=== PATIENT | male | born 1955 | race Caucasian/White ===

== ENCOUNTER 2016-11-08 10:44 | Day surgery (SDC) | payer OTHER ==
[2016-11-05 13:01] VITALS: BMI 40.8
[~2016-11-08 10:44] MED LIST: ALBUTEROL NEB (CONC) 2.5 MG/0.5 ML INHALATION ONE; LACTATED RINGERS 1,000 ML IV ONE; LACTATED RINGERS 1,000 ML IV SCH; LIDOCAINE 1% 20 ML VIAL (10MG/ML) FOR IV START INTRADERMA PRN; LIDOCAINE 2% (PF) 20 MG/ML 10ML INHALATION ONE
[2016-11-08] MEDS ORDERED: IV FLUID CONTINUATION 1,000 ML IV ONE (11:50)
[2016-11-08 11:52] VITALS: TEMP 98.6
[2016-11-08] MEDS ORDERED: KETAMINE 10 MG/ML 20 ML VIAL ONE (12:06)
[2016-11-08] MEDS ORDERED: PROPOFOL 10 MG/ML 20 ML VIAL IV ONE (12:06)
[2016-11-08] MEDS ORDERED: LIDOCAINE 1% INJ 10MG/ML (20 ML MDV) ONE (12:06)
[2016-11-08] MEDS ORDERED: LIDOCAINE 2% INJ 20 MG/ML INTRATRACH ONE (12:11)
[2016-11-08] MEDS ORDERED: LACTATED RINGERS 1,000 ML IV ONE (12:22)
--- NOTE | 2016-11-08 12:23 | P.PCN ---
Date of Procedure: 11/08/16 Preoperative Diagnosis: Recurrent COPD exacerbation, indeterminate mass abutting the right mainstem bronchus posteriorly measuring 2.5 cm in size suspicious for a bronchogenic cyst Postoperative Diagnosis: 1 tracheobronchomalacia 2 mass effect with some mild extrinsic compression of the proximal right upper lobe bronchus, posterior wall. The 3 segments of the right upper lobe are quite patent despite this anatomic compression. Procedure(s) Performed: Bronchoscopy with airway inspection and a bronchioloalveolar lavage Anesthesia: MAC Surgeon: Uma Ramsey [employer] Cafeter[employer] Manager #1: Maria Isabel Leach Estimated Blood Loss (ml): 0 Pathology: other Condition: stable Disposition: same day Indications for Procedure: Recurrent COPD exacerbation, abnormal CAT scan of the chest revealing a intermediate mass abutting the right mainstem bronchus posteriorly measuring 2.5 cm in size. Operative Findings: This procedure was done in the bronchoscopy suite. A timeout was obtained and a consent was signed. The patient was premedicated with a combination of Versed , ketamine, Diprivan and anesthetic agents was being given by anesthesia the bedside. After achieving adequate sedation, a flexible bronchoscope was inserted through the right nostril was advanced upper airway. Examination of posterior oropharynx larynx epiglottis and vocal cords was done. There was significant amount of adipose tissue circumferentially around the larynx and is significant anatomic crowding. Epiglottis was identified and was in the midline and following that I was able to visualize the 12th. Records which were symmetrical in the midline with full mobility and function. A total of 2 MO's of 1% lidocaine was applied to the vocal cords and following that the bronchoscope was advanced into the upper trachea. Examination of the tracheal bronchial tree was done. There was moderate degree of tracheal bronchomalacia throughout the patient's airways with some lucidity respiratory secretions scattered throughout the patient's trachea and bilateral mainstem bronchi and various segments of the lower lobe. Therapeutic suctioning was done and the airway inspection was completed. The visualized airways included the trachea, bilateral mainstem bronchi, right upper lobe bronchus, right middle lobe bronchus, right lower lobe bronchus, left upper lobe bronchus, left lower lobe bronchus lungs various segments and subsegments. At the level of the right upper lobe bronchus, there was some mild degree of anatomic compression which was an extensive compression affecting the posterior wall of the right upper lobe bronchus causing some narrowing of the posterior segment of the right upper lobe. Nevertheless, the orifice was open and a airway was patent. I was able to visualize the 3 segments of the right upper lobe without any major difficulties. The surface of the extrinsic compressed site was clean and there was no endobronchial irregularities or lesions identified. The rest of the airways were essentially within normal limits other than some moderate degree of tracheal bronchomalacia. The bronchoscope was then moved to the right middle lobe and the bronchioloalveolar lavage was done. A total of 100 mL of fluid was infused and 25 mL of bloody respiratory secretions was aspirated without any major difficulties. Bronchus cut was removed and the patient was transferred recovery in stable condition. Impression: likely a bronchogenic cysts causing some mild anatomic extrinsic compression of the posterior wall of the right upper lobe bronchus. There is no airway collapse or compromise at this point. Follow-up CAT scan will be needed in 4 months time in regards to this lesion.
[2016-11-08 13:51] VITALS: BP 160/86; PULSE 81; RESP 16
== END 2016-11-08 14:11 | disposition home or self-care (01) ==
LOC: ORWHC2ENDO 10:44
PROVIDERS: ATTEND Internal Medicine Critical Care Medicine
DX: R91.8 Other nonspecific abnormal finding of lung field (principal); J98.09 Other diseases of bronchus, not elsewhere classified; J44.9 Chronic obstructive pulmonary disease, unspecified; J39.8 Other specified diseases of upper respiratory tract; E66.9 Obesity, unspecified; Z68.41 Body mass index [BMI] 40.0-44.9, adult; I10 Essential (primary) hypertension; Z79.899 Other long term (current) drug therapy; Z79.51 Long term (current) use of inhaled steroids
CPT/HCPCS: 94640; 88108; 88305; 87070; 87205; 31624; J2001 ×3; J2704

== ENCOUNTER → 2018-01-06 | Outpatient (CLI) | payer MEDICAID ==
[2018-01-06 10:28] LABS: HCT 45.1 % (39.0-53.0); HGB 14.7 gm/dL (13.0-17.5); MCHC 32.6 g/dL (31.0-37.0); Mean Platelet Volume 6.6; Platelet Count 310 k/uL (150-450); RDW 13.5 % (11.5-15.5); WBC 8.5 k/uL (3.8-10.6)
[2018-01-06 10:29] LABS: INR 1.2 (<1.2); Prothrombin Time 11.1 sec (9.0-12.0)
[2018-01-06 10:46] LABS: Anion Gap 9 mmol/L; Blood Urea Nitrogen 19 mg/dL (9-20); Calcium 9.5 mg/dL (8.4-10.2); Carbon Dioxide 31 mmol/L (22-30); Chloride 99 mmol/L (98-107); Glucose 100 mg/dL (74-99); Magnesium 2.1 mg/dL (1.6-2.3); Potassium 4.9 mmol/L (3.5-5.1); Sodium 139 mmol/L (137-145)
== END | disposition home or self-care (01) ==
LOC: LABWHC1 09:36
PROVIDERS: ATTEND Internal Medicine Interventional Cardiology
DX: I25.118 Atherosclerotic heart disease of native coronary artery with other forms of angina pectoris (principal)
CPT/HCPCS: 36415; 80048; 83735; 85027; 85610

== ENCOUNTER → 2018-01-08 | Outpatient (CLI) | payer MEDICAID ==
[2018-01-08 10:19] LABS: ALT 36 U/L (21-72); AST 24 U/L (17-59); Cholesterol 163 mg/dL (<200); HDL Cholesterol 58 mg/dL (40-60); LDL Cholesterol,Calculated 81 mg/dL (0-99); Triglycerides 122 mg/dL (<150)
== END | disposition home or self-care (01) ==
LOC: LABWHC1 09:19
PROVIDERS: ATTEND Internal Medicine Interventional Cardiology
DX: E78.2 Mixed hyperlipidemia (principal)
CPT/HCPCS: 36415; 80061; 84450; 84460

== ENCOUNTER → 2018-05-30 | Outpatient (CLI) | payer MEDICAID ==
[2018-05-30 09:18] LABS: ALT 41 U/L (21-72); AST 23 U/L (17-59); Alkaline Phosphatase 73 U/L (38-126); Anion Gap 8 mmol/L; Blood Urea Nitrogen 16 mg/dL (9-20); Calcium 9.1 mg/dL (8.4-10.2); Carbon Dioxide 32 mmol/L (22-30); Chloride 104 mmol/L (98-107); Cholesterol 148 mg/dL (<200); Glucose 99 mg/dL (74-99); HDL Cholesterol 48 mg/dL (40-60); LDL Cholesterol,Calculated 81 mg/dL (0-99); Potassium 5.5 mmol/L (3.5-5.1); Sodium 144 mmol/L (137-145); Total Bilirubin 0.5 mg/dL (0.2-1.3); Total Protein 6.9 g/dL (6.3-8.2); Triglycerides 96 mg/dL (<150)
== END | disposition home or self-care (01) ==
LOC: LABWHC1 08:34
PROVIDERS: ATTEND Internal Medicine Interventional Cardiology
DX: E78.2 Mixed hyperlipidemia (principal)
CPT/HCPCS: 36415; 80053; 80061

== ENCOUNTER → 2018-09-29 | Outpatient (CLI) | payer MEDICARE ==
[2018-09-29 17:35] LABS: Albumin 4.7 g/dL (3.80-4.90); Albumin/Globulin Ratio 2.35 (1.20-2.10); Anion Gap 10.9 mmol/L (4.00-12.00); Calcium 9.3 mg/dL (8.7-10.3); Carbon Dioxide 30.1 mmol/L (21.6-31.8); LDL Cholesterol,Calculated 110.8 mg/dL (0.0-131.0); Potassium 5.2 mmol/L (3.5-5.5); Total Bilirubin 0.4 mg/dL (0.3-1.2); Total Protein 6.7 g/dL (6.2-8.2); VLDL Calculation 24.2 mg/dL (5.00-40.00)
== END ==
LOC: LABWHC1 09:16
PROVIDERS: ATTEND Internal Medicine Interventional Cardiology
DX: E78.2 Mixed hyperlipidemia (principal)
CPT/HCPCS: 36415; 80053; 80061

== ENCOUNTER → 2018-11-04 | Outpatient (CLI) | payer MEDICARE ==
[2018-11-04 17:24] LABS: Albumin 4.2 g/dL (3.80-4.90); Albumin/Globulin Ratio 2.1 (1.60-3.17); Anion Gap 7.9 mmol/L (4.00-12.00); Calcium 9.2 mg/dL (8.7-10.3); Carbon Dioxide 30.1 mmol/L (21.6-31.8); LDL Cholesterol,Calculated 80.2 mg/dL (0.0-131.0); Potassium 4.8 mmol/L (3.5-5.5); Total Bilirubin 0.4 mg/dL (0.2-1.2); Total Protein 6.2 g/dL (6.2-8.2); VLDL Calculation 30.8 mg/dL (5.00-40.00)
== END | disposition home or self-care (01) ==
LOC: LABWHC1 08:05
PROVIDERS: ATTEND Internal Medicine Interventional Cardiology
DX: E78.2 Mixed hyperlipidemia (principal)
CPT/HCPCS: 36415; 80053; 80061

== ENCOUNTER → 2018-11-19 | Outpatient (CLI) | payer MEDICARE ==
[2018-11-19 08:37] LABS: HCT 42.8 % (39.0-53.0); HGB 14.2 gm/dL (13.0-17.5); MCH 33.2 pg (25.0-35.0); MCHC 33.3 g/dL (31.0-37.0); MCV 99.9 fL (80.0-100.0); Mean Platelet Volume 6.5; Platelet Count 311 k/uL (150-450); RBC 4.29 m/uL (4.30-5.90); RDW 13.2 % (11.5-15.5); WBC 6.9 k/uL (3.8-10.6)
== END ==
LOC: LABWHC1 08:10
PROVIDERS: ATTEND Internal Medicine Interventional Cardiology
DX: Z01.812 Encounter for preprocedural laboratory examination (principal); I10 Essential (primary) hypertension; I25.5 Ischemic cardiomyopathy
CPT/HCPCS: 36415; 85027

== ENCOUNTER 2018-11-26 08:56 | Day surgery (SDC) | payer MEDICARE ==
[~2018-11-26 08:56] MED LIST changes: -ALBUTEROL NEB (CONC) 2.5 MG/0.5 ML INHALATION ONE; +ALPRAZolam 0.25 MG TAB PO PRN; +ALPRAZolam 0.5 MG TAB PO PRN; +ASPIRIN 325 MG TAB PO STA; +ATORVASTATIN 80 MG TAB PO STA; -LACTATED RINGERS 1,000 ML IV ONE; -LACTATED RINGERS 1,000 ML IV SCH; -LIDOCAINE 1% 20 ML VIAL (10MG/ML) FOR IV START INTRADERMA PRN; -LIDOCAINE 2% (PF) 20 MG/ML 10ML INHALATION ONE; +NITROGLYCERIN SL TABS 0.4 MG TAB SUBLINGUAL PRN; +SODIUM CHLORIDE 0.9% 1,000 ML in EMPTY BAG 1 BAG IV ONE
[2018-11-26] MEDS ORDERED: ASPIRIN 81 MG ONE (09:44)
[2018-11-26] MEDS ORDERED: VERAPAMIL 2.5 MG/ML 2 ML AMP ONE (10:45)
[2018-11-26] MEDS ORDERED: HEPARIN SODIUM 1,000 UN/ML (10ML VL) ONE (10:46)
[2018-11-26] MEDS ORDERED: LIDOCAINE 1% INJ 10MG/ML (20 ML MDV) ONE (10:46)
[2018-11-26] MEDS ORDERED: fentaNYL (PF) 50 MCG/ML 2 ML AMP ONE (10:46)
[2018-11-26] MEDS ORDERED: fentaNYL (PF) 50 MCG/ML 2 ML AMP IV ONE (10:50)
[2018-11-26] MEDS ORDERED: LIDOCAINE 1% INJ 10MG/ML (20 ML MDV) SQ ONE (10:53)
[2018-11-26] MEDS ORDERED: VERAPAMIL SYRINGE (5 MG/10 ML) INTRAARTER ONE (10:56)
[2018-11-26] MEDS ORDERED: BIVALIRUDIN BOLUS 250 MG/50 ML IV ONE (11:08)
[2018-11-26] MEDS ORDERED: BIVALIRUDIN 250 MG in SODIUM CHLORIDE 0.9% 50 ML IV ONE (11:12)
[2018-11-26] MEDS ORDERED: IOPAMIDOL-370 125ML BTL INJ ONE (11:27)
[2018-11-26] MEDS ORDERED: IOPAMIDOL-370 100ML BTL INJ ONE (11:32)
[2018-11-26] MEDS ORDERED: MAG HYDROX/AL HYDROX/SIMETH 30 ML CUP PO PRN (11:51)
[2018-11-26] MEDS ORDERED: ATROPINE SULFATE 0.1 MG/ML 10ML SYRINGE IV PRN (11:51)
[2018-11-26] MEDS ORDERED: ZOLPIDEM 5 MG TAB PO PRN (11:51)
[2018-11-26] MEDS ORDERED: NITROGLYCERIN SL TABS 0.4 MG TAB SUBLINGUAL PRN (11:51)
[2018-11-26] MEDS ORDERED: RX INFO: IV CONTRAST WAS GIVEN 1 EACH MISC MISCELLANE PRN (11:51)
[2018-11-26] MEDS ORDERED: IPRATROPIUM-ALBUTEROL 3 ML NEB INHALATION PRN (11:53)
[2018-11-26] MEDS ORDERED: ALBUTEROL INHALER 60 PUFF/8 GM INHALER INHALATION PRN (11:53)
[2018-11-26] MEDS ORDERED: SODIUM CHLORIDE 0.9% 1,000 ML IV SCH (12:00)
--- NOTE | 2018-11-26 12:02 | CC ---
CARDIAC CATHETERIZATION REPORT Mr. Moreira is a 63-year-old male with a known history of coronary artery disease, status post stenting of the LAD and left circumflex done in September and January of 2018 at [facility], who recently has been complaining of dyspnea and had an abnormal myocardial perfusion imaging with evidence of cardiomyopathy with worsening left ventricular systolic function as well as evidence of inducible ischemia as well as a defect involving the inferoapical lateral wall. In view of that, recommendation made regarding cardiac catheterization. The procedures, risks and complication were discussed with the patient who is in full understanding and agreement. PROCEDURE: Patient was brought to the dentures lab technician in a fasting semi-sedated state after receiving fentanyl and Benadryl. He was draped and prepped in conventional fashion using Xylocaine anesthesia, a 6-Macedonian sheath was introduced in the right radial artery. Selective right and left coronary angiography were performed using 5-Macedonian 3.5 bend right and left Estefania catheter and multiple views of the coronary artery including hemiaxial views were obtained. Following that, angioplasty and stenting was performed following that, a 5-Macedonian tight pigtail catheter was introduced into the left ventricle and a 30 degree ADAMS view of the left ventricle was obtained. Following that, catheter and sheath were removed. Hemostasis was obtained with deployment of a TR band. There was no immediate complication. Patient is returned to his room in stable condition. FINDINGS: LEFT MAIN: This is a large-sized vessel bifurcating into left circumflex, left anterior descending artery. The left main coronary artery has no evidence of high- grade stenosis. LEFT ANTERIOR DESCENDING ARTERY: This is a large-sized vessel, reaching toward the apex with a wraparound apex segment. There is a long stented segment in the proximal mid LAD that is patent. There is mild intimal restenoses of 10% to 20% without any evidence of high-grade stenosis. LEFT CIRCUMFLEX: This is a large nondominant vessel, giving rise to a large obtuse marginal branch. The obtuse marginal branch is stented and prior to the stent there is about a 70% plaque. The rest of the vessel has no high-grade stenosis. RIGHT CORONARY ARTERY: This is a dominant vessel, large in caliber, bifurcating distally into PDA and posterolateral segment and branches. The right coronary artery in the mid segment has mild disease of 30%. The rest of the vessel has no high-grade stenosis. LEFT VENTRICULOGRAM: Left ventriculogram was performed in 30 degree ADAMS view and revealed global hypokinesis, more noted in the inferior wall. The ejection fraction was estimated at 35%-40%. There was arrhythmia induced mitral regurgitation. HEMODYNAMICS: There was no gradient across the aortic valve. The left ventricular end-diastolic pressure was 20 to 24 mmHg. CONCLUSION: 1. Significant stenosis involving the proximal left circumflex, proximal to the stented segment. 2. Mild disease in the LAD and moderate disease in the right coronary artery. 3. Moderate to severely impaired left ventricular systolic function. RECOMMENDATION: In view of finding anatomy, I recommend proceeding with angioplasty and stenting of the left circumflex. The procedures, risks and complication were discussed with the patient who is in full understanding and agreement. MMODL / IJN: [id number] /
--- NOTE | 2018-11-26 12:08 | PTCA ---
PERCUTANEOUSTRANS CORORONARY ANGIOGRAPHY Mr. Moreira is a 63-year-old male with known history of coronary artery disease who had a progressive dyspnea and abnormal myocardial perfusion imaging, underwent cardiac catheterization, was found critical stenosis involving the left circumflex proximal to the prior stented segment. In view of that, recommendation was made regarding angioplasty and stenting. The procedures, risks, and complication were discussed with the patient who is in full understanding and agreement. PROCEDURE: A 6-Lao FL 3.5 guiding catheter was introduced into the system and was unable to cannulate the left main in a good positioning. At that point, the catheter was removed and a 6-Lao EBU 3.75 guiding catheter introduced into the system. After cannulating the left main, a 0.014 balanced medium weight J-wire was advanced across the lesion, positioned distal obtuse marginal branch. Following that, a 3.0 x 12 mm Xience Nicky stent was deployed, post-dilated at 16 atmospheres. Following that, the balloon was removed and a 3.5 x 12 mm NC Trek balloon was advanced and one inflation at 12 atmospheres was done. After the last inflation, after appropriate wait, the balloon and the guidewire wire withdrawn back in the guiding catheter. Images were obtained and repeated. Those images reveal stable successful stenting. At that point, the guiding catheter, the balloon and the guidewire were removed and a left ventriculogram was performed. Following that, the catheter and sheath were removed. Hemostasis was obtained with deployment of a TR band. There was no immediate complication. Patient returned to his room in stable condition. Of note, patient had no significant chest pain or EKG changes with the inflation. He received Angiomax per protocol as well as continued on Brilinta. RESULTS: Successful stenting of the proximal left circumflex with reduction of stenosis from 70% to 0%. RECOMMENDATION: Patient will be continued on aspirin, Brilinta, beta nnamdi, KRISTOPHER inhibitor and statin. The importance of dual antiplatelet treatment were discussed with the patient and his family who are in full understanding and agreement. Duration of the procedure is 47 minutes. MMODL / IJN: [id number] /
--- NOTE | 2018-11-26 12:14 | LTR ---
Date of Service: 11/26/2018 RE: Naveen Moreira Dear Dr. Ramsey; I had the pleasure to perform cardiac catheterization including angioplasty and stenting on Mr. Moreira at [facility] on November 26, 2018 and a full copy of the procedure note will be forwarded to you. In brief, he underwent successful stenting of his proximal left circumflex, proximal to the prior stented segment. I am hopeful that this procedure will stabilize his status and I will keep you updated on his progress and thank you again for allowing me to participate in this patient's care. Please feel free to call for any questions. Sincerely yours, MD ABHILASH PruittL / PIAN: [id number] /
[2018-11-26] MEDS ORDERED: ACETAMINOPHEN TAB 325 MG TAB PO PRN (16:24)
[2018-11-26] MEDS: METOPROLOL TARTRATE 25 MG TAB PO SCH (20:01)
[2018-11-26] MEDS: TICAGRELOR 90 MG TAB PO SCH (20:01)
[2018-11-26] MEDS: SYMBICORT 160-4.5 MCG INHALER INHALATION SCH (20:25)
[2018-11-27 06:42] LABS: Anion Gap 4 mmol/L; Blood Urea Nitrogen 14 mg/dL (9-20); Carbon Dioxide 29 mmol/L (22-30); Chloride 106 mmol/L (98-107); Glucose 95 mg/dL (74-99); Potassium 4.4 mmol/L (3.5-5.1); Sodium 139 mmol/L (137-145)
[2018-11-27] MEDS: SYMBICORT 160-4.5 MCG INHALER INHALATION SCH (07:25)
[2018-11-27] MEDS ORDERED: IPRATROPIUM 0.5 MG/2.5 ML NEBU INHALATION SCH (08:00)
[2018-11-27 08:52] VITALS: BP 124/66; PULSE 86; RESP 16; TEMP 97.7
[2018-11-27] MEDS: TICAGRELOR 90 MG TAB PO SCH (08:56)
[2018-11-27] MEDS: METOPROLOL TARTRATE 25 MG TAB PO SCH (08:56)
[2018-11-27] MEDS ORDERED: ASPIRIN 81 MG PO SCH (09:00)
[2018-11-27] MEDS ORDERED: ATORVASTATIN 80 MG TAB PO SCH (09:00)
[2018-11-27] MEDS ORDERED: ASCORBIC ACID 500 MG TAB PO SCH (09:00)
[2018-11-27] MEDS ORDERED: LISINOPRIL 2.5 MG TAB PO SCH (09:00)
[2018-11-27] MEDS ORDERED: CYANOCOBALAMIN 500 MCG TAB PO SCH (09:00)
--- NOTE | 2018-11-27 11:14 | PN ---
PROGRESS NOTE Mr. Moreira is a 63-year-old male with known history of severe obstructive lung disease, severe cardiomyopathy, history of coronary artery disease, who presented with an abnormal myocardial perfusion imaging, was found to have a significant stenosis in the left circumflex prior to the stented segment. He underwent stenting yesterday. He is feeling better today. His breathing is better he is ambulating without difficulty. Denying any chest pain. Denies any dizziness, palpitation. Denies any nausea. He continues to be on aspirin once a day, Lipitor 80 mg daily, lisinopril 2.5 mg daily, metoprolol tartrate 25 mg twice a day, and Brilinta 90 mg twice a day. PHYSICAL EXAMINATION: Blood pressure 124/60 with a heart rate in the 90s. LUNGS: Clear with scattered wheezes. HEART: Regular rate and rhythm, S1, S2. No S3 with systolic murmur, no diastolic murmur. ABDOMEN: Soft, obese, nontender. EXTREMITIES: No edema, right radial pulse intact. EKG revealed no acute changes. LAB DATA: Revealed BUN and creatinine 14 and 0.86, potassium 4.4. IMPRESSION: 1. Status post stenting of the left circumflex, stable. 2. Hypertension. 3. Hyperlipidemia. 4. Chronic obstructive lung disease. 5. Cardiomyopathy. RECOMMENDATION: From the cardiac standpoint, he should be able to be discharged home today and followed as an outpatient. Depending on his progress, further recommendation will be made. MMODL / IJN: [id number] /
[2018-11-27 11:25] VITALS: BMI 42.3
== END 2018-11-27 11:15 | disposition home or self-care (01) ==
LOC: CATHCVL 08:56 → 3SCARD 14:59 → CATHCVL 11-27 11:15
PROVIDERS: ATTEND Internal Medicine Interventional Cardiology
DX: I25.10 Atherosclerotic heart disease of native coronary artery without angina pectoris (principal); I25.5 Ischemic cardiomyopathy; I10 Essential (primary) hypertension; E78.2 Mixed hyperlipidemia; R94.39 Abnormal result of other cardiovascular function study; J44.9 Chronic obstructive pulmonary disease, unspecified; I25.2 Old myocardial infarction; Z79.02 Long term (current) use of antithrombotics/antiplatelets; Z79.82 Long term (current) use of aspirin; Z79.899 Other long term (current) drug therapy; Z87.891 Personal history of nicotine dependence; Z82.49 Family history of ischemic heart disease and other diseases of the circulatory system; Z95.5 Presence of coronary angioplasty implant and graft; Z79.51 Long term (current) use of inhaled steroids
CPT/HCPCS: 94640 ×3; 93458; 85347; 80048; C9600; C1769 ×2; C1887 ×2; C1894; C1725; C1874; J2001; J3010; J0583; Q9967 ×2

== ENCOUNTER → 2019-02-11 | Outpatient (CLI) | payer MEDICARE ==
[2019-02-11 16:39] LABS: Albumin 4.5 g/dL (3.80-4.90); Albumin/Globulin Ratio 2.14 (1.60-3.17); Anion Gap 8.7 mmol/L (4.00-12.00); Carbon Dioxide 28.3 mmol/L (21.6-31.8); Globulin 2.1 g/dL (1.6-3.3); LDL Cholesterol,Calculated 82.4 mg/dL (0.0-131.0); Potassium 4.6 mmol/L (3.5-5.5); Total Bilirubin 0.5 mg/dL (0.2-1.2); Total Protein 6.6 g/dL (6.2-8.2); VLDL Calculation 20.6 mg/dL (5.00-40.00)
== END | disposition home or self-care (01) ==
LOC: LABWHC1 08:07
PROVIDERS: ATTEND Internal Medicine Interventional Cardiology
DX: I25.5 Ischemic cardiomyopathy (principal); E78.2 Mixed hyperlipidemia
CPT/HCPCS: 36415; 80053; 80061

== ENCOUNTER 2019-03-01 20:18 | Inpatient (IN) | payer MEDICARE ==
--- NOTE | 2019-03-01 20:32 | ED ---
General Adult HPI - General Chief complaint: Chest Pain Stated complaint: Chest pain Time Seen by Provider: 03/01/19 20:31 Source: patient Mode of arrival: wheelchair - History of Present Illness Initial comments: Dictation was produced using [employer] dictation software. please excuse any grammatical, word or spelling errors. Chief Complaint: 63-year-old male with COPD and hypertension presents with worsening shortness of breath and chest pain. History of Present Illness: Patient is a 63-year-old male with past medical history of COPD hypertension and coronary artery disease. He presents today with 1 day of worsening shortness of breath. Patient has history of COPD however he feels like shortness of breath is worse. She does have some mild sharp chest pain to his left anterior chest that is worse with coughing. Patient denies any fever, chills or night sweats. Did report a small URI versus sinus drainage over the last 2-3 days. Denies any overt sick contacts. Patient's concerned today because he feels that he might have worsening coronary artery disease The ROS documented in this emergency department record has been reviewed and confirmed by me. Those systems with pertinent positive or negative responses have been documented in the HPI. All other systems are other negative and/or noncontributory. PHYSICAL EXAM: General Impression: Alert and oriented x3, not in acute distress HEENT: Normocephalic atraumatic, extra-ocular movements intact, pupils equal and reactive to light bilaterally, mucous membranes moist. Cardiovascular: Heart regular rate and rhythm, S1&S2 audible, no murmurs, rubs or gallops Chest: Diffuse wheezing Abdomen: Bowel sounds present, abdomen soft, non-tender, non-distended, no organ omegaly Musculoskeletal: Pulses present and equal in all extremities, no peripheral edema Motor: no focal deficits noted Neurological: CN II-XII grossly intact, no focal motor or sensory deficits noted Skin: Intact with no visualized rashes Psych: Normal affect and mood ED course:63-year-old male clinical presentation consistent with atypical chest pain. his Shortness of breath however is a little bit more worrisome given that he feels short of breath however has history of COPD. Vital signs upon arrival are within acceptable limits. States his COPD feels at baseline but showing signs of respiratory distress. Given patient's extensive history of coronary artery disease or shortness of breath can be seen as an ACS equivalent symptoms. EKG interpretation: Ventricular rate 100, sinus rhythm,. 140, care is 86, QTC 451. No NJ prolongation, no QTC prolongation, no ST or T-wave changes noted. Overall, this EKG is unremarkable - Related Data Home Medications Medication Instructions Recorded Confirmed Budesonide-Formot 160-4.5 Mcg 2 puff INHALATION RT-BID 11/05/16 03/01/19 [Symbicort 160-4.5 Mcg Inhaler] Tiotropium [place] [Spiriva] 1 cap INHALATION RT-DAILY 11/05/16 03/01/19 Albuterol Sulfate [Proair Hfa] 2 puff INHALATION RT-QID PRN 11/20/18 03/01/19 Aspirin [Adult Low Dose Aspirin EC] 81 mg PO DAILY 11/20/18 03/01/19 Atorvastatin [Lipitor] 80 mg PO DAILY 11/20/18 03/01/19 Furosemide [Lasix] 20 mg PO DAILY PRN 11/20/18 03/01/19 Ipratropium-Albuterol Nebulize 3 ml INHALATION RT-QID PRN 11/20/18 03/01/19 [Duoneb 0.5 mg-3 mg/3 ml Soln] Lisinopril [Zestril] 2.5 mg PO DAILY 11/20/18 03/01/19 Metoprolol Tartrate [Lopressor] 25 mg PO BID 11/20/18 03/01/19 Potassium Chloride 10 meq PO DAILY PRN 11/20/18 03/01/19 Ticagrelor [Brilinta] 90 mg PO BID 11/20/18 03/01/19 Allergies Allergy/AdvReac Type Severity Reaction Status Date / Time No Known Allergies Allergy Verified 03/01/19 21:14 Review of Systems ROS Statement: Those systems with pertinent positive or pertinent negative responses have been documented in the HPI. ROS Other: All systems not noted in ROS Statement are negative. Past Medical History Past Medical History: COPD, Hypertension Additional Past Medical History / Comment(s): states had CT possible bronchial c yst History of Any Multi-Drug Resistant Organisms: None Reported Past Surgical History: No Surgical Hx Reported Past Anesthesia/Blood Transfusion Reactions: No Reported Reaction Additional Past Anesthesia/Blood Transfusion Reaction / Comment(s): states has not had anesthesia Past Psychological History: No Psychological Hx Reported Past Alcohol Use History: None Reported - Past Family History Brother(s) Family Medical History: CVA/TIA Father Family Medical History: Diabetes Mellitus, Myocardial Infarction (ID) Mother Family Medical History: No Reported History Course Vital Signs 03/01/19 03/01/19 03/01/19 20:21 20:58 21:09 Temperature 98.5 F Pulse Rate 82 97 98 Respiratory 20 Rate Blood Pressure 131/74 O2 Sat by Pulse 95 Oximetry Medical Decision Making - Lab Data Result diagrams: 03/01/19 20:35 03/01/19 20:35 Lab Results 03/01/19 03/01/19 03/01/19 Range/Units 20:35 20:35 20:35 WBC 9.2 (3.8-10.6) k/uL RBC 4.51 (4.30-5.90) m/uL Hgb 14.3 (13.0-17.5) gm/dL Hct 44.5 (39.0-53.0) % MCV 98.5 (80.0-100.0) fL MCH 31.7 (25.0-35.0) pg MCHC 32.1 (31.0-37.0) g/dL RDW 14.7 (11.5-15.5) % Plt Count 305 (150-450) k/uL Neutrophils % 70 % Lymphocytes % 20 % Monocytes % 6 % Eosinophils % 1 % Basophils % 1 % Neutrophils # 6.5 (1.3-7.7) k/uL Lymphocytes # 1.8 (1.0-4.8) k/uL Monocytes # 0.6 (0-1.0) k/uL Eosinophils # 0.1 (0-0.7) k/uL Basophils # 0.1 (0-0.2) k/uL PT (9.0-12.0) sec INR (<1.2) APTT (22.0-30.0) sec Sodium 143 (137-145) mmol/L Potassium 4.4 (3.5-5.1) mmol/L Chloride 106 (98-107) mmol/L Carbon Dioxide 28 (22-30) mmol/L Anion Gap 9 mmol/L BUN 21 H (9-20) mg/dL Creatinine 0.92 (0.66-1.25) mg/dL Est GFR (CKD-EPI)AfAm >90 (>60 ml/min/1.73 sqM) Est GFR (CKD-EPI)NonAf 87 (>60 ml/min/1.73 sqM) Glucose 114 H (74-99) mg/dL Calcium 9.4 (8.4-10.2) mg/dL Magnesium 1.9 (1.6-2.3) mg/dL Total Bilirubin 0.3 (0.2-1.3) mg/dL AST 33 (17-59) U/L ALT 41 (21-72) U/L Alkaline Phosphatase 90 (38-126) U/L Troponin I (0.000-0.034) ng/mL NT-Pro-B Natriuret Pep 417 pg/mL Total Protein 6.9 (6.3-8.2) g/dL Albumin 4.3 (3.5-5.0) g/dL 03/01/19 03/01/19 Range/Units 20:35 20:35 WBC (3.8-10.6) k/uL RBC (4.30-5.90) m/uL Hgb (13.0-17.5) gm/dL Hct (39.0-53.0) % MCV (80.0-100.0) fL MCH (25.0-35.0) pg MCHC (31.0-37.0) g/dL RDW (11.5-15.5) % Plt Count (150-450) k/uL Neutrophils % % Lymphocytes % % Monocytes % % Eosinophils % % Basophils % % Neutrophils # (1.3-7.7) k/uL Lymphocytes # (1.0-4.8) k/uL Monocytes # (0-1.0) k/uL Eosinophils # (0-0.7) k/uL Basophils # (0-0.2) k/uL PT 10.1 (9.0-12.0) sec INR 0.9 (<1.2) APTT 24.6 (22.0-30.0) sec Sodium (137-145) mmol/L Potassium (3.5-5.1) mmol/L Chloride (98-107) mmol/L Carbon Dioxide (22-30) mmol/L Anion Gap mmol/L BUN (9-20) mg/dL Creatinine (0.66-1.25) mg/dL Est GFR (CKD-EPI)AfAm (>60 ml/min/1.73 sqM) Est GFR (CKD-EPI)NonAf (>60 ml/min/1.73 sqM) Glucose (74-99) mg/dL Calcium (8.4-10.2) mg/dL Magnesium (1.6-2.3) mg/dL Total Bilirubin (0.2-1.3) mg/dL AST (17-59) U/L ALT (21-72) U/L Alkaline Phosphatase (38-126) U/L Troponin I 0.013 (0.000-0.034) ng/mL NT-Pro-B Natriuret Pep pg/mL Total Protein (6.3-8.2) g/dL Albumin (3.5-5.0) g/dL Disposition Clinical Impression: Dyspnea Disposition: ADMITTED IP TO THIS [facility] Condition: Fair Referrals: Uma Ramsey MD [Primary Care Provider] - 1-2 days Decision Time: 22:44
[2019-03-01] MEDS ORDERED: ASPIRIN 81 MG PO STA (20:48)
[2019-03-01] MEDS ORDERED: ALBUTEROL NEBULIZED 2.5 MG/3 ML INHALATION STA (20:49)
[2019-03-01] MEDS ORDERED: DEXAMETHASONE SOD PHOSPHATE 10 MG/ML 1 ML VIAL IV STA (20:49)
[2019-03-01] MEDS ORDERED: IPRATROPIUM 0.5 MG/2.5 ML NEBU INHALATION STA (20:49)
[2019-03-01 21:13] LABS: Basophils # (A) 0.1 k/uL (0-0.2); Basophils % (A) 1 %; Eosinophils # (A) 0.1 k/uL (0-0.7); Eosinophils % (A) 1 %; HCT 44.5 % (39.0-53.0); HGB 14.3 gm/dL (13.0-17.5); Lymphocytes # (A) 1.8 k/uL (1.0-4.8); Lymphocytes % (A) 20 %; MCH 31.7 pg (25.0-35.0); MCHC 32.1 g/dL (31.0-37.0); MCV 98.5 fL (80.0-100.0); Mean Platelet Volume 6.7; Monocytes # (A) 0.6 k/uL (0-1.0); Monocytes % (A) 6 %; Neutrophils # (A) 6.5 k/uL (1.3-7.7); Neutrophils % (A) 70 %; Platelet Count 305 k/uL (150-450); RBC 4.51 m/uL (4.30-5.90); RDW 14.7 % (11.5-15.5); WBC 9.2 k/uL (3.8-10.6)
[2019-03-01 21:24] LABS: INR 0.9 (<1.2); Partial Thromboplastin Time 24.6 sec (22.0-30.0); Prothrombin Time 10.1 sec (9.0-12.0)
[2019-03-01 21:28] LABS: ALT 41 U/L (21-72); AST 33 U/L (17-59); African American GFR (CKD) >90 (>60 ml/min/1.73 sqM); Albumin 4.3 g/dL (3.5-5.0); Alkaline Phosphatase 90 U/L (38-126); Anion Gap 9 mmol/L; Blood Urea Nitrogen 21 mg/dL (9-20); Calcium 9.4 mg/dL (8.4-10.2); Carbon Dioxide 28 mmol/L (22-30); Chloride 106 mmol/L (98-107); Glucose 114 mg/dL (74-99); Magnesium 1.9 mg/dL (1.6-2.3); Potassium 4.4 mmol/L (3.5-5.1); Sodium 143 mmol/L (137-145); Total Bilirubin 0.3 mg/dL (0.2-1.3); Total Protein 6.9 g/dL (6.3-8.2)
--- NOTE | 2019-03-01 21:29 | XR ---
EXAMINATION TYPE: XR chest 2V DATE OF EXAM: 03/01/2019 COMPARISON: Outside clinical chest x-ray October 30, 2017 HISTORY: History of COPD and hypertension with chest pain. TECHNIQUE: Frontal and lateral views of the chest are obtained. FINDINGS: There is chronic parenchymal changes bilaterally without suspicious focal air space opacit y, pleural effusion, or pneumothorax seen. Eventration of hemidiaphragms is redemonstrated. The card iac silhouette size is stable and mildly enlarged. The osseous structures are intact. IMPRESSION: Chronic parenchymal changes and mild cardiomegaly without acute pulmonary process.
[2019-03-01] MEDS ORDERED: NITROGLYCERIN SL TABS 0.4 MG TAB SUBLINGUAL PRN (22:39)
[2019-03-01] MEDS ORDERED: IPRATROPIUM-ALBUTEROL 3 ML NEB INHALATION SCH (22:45)
[2019-03-01 23:18] VITALS: RESP 18
[2019-03-01] MEDS ORDERED: IPRATROPIUM-ALBUTEROL 3 ML NEB INHALATION PRN (23:53)
[2019-03-02 01:33] LABS: Cholesterol 169 mg/dL (<200); HDL Cholesterol 48 mg/dL (40-60); LDL Cholesterol,Calculated 58 mg/dL (0-99); Triglycerides 316 mg/dL (<150)
[2019-03-02] MEDS ORDERED: ASPIRIN 325 MG TAB PO SCH (09:00)
[2019-03-02] MEDS: IPRATROPIUM-ALBUTEROL 3 ML NEB INHALATION SCH ×4 (09:37→19:52)
--- NOTE | 2019-03-02 09:37 | P.CRDCN ---
History of Present Illness Consult date: 03/02/19 Requesting physician: Shaquille Valladares Consult reason: chest pain Chief complaint: Chest pain History of present illness: Is is a pleasant 63-year-old gentleman with known history of coronary artery disease, status post stenting of the LAD and circumflex in September and January 2018 at [facility], who had been having symptoms of exertional dyspnea, had an abnormal myocardial perfusion imaging and was recommended to undergo cardiac catheterization in November of this year. He was found to have significant stenosis involving the proximal left circumflex, proximal to the stented segment, mild disease in the LAD and moderate disease in the RCA with moderately to severe left ventricular systolic function. Subsequent to that patient did undergo successful stenting of the proximal circumflex. Patient also has documented history of COPD, hyperlipidemia, hypertension He presents to the hospital now on this occasion with symptoms of sharp chest pain which has been going off and on for the past day or so. He has also noticed over the past week or 2 to have again symptoms of exertional dyspnea. Patient has been dealing with an upper respiratory infection as an outpatient and has been on 2 courses of antibiotics with no significant improvement in symptoms. He does feel himself wheezing a significant amount. At the time of my examination this morning he is currently chest pain-free. Blood cell count is normal, hemoglobin 14.3, platelet count 305. Sodium 143, potassium 4.4, BUN 21 and creatinine 0.9, magnesium 1.9. Troponins 0.013, 0.012, 0.012. BNP level 417. Blood pressure this morning 140/80 with a heart rate in the 60s, 97% on Past Medical History Past Medical History: Chest Pain / Angina, COPD, Hypertension Additional Past Medical History / Comment(s): states had CT possible bronchial cyst History of Any Multi-Drug Resistant Organisms: None Reported Past Surgical History: No Surgical Hx Reported, Heart Catheterization, Heart Catheterization With Stent Past Anesthesia/Blood Transfusion Reactions: No Reported Reaction Additional Past Anesthesia/Blood Transfusion Reaction / Comment(s): states has not had anesthesia Date of Last Stent Placement:: 12/02 Past Psychological History: No Psychological Hx Reported Smoking Status: Former smoker Past Alcohol Use History: None Reported Additional Past Alcohol Use History / Comment(s): smoker from age [age] 1 ppd quit Past Drug Use History: None Reported - Past Family History Brother(s) Family Medical History: CVA/TIA Father Family Medical History: Diabetes Mellitus, Myocardial Infarction ([place]) Mother Family Medical History: No Reported History Medications and Allergies Home Medications Medication Instructions Recorded Confirmed Type Budesonide-Formot 160-4.5 Mcg 2 puff INHALATION RT-BID 11/05/16 03/01/19 History [Symbicort 160-4.5 Mcg Inhaler] Tiotropium [place] [Spiriva] 1 cap INHALATION RT-DAILY 11/05/16 03/01/19 History Albuterol Sulfate [Proair Hfa] 2 puff INHALATION RT-QID PRN 11/20/18 03/01/19 History Aspirin [Adult Low Dose Aspirin EC] 81 mg PO DAILY 11/20/18 03/01/19 History Atorvastatin [Lipitor] 80 mg PO DAILY 11/20/18 03/01/19 History Furosemide [Lasix] 20 mg PO DAILY PRN 11/20/18 03/01/19 History Ipratropium-Albuterol Nebulize 3 ml INHALATION RT-QID PRN 11/20/18 03/01/19 History [Duoneb 0.5 mg-3 mg/3 ml Soln] Lisinopril [Zestril] 2.5 mg PO DAILY 11/20/18 03/01/19 History Metoprolol Tartrate [Lopressor] 25 mg PO BID 11/20/18 03/01/19 History Potassium Chloride 10 meq PO DAILY PRN 11/20/18 03/01/19 History Ticagrelor [Brilinta] 90 mg PO BID 11/20/18 03/01/19 History Allergies Allergy/AdvReac Type Severity Reaction Status Date / Time No Known Allergies Allergy Verified 03/01/19 21:14 Physical Exam Vitals: Vital Signs Temp Pulse Pulse Resp BP BP Pulse Ox 03/02/19 04:00 98.3 F 68 18 140/83 97 03/01/19 23:51 97.7 F 83 18 137/79 96 03/01/19 23:49 97.7 F 83 20 127/79 96 03/01/19 23:17 80 18 104/70 97 03/01/19 22:24 26 H 03/01/19 21:09 98 03/01/19 20:58 97 03/01/19 20:21 98.5 F 82 20 131/74 95 Intake and Output 03/01/19 03/02/19 03/02/19 22:59 06:59 14:59 Intake Total 0 Balance 0 Intake: Oral 0 Other: Voiding Method Toilet Urinal Weight 124.738 kg 129.8 kg PHYSICAL EXAMINATION: GENERAL: 63-year-old gentleman in no acute distress at the time of my examination HEENT: Head is atraumatic, normocephalic. Pupils equal, round. Sclera anicteric. Conjunctiva are clear. Mucous membranes of the mouth are moist. Neck is supple. There is no elevated jugular venous pressure.No carotid bruit is heard. HEART EXAMINATION: Heart S1, S2 normal. No murmur or gallop heard. CHEST EXAMINATION: Lungs reveal diffuse wheezing throughout ABDOMEN: Soft, obese, nontender. Bowel sounds are heard. No organomegaly noted. EXTREMITIES: 2+ peripheral pulses with no evidence of peripheral edema and no calf tenderness noted. NEUROLOGIC patient is awake, alert and oriented X3 . Results 03/01/19 20:35 03/01/19 20:35 Cardiac Enzymes 03/01/19 03/01/19 03/02/19 Range/Units 20:35 20:35 02:10 AST 33 (17-59) U/L Troponin I 0.013 <0.012 (0.000-0.034) ng/mL 03/02/19 Range/Units 08:05 AST (17-59) U/L Troponin I <0.012 (0.000-0.034) ng/mL Coagulation 03/01/19 Range/Units 20:35 PT 10.1 (9.0-12.0) sec APTT 24.6 (22.0-30.0) sec Lipids 03/01/19 Range/Units 20:35 Triglycerides 316 H (<150) mg/dL Cholesterol 169 (<200) mg/dL HDL Cholesterol 48 (40-60) mg/dL CBC 03/01/19 Range/Units 20:35 WBC 9.2 (3.8-10.6) k/uL RBC 4.51 (4.30-5.90) m/uL Hgb 14.3 (13.0-17.5) gm/dL Hct 44.5 (39.0-53.0) % Plt Count 305 (150-450) k/uL Comprehensive Metabolic Panel 03/01/19 Range/Units 20:35 Sodium 143 (137-145) mmol/L Potassium 4.4 (3.5-5.1) mmol/L Chloride 106 (98-107) mmol/L Carbon Dioxide 28 (22-30) mmol/L BUN 21 H (9-20) mg/dL Creatinine 0.92 (0.66-1.25) mg/dL Glucose 114 H (74-99) mg/dL Calcium 9.4 (8.4-10.2) mg/dL AST 33 (17-59) U/L ALT 41 (21-72) U/L Alkaline Phosphatase 90 (38-126) U/L Total Protein 6.9 (6.3-8.2) g/dL Albumin 4.3 (3.5-5.0) g/dL Current Medications Generic Name Dose Route Start Last Admin Trade Name Freq PRN Reason Stop Dose Admin Albuterol/Ipratropium 3 ml 03/02/19 08:00 Duoneb 0.5 Mg-3 Mg/3 Ml Soln INHALATION RT-QID QUETA Albuterol/Ipratropium 3 ml 03/01/19 23:53 Duoneb 0.5 Mg-3 Mg/3 Ml Soln INHALATION RT-Q2H PRN Shortness Of Breath Or Wheezing Aspirin 325 mg 03/02/19 09:00 03/02/19 09:24 Aspirin PO 325 mg DAILY QUETA Administration Nitroglycerin 0.4 mg 03/01/19 22:39 Nitrostat SUBLINGUAL Q5M PRN Chest Pain Intake and Output 03/01/19 03/02/19 03/02/19 22:59 06:59 14:59 Intake Total 0 Balance 0 Intake: Oral 0 Other: Voiding Method Toilet Urinal Weight 124.738 kg 129.8 kg 03/01/19 20:35 03/01/19 20:35 EKG Interpretations (text) EKG shows a normal sinus rhythm with occasional PACs, no acute changes are noted. Assessment and Plan Plan: Assessment and plan #1 symptoms of exertional dyspnea with associated wheezing, mild cough, sug gesting possible tracheobronchitis or COPD exacerbation #2 chest pain, sharp in nature, atypical for acute coronary syndrome. Patient however had recent stenting of the proximal circumflex in November of this year prior to that he has known history of coronary artery disease with prior LAD and circumflex stenting in September and January 2018. Troponins 0.013, 0.012, 0.012. #3 COPD history #4 recent upper respiratory infection #5 hypertension #6 hyperlipidemia #7 prior history of smoking Plan We will obtain an echocardiogram with Doppler study. We will resume the patient's Brilinta, Lopressor, Zestril, Lipitor, and a baby aspirin. Further recommendations to follow. DNP note has been reviewed, I agree with a documented findings and plan of care. Patient was seen and examined.
[2019-03-02] MEDS ORDERED: ASPIRIN 81 MG PO SCH (09:45)
[2019-03-02] MEDS ORDERED: ATORVASTATIN 80 MG TAB PO SCH (09:45)
[2019-03-02] MEDS ORDERED: TICAGRELOR 90 MG TAB PO SCH (09:45)
[2019-03-02] MEDS: METOPROLOL TARTRATE 25 MG TAB PO SCH ×2 (10:53→22:10)
[2019-03-02] MEDS: ATORVASTATIN 80 MG TAB PO SCH (10:53)
[2019-03-02] MEDS: LISINOPRIL 2.5 MG TAB PO SCH (10:53)
[2019-03-02] MEDS: TICAGRELOR 90 MG TAB PO SCH ×2 (10:53→22:10)
[2019-03-02] MEDS: INSULIN ASPART (NovoLOG) 100 UNIT/ML VIAL SQ SCH ×3 (11:52→22:11)
[2019-03-02] MEDS: methylPREDNISolone SOD SUCCI 125 MG/2 ML VIAL IV SCH ×3 (11:52→22:50)
[2019-03-02 11:57] LABS: Glucose,Whole Blood 120 mg/dL (75-99)
[2019-03-02] MEDS: SYMBICORT 160-4.5 MCG INHALER INHALATION SCH ×2 (12:45→19:57)
--- NOTE | 2019-03-02 15:33 | P.CNPUL ---
History of Present Illness Consult date: 03/02/19 Requesting physician: Shaquille Valladares Reason for consult: dyspnea Chief complaint: Chest pain, shortness of breath History of present illness: This is a very pleasant 63-year-old gentleman who follows with Dr. Ramsey in our office as his primary care physician. He has a history of severe oxygen dependent chronic obstructive pulmonary disease with an FEV1 value 25% of predicted and home oxygen at 2 L/m per nasal cannula. Known right lung lesion felt to be a benign bronchogenic cyst. He is maintained on Symbicort, Spiriva, albuterol. He has a history of coronary artery disease with previous stent placement and ischemic cardiomyopathy with ejection fraction 35% of predicted. Morbid obesity, essential hypertension. He was last seen in the office 02/12/2019 and treated for an acute sinusitis with Bactrim and steroids. He presented here to the emergency room yesterday with complaints of chest pain and worsening shortness of breath. His pain was mild, sharp in the anterior left chest. Chest x-ray revealed chronic parenchymal changes and mild cardiomegaly but no acute pulmonary process. 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 Troponins negative 3. He is seen today in consultation on the selective care unit. He sitting up at the bedside. Awake and alert in no acute distress. Denies any worsening shortness of breath, cough or congestion. Complains of some sinus drainage. No further chest discomfort. He is currently afebrile. Hemodynamically stable. Maintaining good O2 saturations in the upper 90s on 2 L/m per nasal cannula. He's been initiated on DuoNeb inhalations, Symbicort, IV Solu-Medrol. He is continued on his Brilinta and aspirin. Heparin for DVT prophylaxis. Review of Systems REVIEW OF SYSTEMS: CONSTITUTIONAL: Denies any recent significant weight loss or weight gain. EYES: Denies change in vision. EARS, NOSE, MOUTH, THROAT: Denies headaches, denies sore throat. CARDIOVASCULAR: Positive for chest pain, no palpitations or syncopal episodes. RESPIRATORY: Positive for shortness of breath, cough, congestion no hemoptysis. GASTROINTESTINAL: Denies change in appetite, denies abdominal pain GENITOURINARY: Denies hematuria, denies infections. MUSKULOSKELETAL: Denies pain, denies swelling. INTEGUMENTARY: Denies rash, denies eczema. NEUROLOGICAL: Denies recent memory loss, no recent seizure activity. PSYCHIATRIC: Denies anxiety, denies depression. HEMATOLOGIC/LYMPHATIC: Denies anemia, denies enlarged lymph nodes. Past Medical History Past Medical History: Chest Pain / Angina, COPD, Hypertension Additional Past Medical History / Comment(s): states had CT possible bronchial cyst History of Any Multi-Drug Resistant Organisms: None Reported Past Surgical History: No Surgical Hx Reported, Heart Catheterization, Heart Catheterization With Stent Past Anesthesia/Blood Transfusion Reactions: No Reported Reaction Additional Past Anesthesia/Blood Transfusion Reaction / Comment(s): states has not had anesthesia Date of Last Stent Placement:: 12/02 Past Psychological History: No Psychological Hx Reported Smoking Status: Former smoker Past Alcohol Use History: None Reported Additional Past Alcohol Use History / Comment(s): smoker from age [age] 1 ppd quit Past Drug Use History: None Reported - Past Family History Brother(s) Family Medical History: CVA/TIA Father Family Medical History: Diabetes Mellitus, Myocardial Infarction ([place]) Mother Family Medical History: No Reported History Medications and Allergies Home Medications Medication Instructions Recorded Confirmed Type Budesonide-Formot 160-4.5 Mcg 2 puff INHALATION RT-BID 11/05/16 03/01/19 History [Symbicort 160-4.5 Mcg Inhaler] Tiotropium [place] [Spiriva] 1 cap INHALATION RT-DAILY 11/05/16 03/01/19 History Albuterol Sulfate [Proair Hfa] 2 puff INHALATION RT-QID PRN 11/20/18 03/01/19 History Aspirin [Adult Low Dose Aspirin EC] 81 mg PO DAILY 11/20/18 03/01/19 History Atorvastatin [Lipitor] 80 mg PO DAILY 11/20/18 03/01/19 History Furosemide [Lasix] 20 mg PO DAILY PRN 11/20/18 03/01/19 History Ipratropium-Albuterol Nebulize 3 ml INHALATION RT-QID PRN 11/20/18 03/01/19 History [Duoneb 0.5 mg-3 mg/3 ml Soln] Lisinopril [Zestril] 2.5 mg PO DAILY 11/20/18 03/01/19 History Metoprolol Tartrate [Lopressor] 25 mg PO BID 11/20/18 03/01/19 History Potassium Chloride 10 meq PO DAILY PRN 11/20/18 03/01/19 History Ticagrelor [Brilinta] 90 mg PO BID 11/20/18 03/01/19 History Allergies Allergy/AdvReac Type Severity Reaction Status Date / Time No Known Allergies Allergy Verified 03/01/19 21:14 Physical Exam Vitals: Vital Signs Temp Pulse Pulse Resp BP BP Pulse Ox 03/02/19 12:25 97.7 F 77 16 137/65 97 03/02/19 12:16 94 03/02/19 12:04 92 03/02/19 09:50 100 03/02/19 09:37 100 03/02/19 09:26 97.9 F 69 18 131/83 95 03/02/19 04:00 98.3 F 68 18 140/83 97 03/01/19 23:51 97.7 F 83 18 137/79 96 03/01/19 23:49 97.7 F 83 20 127/79 96 03/01/19 23:17 80 18 104/70 97 03/01/19 22:24 26 H 03/01/19 21:09 98 03/01/19 20:58 97 03/01/19 20:21 98.5 F 82 20 131/74 95 Intake and Output 03/02/19 03/02/19 03/02/19 06:59 14:59 22:59 Intake Total 0 Balance 0 Intake: Oral 0 Other: Voiding Method Toilet Toilet Urinal Urinal Weight 129.8 kg GENERAL EXAM: Morbidly obese pleasant 63-year-old gentleman. Alert, comfortable in no apparent distress. HEAD: Normocephalic. EYES: Normal reaction of pupils, equal size. NOSE: Clear with pink turbinates. THROAT: No erythema or exudates. NECK: No masses, no JVD. CHEST: No chest wall deformity. LUNGS: Equal air entry with no crackles, wheeze, rhonchi or dullness. CVS: S1 and S2 normal with no audible murmur, regular rhythm. ABDOMEN: No hepatosplenomegaly, normal bowel sounds, no guarding or rigidity. SPINE: No scoliosis or deformity SKIN: No rashes CENTRAL NERVOUS SYSTEM: No focal deficits, tone is normal in all 4 extremities. EXTREMITIES: There is no peripheral edema. No clubbing, no cyanosis. Peripheral pulses are intact. Results - Laboratory Findings CBC and BMP: 03/01/19 20:35 03/01/19 20:35 PT/INR, D-dimer PT 10.1 sec (9.0-12.0) 03/01/19 20:35 INR 0.9 (<1.2) 03/01/19 20:35 Abnormal lab findings: Abnormal Labs 03/01/19 03/01/19 03/02/19 20:35 20:35 11:49 BUN 21 H Glucose 114 H POC Glucose (mg/dL) 120 H Triglycerides 316 H - Diagnostic Findings Chest x-ray: image reviewed Assessment and Plan Assessment: Impression: #1 Atypical chest pain, acute coronary syndrome ruled out. #2 Acute exacerbation of severe oxygen dependent chronic obstructive pulmonary disease. FEV1 value 25% of predicted. #3 Morbid obesity. #4 Coronary artery disease with previous stent placement of the circumflex in November of this year, previous stenting to the LAD and circumflex in 2017. #5 Severe ischemic cardiomyopathy with ejection fraction 35%. 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 #8 Previous chronic tobacco dependence. #9 Hyperlipidemia. Plan: The patient was seen and evaluated by Dr. Oliva. Chest x-ray and labs reviewed. We'll treat him for an exacerbation of his COPD. Continue DuoNeb inhalations, Symbicort, IV Solu-Medrol. Cardiology is following as well. Echocardiogram pending. We will continue to follow and make further recommendations based on his clinical status. I, the cosigning physician, performed a history & physical examination of the patient. Lungs sounds with faint end expiratory wheeze, diminished. Maintaining good O2 saturations in the 90s on 2 L/m per nasal cannula. I discussed the assessment and plan of care with my nurse practitioner, Maria Isabel Leach. I attest to the above note as dictated by her. Time with Patient: Greater than 30
[2019-03-02 17:08] LABS: Glucose,Whole Blood 186 mg/dL (75-99)
[2019-03-02] MEDS: HEPARIN SODIUM,PORCINE 5,000 UNIT/ML 1 ML VIAL SQ SCH ×2 (17:16→22:51)
[2019-03-02] MEDS ORDERED: SYMBICORT 160-4.5 MCG INHALER INHALATION SCH (20:00)
--- NOTE | 2019-03-02 20:34 | P.HPIM ---
History of Present Illness H&P Date: 03/02/19 Chief Complaint: Shortness of breath Patient is a 63-year-old male with a known history of coronary artery disease with history of stent placement, most recently in November 2018, COPD, hypertension and previous history of smoking came to ER with the complaints of shortness of breath getting worse for the past 1 day. Patient also was complaining of midsternal sharp chest pain and tightness without any radiation. No associated nausea or vomiting. Shortness of breath gets worse with cough and exertion. Denied any fever or chills. No sputum production. Patient has been having sinus infection with postnasal drip for the past 2-3 days. Patient was on 2 courses of antibiotics recently for sinusitis. Patient presents ER with worsening shortness of breath and chest tightness. Troponin 0.013, 0.012 and 0.012, BNP 417 Chest x-ray showed chronic parenchymal disease and mild cardiomegaly without pulmonary process. Review of Systems Constitutional: Patient denies any fever or chills . No generalized weakness or weight loss. Abdomen: Patient denied nausea vomiting and diarrhea and abdominal pain. Cardiovascular: Patient denies any chest pain or short of breath no palpitations. Respiratory: Does have cough without sputum production. He does have shortness of breath Neurologic: Patient denied any numbness or tingling headache. Musculoskeletal: Patient denies any complaints of joint swelling or deformity. Skin: Negative Psychiatric: Negative Endocrine: No heat or cold intolerance. No recent weight gain. Genitourinary: No dysuria or hematuria. All other 14 point ROS negative except the above Past Medical History Past Medical History: Chest Pain / Angina, COPD, Hypertension Additional Past Medical History / Comment(s): states had CT possible bronchial cyst History of Any Multi-Drug Resistant Organisms: None Reported Past Surgical History: No Surgical Hx Reported, Heart Catheterization, Heart Catheterization With Stent Past Anesthesia/Blood Transfusion Reactions: No Reported Reaction Additional Past Anesthesia/Blood Transfusion Reaction / Comment(s): states has not had anesthesia Date of Last Stent Placement:: 12/02 Past Psychological History: No Psychological Hx Reported Smoking Status: Former smoker Past Alcohol Use History: None Reported Additional Past Alcohol Use History / Comment(s): smoker from age [age] 1 ppd quit Past Drug Use History: None Reported - Past Family History Brother(s) Family Medical History: CVA/TIA Father Family Medical History: Diabetes Mellitus, Myocardial Infarction ([place]) Mother Family Medical History: No Reported History Medications and Allergies Home Medications Medication Instructions Recorded Confirmed Type Budesonide-Formot 160-4.5 Mcg 2 puff INHALATION RT-BID 11/05/16 03/01/19 History [Symbicort 160-4.5 Mcg Inhaler] Tiotropium [place] [Spiriva] 1 cap INHALATION RT-DAILY 11/05/16 03/01/19 History Albuterol Sulfate [Proair Hfa] 2 puff INHALATION RT-QID PRN 11/20/18 03/01/19 History Aspirin [Adult Low Dose Aspirin EC] 81 mg PO DAILY 11/20/18 03/01/19 History Atorvastatin [Lipitor] 80 mg PO DAILY 11/20/18 03/01/19 History Furosemide [Lasix] 20 mg PO DAILY PRN 11/20/18 03/01/19 History Ipratropium-Albuterol Nebulize 3 ml INHALATION RT-QID PRN 11/20/18 03/01/19 History [Duoneb 0.5 mg-3 mg/3 ml Soln] Lisinopril [Zestril] 2.5 mg PO DAILY 11/20/18 03/01/19 History Metoprolol Tartrate [Lopressor] 25 mg PO BID 11/20/18 03/01/19 History Potassium Chloride 10 meq PO DAILY PRN 11/20/18 03/01/19 History Ticagrelor [Brilinta] 90 mg PO BID 11/20/18 03/01/19 History Allergies Allergy/AdvReac Type Severity Reaction Status Date / Time No Known Allergies Allergy Verified 03/01/19 21:14 Physical Exam Vitals: Vital Signs Temp Pulse Pulse Resp BP BP Pulse Ox 03/02/19 09:50 100 03/02/19 09:37 100 03/02/19 09:26 97.9 F 69 18 131/83 95 03/02/19 04:00 98.3 F 68 18 140/83 97 03/01/19 23:51 97.7 F 83 18 137/79 96 03/01/19 23:49 97.7 F 83 20 127/79 96 03/01/19 23:17 80 18 104/70 97 03/01/19 22:24 26 H 03/01/19 21:09 98 03/01/19 20:58 97 03/01/19 20:21 98.5 F 82 20 131/74 95 Intake and Output 03/01/19 03/02/19 03/02/19 22:59 06:59 14:59 Intake Total 0 Balance 0 Intake: Oral 0 Other: Voiding Method Toilet Toilet Urinal Urinal Weight 124.738 kg 129.8 kg PHYSICAL EXAMINATION: Patient is lying in the bed comfortably, no acute distress, awake alert and oriented.. HEENT: Normocephalic. Neck is supple. Pupils reactive. Nostrils clear. Oral cavity is moist. Ears reveal no drainage. Neck reveals no JVD, carotid bruits, or thyromegaly. CHEST EXAMINATION: Trachea is central. Symmetrical expansion. Bilateral diminished air entry and diffuse wheezing. CARDIAC: Normal S1, S2 with no gallops. No murmurs ABDOMEN: Soft. Bowel sounds normal. No organomegaly. No abdominal bruits. Extremities: 1+ pitting edema. No clubbing or cyanosis Neurologically awake, alert, oriented x3 with well-coordinated movements. No focal deficits noted Skin: No rash or skin lesions. Psychiatric: Coperative. Nonsuicidal Musculoskeletal: No joint swelling or deformity. Normal range of motion. Results CBC & Chem 7: 03/01/19 20:35 03/01/19 20:35 Labs: Abnormal Lab Results - Last 24 Hours (Table) 03/01/19 03/01/19 Range/Units 20:35 20:35 BUN 21 H (9-20) mg/dL Glucose 114 H (74-99) mg/dL Triglycerides 316 H (<150) mg/dL Thrombosis Risk Factor Assmnt - DVT/VTE Prophylaxis DVT/VTE Prophylaxis: Pharmacologic Prophylaxis ordered - Choose All That Apply Each Risk Factor Represents 2 Points: Age 61-74 years Thrombosis Risk Factor Assessment Total Risk Factor Score: 2 Thrombosis Risk Factor Assessment Level: Low Risk Assessment and Plan Assessment: Shortness of breath secondary to acute COPD exacerbation. Atypical chest pain/tightness. ACS ruled out. Coronary artery disease with history of stent placement most recent in November 2018. Ischemic cardiomyopathy ejection fraction 35% Hypertension Previous history of smoking Hypertriglyceridemia Morbid obesity with BMI 42.3 DVT prophylaxis with heparin subcu Plan: Patient will be continued on IV steroids, DuoNeb's and Symbicort. Continue with aspirin, statins, Brilinta, BB and ACEI. Oxygen therapy as needed. Cardiology and pulmonary is following. Further recommendations based on the clinical course. Time with Patient: Greater than 30
[2019-03-02 20:45] LABS: Glucose,Whole Blood 206 mg/dL (75-99)
[2019-03-02] MEDS: ACETAMINOPHEN TAB 325 MG TAB PO PRN (22:49)
[2019-03-03 06:09] LABS: Glucose,Whole Blood 149 mg/dL (75-99)
[2019-03-03] MEDS: INSULIN ASPART (NovoLOG) 100 UNIT/ML VIAL SQ SCH ×4 (07:00→21:20)
[2019-03-03] MEDS: methylPREDNISolone SOD SUCCI 125 MG/2 ML VIAL IV SCH ×4 (07:01→23:04)
[2019-03-03] MEDS: SYMBICORT 160-4.5 MCG INHALER INHALATION SCH ×2 (07:30→20:52)
[2019-03-03] MEDS: IPRATROPIUM-ALBUTEROL 3 ML NEB INHALATION SCH ×4 (07:30→20:52)
[2019-03-03] MEDS: HEPARIN SODIUM,PORCINE 5,000 UNIT/ML 1 ML VIAL SQ SCH ×3 (08:39→23:04)
[2019-03-03] MEDS: ASPIRIN 81 MG PO SCH (08:39)
[2019-03-03] MEDS: ATORVASTATIN 80 MG TAB PO SCH (08:39)
[2019-03-03] MEDS: METOPROLOL TARTRATE 25 MG TAB PO SCH ×2 (08:39→20:07)
[2019-03-03] MEDS: LISINOPRIL 2.5 MG TAB PO SCH (08:39)
[2019-03-03] MEDS: TICAGRELOR 90 MG TAB PO SCH ×2 (08:39→20:07)
[2019-03-03] MEDS ORDERED: ASPIRIN 325 MG TAB PO SCH (09:00)
[2019-03-03 11:40] LABS: Glucose,Whole Blood 174 mg/dL (75-99)
--- NOTE | 2019-03-03 15:05 | P.PN ---
Subjective Progress Note Date: 03/03/19 This is a pleasant 63-year-old gentleman with known history of coronary artery disease, status post stenting of the LAD and circumflex in September and January 2018 at [facility], who had been having symptoms of exertional dyspnea, had an abnormal myocardial perfusion imaging and was recommended to undergo cardiac catheterization in November of this year. He was found to have significant stenosis involving the proximal left circumflex, proximal to the stented segment, mild disease in the LAD and moderate disease in the RCA with moderately to severe left ventricular systolic function. Sub sequent to that patient did undergo successful stenting of the proximal circumflex. Patient also has documented history of COPD, hyperlipidemia, hypertension He presents to the hospital now on this occasion with symptoms of sharp chest pain which has been going off and on for the past day or so. He has also noticed over the past week or 2 to have again symptoms of exertional dyspnea. Patient has been dealing with an upper respiratory infection as an outpatient and has been on 2 courses of antibiotics with no significant improvement in symptoms. He does feel himself wheezing a significant amount. At the time of my examination this morning he is currently chest pain-free. Blood cell count is normal, hemoglobin 14.3, platelet count 305. Sodium 143, potassium 4.4, BUN 21 and creatinine 0.9, magnesium 1.9. Troponins 0.013, 0.012, 0.012. BNP level 417. Blood pressure this morning 140/80 with a heart rate in the 60s, 97% on room air. 03/04/2018 patient was seen and examined this morning, overall doing better, continues to have some wheezing. Blood pressure 134/70 with a heart rate in the 70s, 96% on 2 L of oxygen. Objective - Vital Signs Vital signs: Vital Signs Temp 97.8 F 03/03/19 12:22 Pulse 71 03/03/19 12:22 Resp 18 03/03/19 12:22 BP 134/73 03/03/19 12:22 Pulse Ox 96 03/03/19 12:22 Intake & Output 03/02/19 03/03/19 03/03/19 18:59 06:59 18:59 Intake Total 480 240 Balance 480 240 Weight 128.1 kg Intake: Oral 480 240 Other: Voiding Method Toilet Toilet Toilet Urinal Urinal Urinal - Exam PHYSICAL EXAMINATION: GENERAL: 63-year-old gentleman in no acute distress at the time of my examination HEENT: Head is atraumatic, normocephalic. Pupils equal, round. Sclera anicteric. Conjunctiva are clear. Mucous membranes of the mouth are moist. Neck is supple. There is no elevated jugular venous pressure.No carotid bruit is heard. HEART EXAMINATION: Heart S1, S2 normal. No murmur or gallop heard. CHEST EXAMINATION: Lungs reveal diffuse wheezing throughout ABDOMEN: Soft, obese, nontender. Bowel sounds are heard. No organomegaly noted. EXTREMITIES: 2+ peripheral pulses with no evidence of peripheral edema and no calf tenderness noted. NEUROLOGIC patient is awake, alert and oriented X3 - Labs CBC & Chem 7: 03/01/19 20:35 03/01/19 20:35 Labs: Abnormal Lab Results - Last 24 Hours (Table) 03/02/19 03/02/19 03/03/19 Range/Units 16:51 20:43 06:07 POC Glucose (mg/dL) 186 H 206 H 149 H (75-99) mg/dL 03/03/19 Range/Units 11:29 POC Glucose (mg/dL) 174 H (75-99) mg/dL Assessment and Plan Plan: Assessment and plan #1 symptoms of exertional dyspnea with associated wheezing, mild cough, suggesting possible tracheobronchitis or COPD exacerbation #2 chest pain, sharp in nature, atypical for acute coronary syndrome. Patient however had recent stenting of the proximal circumflex in November of this year prior to that he has known history of coronary artery disease with prior LAD and circumflex stenting in September and January 2018. Troponins 0.013, 0.012, 0.012. #3 COPD history #4 recent upper respiratory infection #5 hypertension #6 hyperlipidemia #7 prior history of smoking Plan patient's pain was very atypical in nature, we will review the echocardiogram with Doppler study. DNP note has been reviewed, I agree with a documented findings and plan of care. Patient was seen and examined.
--- NOTE | 2019-03-03 15:42 | P.PN ---
Subjective Progress Note Date: 03/03/19 Principal diagnosis: Acute exacerbation of chronic obstructive pulmonary disease This is a very pleasant 63-year-old gentleman who follows with Dr. Ramsey in our office as his primary care physician. He has a history of severe oxygen dependent chronic obstructive pulmonary disease with an FEV1 value 25% of predicted and home oxygen at 2 L/m per nasal cannula. Known right lung lesion felt to be a benign bronchogenic cyst. He is maintained on Symbicort, Spiriva, albuterol. He has a history of coronary artery disease with previous stent placement and ischemic cardiomyopathy with ejection fraction 35% of predicted. Morbid obesity, essential hypertension. He was last seen in the office 02/12/2019 and treated for an acute sinusitis with Bactrim and steroids. He presented here to the emergency room yesterday with complaints of chest pain and worsening shortness of breath. His pain was mild, sharp in the anterior left chest. Chest x-ray revealed chronic parenchymal changes and mild cardiomegaly but no acute pulmonary process. EKG revealed old inferior wall ND but no acute ST or T wave abnormalities. Troponins negative 3. He is seen today in consultation on the selective care unit. He sitting up at the bedside. Awake and alert in no acute distress. Denies any worsening shortness of breath, cough or congestion. Complains of some sinus drainage. No further chest discomfort. He is currently afebrile. Hemodynamically stable. Maintaining good O2 saturations in the upper 90s on 2 L/m per nasal cannula. He's been initiated on DuoNeb inhalations, Symbicort, IV Solu-Medrol. He is continued on his Brilinta and aspirin. Heparin for DVT prophylaxis. The patient is seen today 03/03/2018 in follow-up in the selective care unit. He is currently sitting up at the bedside. Awake and alert in no acute distress. He is breathing a bit easier today compared to yesterday. Still not quite back to his baseline. Still somewhat bronchospastic and wheezy. He remains on DuoNeb inhalations, Symbicort, IV Solu-Medrol. Objective - Vital Signs Vital signs: Vital Signs Temp 97.8 F 03/03/19 12:22 Pulse 71 03/03/19 12:22 Resp 18 03/03/19 12:22 BP 134/73 06/18/19 12:22 Pulse Ox 96 03/03/19 12:22 Intake & Output 03/02/19 03/03/19 03/03/19 18:59 06:59 18:59 Intake Total 480 240 Balance 480 240 Weight 128.1 kg Intake: Oral 480 240 Other: Voiding Method Toilet Toilet Toilet Urinal Urinal Urinal - Exam GENERAL EXAM: Morbidly obese pleasant 63-year-old gentleman. Alert, comfortable in no apparent distress. On 2 L nasal cannula. HEAD: Normocephalic. EYES: Normal reaction of pupils, equal size. NOSE: Clear with pink turbinates. THROAT: No erythema or exudates. NECK: No masses, no JVD. CHEST: No chest wall deformity. LUNGS: Equal air entry with bilateral end expiratory wheeze, diminished. CVS: S1 and S2 normal with no audible murmur, regular rhythm. ABDOMEN: No hepatosplenomegaly, normal bowel sounds, no guarding or rigidity. SPINE: No scoliosis or deformity SKIN: No rashes CENTRAL NERVOUS SYSTEM: No focal deficits, tone is normal in all 4 extremities. EXTREMITIES: There is no peripheral edema. No clubbing, no cyanosis. Peripheral pulses are intact. - Labs CBC & Chem 7: 03/01/19 20:35 03/01/19 20:35 Labs: Abnormal Lab Results - Last 24 Hours (Table) 03/02/19 03/02/19 03/03/19 Range/Units 16:51 20:43 06:07 POC Glucose (mg/dL) 186 H 206 H 149 H (75-99) mg/dL 03/03/19 Range/Units 11:29 POC Glucose (mg/dL) 174 H (75-99) mg/dL Assessment and Plan Assessment: Impression: #1 Atypical chest pain, acute coronary syndrome ruled out. #2 Acute exacerbation of severe oxygen dependent chronic obstructive pulmonary disease. FEV1 value 25% of predicted. #3 Morbid obesity. #4 Coronary artery disease with previous stent placement of the circumflex in November of this year, previous stenting to the LAD and circumflex in 2018. #5 Severe ischemic cardiomyopathy with ejection fraction 35%. 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 #8 Previous chronic tobacco dependence. #9 Hyperlipidemia. Plan: The patient was seen and evaluated by Dr. Oliva. He is improved today compared to yesterday. Not quite back to his baseline. Continue DuoNeb inhalations, Symbicort, IV Solu-Medrol. We will continue to follow and make further recommendations based on his clinical status. I, the cosigning physician, performed a history & physical examination of the patient. Lungs sounds with end expiratory wheeze, diminished. Maintaining good O2 saturations in the 90s on 2 L/m per nasal cannula. I discussed the assessment and plan of care with my nurse practitioner, Maria Isabel Leach. I attest to the above note as dictated by her.
[2019-03-03] MEDS: DOXYCYCLINE 100 MG CAP PO SCH ×2 (17:06→20:07)
[2019-03-03] MEDS: ACETAMINOPHEN TAB 325 MG TAB PO PRN (17:07)
[2019-03-03 17:17] LABS: Glucose,Whole Blood 146 mg/dL (75-99)
[2019-03-03] MEDS: FAMOTIDINE 20 MG TAB PO SCH (20:07)
[2019-03-03 21:04] LABS: Glucose,Whole Blood 222 mg/dL (75-99)
--- NOTE | 2019-03-04 | P.PN ---
Subjective Progress Note Date: 03/03/19 Principal diagnosis: Acute COPD exacerbation Patient is a 63-year-old male with a known history of coronary artery disease with history of stent placement, most recently in November 2018, COPD, hypertension and previous history of smoking came to ER with the complaints of shortness of breath getting worse for the past 1 day. Patient also was complaining of midsternal sharp chest pain and tightness without any radiation. No associated nausea or vomiting. Shortness of breath gets worse with cough and exertion. Denied any fever or chills. No sputum production. Patient has been having sinus infection with postnasal drip for the past 2-3 days. Patient was on 2 courses of antibiotics recently for sinusitis. Patient presents ER with worsening shortness of breath and chest tightness. Troponin 0.013, 0.012 and 0.012, BNP 417 Chest x-ray showed chronic parenchymal disease and mild cardiomegaly without pulmonary process. 03/03/2019 Patient denied any complaints of chest pain. Shortness of breath is not at baseline. Patient is still having wheezing and exertional dyspnea. No fever no chills. Does have cough without much sputum production. Patient is being continued on IV steroids and breathing treatments. Pulmonary and cardiology is following. No other acute overnight issues. No nausea vomiting or abdominal pain. Next and Current medications reviewed. Objective - Vital Signs Vital signs: Vital Signs Temp 97.0 F L 03/03/19 20:10 Pulse 75 03/03/19 20:10 Resp 18 03/03/19 20:10 BP 135/63 03/03/19 20:10 Pulse Ox 96 03/03/19 20:10 Intake & Output 03/03/19 03/03/19 03/04/19 06:59 18:59 06:59 Intake Total 720 Balance 720 Weight 128.1 kg Intake: Oral 720 Other: Voiding Method Toilet Toilet Toilet Urinal Urinal Urinal - Exam PHYSICAL EXAMINATION: Patient is lying in the bed comfortably, no acute distress, awake alert and oriented.. HEENT: Normocephalic. Neck is supple. Pupils reactive. Nostrils clear. Oral cavity is moist. Ears reveal no drainage. Neck reveals no JVD, carotid bruits, or thyromegaly. CHEST EXAMINATION: Trachea is central. Symmetrical expansion. Bilateral diminished air entry and diffuse wheezing. CARDIAC: Normal S1, S2 with no gallops. No murmurs ABDOMEN: Soft. Bowel sounds normal. No organomegaly. No abdominal bruits. Extremities: 1+ pitting edema. No clubbing or cyanosis Neurologically awake, alert, oriented x3 with well-coordinated movements. No focal deficits noted Skin: No rash or skin lesions. Psychiatric: Coperative. Nonsuicidal Musculoskeletal: No joint swelling or deformity. Normal range of motion. - Labs CBC & Chem 7: 03/01/19 20:35 03/01/19 20:35 Labs: Abnormal Lab Results - Last 24 Hours (Table) 03/02/19 03/03/19 03/03/19 Range/Units 20:43 06:07 11:29 POC Glucose (mg/dL) 206 H 149 H 174 H (75-99) mg/dL 03/03/19 Range/Units 17:07 POC Glucose (mg/dL) 146 H (75-99) mg/dL Assessment and Plan Assessment: Shortness of breath secondary to acute COPD exacerbation. Atypical chest pain/tightness. ACS ruled out. Coronary artery disease with history of stent placement most recent in November 2018. Ischemic cardiomyopathy ejection fraction 35% Hypertension Previous history of smoking Hypertriglyceridemia Morbid obesity with BMI 42.3 DVT prophylaxis with heparin subcu Plan: Patient will be continued on IV steroids, DuoNeb's and Symbicort. Continue with aspirin, statins, Brilinta, BB and ACEI. Oxygen therapy as needed. Cardiology and pulmonary is following. Further recommendations based on the clinical course. Time with Patient: Greater than 30
[2019-03-04 06:10] LABS: Glucose,Whole Blood 131 mg/dL (75-99)
[2019-03-04] MEDS: methylPREDNISolone SOD SUCCI 125 MG/2 ML VIAL IV SCH ×2 (06:28→11:52)
[2019-03-04] MEDS: INSULIN ASPART (NovoLOG) 100 UNIT/ML VIAL SQ SCH ×2 (06:28→12:32)
[2019-03-04 06:59] LABS: Basophils % (A) 0 %; Eosinophils % (A) 0 %; HCT 40.1 % (39.0-53.0); HGB 12.8 gm/dL (13.0-17.5); Lymphocytes # (A) 0.4 k/uL (1.0-4.8); Lymphocytes % (A) 3 %; MCH 31.7 pg (25.0-35.0); MCHC 31.8 g/dL (31.0-37.0); MCV 99.7 fL (80.0-100.0); Macrocytosis Slight; Mean Platelet Volume 6.8; Monocytes # (A) 0.6 k/uL (0-1.0); Monocytes % (A) 5 %; Neutrophils # (A) 11.7 k/uL (1.3-7.7); Neutrophils % (A) 91 %; Platelet Count 284 k/uL (150-450); RBC 4.02 m/uL (4.30-5.90); RDW 14.5 % (11.5-15.5); WBC 12.9 k/uL (3.8-10.6)
[2019-03-04 07:13] LABS: African American GFR (CKD) >90 (>60 ml/min/1.73 sqM); Anion Gap 1 mmol/L; Blood Urea Nitrogen 26 mg/dL (9-20); Carbon Dioxide 35 mmol/L (22-30); Chloride 105 mmol/L (98-107); Glucose 131 mg/dL (74-99); Potassium 5.1 mmol/L (3.5-5.1); Sodium 141 mmol/L (137-145)
[2019-03-04] MEDS: LISINOPRIL 2.5 MG TAB PO SCH (08:32)
[2019-03-04] MEDS: DOXYCYCLINE 100 MG CAP PO SCH (08:32)
[2019-03-04] MEDS: ATORVASTATIN 80 MG TAB PO SCH (08:33)
[2019-03-04] MEDS: ASPIRIN 81 MG PO SCH (08:33)
[2019-03-04] MEDS: HEPARIN SODIUM,PORCINE 5,000 UNIT/ML 1 ML VIAL SQ SCH (08:33)
[2019-03-04] MEDS: TICAGRELOR 90 MG TAB PO SCH (08:33)
[2019-03-04] MEDS: FAMOTIDINE 20 MG TAB PO SCH (08:33)
[2019-03-04] MEDS: METOPROLOL TARTRATE 25 MG TAB PO SCH (08:33)
[2019-03-04] MEDS: IPRATROPIUM-ALBUTEROL 3 ML NEB INHALATION SCH ×3 (09:05→15:20)
[2019-03-04] MEDS: SYMBICORT 160-4.5 MCG INHALER INHALATION SCH (09:05)
--- NOTE | 2019-03-04 11:07 | CDI ---
Documentation Clarification Form Date: 03/04/2019 10:55:37 AM From: Tri Bach RN CCDS Admit Date: 03/03/2019 4:01:00 PM Patient Name: Naveen Moreira Visit Number: [id number] Discharge Date: ATTENTION: The Clinical Documentation Specialists (CDI) and [facility] Coding Staff appreciate your assistance in clarifying documentation. Please respond to the clarification below the line at the bottom and electronically sign. The CDI & [facility] Coding staff will review the response and follow-up if needed. Please note: Queries are made part of the Legal Health Record. If you have any questions, please contact the author of this message via ITS. Dr. Macy Oliva The patient presented with shortness of breath. History/Risk Factors: 63 year old male with a medical history of COPD, HTN, Tobacco use: Former Home oxygen: 2L home oxygen Clinical Indicators: your documentation Acute exacerbation of severe oxygen dependent chronic obstructive pulmonary disease . Vital signs: 148/71 94 97.8 18 98% 2L Lung/Breathing assessment: equal entry with no crackles, wheez, rhonchi or dullness. Treatment: Solumedrol Breathing tx Symbicort, , Duoneb 2L oxygen In your professional opinion, can you please clarify if these findings signify one of the following conditions? Chronic Respiratory Failure (further specify (if known)): With hypercapnia? (pCO2 >50 and pH <7.35) With hypoxia? (pO2 <60 mm Hg or SpO2 <91% on room air) Other Diagnosis, please specify Unable to determine (Last Revision: December 2017 MTDD
[2019-03-04 12:09] VITALS: BP 123/63; TEMP 98.3
[2019-03-04 12:21] LABS: Glucose,Whole Blood 121 mg/dL (75-99)
[2019-03-04 12:27] VITALS: PULSE 90
--- NOTE | 2019-03-04 13:36 | P.PN ---
Subjective Progress Note Date: 03/04/19 Principal diagnosis: Acute exacerbation of chronic obstructive pulmonary disease This is a very pleasant 63-year-old gentleman who follows with Dr. Ramsey in our office as his primary care physician. He has a history of severe oxygen dependent chronic obstructive pulmonary disease with an FEV1 value 25% of predicted and home oxygen at 2 L/m per nasal cannula. Known right lung lesion felt to be a benign bronchogenic cyst. He is maintained on Symbicort, Spiriva, albuterol. He has a history of coronary artery disease with previous stent placement and ischemic cardiomyopathy with ejection fraction 35% of predicted. Morbid obesity, essential hypertension. He was last seen in the office 02/12/2019 and treated for an acute sinusitis with Bactrim and steroids. He presented here to the emergency room yesterday with complaints of chest pain and worsening shortness of breath. His pain was mild, sharp in the anterior left chest. Chest x-ray revealed chronic parenchymal changes and mild cardiomegaly but no acute pulmonary process. EKG revealed old inferior wall MS but no acute ST or T wave abnormalities. Troponins negative 3. He is seen today in consultation on the selective care unit. He sitting up at the bedside. Awake and alert in no acute distress. Denies any worsening shortness of breath, cough or congestion. Complains of some sinus drainage. No further chest discomfort. He is currently afebrile. Hemodynamically stable. Maintaining good O2 saturations in the upper 90s on 2 L/m per nasal cannula. He's been initiated on DuoNeb inhalations, Symbicort, IV Solu-Medrol. He is continued on his Brilinta and aspirin. Heparin for DVT prophylaxis. The patient is seen today 03/03/2019 in follow-up in the selective care unit. He is currently sitting up at the bedside. Awake and alert in no acute distress. He is breathing a bit easier today compared to yesterday. Still not quite back to his baseline. Still somewhat bronchospastic and wheezy. He remains on DuoNeb inhalations, Symbicort, IV Solu-Medrol. The patient is seen again today 03/04/2019 in follow-up on the selective care unit. He is awake and alert in no acute distress. Breathing better today as compared to yesterday. Nearly back to his baseline. He denies any worsening shortness of breath, cough or congestion. Maintaining good O2 saturations in the upper 90s on 2 L/m per nasal cannula is afebrile. Hemodynamically stable. He is anxious to go home. Objective - Vital Signs Vital signs: Vital Signs Temp 98.3 F 03/04/19 12:07 Pulse 90 03/04/19 12:26 Resp 18 03/04/19 12:07 BP 123/63 03/04/19 12:07 Pulse Ox 98 03/04/19 12:07 Intake & Output 03/03/19 03/04/19 03/04/19 18:59 06:59 18:59 Intake Total 720 Balance 720 Weight 129.7 kg Intake: Oral 720 Other: Voiding Method Toilet Toilet Toilet Urinal Urinal Urinal # Voids 1 - Exam GENERAL EXAM: Morbidly obese pleasant 63-year-old gentleman. Alert, in no apparent distress. On 2 L nasal cannula. HEAD: Normocephalic. EYES: Normal reaction of pupils, equal size. NOSE: Clear with pink turbinates. THROAT: No erythema or exudates. NECK: No masses, no JVD. CHEST: No chest wall deformity. LUNGS: Equal air entry with bilateral end expiratory wheeze, diminished. CVS: S1 and S2 normal with no audible murmur, regular rhythm. ABDOMEN: No hepatosplenomegaly, normal bowel sounds, no guarding or rigidity. SPINE: No scoliosis or deformity SKIN: No rashes CENTRAL NERVOUS SYSTEM: No focal deficits, tone is normal in all 4 extremities. EXTREMITIES: There is no peripheral edema. No clubbing, no cyanosis. Peripheral pulses are intact. - Labs CBC & Chem 7: 03/04/19 06:09 03/04/19 06:09 Labs: Abnormal Lab Results - Last 24 Hours (Table) 03/03/19 03/03/19 03/04/19 Range/Units 17:07 21:02 06:09 WBC 12.9 H (3.8-10.6) k/uL RBC 4.02 L (4.30-5.90) m/uL Hgb 12.8 L (13.0-17.5) gm/dL Neutrophils # 11.7 H (1.3-7.7) k/uL Lymphocytes # 0.4 L (1.0-4.8) k/uL Carbon Dioxide (22-30) mmol/L BUN (9-20) mg/dL Glucose (74-99) mg/dL POC Glucose (mg/dL) 146 H 222 H (75-99) mg/dL 03/04/19 03/04/19 03/04/19 Range/Units 06:09 06:09 12:05 WBC (3.8-10.6) k/uL RBC (4.30-5.90) m/uL Hgb (13.0-17.5) gm/dL Neutrophils # (1.3-7.7) k/uL Lymphocytes # (1.0-4.8) k/uL Carbon Dioxide 35 H (22-30) mmol/L BUN 26 H (9-20) mg/dL Glucose 131 H (74-99) mg/dL POC Glucose (mg/dL) 131 H 121 H (75-99) mg/dL Assessment and Plan Assessment: Impression: #1 Atypical chest pain, acute coronary syndrome ruled out. #2 Acute exacerbation of severe oxygen dependent chronic obstructive pulmonary disease. FEV1 value 25% of predicted. #3 Acute on chronic hypoxic respiratory failure secondary to above. #4 Coronary artery disease with previous stent placement of the circumflex in November of this year, previous stenting to the LAD and circumflex in 2018. #5 Severe ischemic cardiomyopathy with ejection fraction 35%. 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 #8 Previous chronic tobacco dependence. #9 Hyperlipidemia. #10 Morbid obesity. Plan: The patient was seen and evaluated by Dr. Oliva. He is cleared for discharge from the pulmonary standpoint. Continue Spiriva, Symbicort, prednisone taper, nebulized treatments. We will continue to follow and make further recommendations based on his clinical status. I, the cosigning physician, performed a history & physical examination of the patient. Lungs sounds with end expiratory wheeze, diminished. Maintaining good O2 saturations in the 90s on 2 L/m per nasal cannula. I discussed the assessment and plan of care with my nurse practitioner, Maria Isabel Leach. I attest to the above note as dictated by her.
[2019-03-04] MEDS ORDERED: predniSONE 50 MG TAB PO SCH (14:30)
--- NOTE | 2019-03-04 16:06 | P.PN ---
Subjective Progress Note Date: 03/04/19 This is a pleasant 63-year-old gentleman with known history of coronary artery disease, status post stenting of the LAD and circumflex in September and January 2018 at [facility], who had been having symptoms of exertional dyspnea, had an abnormal myocardial perfusion imaging and was recommended to undergo cardiac catheterization in November of this year. He was found to have significant stenosis involving the proximal left circumflex, proximal to the stented segment, mild disease in the LAD and moderate disease in the RCA with moderately to severe left ventricular systolic function. Sub sequent to that patient did undergo successful stenting of the proximal circumflex. Patient also has documented history of COPD, hyperlipidemia, hypertension He presents to the hospital now on this occasion with symptoms of sharp chest pain which has been going off and on for the past day or so. He has also noticed over the past week or 2 to have again symptoms of exertional dyspnea. Patient has been dealing with an upper respiratory infection as an outpatient and has been on 2 courses of antibiotics with no significant improvement in symptoms. He does feel himself wheezing a significant amount. At the time of my examination this morning he is currently chest pain-free. Blood cell count is normal, hemoglobin 14.3, platelet count 305. Sodium 143, potassium 4.4, BUN 21 and creatinine 0.9, magnesium 1.9. Troponins 0.013, 0.012, 0.012. BNP level 417. Blood pressure this morning 140/80 with a heart rate in the 60s, 97% on room air. 03/03/2019 Patient was seen and examined this morning, overall doing better, continues to have some wheezing. Blood pressure 134/70 with a heart rate in the 70s, 96% on 2 L of oxygen. 03/04/2019 Patient is anticipating discharge home today. He did not have an echocardiogram with Doppler study performed here because he had one recently in the office which we will review. Breathing is overall stable, hemodynamically stable. Blood cell count 12.9, hemoglobin 12.8, platelet count 284. Sodium 141, potassium 5.1, BUN 26 and creatinine 0.8. Objective - Vital Signs Vital signs: Vital Signs Temp 98.3 F 03/04/19 12:07 Pulse 90 03/04/19 12:26 Resp 18 03/04/19 12:07 BP 123/63 06/19/19 12:07 Pulse Ox 98 03/04/19 12:07 Intake & Output 03/03/19 03/04/19 03/04/19 18:59 06:59 18:59 Intake Total 720 720 Balance 720 720 Weight 129.7 kg Intake: Oral 720 720 Other: Voiding Method Toilet Toilet Toilet Urinal Urinal Urinal # Voids 1 - Exam PHYSICAL EXAMINATION: GENERAL: 63-year-old gentleman in no acute distress at the time of my examination HEENT: Head is atraumatic, normocephalic. Pupils equal, round. Sclera anicteric. Conjunctiva are clear. Mucous membranes of the mouth are moist. Neck is supple. There is no elevated jugular venous pressure.No carotid bruit is heard. HEART EXAMINATION: Heart S1, S2 normal. No murmur or gallop heard. CHEST EXAMINATION: Lungs reveal diffuse wheezing throughout ABDOMEN: Soft, obese, nontender. Bowel sounds are heard. No organomegaly noted. EXTREMITIES: 2+ peripheral pulses with no evidence of peripheral edema and no calf tenderness noted. NEUROLOGIC patient is awake, alert and oriented X3 - Labs CBC & Chem 7: 03/04/19 06:09 03/04/19 06:09 Labs: Abnormal Lab Results - Last 24 Hours (Table) 03/03/19 03/03/19 03/04/19 Range/Units 17:07 21:02 06:09 WBC 12.9 H (3.8-10.6) k/uL RBC 4.02 L (4.30-5.90) m/uL Hgb 12.8 L (13.0-17.5) gm/dL Neutrophils # 11.7 H (1.3-7.7) k/uL Lymphocytes # 0.4 L (1.0-4.8) k/uL Carbon Dioxide (22-30) mmol/L BUN (9-20) mg/dL Glucose (74-99) mg/dL POC Glucose (mg/dL) 146 H 222 H (75-99) mg/dL 03/04/19 03/04/19 03/04/19 Range/Units 06:09 06:09 12:05 WBC (3.8-10.6) k/uL RBC (4.30-5.90) m/uL Hgb (13.0-17.5) gm/dL Neutrophils # (1.3-7.7) k/uL Lymphocytes # (1.0-4.8) k/uL Carbon Dioxide 35 H (22-30) mmol/L BUN 26 H (9-20) mg/dL Glucose 131 H (74-99) mg/dL POC Glucose (mg/dL) 131 H 121 H (75-99) mg/dL Assessment and Plan Plan: Assessment and plan #1 symptoms of exertional dyspnea with associated wheezing, mild cough, suggesting possible tracheobronchitis or COPD exacerbation #2 chest pain, sharp in nature, atypical for acute coronary syndrome. Patient however had recent stenting of the proximal circumflex in November of this year prior to that he has known history of coronary artery disease with prior LAD and circumflex stenting in September and January 2018. Troponins 0.013, 0.012, 0.012. #3 COPD history #4 recent upper respiratory infection #5 hypertension #6 hyperlipidemia #7 prior history of smoking Plan patient's pain was very atypical in nature, we'll continue current medications. Obtain echo from the office. Discharge soon DNP note has been reviewed, I agree with a documented findings and plan of care. Patient was seen and examined.
--- NOTE | 2019-03-04 16:08 | P.PN ---
Progress Note - Text Progress Note Date: 03/04/19 this is a dictation from Dr. Oliva clarifying documentation on this patient. Based on the clinical history, patient clearly had history of chronic hypoxic respiratory failure secondary to COPD and he is oxygen dependent.. Again the diagnosis is chronic hypoxic respiratory failure secondary to COPD
== END 2019-03-04 16:22 | disposition home or self-care (01) | DRG 191 ==
LOC: EC 20:18 → 3SCARD 22:40 → OBSVTOIN 03-03 16:01
PROVIDERS: ADMIT Hospitalist; ATTEND Hospitalist
DX: J44.1 Chronic obstructive pulmonary disease with (acute) exacerbation (principal); Z68.41 Body mass index [BMI] 40.0-44.9, adult; J96.11 Chronic respiratory failure with hypoxia; E78.1 Pure hyperglyceridemia; E78.5 Hyperlipidemia, unspecified; I10 Essential (primary) hypertension; I25.10 Atherosclerotic heart disease of native coronary artery without angina pectoris; I25.2 Old myocardial infarction; I25.5 Ischemic cardiomyopathy; J98.4 Other disorders of lung; Z79.02 Long term (current) use of antithrombotics/antiplatelets; Z79.51 Long term (current) use of inhaled steroids; Z79.82 Long term (current) use of aspirin; Z79.899 Other long term (current) drug therapy; Z82.49 Family history of ischemic heart disease and other diseases of the circulatory system; Z83.3 Family history of diabetes mellitus; Z87.891 Personal history of nicotine dependence; Z95.5 Presence of coronary angioplasty implant and graft; Z99.81 Dependence on supplemental oxygen
CPT/HCPCS: 36415; 71046; 80048; 80053; 80061; 83735; 83880; 84484; 85025; 85610; 85730; 93005; 94640; 94760; 96374; 99285

== ENCOUNTER → 2019-06-01 | Outpatient (CLI) | payer MEDICARE ==
[2019-06-01 16:19] LABS: African American GFR (CKD) 103.5 (60.0-200.0); Albumin 4.3 g/dL (3.80-4.90); Albumin/Globulin Ratio 2.26 (1.60-3.17); Anion Gap 8.5 mmol/L (4.00-12.00); BUN/Creat Ratio 17.78 Ratio (12.00-20.00); Calcium 9.1 mg/dL (8.7-10.3); Carbon Dioxide 31.5 mmol/L (21.6-31.8); Chol/HDL Ratio 2.96; Globulin 1.9 g/dL (1.6-3.3); Potassium 4.5 mmol/L (3.5-5.5); Total Bilirubin 0.4 mg/dL (0.2-1.2); Total Protein 6.2 g/dL (6.2-8.2)
== END | disposition home or self-care (01) ==
LOC: LABWHC1 08:13
PROVIDERS: ATTEND Internal Medicine Interventional Cardiology
DX: E78.2 Mixed hyperlipidemia (principal)
CPT/HCPCS: 36415; 80053; 80061

== ENCOUNTER 2019-08-08 19:23 | Observation (INO) | payer MEDICARE ==
--- NOTE | 2019-08-08 19:42 | ED ---
General Adult HPI - General Chief complaint: Chest Pain Stated complaint: Chest pain Time Seen by Provider: 08/08/19 19:38 Source: patient Mode of arrival: wheelchair Limitations: no limitations - History of Present Illness Initial comments: Patient presents the ED with his for evaluation. Patient states that he has had intermittent left-sided chest pressure since some time this afternoon. She states that his chest pressure is currently very mild. Patient's states that she gave the patient a single dose baby aspirin today. Patient camila es radiation of his pain, trauma or injury, fever or chills, headache, focal neuro deficit, neck/arm/jaw/back pain, pleuritic pain, leg or calf swelling or tenderness, cough or cold symptoms, dyspnea, palpitations, dizziness, nausea/vomiting/diaphoresis, abdominal pain, diarrhea, decreased urine output, urinary symptoms, or any other symptoms or complaints. - Related Data Home Medications Medication Instructions Recorded Confirmed Budesonide-Formot 160-4.5 Mcg 2 puff INHALATION RT-BID 11/05/16 08/08/19 [Symbicort 160-4.5 Mcg Inhaler] Tiotropium [place] [Spiriva] 1 cap INHALATION RT-DAILY 11/05/16 08/08/19 Albuterol Sulfate [Proair Hfa] 2 puff INHALATION RT-QID PRN 11/20/18 08/08/19 Aspirin [Adult Low Dose Aspirin EC] 81 mg PO DAILY 11/20/18 08/08/19 Atorvastatin [Lipitor] 80 mg PO DAILY 11/20/18 08/08/19 Furosemide [Lasix] 20 mg PO DAILY PRN 11/20/18 08/08/19 Metoprolol Tartrate [Lopressor] 25 mg PO BID 11/20/18 08/08/19 Potassium Chloride 10 meq PO DAILY PRN 11/20/18 08/08/19 Ticagrelor [Brilinta] 90 mg PO BID 11/20/18 08/08/19 Lisinopril [Prinivil] 5 mg PO DAILY 08/08/19 08/08/19 Allergies Allergy/AdvReac Type Severity Reaction Status Date / Time No Known Allergies Allergy Verified 08/08/19 23:10 Review of Systems ROS Statement: Those systems with pertinent positive or pertinent negative responses have been documented in the HPI. ROS Other: All systems not noted in ROS Statement are negative. Past Medical History Past Medical History: Chest Pain / Angina, COPD, Hypertension Additional Past Medical History / Comment(s): states had CT possible bronchial cyst History of Any Multi-Drug Resistant Organisms: None Reported Past Surgical History: No Surgical Hx Reported, Heart Catheterization, Heart Catheterization With Stent Past Anesthesia/Blood Transfusion Reactions: No Reported Reaction Additional Past Anesthesia/Blood Transfusion Reaction / Comment(s): states has not had anesthesia Date of Last Stent Placement:: 12/02 Past Psychological History: No Psychological Hx Reported Smoking Status: Former smoker Past Alcohol Use History: None Reported Past Drug Use History: None Reported - Past Family History Brother(s) Family Medical History: CVA/TIA Father Family Medical History: Diabetes Mellitus, Myocardial Infarction ([place]) Mother Family Medical History: No Reported History General Exam Limitations: no limitations General appearance: alert, in no apparent distress Head exam: Present: atraumatic, normocephalic Eye exam: Present: normal appearance, EOMI ENT exam: Present: mucous membranes moist Neck exam: Present: other (Trachea is in midline) Respiratory exam: Present: normal lung sounds bilaterally. Absent: respiratory distress, wheezes, rales, rhonchi, chest wall tenderness Cardiovascular Exam: Present: regular rate, normal rhythm, normal heart sounds, other (Normal radial pulses bilaterally) GI/Abdominal exam: Present: soft. Absent: tenderness Extremities exam: Absent: tenderness, pedal edema, calf tenderness Neurological exam: Present: alert, oriented X3. Absent: motor sensory deficit Psychiatric exam: Present: normal affect, normal mood Skin exam: Present: warm, dry, intact, normal color Course Vital Signs 08/08/19 08/08/19 08/08/19 19:25 21:09 22:00 Temperature 98.9 F 98.1 F Pulse Rate 73 80 75 Respiratory 18 16 16 Rate Blood Pressure 99/70 120/57 O2 Sat by Pulse 93 L 97 98 Oximetry 08/08/19 23:00 Temperature Pulse Rate 79 Respiratory 18 Rate Blood Pressure 123/65 O2 Sat by Pulse 97 Oximetry - Reevaluation(s) Reevaluation #1: 08/08/19 22:40 Case, H&P, test results and ED management were discussed with LUISA Obregon. She accepts hospital floor admission on behalf of Dr. Stevenson. She recommends cardiology consultation. She has no further recommendations at this time. EKG Findings - EKG Comments: EKG Findings:: Normal sinus rhythm, single premature supraventricular complex, ventricular rate of 72 bpm, normal VT and QRS intervals, normal QT interval, leftward axis, no ST or T-wave abnormality Medical Decision Making - Medical Decision Making Patient denies developing any new symptoms or worsening of his chest pain while in the ED. Patient remains alert and breathing comfortably. Patient's troponin and d-dimer are negative. Given the patient's cardiac history and risk factors, will admit the patient to the hospital for further cardiac testing and monitoring. Patient agrees with this plan. - Lab Data Result diagrams: 08/08/19 19:42 08/08/19 19:42 Lab Results 08/08/19 08/08/19 08/08/19 Range/Units 19:42 19:42 19:42 WBC 6.8 (3.8-10.6) k/uL RBC 4.21 L (4.30-5.90) m/uL Hgb 13.5 (13.0-17.5) gm/dL Hct 42.9 (39.0-53.0) % MCV 101.7 H (80.0-100.0) fL MCH 32.0 (25.0-35.0) pg MCHC 31.4 (31.0-37.0) g/dL RDW 12.7 (11.5-15.5) % Plt Count 271 (150-450) k/uL Neutrophils % 67 % Lymphocytes % 21 % Monocytes % 6 % Eosinophils % 2 % Basophils % 1 % Neutrophils # 4.6 (1.3-7.7) k/uL Lymphocytes # 1.4 (1.0-4.8) k/uL Monocytes # 0.4 (0-1.0) k/uL Eosinophils # 0.1 (0-0.7) k/uL Basophils # 0.1 (0-0.2) k/uL PT (9.0-12.0) sec INR (<1.2) APTT (22.0-30.0) sec D-Dimer (<0.60) mg/L FEU Sodium 144 (137-145) mmol/L Potassium 5.2 H (3.5-5.1) mmol/L Chloride 102 (98-107) mmol/L Carbon Dioxide 37 H (22-30) mmol/L Anion Gap 5 mmol/L BUN 18 (9-20) mg/dL Creatinine 0.87 (0.66-1.25) mg/dL Est GFR (CKD-EPI)AfAm >90 (>60 ml/min/1.73 sqM) Est GFR (CKD-EPI)NonAf >90 (>60 ml/min/1.73 sqM) Glucose 106 H (74-99) mg/dL Calcium 9.0 (8.4-10.2) mg/dL Magnesium 2.1 (1.6-2.3) mg/dL Total Bilirubin 0.2 (0.2-1.3) mg/dL AST 21 (17-59) U/L ALT 28 (21-72) U/L Alkaline Phosphatase 76 (38-126) U/L Troponin I (0.000-0.034) ng/mL NT-Pro-B Natriuret Pep 505 pg/mL Total Protein 7.1 (6.3-8.2) g/dL Albumin 4.1 (3.5-5.0) g/dL 08/08/19 08/08/19 08/08/19 Range/Units 19:42 19:42 19:42 WBC (3.8-10.6) k/uL RBC (4.30-5.90) m/uL Hgb (13.0-17.5) gm/dL Hct (39.0-53.0) % MCV (80.0-100.0) fL MCH (25.0-35.0) pg MCHC (31.0-37.0) g/dL RDW (11.5-15.5) % Plt Count (150-450) k/uL Neutrophils % % Lymphocytes % % Monocytes % % Eosinophils % % Basophils % % Neutrophils # (1.3-7.7) k/uL Lymphocytes # (1.0-4.8) k/uL Monocytes # (0-1.0) k/uL Eosinophils # (0-0.7) k/uL Basophils # (0-0.2) k/uL PT 10.3 (9.0-12.0) sec INR 1.0 (<1.2) APTT 25.3 (22.0-30.0) sec D-Dimer 0.32 (<0.60) mg/L FEU Sodium (137-145) mmol/L Potassium (3.5-5.1) mmol/L Chloride (98-107) mmol/L Carbon Dioxide (22-30) mmol/L Anion Gap mmol/L BUN (9-20) mg/dL Creatinine (0.66-1.25) mg/dL Est GFR (CKD-EPI)AfAm (>60 ml/min/1.73 sqM) Est GFR (CKD-EPI)NonAf (>60 ml/min/1.73 sqM) Glucose (74-99) mg/dL Calcium (8.4-10.2) mg/dL Magnesium (1.6-2.3) mg/dL Total Bilirubin (0.2-1.3) mg/dL AST (17-59) U/L ALT (21-72) U/L Alkaline Phosphatase (38-126) U/L Troponin I <0.012 (0.000-0.034) ng/mL NT-Pro-B Natriuret Pep pg/mL Total Protein (6.3-8.2) g/dL Albumin (3.5-5.0) g/dL - Radiology Data Radiology results: image reviewed (Chest x-ray shows borderline cardiomegaly, otherwise no acute cardiopulmonary disease) Disposition Clinical Impression: Chest pain Disposition: ADMITTED IP TO THIS [facility] Condition: Stable Is patient prescribed a controlled substance at d/c from ED?: No Time of Disposition: 22:40
[2019-08-08] MEDS ORDERED: NITROGLYCERIN OINT 1 INCH/GM PACKET TOPICAL STA (19:46)
[2019-08-08 19:54] LABS: Basophils # (A) 0.1 k/uL (0-0.2); Basophils % (A) 1 %; Eosinophils # (A) 0.1 k/uL (0-0.7); Eosinophils % (A) 2 %; HCT 42.9 % (39.0-53.0); HGB 13.5 gm/dL (13.0-17.5); Lymphocytes # (A) 1.4 k/uL (1.0-4.8); Lymphocytes % (A) 21 %; MCHC 31.4 g/dL (31.0-37.0); MCV 101.7 fL (80.0-100.0); Mean Platelet Volume 6.2; Monocytes # (A) 0.4 k/uL (0-1.0); Monocytes % (A) 6 %; Neutrophils # (A) 4.6 k/uL (1.3-7.7); Neutrophils % (A) 67 %; Platelet Count 271 k/uL (150-450); RBC 4.21 m/uL (4.30-5.90); RDW 12.7 % (11.5-15.5); WBC 6.8 k/uL (3.8-10.6)
[2019-08-08 20:06] LABS: ALT 28 U/L (21-72); AST 21 U/L (17-59); African American GFR (CKD) >90 (>60 ml/min/1.73 sqM); Albumin 4.1 g/dL (3.5-5.0); Alkaline Phosphatase 76 U/L (38-126); Anion Gap 5 mmol/L; Blood Urea Nitrogen 18 mg/dL (9-20); Carbon Dioxide 37 mmol/L (22-30); Chloride 102 mmol/L (98-107); Glucose 106 mg/dL (74-99); Magnesium 2.1 mg/dL (1.6-2.3); Non-African American GFR(CKD) >90 (>60 ml/min/1.73 sqM); Potassium 5.2 mmol/L (3.5-5.1); Sodium 144 mmol/L (137-145); Total Bilirubin 0.2 mg/dL (0.2-1.3); Total Protein 7.1 g/dL (6.3-8.2)
[2019-08-08 20:10] LABS: Partial Thromboplastin Time 25.3 sec (22.0-30.0); Prothrombin Time 10.3 sec (9.0-12.0)
--- NOTE | 2019-08-08 20:17 | XR ---
EXAMINATION TYPE: XR chest 2V DATE OF EXAM: 08/08/2019 COMPARISON: 03/01/2019 HISTORY: 63-year-old male with chest pain TECHNIQUE: AP and lateral views FINDINGS: Heart borderline enlarged. Central peribronchial cuffing. No kaveh consolidation or pleural effusion. IMPRESSION: 1. Similar borderline cardiomegaly. 2. Central peribronchial cuffing could reflect bronchitis or asthma. No focal infiltrate.
[2019-08-08] MEDS ORDERED: NON FORMULARY DRUG (Potassium Chloride [Potassium Chloride] 10 MEQ) PO PRN (22:43)
[2019-08-08] MEDS ORDERED: FUROSEMIDE 20 MG TAB PO PRN (22:43)
[2019-08-09] MEDS: ALBUTEROL NEBULIZED 2.5 MG/3 ML INHALATION PRN (01:17)
[2019-08-09] MEDS: methylPREDNISolone SOD SUCCI 125 MG/2 ML VIAL IV SCH ×3 (01:35→12:24)
--- NOTE | 2019-08-09 04:04 | HP ---
HISTORY AND PHYSICAL DATE OF SERVICE: 08/08/2019 CHIEF COMPLAINT: Chest pain. HISTORY OF PRESENT ILLNESS: This 63-year-old gentleman with a past medical history of COPD, hypertension, history of coronary artery disease stent being followed by Dr. Ramsey in the outpatient is complaining of chest pains. The patient also had baseline COPD, but patient intermittent left-sided chest pain, sharp in character, but at times it is pressure in character also and the patient came to [facility] and admitted for further evaluation and treatment. There is no history of any radiation. No history of associated symptoms, any relieving or aggravating factors and evaluation in the ER showed normal troponins. EKG did not show acute abnormality. Patient admitted for further evaluation and treatment. There is no history of fever, rigors or chills. No history of headache, loss of conscious, seizures. As mentioned earlier, the patient still has some shortness of breath because of chronic obstructive pulmonary disease. PAST MEDICAL HISTORY: History of COPD, hypertension, history of bronchial cyst, history of coronary artery disease/stent. MEDICATIONS: Home medications are: 1. Potassium chloride 10 mEq p.o. daily p.r.n. 2. Lasix 20 mg daily p.r.n. 3. Spiriva 1 puff daily. 4. Brilinta 90 mg p.o. b.i.d. 5. Symbicort 160/4.5 two puffs b.i.d. 6. Lipitor 80 mg p.o. daily. 7. ProAir 2 puffs q.i.d. p.r.n. 8. Lopressor 25 mg p.o. b.i.d. 9. Prinivil 5 mg p.o. daily. 10.Ecotrin 81 mg daily. ALLERGIES: None. FAMILY HISTORY: History of CVA, TIA in the family. SOCIAL HISTORY: Previous history of smoking. No history of alcohol intake. REVIEW OF SYSTEMS: ENT: No diminished vision. No diminished hearing. CARDIOVASCULAR system as mentioned earlier. RESPIRATORY: As mentioned earlier. GI no nausea or vomiting. no dysuria or hematuria. CENTRAL NERVOUS SYSTEM: No numbness or weakness. ALLERGY/IMMUNOLOGY: No asthma or hayfever. MUSCULOSKELETAL: As mentioned earlier. HEMATOLOGY/ONCOLOGY: No history of anemia. ENDOCRINE: No history of diabetes or hypothyroidism. CONSTITUTIONAL: As mentioned earlier. DERMATOLOGY: Negative. RHEUMATOLOGY: Negative. PSYCHIATRY: As mentioned earlier. PHYSICAL EXAMINATION: Alert and oriented x3. Pulse is 71, blood pressure 138/70, respirations 17, temperature is 98.4, pulse ox 98% on 3 L. HEENT: Conjunctivae normal. NECK is no jugular venous distention. Cardiovascular system: S1, S2 muffled. No S3, no S4. RESPIRATORY: Breath sounds diminished in the bases. Bilateral scattered rhonchi and crackles. Breathing efforts also increased at rest. ABDOMEN: Soft, obese, nontender. LEGS: No edema and no swelling. NERVOUS SYSTEM: Higher functions as mentioned earlier. Moves all 4 limbs. No focal motor or sensory deficits. LYMPHATICS: No lymph nodes palpable in the neck, axillae or groin. JOINTS: No active deforming arthropathy. SKIN: No ulcer, rash or bleeding. LABS: WBC 6.2, hemoglobin 13.5, sodium 144, potassium 5.2. ASSESSMENT: 1. Chest pain, possible unstable angina. 2. Chronic obstructive pulmonary disease. 3. History of hypertension. 4. History of bronchitis. 5. History of coronary artery disease/ stent. 6. Remote history of nicotine dependence. 7. Obesity with body mass index of 42.1. RECOMMENDATIONS AND DISCUSSION: This 63-year-old gentleman who presented with multiple complex medical issues, we will monitor the patient closely, continue the current medications, management and symptomatic treatment. Resume the home medications. Rule out myocardial infarction. Cardiology evaluation. Otherwise, continue to monitor. Prognosis guarded. Symptomatic treatment also provided. Rule out myocardial infarction. Further recommendations to follow. A copy of dictation being forwarded to Dr. Ramsey who is following the patient in the outpatient setting. MMODL / IJN: [id number] /
[2019-08-09] MEDS ORDERED: ALPRAZolam 0.25 MG TAB PO PRN (06:47)
[2019-08-09] MEDS ORDERED: ALPRAZolam 0.5 MG TAB PO PRN (06:47)
[2019-08-09] MEDS ORDERED: NITROGLYCERIN SL TABS 0.4 MG TAB SUBLINGUAL PRN (06:47)
[2019-08-09 06:58] LABS: Glucose,Whole Blood 131 mg/dL (75-99)
[2019-08-09 07:15] LABS: Basophils % (A) 0 %; Eosinophils % (A) 0 %; HCT 42.3 % (39.0-53.0); HGB 13.5 gm/dL (13.0-17.5); Lymphocytes # (A) 0.5 k/uL (1.0-4.8); Lymphocytes % (A) 6 %; MCH 32.4 pg (25.0-35.0); MCHC 31.9 g/dL (31.0-37.0); MCV 101.6 fL (80.0-100.0); Mean Platelet Volume 6.4; Monocytes # (A) 0.2 k/uL (0-1.0); Monocytes % (A) 3 %; Neutrophils # (A) 6.9 k/uL (1.3-7.7); Neutrophils % (A) 90 %; Platelet Count 269 k/uL (150-450); RBC 4.17 m/uL (4.30-5.90); RDW 12.7 % (11.5-15.5); WBC 7.7 k/uL (3.8-10.6)
[2019-08-09 07:20] LABS: INR 1.1 (<1.2); Prothrombin Time 11.2 sec (9.0-12.0)
[2019-08-09 07:30] LABS: ALT 28 U/L (21-72); AST 21 U/L (17-59); African American GFR (CKD) >90 (>60 ml/min/1.73 sqM); Albumin 4.2 g/dL (3.5-5.0); Alkaline Phosphatase 74 U/L (38-126); Anion Gap 8 mmol/L; Blood Urea Nitrogen 18 mg/dL (9-20); Carbon Dioxide 33 mmol/L (22-30); Chloride 102 mmol/L (98-107); Glucose 136 mg/dL (74-99); Non-African American GFR(CKD) >90 (>60 ml/min/1.73 sqM); Potassium 5.3 mmol/L (3.5-5.1); Sodium 143 mmol/L (137-145); Total Bilirubin 0.3 mg/dL (0.2-1.3); Total Protein 7.1 g/dL (6.3-8.2)
[2019-08-09] MEDS: IPRATROPIUM 0.5 MG/2.5 ML NEBU INHALATION SCH ×4 (08:01→18:37)
[2019-08-09] MEDS: SYMBICORT 160-4.5 MCG INHALER INHALATION SCH ×2 (08:01→18:37)
[2019-08-09] MEDS: INSULIN ASPART (NovoLOG) 100 UNIT/ML VIAL SQ SCH ×4 (08:46→20:34)
[2019-08-09] MEDS: METOPROLOL TARTRATE 25 MG TAB PO SCH ×2 (08:47→20:34)
[2019-08-09] MEDS: TICAGRELOR 90 MG TAB PO SCH ×2 (08:47→20:34)
[2019-08-09] MEDS: LISINOPRIL 2.5 MG TAB PO SCH (08:47)
[2019-08-09] MEDS ORDERED: ASPIRIN 81 MG PO SCH (09:00)
[2019-08-09] MEDS ORDERED: ATORVASTATIN 80 MG TAB PO SCH (09:00)
--- NOTE | 2019-08-09 10:58 | CONS ---
CONSULTATION PULMONARY/CRITICAL CARE CONSULTATION: DATE OF SERVICE: 08/09/2019 This is a 63-year-old male whom we were asked to see because of chest pain. His primary care physician is Dr. Ramsey, my partner. The patient has stage 4/very severe COPD with an FEV1 that is 25% of predicted. He also, according to Dr. Funes, has severe coronary artery disease. Anyway, he comes into the hospital complaining of left-sided chest discomfort and pressure. It started the afternoon the day of admission. Currently, the patient states that the pain is still there, but much less severe and mostly intermittent in nature. In addition, he complains of shortness of breath, and he has had chest tightness and wheezing. The pain does not radiate. There is no trauma to the chest. There is no fever or chills. He is coughing but not producing any phlegm. He feels like his COPD is also active at this time. The patient denies any nausea, vomiting or diarrhea. There are no genitourinary complaints. He was seen by Dr. Funes yesterday. Dr. Funes is planning to do a cardiac catheterization on the patient tomorrow. He has a prior history of coronary interventions both at [facility] and here at [facility]. MEDICATIONS: Reviewed. He is on Symbicort, Spiriva, albuterol, aspirin Lipitor, Lasix, metoprolol, potassium chloride, Brilinta, and Prinivil. ALLERGIES: Denied. MEDICAL HISTORY: Angina pectoris, COPD, hypertension, CAD, and hyperlipidemia. SURGICAL HISTORY: Includes heart catheterization with stent placement. SOCIAL HISTORY: Positive for previous heavy tobacco use. Does not smoke currently. No alcohol or illicit drug use. FAMILY HISTORY: Positive for brother with CVA and a father with diabetes and myocardial infarction. His mother apparently had no significant past history. REVIEW OF SYSTEMS: CONSTITUTIONAL: Negative. NEUROLOGIC: Negative. HEENT: Negative. CARDIOVASCULAR: Chest pain. PULMONARY: Shortness of breath, chest tightness, wheezing, minimal cough. GI: Negative. : Negative. RHEUMATOLOGIC: Negative. IMMUNOLOGIC: Negative ENDOCRINOLOGIC: Negative. DERMATOLOGIC: Negative. PHYSICAL EXAMINATION: VITAL SIGNS: Current vital signs are reviewed. Temperature is 98.3, heart rate 70, respiratory rate 19, blood pressure 111/63, mean 79, 2 L saturation 98%. Appears in no acute distress. HEENT examination is grossly unremarkable. Mucous membranes are moist. No oral lesions. NECK: Supple. Full range of motion. No adenopathy or thyromegaly. Neck veins are flat. CARDIOVASCULAR examination reveals regular rhythm and rate. Heart rate in the 70s. S1, S2 normal. No S3, S4, or murmur. LUNGS: Reveal mild expiratory wheezes. No rhonchi. Slight prolongation on forced maneuver. Breath sounds equal bilaterally but diminished throughout. ABDOMEN: Obese. Bowel sounds are heard. EXTREMITIES are intact. No cyanosis, clubbing, or edema. SKIN: Without rash. NEUROLOGIC: Examination is brief but nonfocal. LABS: Reviewed. White count 7.7, hemoglobin 13.5, hematocrit 42.3, platelet count 369,000. PT/INR normal. PTT normal. D-dimer normal. Sodium 143, potassium 5.3, chloride 102, CO2 is 33, anion gap is 8. BUN and creatinine were 18 and 0.85. Troponins were negative x2. N terminal proBNP 505. A chest x-ray is done. It shows some cardiomegaly. There is also some mild peribronchial cuffing. An EKG shows no acute changes. Medications are reviewed. ASSESSMENT: 1. Chest pain, may be ischemic in origin. 2. History of previous PCI with interventions and stent placements both at [facility] and here at [facility]. 3. Chronic obstructive pulmonary disease, very severe/stage 4 from prior tobacco use with an FEV1 that is estimated to be 25% of predicted. 4. History of hyperlipidemia. 5. History of hypertension. 6. Coronary artery disease. 7. Obesity. PLAN: The patient is apparently going to have a catheterization tomorrow. Additional recommendations and suggestions are forthcoming. We will continue to follow. We will look at his medications to make sure they are appropriate. No additional recommendations are made. Dr. Ramsey is his primary, he takes over the service tomorrow. MMFEDEL / IJN: [id number] /
--- NOTE | 2019-08-09 11:31 | CONS ---
CONSULTATION Mr. Moreira is a 63-year-old male with known history of coronary artery disease, history of obstructive lung disease, who presented with symptoms of chest discomfort and progressive dyspnea. His cardiac history is remarkable for the fact that he underwent percutaneous revascularization at [facility] of his mid LAD and proximal left circumflex in 2018. Subsequently, he was readmitted to the hospital because of abnormal myocardial perfusion imaging in November of 2018 and underwent cardiac catheterization and at that time was found to have a patent LAD with no evidence of significant restenosis with significant obstructive disease in the proximal left circumflex. He underwent stenting of that vessel using a proximal to the prior stented. For the last few weeks, he has been complaining of progressive dyspnea as well as episode of chest discomfort. The discomfort is not exertional pattern but yesterday persisted long. In view of that, he came into the emergency room. He denies any dizziness or palpitation. He denies any PND nor orthopnea. He has no significant peripheral edema. He has history of significant obstructive lung disease and has been followed by Dr. Ramsey on a regular basis. His FEV 1 values 25% predicted. He has a known history of cardiomyopathy. His coronary risk factors are remarkable for the history of hypertension, hyperlipidemia and a prior history of smoking. MEDICATION: His medications at home include Brilinta, Lopressor 25 mg twice a day, Prinivil 5 mg daily, Lasix 20 mg daily, Symbicort, Lipitor 80 mg daily, aspirin and ProAir. REVIEW OF SYSTEMS: Respiratory system: He has history of chronic obstructive lung disease, use of oxygen prior exacerbation. GI system: No recent GI bleeding. No peptic ulcer disease. system: No dysuria or hematuria. Nervous system: No history of stroke or seizure. PHYSICAL EXAMINATION: Revealed a 63-year-old male, alert, oriented, in no apparent distress. Blood pressure 120/60 with a heart rate in 70s. HEAD: Normocephalic. Eyes sclerae anicteric. NECK: Good upstroke. No bruit. No jugular venous distention. LUNGS: Significant decrease in air exchange. No wheezes. HEART: Regular rate and rhythm S1, S2. No S3. No rub. ABDOMEN: Soft, obese and nontender. EXTREMITIES: No edema. Intact distal pulses. LAB DATA: EKG revealed sinus mechanism with evidence of inferior myocardial infarction and no acute changes. Lab data revealed a troponin of 0.012 and 0.013. NT proBNP of 505, BUN and creatinine of 18 and 0.87. Hemoglobin is 13.5. Chest x-ray shows no acute infiltrate. IMPRESSION: 1. Symptoms of chest discomfort of unclear etiology. Not typical for coronary artery disease in a patient with known history of multivessel stenting. No evidence of acute myocardial infarction. 2. History of ischemic cardiomyopathy. 3. Status post 2-vessel stenting in September of 2017. 4. History of severe chronic obstructive lung disease. 5. Hypertension. 6. Hyperlipidemia. RECOMMENDATIONS: From the cardiac standpoint, we will continue on the present therapy. I will obtain a repeat echocardiogram. I would recommend to proceed with a repeat cardiac catheterization to rule out any significant progression of disease and depending on that, further recommendations will be made. The rationale behind the procedures as well as risks and complications were discussed with the patient who is in full understanding and agreement. Thank you for this consult. We will follow with you. CHRISTIANA / PIAN: [id number] /
[2019-08-09 11:43] LABS: Glucose,Whole Blood 162 mg/dL (75-99)
--- NOTE | 2019-08-09 14:22 | PN ---
PROGRESS NOTE DATE OF SERVICE: 08/09/2019 This 63-year-old gentleman admitted with chest pain is being closely followed by Cardiology and Pulmonology. Myocardial infarction has been ruled out. Echocardiogram and repeat cardiac cath has been recommended by Cardiology. No chest pain. No palpitations. No fever. EXAM: Alert and oriented x3. Pulse 70. Blood pressure is 133/77, respirations 18. Temperature 98.6, pulse ox 94% on 2 L. HEENT is conjunctivae normal. NECK: No JVD. CARDIOVASCULAR: S1, S2 muffled. RESPIRATORY SYSTEM: Breath sounds diminished at the bases. A few scattered rhonchi and crackles. ABDOMEN soft. NERVOUS SYSTEM: No focal deficits. Breathing efforts are mildly increased. LAB STUDIES: WBC 7.7, MCV 101.6, sodium 143, potassium 5.3. ASSESSMENT: 1. Chest pain, possible unstable angina. Myocardial infarction ruled out. 2. Chronic obstructive pulmonary disease, stable. 3. History of hypertension. 4. History of bronchitis. 5. Mild hyperkalemia. 6. History of coronary artery disease/stent. 7. Remote history of nicotine dependence. 8. Obesity with body mass index of 42.1. 9. Chronic obstructive pulmonary disease acute exacerbation. RECOMMENDATIONS AND DISCUSSION: I recommend to continue current medications, continue with monitoring, management, symptomatic treatment. Continue bronchodilators. We will continue to monitor the lytes closely. Otherwise, optimize bronchodilators and steroids and follow closely with Cardiology. Cut down the dose of steroids and continue to monitor. Further recommendations to follow. MMFEDEL / PIAN: [id number] /
[2019-08-09 16:47] LABS: Glucose,Whole Blood 154 mg/dL (75-99)
[2019-08-09] MEDS: methylPREDNISolone SOD SUCCI 40 MG/ML 1 ML VIAL IV SCH ×2 (17:07→23:21)
[2019-08-09 19:48] LABS: Glucose,Whole Blood 206 mg/dL (75-99)
[2019-08-10 04:36] LABS: Basophils % (A) 0 %; Eosinophils % (A) 0 %; HCT 39.8 % (39.0-53.0); HGB 12.8 gm/dL (13.0-17.5); Lymphocytes # (A) 0.5 k/uL (1.0-4.8); Lymphocytes % (A) 4 %; MCHC 32.3 g/dL (31.0-37.0); MCV 102.1 fL (80.0-100.0); Macrocytosis Slight; Mean Platelet Volume 5.7; Monocytes # (A) 0.5 k/uL (0-1.0); Monocytes % (A) 4 %; Neutrophils # (A) 10.4 k/uL (1.3-7.7); Neutrophils % (A) 90 %; Platelet Count 279 k/uL (150-450); RDW 12.7 % (11.5-15.5); WBC 11.6 k/uL (3.8-10.6)
[2019-08-10 04:51] LABS: African American GFR (CKD) >90 (>60 ml/min/1.73 sqM); Anion Gap 5 mmol/L; Blood Urea Nitrogen 23 mg/dL (9-20); Calcium 9.2 mg/dL (8.4-10.2); Carbon Dioxide 34 mmol/L (22-30); Chloride 102 mmol/L (98-107); Glucose 160 mg/dL (74-99); Non-African American GFR(CKD) >90 (>60 ml/min/1.73 sqM); Potassium 5.1 mmol/L (3.5-5.1); Sodium 141 mmol/L (137-145)
[2019-08-10] MEDS ORDERED: ATORVASTATIN 80 MG TAB PO ONE (06:00)
[2019-08-10] MEDS ORDERED: SODIUM CHLORIDE 0.9% 1,000 ML in EMPTY BAG 1 BAG IV ONE (06:00)
[2019-08-10] MEDS ORDERED: ASPIRIN 325 MG TAB PO ONE (06:00)
[2019-08-10 06:42] LABS: Glucose,Whole Blood 126 mg/dL (75-99)
[2019-08-10] MEDS: methylPREDNISolone SOD SUCCI 40 MG/ML 1 ML VIAL IV SCH ×2 (07:12→12:42)
[2019-08-10] MEDS: LISINOPRIL 2.5 MG TAB PO SCH (07:13)
[2019-08-10] MEDS: TICAGRELOR 90 MG TAB PO SCH (07:13)
[2019-08-10] MEDS: METOPROLOL TARTRATE 25 MG TAB PO SCH (07:13)
[2019-08-10] MEDS: INSULIN ASPART (NovoLOG) 100 UNIT/ML VIAL SQ SCH ×2 (07:14→11:40)
[2019-08-10] MEDS: SYMBICORT 160-4.5 MCG INHALER INHALATION SCH (07:20)
[2019-08-10] MEDS: IPRATROPIUM 0.5 MG/2.5 ML NEBU INHALATION SCH ×3 (07:20→16:07)
[2019-08-10] MEDS ORDERED: fentaNYL (PF) 50 MCG/ML 2 ML AMP ONE (08:55)
[2019-08-10] MEDS ORDERED: VERAPAMIL 2.5 MG/ML 2 ML AMP ONE (08:55)
[2019-08-10] MEDS ORDERED: LIDOCAINE 1% INJ 10MG/ML (20 ML MDV) ONE (08:55)
[2019-08-10] MEDS ORDERED: IV FLUID CONTINUATION 900 ML IV ONE (09:00)
[2019-08-10] MEDS ORDERED: fentaNYL (PF) 50 MCG/ML 2 ML AMP IV ONE (09:26)
[2019-08-10] MEDS ORDERED: LIDOCAINE 1% INJ 10MG/ML (20 ML MDV) SQ ONE ×2 (09:29→09:30)
[2019-08-10] MEDS ORDERED: VERAPAMIL SYRINGE (5 MG/10 ML) INTRAARTER ONE ×2 (09:31→09:34)
[2019-08-10] MEDS ORDERED: HEPARIN SODIUM 1,000 UN/ML (10ML VL) IV ONE ×2 (09:40→09:41)
[2019-08-10] MEDS ORDERED: HEPARIN SODIUM 1,000 UN/ML (10ML VL) ONE (09:40)
[2019-08-10] MEDS ORDERED: IOPAMIDOL-370 125ML BTL INJ ONE (09:42)
[2019-08-10] MEDS ORDERED: SODIUM CHLORIDE 0.9% 1,000 ML IV SCH (10:00)
[2019-08-10] MEDS ORDERED: RX INFO: IV CONTRAST WAS GIVEN 1 EACH MISC MISCELLANE PRN (10:00)
--- NOTE | 2019-08-10 10:20 | CC ---
CARDIAC CATHETERIZATION REPORT Mr. Moreira is a 63-year-old male with known history of coronary artery disease, history of cardiomyopathy, history of COPD who presented with chest discomfort and progressive dyspnea. According to him, reminding him of the way he felt prior to his most recent stenting. In view of that, recommendation was made regarding cardiac catheterization. The procedure as well as the risks and the complications were discussed with the patient who is in full understanding and agreement. PROCEDURE: Patient was brought to helper animal laboratory in a fasting semi-sedated state after receiving fentanyl and Benadryl and achieving moderate conscious sedated state. Using Xylocaine anesthesia in the Seldinger technique, a 6-Honduran sheath was introduced in the right radial artery. Selective right and left coronary angiography performed using 5-Honduran 3.5 bend, right and left Estefania catheters. Multiple views of the coronary artery including hemiaxial views were obtained. Following that, 5-Honduran tight pigtail catheter was introduced in the left ventricle and pressures were calculated. Following that, catheter and sheath were removed. Hemostasis was obtained with deployment of a TR band. There was no immediate complication. Patient was returned to his room in stable condition. Of note, the patient received 5000 units of intravenous heparin as well as intra-arterial verapamil. FINDINGS: LEFT MAIN: This is a large-sized vessel trifurcating left circumflex, left anterior descending artery and ramus intermedius. Left main coronary artery has no evidence of high-grade stenosis. LEFT ANTERIOR DESCENDING ARTERY: This is a large-sized vessel reaching to the apex with a wraparound apex segment. The stented segment in the proximal mid LAD is patent with minimal plaque of 10%. RAMUS INTERMEDIUS: This is a large-sized vessel that has no evidence of high-grade stenosis. LEFT CIRCUMFLEX: This is a large nondominant vessel giving rise to a large obtuse marginal branch. The stented segment in the proximal left circumflex and the obtuse marginal branch is patent with 10% plaque and no evidence of high-grade stenosis. RIGHT CORONARY ARTERY: Right coronary artery is a large dominant vessel bifurcating distally PDA and posterolateral segment and branches calcified. The right coronary artery in mid segment has intimal plaque of 20% to 30% without any evidence of high- grade stenosis. LEFT VENTRICULOGRAM: Left ventriculogram was not performed. HEMODYNAMICS: There was no gradient across the aortic valve. The left ventricular end-diastolic pressure thornton 24 to 28 mmHg. CONCLUSION: 1. No evidence of restenosis in the left anterior descending artery and Left circumflex. 2. Mild disease in the right coronary artery. 3. Elevated left ventricular end-diastolic pressure. RECOMMENDATION: In view of finding anatomy, I recommend to continue medical therapy with aggressive coronary risk modifications that have been initiated. Those findings and recommendation were discussed with the patient and his family who are in full understanding and agreement. Duration of procedure is 18 minutes. MMODL / IJN: [id number] /
[2019-08-10] MEDS: ALBUTEROL NEBULIZED 2.5 MG/3 ML INHALATION PRN (11:02)
--- NOTE | 2019-08-10 11:24 | P.PN ---
Subjective Progress Note Date: 08/10/19 On today's evaluation of 08/10/2019 the patient is feeling well. History of any chest pain. Underwent another cardiac catheterization that showed patent vessels and the stented segment of the mid LAD was quite patent without any acute abnormalities. History of any chest pain. His still bronchospastic and wheezy although improved compared to yesterday and he remains on Solu-Medrol 40 mg every 8 hours. Is on DuoNeb directions around the clock and his outpatient medications include a combination of Spiriva and Symbicort. No significant sputum production. Chest x-ray was clear at the time of admission. Objective - Vital Signs Vital signs: Vital Signs Temp 98.2 F 08/10/19 10:00 Pulse 66 08/10/19 11:03 Resp 18 08/10/19 10:00 BP 137/74 08/10/19 10:45 Pulse Ox 96 08/10/19 10:45 Intake & Output 08/09/19 08/10/19 08/10/19 18:59 06:59 18:59 Intake Total 100 Balance 100 Intake: IV 100 Other: Voiding Method Toilet Toilet Toilet # Voids 1 1 - Exam Morbidly obese, comfortable likely distress Head exam was generally normal. There was no scleral icterus or corneal arcus. Mucous membranes were moist. Neck was supple and without jugular venous distension, thyromegaly, or carotid bruits. Carotids were easily palpable bilaterally. There was no adenopathy. Lungs sounds are diminished bilaterally and scattered expiratory wheezes throu ghout lung his bilaterally. Cardiac exam revealed the PMI to be normally situated and sized. The rhythm was regular and no extrasystoles were noted during several minutes of auscultation. The first and second heart sounds were normal and physiologic splitting of the second heart sound was noted. There were no murmurs, rubs, clicks, or gallops. Abdominal exam revealed normal bowel sounds. The abdomen was soft, non-tender, and without masses, organomegaly, or appreciable enlargement of the abdominal aorta. Extremities the patient has a adequate pulses in all 4 extremities and there is no evidence of bleeding identified on his cardiac catheterization. Neurologically awake and alert and there is no focal neurological deficit. neurologically neurologically awake and alert and there is no deficits. - Labs CBC & Chem 7: 08/10/19 04:23 08/10/19 04:22 Labs: Abnormal Lab Results - Last 24 Hours (Table) 08/09/19 08/09/19 08/09/19 Range/Units 11:41 16:45 19:46 WBC (3.8-10.6) k/uL RBC (4.30-5.90) m/uL Hgb (13.0-17.5) gm/dL MCV (80.0-100.0) fL Neutrophils # (1.3-7.7) k/uL Lymphocytes # (1.0-4.8) k/uL Carbon Dioxide (22-30) mmol/L BUN (9-20) mg/dL Glucose (74-99) mg/dL POC Glucose (mg/dL) 162 H 154 H 206 H (75-99) mg/dL 08/10/19 08/10/19 08/10/19 Range/Units 04:22 04:23 06:38 WBC 11.6 H (3.8-10.6) k/uL RBC 3.90 L (4.30-5.90) m/uL Hgb 12.8 L (13.0-17.5) gm/dL MCV 102.1 H (80.0-100.0) fL Neutrophils # 10.4 H (1.3-7.7) k/uL Lymphocytes # 0.5 L (1.0-4.8) k/uL Carbon Dioxide 34 H (22-30) mmol/L BUN 23 H (9-20) mg/dL Glucose 160 H (74-99) mg/dL POC Glucose (mg/dL) 126 H (75-99) mg/dL Assessment and Plan Plan: 1 chest pain, noncardiac in nature and a catheterization showed patent stent to LAD 2 COPD exacerbation with secondary shortness of breath and bronchospasm wheezing 3 obesity with a BMI of 42 4 shortness of breath secondary to above 55 COPD with a baseline FEV1 of 25% of predicted 6 hypertension 7 hyperlipidemia PLAN The patient can discharge home on a prednisone burst taper. Routine inhalers including a combination of Spiriva and Symbicort along with albuterol about treatments around the clock. Cardiac catheterization was noted. The patient can be discharged home. Pulmonary standpoint to be followed up on outpatient basis in the office.
[2019-08-10 11:41] LABS: Glucose,Whole Blood 129 mg/dL (75-99)
--- NOTE | 2019-08-10 12:29 | DS ---
DISCHARGE SUMMARY DATE OF SERVICE: 08/10/2019 FINAL DIAGNOSES: 1. Chest pain, possible unstable angina. Cardiac catheterization showed no significant lesions. Myocardial infarction ruled out. 2. Chronic obstructive pulmonary disease acute exacerbation. 3. Hypertension. 4. History of bronchitis. 5. Mild hyperkalemia. 6. History of coronary artery disease, stent. 7. Remote history of nicotine dependence. 8. Obesity with body mass index of 42.1. DISCHARGE DISPOSITION: The patient will be discharged in stable condition with guarded prognosis. Discharge cleared by Cardiology. HISTORY OF PRESENT ILLNESS: This is a 63-year-old gentleman with a past medical history of multiple medical problems, admitted with chest pain, myocardial infarction ruled out. Cardiology performed a cardiac catheterization. Cardiac cath showed no evidence of any restenoses of the LAD or left circumflex. Mild was noted and elevated left ventricular and end-diastolic pressure was also noted and the patient was treated medically and recommend outpatient followup. On exam, vitals are stable. CARDIOVASCULAR: S1, S2, muffled. RESPIRATORY: A few scattered rhonchi. ABDOMEN: Soft. NERVOUS SYSTEM: No focal deficits. The patient was also given IV steroids and antibiotics. DISCHARGE DATA: 1. Diet is cardiac diet. 2. Activity limited until followup. MEDICATIONS: 1. Aspirin 81 mg p.o. daily. 2. Brilinta 90 mg p.o. b.i.d. 3. Lasix 20 mg daily p.r.n. 4. Lipitor 80 mg p.o. daily. 5. Lopressor 25 mg p.o. b.i.d. 6. Potassium chloride 10 mEq p.o. daily p.r.n. 7. Prinivil 5 mg p.o. daily. 8. Albuterol 2 puffs q.i.d. p.r.n. 9. Spiriva 1 puff daily. 10.Symbicort 160/4.5 two puffs b.i.d. 11.Ceftin 500 mg p.o. b.i.d. for 3 days. 12.Nitrostat 0.4 sublingual p.r.n. 13.Prednisone taper 40 mg daily for 3 days, 30 for 3 days, 20 for 3 days 10 for 3 days. Follow up with Dr. Ramsey in 2-3 days, follow up with Dr. Funes as recommended. MMODL / IJN: [id number] / MTDD
[2019-08-10 16:13] VITALS: PULSE 70
[2019-08-10 16:16] VITALS: BP 146/66; RESP 19; TEMP 98.3
--- NOTE | 2019-08-11 08:27 | ECHOF ---
Referral Reason:cad MEASUREMENTS -------- HEIGHT: 175.3 cm WEIGHT: 129.3 kg BP: 150/70 RVIDd: 2.9 cm (< 3.3) IVSd: 1.5 cm (0.6 - 1.1) LVIDd: 5.5 cm (3.9 - 5.3) LVPWd: 1.4 cm (0.6 - 1.1) IVSs: 1.9 cm LVIDs: 3.8 cm LVPWs: 1.7 cm LA Diam: 3.9 cm (2.7 - 3.8) LAESV Index (A-L): 30.30 ml/m Ao Diam: 3.7 cm (2.0 - 3.7) AV Cusp: 2.6 cm (1.5 - 2.6) MV E Robbie: 0.73 m/s MV DecT: 209 ms MV A Robbie: 0.77 m/s MV E/A Ratio: 0.95 RAP: 5.00 mmHg RVSP: 42.54 mmHg TAPSE: 29.15 mm FINDINGS -------- Sinus rhythm. This was a technically difficult study with suboptimal views. The left ventricular size is normal. There is moderate concentric left ventricular hypertrophy. O verall left ventricular systolic function is normal with, an EF between 55 - 60 %. The right ventricle is normal in size. Normal LA size by volume 22+/-6 ml/m2. The right atrium was not well visualized. 5.0mg of Lumason was utilized for enhancement of images Interatrial and interventricular septum intact. The aortic valve was not well visualized. There is mild aortic valve sclerosis. There is trace to mild mitral regurgitation. Mild tricuspid regurgitation present. There is mild pulmonary hypertension. The right ventricular systolic pressure, as measured by Doppler, is 42.54mmHg. The pulmonic valve was not well visualized. The aortic root size is normal. Normal inferior vena cava with normal inspiratory collapse consistent with estimated right atrial pre ssure of 5 mmHg. The inferior vena cava is mildly dilated. There is no pericardial effusion. CONCLUSIONS -------- 1. Sinus rhythm. 2. This was a technically difficult study with suboptimal views. 3. The left ventricular size is normal. 4. There is moderate concentric left ventricular hypertrophy. 5. Overall left ventricular systolic function is normal with, an EF between 55 - 60 %. 6. The right ventricle is normal in size. 7. Normal LA size by volume 22+/-6 ml/m2. 8. The right atrium was not well visualized. 9. 5.0mg of Lumason was utilized for enhancement of images 10. Interatrial and interventricular septum intact. 11. The aortic valve was not well visualized. 12. There is mild aortic valve sclerosis. 13. There is trace to mild mitral regurgitation. 14. Mild tricuspid regurgitation present. 15. There is mild pulmonary hypertension. 16. The right ventricular systolic pressure, as measured by Doppler, is 42.54mmHg. 17. The pulmonic valve was not well visualized. 18. The aortic root size is normal. 19. Normal inferior vena cava with normal inspiratory collapse consistent with estimated right atrial pressure of 5 mmHg. 20. The inferior vena cava is mildly dilated. 21. There is no pericardial effusion. GLOBAL CLIMATE CHANGE ANALYST: Brie Swartz RDCS
[2019-08-11] MEDS ORDERED: ASPIRIN 81 MG PO SCH (09:00)
[2019-08-11] MEDS ORDERED: ATORVASTATIN 80 MG TAB PO SCH (09:00)
== END 2019-08-10 16:58 | disposition home or self-care (01) ==
LOC: EC 19:23 → 1SOBS 22:41
PROVIDERS: ADMIT Internal Medicine; ATTEND Internal Medicine
DX: R07.89 Other chest pain (principal); R06.00 Dyspnea, unspecified; J44.1 Chronic obstructive pulmonary disease with (acute) exacerbation; I10 Essential (primary) hypertension; E87.5 Hyperkalemia; E66.01 Morbid (severe) obesity due to excess calories; Z68.41 Body mass index [BMI] 40.0-44.9, adult; E78.5 Hyperlipidemia, unspecified; I25.5 Ischemic cardiomyopathy; Z87.09 Personal history of other diseases of the respiratory system; Z95.5 Presence of coronary angioplasty implant and graft; Z87.891 Personal history of nicotine dependence; Z79.899 Other long term (current) drug therapy; Z79.82 Long term (current) use of aspirin; Z79.51 Long term (current) use of inhaled steroids; Z79.02 Long term (current) use of antithrombotics/antiplatelets; Z82.3 Family history of stroke; Z82.49 Family history of ischemic heart disease and other diseases of the circulatory system; Z83.3 Family history of diabetes mellitus; E78.00 Pure hypercholesterolemia, unspecified; I25.110 Atherosclerotic heart disease of native coronary artery with unstable angina pectoris
CPT/HCPCS: 96365; 96366; 96375; 99285; 36415; 94640 ×4; 94760 ×2; 93005; 93458; 85379; 83880; 80053 ×2; 80048; 83735; 84484 ×2; 85025 ×3; 85610 ×2; 85730; 71046; G0378 ×3; C8929; J2920 ×2; J2930; J2001; J0696; J3010; J1644; Q9950; Q9967; 93306

== ENCOUNTER → 2020-03-09 | Outpatient (CLI) | payer MEDICARE ==
[2020-03-09 16:21] LABS: African American GFR (CKD) 90.5 (60.0-200.0); Albumin 4.5 g/dL (3.80-4.90); Albumin/Globulin Ratio 2.05 (1.60-3.17); Anion Gap 5.5 mmol/L (4.00-12.00); Calcium 9.2 mg/dL (8.7-10.3); Carbon Dioxide 32.5 mmol/L (21.6-31.8); Chol/HDL Ratio 2.75; Globulin 2.2 g/dL (1.6-3.3); LDL Cholesterol,Calculated 62.8 mg/dL (0.0-131.0); Non-African American GFR(CKD) 78.1 (60.0-200.0); Potassium 5.5 mmol/L (3.5-5.5); Total Bilirubin 0.3 mg/dL (0.2-1.2); Total Protein 6.7 g/dL (6.2-8.2); VLDL Calculation 14.2 mg/dL (5.00-40.00)
== END | disposition home or self-care (01) ==
LOC: LABWHC1 08:02
PROVIDERS: ATTEND Nurse Practitioner Adult Health
DX: I25.5 Ischemic cardiomyopathy (principal); E78.2 Mixed hyperlipidemia
CPT/HCPCS: 36415; 80053; 80061

== ENCOUNTER → 2020-07-11 | Outpatient (CLI) | payer MEDICARE ==
[2020-07-11 17:54] LABS: Chol/HDL Ratio 2.8; LDL Cholesterol,Calculated 71.4 mg/dL (0.0-131.0); VLDL Calculation 16.6 mg/dL (5.00-40.00)
== END | disposition home or self-care (01) ==
LOC: LABWHC1 08:31
PROVIDERS: ATTEND Nurse Practitioner Adult Health
DX: E78.2 Mixed hyperlipidemia (principal)
CPT/HCPCS: 36415; 80061; 84450; 84460

== ENCOUNTER → 2020-11-30 | Outpatient (CLI) | payer MEDICARE ==
[2020-12-01 02:22] LABS: African American GFR (CKD) 89.9 (60.0-200.0); Albumin 4.7 g/dL (3.80-4.90); Albumin/Globulin Ratio 2.24 (1.60-3.17); Anion Gap 8.9 mmol/L (4.00-12.00); Calcium 9.9 mg/dL (8.7-10.3); Carbon Dioxide 34.1 mmol/L (21.6-31.8); Chol/HDL Ratio 3.15; Globulin 2.1 g/dL (1.6-3.3); LDL Cholesterol,Calculated 79.2 mg/dL (0.0-131.0); Non-African American GFR(CKD) 77.5 (60.0-200.0); Total Bilirubin 0.3 mg/dL (0.3-1.2); Total Protein 6.8 g/dL (6.2-8.2); VLDL Calculation 19.8 mg/dL (5.00-40.00)
== END | disposition home or self-care (01) ==
LOC: LABWHC1 08:16
PROVIDERS: ATTEND Nurse Practitioner Adult Health
DX: E78.2 Mixed hyperlipidemia (principal); I10 Essential (primary) hypertension
CPT/HCPCS: 36415; 80053; 80061

== ENCOUNTER → 2020-12-27 | Outpatient (CLI) | payer MEDICARE ==
[2020-12-27 19:21] LABS: African American GFR (CKD) 102.1 (60.0-200.0); Anion Gap 9.3 mmol/L (4.00-12.00); BUN/Creat Ratio 24.44 Ratio (12.00-20.00); Calcium 9.7 mg/dL (8.7-10.3); Carbon Dioxide 34.7 mmol/L (21.6-31.8); Non-African American GFR(CKD) 88.1 (60.0-200.0); Potassium 5.4 mmol/L (3.5-5.5)
== END | disposition home or self-care (01) ==
LOC: LABWHC1 07:50
PROVIDERS: ATTEND Nurse Practitioner Adult Health
DX: E87.5 Hyperkalemia (principal)
CPT/HCPCS: 36415; 80048

== ENCOUNTER → 2021-06-19 | Outpatient (CLI) | payer MEDICARE ==
[2021-06-19 16:05] LABS: African American GFR (CKD) 104.4 (60.0-200.0); Albumin 4.4 g/dL (3.8-4.9); Albumin/Globulin Ratio 1.83 (1.60-3.17); Anion Gap 12.4 mmol/L (4.00-12.00); BUN/Creat Ratio 17.37 Ratio (12.00-20.00); Blood Urea Nitrogen 14.8 mg/dL (9.0-27.0); Calcium 9.3 mg/dL (8.7-10.3); Carbon Dioxide 33.7 mmol/L (21.6-31.8); Chol/HDL Ratio 2.76 Ratio; Globulin 2.4 g/dL (1.6-3.3); HDL Cholesterol 55.7 mg/dL (40.00-60.00); LDL Cholesterol,Calculated 79.1 mg/dL (0.0-131.0); Non-African American GFR(CKD) 90.1 (60.0-200.0); Potassium 5.4 mmol/L (3.5-5.5); Total Bilirubin 0.2 mg/dL (0.30-1.20); Total Protein 6.7 g/dL (6.2-8.2); Triglycerides 96.1 mg/dL (0.00-149.00); VLDL Calculation 19.22 mg/dL (5.00-40.00)
== END | disposition home or self-care (01) ==
LOC: LABWHC1 08:30
PROVIDERS: ATTEND Nurse Practitioner Adult Health
DX: I10 Essential (primary) hypertension (principal); E78.2 Mixed hyperlipidemia; E87.5 Hyperkalemia
CPT/HCPCS: 36415; 80053; 80061

== ENCOUNTER 2021-11-15 18:17 | Inpatient (IN) | payer MEDICARE ==
--- NOTE | 2021-11-15 18:51 | ED ---
SOB HPI - General Chief Complaint: Shortness of Breath Stated Complaint: PAYTON Source: patient, EMS Mode of arrival: EMS Limitations: no limitations - History of Present Illness Initial Comments: 66-year-old male with past medical history of COPD on 3-4 L of O2 chronically presents to the emergency department with worsening shortness of breath. EMS and at bedside provide history. They state that the patient has had shortness of breath for the past week. attempted to bring the patient up to the hospital however he was very stubborn and wouldn't go. They called Dr. Ramsey's office as this is who he sees for pulmonary. Reports that he was placed on steroids and has been taking them. reports that he has not been doing his breathing treatments. Tonight the patient's breathing significantly worse and therefore she called an ambulance. Reports no sick contacts. He is not vaccinated against Covid however has not left his house since . Per the patient's record he also has history of coronary disease. When EMS got to the house the patient was on his 4 L and saturating in the 70s. He did place him on nonrebreather. He was given 2 DuoNeb breathing treatments, albuterol breathing treatment and 125 mg of Solu-Medrol. He was found to be in a tachycardic rhythm. Oxygen saturations minimally improved. He denies any fevers chills or cough. No chest pain or pressure. No ripping or tearing sensation to his back. No alleviating, precipitating or modifying factors - Related Data Home Medications Medication Instructions Recorded Confirmed Budesonide-Formot 160-4.5 Mcg 2 puff INHALATION RT-BID 11/05/16 11/15/21 [Symbicort 160-4.5 Mcg Inhaler] Tiotropium [place] [Spiriva] 1 cap INHALATION RT-DAILY 11/05/16 11/15/21 Albuterol Sulfate [Proair Hfa] 2 puff INHALATION RT-QID PRN 11/20/18 11/15/21 Aspirin [Adult Low Dose Aspirin EC] 81 mg PO DAILY 11/20/18 11/15/21 Atorvastatin [Lipitor] 80 mg PO DAILY 11/20/18 11/15/21 Furosemide [Lasix] 20 mg PO DAILY PRN 11/20/18 11/15/21 Metoprolol Tartrate [Lopressor] 25 mg PO BID 11/20/18 11/15/21 Potassium Chloride [Potassium 10 meq PO DAILY PRN 11/20/18 11/15/21 Chloride ER] lisinopriL [Prinivil] 5 mg PO DAILY 08/08/19 11/15/21 Albuterol Nebulized [Ventolin 2.5 mg INHALATION RT-QID PRN 11/15/21 11/15/21 Nebulized] Ascorbic Acid [Vitamin C] 1,000 mg PO DAILY 11/15/21 11/15/21 Cholecalciferol [Vitamin D3 (125 125 mcg PO DAILY 11/15/21 11/15/21 Mcg = 5000 Iu)] Cyanocobalamin [Vitamin B-12] 500 mcg PO DAILY 11/15/21 11/15/21 Zinc Gluconate [Zinc] 50 mg PO DAILY 11/15/21 11/15/21 Allergies Allergy/AdvReac Type Severity Reaction Status Date / Time No Known Allergies Allergy Verified 11/15/21 19:20 Review of Systems ROS Statement: Those systems with pertinent positive or pertinent negative responses have been documented in the HPI. ROS Other: All systems not noted in ROS Statement are negative. Past Medical History Past Medical History: Chest Pain / Angina, Hypertension, Myocardial Infarction ([place]) Additional Past Medical History / Comment(s): states had CT possible bronchial cyst History of Any Multi-Drug Resistant Organisms: None Reported Past Surgical History: No Surgical Hx Reported, Heart Catheterization, Heart Catheterization With Stent Past Anesthesia/Blood Transfusion Reactions: No Reported Reaction Additional Past Anesthesia/Blood Transfusion Reaction / Comment(s): states has not had anesthesia Date of Last Stent Placement:: 12/02 Past Psychological History: No Psychological Hx Reported Smoking Status: Former smoker Past Alcohol Use History: None Reported Past Drug Use History: None Reported - Past Family History Brother(s) Family Medical History: CVA/TIA Father Family Medical History: Diabetes Mellitus, Myocardial Infarction ([place]) Mother Family Medical History: No Reported History General Exam Limitations: no limitations General appearance: alert Head exam: Present: atraumatic, normocephalic, normal inspection Eye exam: Present: normal appearance, PERRL, EOMI. Absent: scleral icterus, conjunctival injection, periorbital swelling ENT exam: Present: normal exam, mucous membranes moist Neck exam: Present: normal inspection. Absent: tenderness, meningismus, lymphadenopathy Respiratory exam: Present: respiratory distress, wheezes, accessory muscle use, decreased breath sounds, other (tachypnia to maintain normal oxygenation). Absent: rales, rhonchi, stridor Cardiovascular Exam: Present: tachycardia, irregular rhythm, normal heart sound s. Absent: systolic murmur, diastolic murmur, rubs, gallop, clicks GI/Abdominal exam: Present: soft, normal bowel sounds. Absent: distended, tenderness, guarding, rebound, rigid Extremities exam: Present: normal inspection, full ROM, normal capillary refill. Absent: tenderness, pedal edema, joint swelling, calf tenderness Back exam: Present: normal inspection Neurological exam: Present: alert, oriented X3, CN II-XII intact Psychiatric exam: Present: normal affect, normal mood Skin exam: Present: warm, dry, intact, normal color. Absent: rash Course Vital Signs 11/15/21 11/15/21 11/15/21 18:37 19:00 19:27 Temperature 98.6 F Pulse Rate 146 H 147 H Respiratory 44 H 44 H 40 H Rate Blood Pressure 138/112 145/74 O2 Sat by Pulse 84 L 98 Oximetry 11/15/21 11/15/21 11/16/21 21:20 22:51 00:00 Temperature 96.7 F L Pulse Rate 143 H 142 H 144 H Respiratory 40 H 34 H 44 H Rate Blood Pressure 140/92 118/55 107/69 O2 Sat by Pulse 98 97 96 Oximetry 11/16/21 11/16/21 11/16/21 01:00 02:00 02:30 Temperature Pulse Rate 146 H 149 H 134 H Respiratory 32 H 32 H 32 H Rate Blood Pressure 114/75 121/77 141/86 O2 Sat by Pulse 96 96 96 Oximetry - Reevaluation(s) Reevaluation #1: Talked with family - changing mind and possibly want to intubate patient 11/15/21 21:30 Reevaluation #2: Spoke with Dr. Ramsey will change rounds BiPAP settings. Discuss case further with patient and [id number]. Patient will remain a DO NOT INTUBATE 11/15/21 21:35 Medical Decision Making - Medical Decision Making Upon arrival patient was placed into room 3. He is placed on continuous pulse ox and cardiac monitoring. Patient arrives on a nonrebreather. He is saturating only 83%. This the patient is placed on BiPAP. Laboratory studies were conducted and a 12-lead EKG was obtained which demonstrates a questionable new onset A. fib flutter. Laboratory studies are reviewed which demonstrates a troponin of 0.058. Patient continues to not have any chest pain. Covid is not detected. Chest x-ray demonstrates bibasilar infiltrates. Blood cultures were obtained and patient is started on Rocephin and azithromycin. Patient is reevaluated and does appear to be much more drowsy. Gas is obtained and the patient's CO2 is greater than 120. I had the discussion with family upon hospital arrival whether the patient would be intubated if necessary and they reported that the patient was a DO NOT INTUBATE. Once the patient began to decompensate I rediscussed this matter with the patient's family. I talked to the , [id number]. I also additionally called and spoke with Dr. Ramsey. Patient was adamant that he did not want to be on a ventilator and the does want to respect his wishes at this time. BiPAP settings were adjusted. The patient was given 60 mg of Lasix. He is started on a Cardizem drip as well as heparin drip for his new onset A. fib flutter. Patient will be admitted to the . Spoke with Angie in regards to the patient's CODE STATUS. Dr. Ramsey will be on consult. She remained in stable condition with a guarded prognosis awaiting a bed on the floor - Lab Data Result diagrams: 11/20/21 06:11 11/20/21 06:11 Lab Results 11/15/21 11/15/21 11/15/21 Range/Units 18:48 18:48 18:48 WBC 9.3 (3.8-10.6) k/uL RBC 4.09 L (4.30-5.90) m/uL Hgb 13.5 (13.0-17.5) gm/dL Hct 44.6 (39.0-53.0) % MCV 109.2 H (80.0-100.0) fL MCH 33.1 (25.0-35.0) pg MCHC 30.3 L (31.0-37.0) g/dL RDW 14.2 (11.5-15.5) % Plt Count 275 (150-450) k/uL MPV 7.7 Neutrophils % 83 % Lymphocytes % 7 % Monocytes % 7 % Eosinophils % 0 % Basophils % 0 % Neutrophils # 7.7 (1.3-7.7) k/uL Lymphocytes # 0.6 L (1.0-4.8) k/uL Monocytes # 0.7 (0-1.0) k/uL Eosinophils # 0.0 (0-0.7) k/uL Basophils # 0.0 (0-0.2) k/uL Manual Slide Review Performed Polychromasia Present Hypochromasia Marked Macrocytosis Marked A PT 11.6 (9.0-12.0) sec INR 1.1 (<1.2) APTT 25.1 (22.0-30.0) sec Sample Site ABG pH (7.35-7.45) ABG pCO2 (35-45) mmHg ABG pO2 (83-108) mmHg ABG O2 Saturation (94-97) % Sonny Test FiO2 % Sodium 139 (137-145) mmol/L Potassium 5.2 H (3.5-5.1) mmol/L Chloride 94 L (98-107) mmol/L Carbon Dioxide 39 H (22-30) mmol/L Anion Gap 6 mmol/L BUN 30 H (9-20) mg/dL Creatinine 0.66 (0.66-1.25) mg/dL Est GFR (CKD-EPI)AfAm >90 (>60 ml/min/1.73 sqM) Est GFR (CKD-EPI)NonAf >90 (>60 ml/min/1.73 sqM) Glucose 138 H (74-99) mg/dL Plasma Lactic Acid Alex (0.7-2.0) mmol/L Calcium 8.6 (8.4-10.2) mg/dL Magnesium 2.2 (1.6-2.3) mg/dL Total Bilirubin 0.9 (0.2-1.3) mg/dL AST 44 (17-59) U/L ALT 49 (4-49) U/L Alkaline Phosphatase 75 (38-126) U/L Troponin I (0.000-0.034) ng/mL NT-Pro-B Natriuret Pep pg/mL Total Protein 6.8 (6.3-8.2) g/dL Albumin 3.9 (3.5-5.0) g/dL Coronavirus (PCR) (Not Detectd) 11/15/21 11/15/21 11/15/21 Range/Units 18:48 18:48 18:48 WBC (3.8-10.6) k/uL RBC (4.30-5.90) m/uL Hgb (13.0-17.5) gm/dL Hct (39.0-53.0) % MCV (80.0-100.0) fL MCH (25.0-35.0) pg MCHC (31.0-37.0) g/dL RDW (11.5-15.5) % Plt Count (150-450) k/uL MPV Neutrophils % % Lymphocytes % % Monocytes % % Eosinophils % % Basophils % % Neutrophils # (1.3-7.7) k/uL Lymphocytes # (1.0-4.8) k/uL Monocytes # (0-1.0) k/uL Eosinophils # (0-0.7) k/uL Basophils # (0-0.2) k/uL Manual Slide Review Polychromasia Hypochromasia Macrocytosis PT (9.0-12.0) sec INR (<1.2) APTT (22.0-30.0) sec Sample Site ABG pH (7.35-7.45) ABG pCO2 (35-45) mmHg ABG pO2 (83-108) mmHg ABG O2 Saturation (94-97) % Sonny Test FiO2 % Sodium (137-145) mmol/L Potassium (3.5-5.1) mmol/L Chloride (98-107) mmol/L Carbon Dioxide (22-30) mmol/L Anion Gap mmol/L BUN (9-20) mg/dL Creatinine (0.66-1.25) mg/dL Est GFR (CKD-EPI)AfAm (>60 ml/min/1.73 sqM) Est GFR (CKD-EPI)NonAf (>60 ml/min/1.73 sqM) Glucose (74-99) mg/dL Plasma Lactic Acid Alex 0.9 (0.7-2.0) mmol/L Calcium (8.4-10.2) mg/dL Magnesium (1.6-2.3) mg/dL Total Bilirubin (0.2-1.3) mg/dL AST (17-59) U/L ALT (4-49) U/L Alkaline Phosphatase (38-126) U/L Troponin I 0.058 H* (0.000-0.034) ng/mL NT-Pro-B Natriuret Pep 1930 pg/mL Total Protein (6.3-8.2) g/dL Albumin (3.5-5.0) g/dL Coronavirus (PCR) (Not Detectd) 11/15/21 11/15/21 Range/Units 20:18 21:00 WBC (3.8-10.6) k/uL RBC (4.30-5.90) m/uL Hgb (13.0-17.5) gm/dL Hct (39.0-53.0) % MCV (80.0-100.0) fL MCH (25.0-35.0) pg MCHC (31.0-37.0) g/dL RDW (11.5-15.5) % Plt Count (150-450) k/uL MPV Neutrophils % % Lymphocytes % % Monocytes % % Eosinophils % % Basophils % % Neutrophils # (1.3-7.7) k/uL Lymphocytes # (1.0-4.8) k/uL Monocytes # (0-1.0) k/uL Eosinophils # (0-0.7) k/uL Basophils # (0-0.2) k/uL Manual Slide Review Polychromasia Hypochromasia Macrocytosis PT (9.0-12.0) sec INR (<1.2) APTT (22.0-30.0) sec Sample Site rrad ABG pH 7.14 L* (7.35-7.45) ABG pCO2 >120 H* (35-45) mmHg ABG pO2 239 H (83-108) mmHg ABG O2 Saturation 99.0 H (94-97) % Sonny Test Yes FiO2 80 % Sodium (137-145) mmol/L Potassium (3.5-5.1) mmol/L Chloride (98-107) mmol/L Carbon Dioxide (22-30) mmol/L Anion Gap mmol/L BUN (9-20) mg/dL Creatinine (0.66-1.25) mg/dL Est GFR (CKD-EPI)AfAm (>60 ml/min/1.73 sqM) Est GFR (CKD-EPI)NonAf (>60 ml/min/1.73 sqM) Glucose (74-99) mg/dL Plasma Lactic Acid Alex (0.7-2.0) mmol/L Calcium (8.4-10.2) mg/dL Magnesium (1.6-2.3) mg/dL Total Bilirubin (0.2-1.3) mg/dL AST (17-59) U/L ALT (4-49) U/L Alkaline Phosphatase (38-126) U/L Troponin I (0.000-0.034) ng/mL NT-Pro-B Natriuret Pep pg/mL Total Protein (6.3-8.2) g/dL Albumin (3.5-5.0) g/dL Coronavirus (PCR) Not Detected (Not Detectd) - EKG Data EKG Comments: EKG demonstrates a a flutter with a rate of 148. QRS 122. QTC of 349. No acute ST segment elevations or depressions. Critical Care Time Critical Care Time: Yes Critical Care Time: 32 minutes for cardizem gtt, bipap management, consultation with pulm Disposition Clinical Impression: Dyspnea, COPD exacerbation, CAP (community acquired pneumonia), BiPAP (biphasic positive airway pressure) dependence, Atrial flutter Disposition: ADMITTED IP TO THIS HOSP Condition: Critical Decision to Admit Reason: Admit from EC Decision Date: 11/15/21 Decision Time: 23:02
[2021-11-15 19:04] LABS: Basophils % (A) 0 %; Eosinophils % (A) 0 %; HCT 44.6 % (39.0-53.0); HGB 13.5 gm/dL (13.0-17.5); Hypochromasia Marked; Lymphocytes # (A) 0.6 k/uL (1.0-4.8); Lymphocytes % (A) 7 %; MCH 33.1 pg (25.0-35.0); MCHC 30.3 g/dL (31.0-37.0); MCV 109.2 fL (80.0-100.0); Macrocytosis Marked; Mean Platelet Volume 7.7; Monocytes # (A) 0.7 k/uL (0-1.0); Monocytes % (A) 7 %; Neutrophils # (A) 7.7 k/uL (1.3-7.7); Neutrophils % (A) 83 %; Platelet Count 275 k/uL (150-450); RBC 4.09 m/uL (4.30-5.90); RDW 14.2 % (11.5-15.5); WBC 9.3 k/uL (3.8-10.6)
[2021-11-15 19:11] LABS: ALT 49 U/L (4-49); AST 44 U/L (17-59); African American GFR (CKD) >90 (>60 ml/min/1.73 sqM); Albumin 3.9 g/dL (3.5-5.0); Alkaline Phosphatase 75 U/L (38-126); Anion Gap 6 mmol/L; Blood Urea Nitrogen 30 mg/dL (9-20); Calcium 8.6 mg/dL (8.4-10.2); Carbon Dioxide 39 mmol/L (22-30); Chloride 94 mmol/L (98-107); Glucose 138 mg/dL (74-99); Magnesium 2.2 mg/dL (1.6-2.3); Non-African American GFR(CKD) >90 (>60 ml/min/1.73 sqM); Potassium 5.2 mmol/L (3.5-5.1); Sodium 139 mmol/L (137-145); Total Bilirubin 0.9 mg/dL (0.2-1.3); Total Protein 6.8 g/dL (6.3-8.2)
--- NOTE | 2021-11-15 19:15 | XR ---
EXAMINATION TYPE: XR chest 1V portable DATE OF EXAM: 11/15/2021 COMPARISON: 08/08/2019 HISTORY: Chest pain TECHNIQUE: Single view FINDINGS: There are some mild interstitial and airspace infiltrate in both lower lobes. There is no o bvious heart failure. Heart appears enlarged. There are chest leads. Bony thorax is intact. IMPRESSION: There is bilateral lower lobe pneumonia which appears new compared to old exam.
[2021-11-15 19:20] LABS: INR 1.1 (<1.2); Partial Thromboplastin Time 25.1 sec (22.0-30.0); Prothrombin Time 11.6 sec (9.0-12.0)
[2021-11-15 19:47] LABS: Polychromasia Present
[2021-11-15] MEDS ORDERED: DILTIAZEM DRIP BOLUS FROM BAG 1 MG SOLN IV ONE (20:35)
[2021-11-15] MEDS ORDERED: cefTRIAXone IN SWFI 1,000 MG/10 ML SYRINGE IVP STA (20:40)
[2021-11-15] MEDS ORDERED: AZITHROMYCIN 500 MG in SODIUM CHLORIDE 0.9% 250 ML IVPB STA (20:41)
[2021-11-15 21:09] LABS: ABG PO2 239 mmHg (83-108); Allen Test Performed? Yes
[2021-11-15 21:30] LABS: ABG PH 7.14 (7.35-7.45)
[2021-11-15 21:31] LABS: ABG PCO2 >120 mmHg (35-45)
[2021-11-15] MEDS ORDERED: FUROSEMIDE 10 MG/ML 10 ML VIAL IV STA (21:44)
[2021-11-15] MEDS: DILTIAZEM 125 MG in SODIUM CHLORIDE 0.9% 100 ML IV SCH (21:53)
[2021-11-15] MEDS ORDERED: NALOXONE 0.4 MG/ML 1 ML VIAL IV PRN (23:02)
[2021-11-15] MEDS ORDERED: HEPARIN SODIUM 1,000 UN/ML (10ML VL) IV ONE (23:12)
[2021-11-15] MEDS ORDERED: HEPARIN SODIUM 1,000 UN/ML (10ML VL) IV PRN (23:12)
[2021-11-15] MEDS ORDERED: HEPARIN SOD,PORK IN 0.45% NACL 25,000 UNIT in 0.45% NACL 1 250ML.BAG IV SCH (23:15)
[2021-11-16] MEDS: methylPREDNISolone SOD SUCCI 40 MG/ML 1 ML VIAL IV SCH ×2 (00:08→08:08)
[2021-11-16 02:52] LABS: Glucose,Whole Blood 149 mg/dL (75-99)
[2021-11-16 05:52] LABS: ABG Base Excess 18.5 mmol/L; ABG Oxygen Saturation 93.6 % (94-97); ABG PH 7.33 (7.35-7.45); ABG PO2 69 mmHg (83-108); ABG TCO2 47 mmol/L (19-24); Allen Test Performed? Yes
[2021-11-16 05:54] LABS: ABG HCO3 44 mmol/L (21-25); ABG PCO2 84 mmHg (35-45)
[2021-11-16] MEDS: DILTIAZEM 125 MG in SODIUM CHLORIDE 0.9% 100 ML IV SCH (06:11)
[2021-11-16 06:20] LABS: Basophils % (A) 0 %; Eosinophils % (A) 0 %; HGB 12.5 gm/dL (13.0-17.5); Hypochromasia Marked; Lymphocytes # (A) 0.2 k/uL (1.0-4.8); Lymphocytes % (A) 3 %; MCH 33.8 pg (25.0-35.0); MCHC 30.6 g/dL (31.0-37.0); MCV 110.5 fL (80.0-100.0); Macrocytosis Marked; Mean Platelet Volume 7.9; Monocytes # (A) 0.5 k/uL (0-1.0); Monocytes % (A) 6 %; Neutrophils % (A) 90 %; Platelet Count 275 k/uL (150-450); RBC 3.71 m/uL (4.30-5.90); RDW 14.2 % (11.5-15.5); WBC 7.8 k/uL (3.8-10.6)
[2021-11-16 06:24] LABS: INR 1.1 (<1.2); Partial Thromboplastin Time 42.1 sec (22.0-30.0); Prothrombin Time 11.9 sec (9.0-12.0)
[2021-11-16 06:33] LABS: Calcium 8.4 mg/dL (8.4-10.2); Magnesium 2.2 mg/dL (1.6-2.3); Potassium 5.4 mmol/L (3.5-5.1)
[2021-11-16] MEDS: IPRATROPIUM-ALBUTEROL 3 ML NEB INHALATION PRN (06:55)
[2021-11-16] MEDS ORDERED: NON FORMULARY DRUG (Tiotropium Bromide [Spiriva] 18 MCG Cap.W.Dev) INHALATION SCH (08:00)
[2021-11-16] MEDS ORDERED: SYMBICORT 160-4.5 MCG INHALER INHALATION SCH (08:00)
[2021-11-16] MEDS: PANTOPRAZOLE 40 MG/10 ML VIAL IV SCH (08:07)
[2021-11-16] MEDS: FUROSEMIDE 10 MG/ML 4 ML VIAL IV SCH ×2 (08:09→20:02)
[2021-11-16] MEDS: ASPIRIN 81 MG PO SCH (08:10)
[2021-11-16] MEDS: CHOLECALCIFEROL 125 MCG (5000 IU) TABLET PO SCH (08:10)
[2021-11-16] MEDS: ATORVASTATIN 80 MG TAB PO SCH (08:10)
[2021-11-16] MEDS: CYANOCOBALAMIN 500 MCG TAB PO SCH (08:10)
[2021-11-16] MEDS: ASCORBIC ACID 500 MG TAB PO SCH (08:10)
[2021-11-16] MEDS: ZINC SULFATE 220 MG CAP PO SCH (08:11)
[2021-11-16] MEDS ORDERED: METOPROLOL TARTRATE 25 MG TAB PO SCH (09:00)
[2021-11-16] MEDS ORDERED: lisinopriL 5 MG TAB PO SCH (09:00)
[2021-11-16] MEDS: METOPROLOL TARTRATE 50 MG TAB PO SCH ×2 (10:25→20:01)
[2021-11-16] MEDS: AZITHROMYCIN 500 MG TAB PO SCH (10:26)
[2021-11-16] MEDS: APIXABAN 5 MG TAB PO SCH ×2 (10:27→20:01)
[2021-11-16] MEDS: IPRATROPIUM-ALBUTEROL 3 ML NEB INHALATION SCH ×3 (11:11→19:47)
[2021-11-16 11:14] LABS: Glucose,Whole Blood 116 mg/dL (75-99)
--- NOTE | 2021-11-16 11:30 | P.HPIM ---
History of Present Illness Patient is a 66-year-old male came in the with compensative shortness of breath does have history of COPD uses about 2 L of oxygen at home patient was severely hypoxic and hypercapnic with the pCO2 of greater than 120 patient was on BiPAP. Patient is presently being the BiPAP still wheezing. Patient doesn't have any pneumonia on the chest x-ray. Patient is on the systemic steroids in the form of IV steroids. Patient denied any fever chills patient is coughing not not bringing up much at this time. Patient baseline pCO2 appears to be around 70. Patient is not acidotic anymore pCO2 has gone down to 64 still bit hypoxic. Patient also has history of atrial fibrillation when he came and patient was in A. fib with rapid and regular rate secondary to hypoxemia this resolved and patient presently rate controlled still in A. fib, patient was started on the Cardizem drip was later weaned off and the patient was started on oral metoprolol and Eliquis. Patient had bilateral lower extremity swelling on admission which resolved at this time patient takes a low-dose of Lasix had a normal ejection fraction the past patient is also on KRISTOPHER inhibitor. Patient blood pressure is not elevated patient doesn't have any systolic dysfunction patient potassium is elevated because of these reasons this will be discontinued. Patient the creatinine went up from 0.66-1.07. Patient is presently on 4 L of oxygen. She denied mild elevation of troponin 0.058. Patient is obese, didn't have any history of sleep apnea but probably will need another sleep study as his previous sleep study was many years ago. REVIEW OF SYSTEMS: CONSTITUTIONAL: No fever, no malaise, no fatigue. HEENT: No recent visual problems or hearing problems. Denied any sore throat. CARDIOVASCULAR: No chest pain, orthopnea, PND, no palpitations, no syncope. PULMONARY: As mentioned in HPI GASTROINTESTINAL: No diarrhea, no nausea, no vomiting, no abdominal pain. NEUROLOGICAL: No headaches, no weakness, no numbness. HEMATOLOGICAL: Denies any bleeding or petechiae. GENITOURINARY: Denies any burning micturition, frequency, or urgency. MUSCULOSKELETAL/RHEUMATOLOGICAL: Denies any joint pain, swelling, or any muscle pain. ENDOCRINE: Denies any polyuria or polydipsia. The rest of the 14-point review of systems is negative. PHYSICAL EXAMINATION: GENERAL: The patient is alert and oriented x3, not in any acute distress. Obese HEENT: Pupils are round and equally reacting to light. EOMI. No scleral icterus. No conjunctival pallor. Normocephalic, atraumatic. No pharyngeal erythema. No thyromegaly. CARDIOVASCULAR: S1 and S2 present. No murmurs, rubs, or gallops. Irregularly irregular rhythm PULMONARY: Decreased air entry with the expiratory wheezing on exam ABDOMEN: Soft, nontender, nondistended, normoactive bowel sounds. No palpable organomegaly. MUSCULOSKELETAL: No joint swelling or deformity. EXTREMITIES: No cyanosis, clubbing, mild pedal edema improved compared to yesterday. NEUROLOGICAL: Gross neurological examination did not reveal any focal deficits. SKIN: No rashes. Assessment and plan -Acute on chronic hypercapnic and hypoxic respiratory failure: This is secondary to COPD exacerbation patient will continue on systemic steroids inhalational treatments continue with oxygen therapy patient is off BiPAP at this time -Respiratory acidosis secondary to CO2 retention which improved at this time. Patient has a compensated metabolic alkalosis. -Peripheral edema: Secondary to obesity and venous insufficiency improved with Lasix -Atrial fibrillation with rapid and regular rate, patient is a presently rate controlled continue with anticoagulation and the beta nnamdi. -Urinary artery disease with the stents in the past -Hypertension Heparin obesity possibly of sleep apnea will need another sleep study -Hyperkalemia secondary to KRISTOPHER inhibitor which will be discontinued for multiple reasons as mentioned above -Hyperlipidemia DVT prophylaxis: Patient is on anticoagulation with Eliquis Past Medical History Past Medical History: Atrial Fibrillation, Coronary Artery Disease (CAD), Chest Pain / Angina, Heart Failure, COPD, Hypertension, Myocardial Infarction ([place]), P [place] Additional Past Medical History / Comment(s): states had CT possible bronchial cyst Last Myocardial Infarction Date:: 12/02 History of Any Multi-Drug Resistant Organisms: None Reported Past Surgical History: No Surgical Hx Reported, Heart Catheterization, Heart Catheterization With Stent Past Anesthesia/Blood Transfusion Reactions: No Reported Reaction Additional Past Anesthesia/Blood Transfusion Reaction / Comment(s): states has not had anesthesia Date of Last Stent Placement:: 12/02 Past Psychological History: No Psychological Hx Reported Smoking Status: Former smoker Past Alcohol Use History: None Reported Additional Past Alcohol Use History / Comment(s): smoker from age [age] 1 ppd quit Past Drug Use History: None Reported - Past Family History Brother(s) Family Medical History: CVA/TIA Father Family Medical History: Diabetes Mellitus, Myocardial Infarction ([place]) Mother Family Medical History: No Reported History Medications and Allergies Home Medications Medication Instructions Recorded Confirmed Type Budesonide-Formot 160-4.5 Mcg 2 puff INHALATION RT-BID 11/05/16 11/15/21 History [Symbicort 160-4.5 Mcg Inhaler] Tiotropium [place] [Spiriva] 1 cap INHALATION RT-DAILY 11/05/16 11/15/21 History Albuterol Sulfate [Proair Hfa] 2 puff INHALATION RT-QID PRN 11/20/18 11/15/21 History Aspirin [Adult Low Dose Aspirin EC] 81 mg PO DAILY 11/20/18 11/15/21 History Atorvastatin [Lipitor] 80 mg PO DAILY 11/20/18 11/15/21 History Furosemide [Lasix] 20 mg PO DAILY PRN 11/20/18 11/15/21 History Metoprolol Tartrate [Lopressor] 25 mg PO BID 11/20/18 11/15/21 History Potassium Chloride [Potassium 10 meq PO DAILY PRN 11/20/18 11/15/21 History Chloride ER] lisinopriL [Prinivil] 5 mg PO DAILY 08/08/19 11/15/21 History Albuterol Nebulized [Ventolin 2.5 mg INHALATION RT-QID PRN 11/15/21 11/15/21 History Nebulized] Ascorbic Acid [Vitamin C] 1,000 mg PO DAILY 11/15/21 11/15/21 History Cholecalciferol [Vitamin D3 (125 125 mcg PO DAILY 11/15/21 11/15/21 History Mcg = 5000 Iu)] Cyanocobalamin [Vitamin B-12] 500 mcg PO DAILY 11/15/21 11/15/21 History Zinc Gluconate [Zinc] 50 mg PO DAILY 11/15/21 11/15/21 History Allergies Allergy/AdvReac Type Severity Reaction Status Date / Time No Known Allergies Allergy Verified 11/15/21 19:20 Physical Exam Vitals: Vital Signs Temp Pulse Resp BP Pulse Ox 11/16/21 11:22 73 13 11/16/21 11:11 79 13 11/16/21 11:00 81 18 118/60 96 11/16/21 10:00 80 22 118/60 92 L 11/16/21 09:00 78 16 118/72 96 11/16/21 08:00 98.0 F 78 14 106/55 94 L 11/16/21 07:12 77 12 11/16/21 07:00 78 19 122/55 91 L 11/16/21 06:56 79 19 11/16/21 06:00 77 34 H 117/63 94 L 11/16/21 05:00 90 34 H 111/52 93 L 11/16/21 04:00 75 19 115/60 98 11/16/21 03:00 98 F 112 H 40 H 87/70 97 11/16/21 02:30 134 H 32 H 141/86 96 11/16/21 02:00 149 H 32 H 121/77 96 11/16/21 01:00 146 H 32 H 114/75 96 11/16/21 00:00 144 H 44 H 107/69 96 11/15/21 22:51 96.7 F L 142 H 34 H 118/55 97 11/15/21 21:20 143 H 40 H 140/92 98 11/15/21 19:27 147 H 40 H 145/74 98 11/15/21 19:00 44 H 11/15/21 18:37 98.6 F 146 H 44 H 138/112 84 L Intake and Output 11/15/21 11/16/21 11/16/21 22:59 06:59 14:59 Intake Total 161.792 240 Output Total 635 1200 Balance -473.208 -960 Intake: Intake, IV Titration 161.792 Amount Diltiazem 125 mg In 93.333 Sodium Chloride 0.9% 100 ml @ Per Protocol IV .Q0M QUETA Rx#:[id number] Heparin Sod,Pork in 0.45% 68.459 NaCl 25,000 unit In 0.45 % NaCl 1 250ml.bag @ 7.2 UNITS/KG/HR 9.994 mls/hr IV .Q24H QUETA Rx#: [id number] Oral 240 Output: Urine 635 1200 Uretheral ([place]) 225 Other: Voiding Method Indwelling Catheter Indwelling Catheter Weight 138.799 kg 137 kg 137 kg Results CBC & Chem 7: 11/16/21 05:11 11/16/21 05:11 Labs: Abnormal Lab Results - Last 24 Hours (Table) 11/15/21 11/15/21 11/15/21 Range/Units 18:48 18:48 18:48 RBC 4.09 L (4.30-5.90) m/uL Hgb (13.0-17.5) gm/dL MCV 109.2 H (80.0-100.0) fL MCHC 30.3 L (31.0-37.0) g/dL Lymphocytes # 0.6 L (1.0-4.8) k/uL Macrocytosis Marked A APTT (22.0-30.0) sec ABG pH (7.35-7.45) ABG pCO2 (35-45) mmHg ABG pO2 (83-108) mmHg ABG HCO3 (21-25) mmol/L ABG Total CO2 (19-24) mmol/L ABG O2 Saturation (94-97) % Potassium 5.2 H (3.5-5.1) mmol/L Chloride 94 L (98-107) mmol/L Carbon Dioxide 39 H (22-30) mmol/L BUN 30 H (9-20) mg/dL Glucose 138 H (74-99) mg/dL POC Glucose (mg/dL) (75-99) mg/dL Troponin I 0.058 H* (0.000-0.034) ng/mL 11/15/21 11/16/21 11/16/21 Range/Units 21:00 02:49 05:11 RBC (4.30-5.90) m/uL Hgb (13.0-17.5) gm/dL MCV (80.0-100.0) fL MCHC (31.0-37.0) g/dL Lymphocytes # (1.0-4.8) k/uL Macrocytosis APTT (22.0-30.0) sec ABG pH 7.14 L* (7.35-7.45) ABG pCO2 >120 H* (35-45) mmHg ABG pO2 239 H (83-108) mmHg ABG HCO3 (21-25) mmol/L ABG Total CO2 (19-24) mmol/L ABG O2 Saturation 99.0 H (94-97) % Potassium 5.4 H (3.5-5.1) mmol/L Chloride 90 L (98-107) mmol/L Carbon Dioxide 41 H* (22-30) mmol/L BUN 34 H (9-20) mg/dL Glucose 128 H (74-99) mg/dL POC Glucose (mg/dL) 149 H (75-99) mg/dL Troponin I (0.000-0.034) ng/mL 11/16/21 11/16/21 11/16/21 Range/Units 05:11 05:11 05:51 RBC 3.71 L (4.30-5.90) m/uL Hgb 12.5 L (13.0-17.5) gm/dL MCV 110.5 H (80.0-100.0) fL MCHC 30.6 L (31.0-37.0) g/dL Lymphocytes # 0.2 L (1.0-4.8) k/uL Macrocytosis Marked A APTT 42.1 H (22.0-30.0) sec ABG pH 7.33 L (7.35-7.45) ABG pCO2 84 H* (35-45) mmHg ABG pO2 69 L (83-108) mmHg ABG HCO3 44 H* (21-25) mmol/L ABG Total CO2 47 H (19-24) mmol/L ABG O2 Saturation 93.6 L (94-97) % Potassium (3.5-5.1) mmol/L Chloride (98-107) mmol/L Carbon Dioxide (22-30) mmol/L BUN (9-20) mg/dL Glucose (74-99) mg/dL POC Glucose (mg/dL) (75-99) mg/dL Troponin I (0.000-0.034) ng/mL 11/16/21 Range/Units 11:12 RBC (4.30-5.90) m/uL Hgb (13.0-17.5) gm/dL MCV (80.0-100.0) fL MCHC (31.0-37.0) g/dL Lymphocytes # (1.0-4.8) k/uL Macrocytosis APTT (22.0-30.0) sec ABG pH (7.35-7.45) ABG pCO2 (35-45) mmHg ABG pO2 (83-108) mmHg ABG HCO3 (21-25) mmol/L ABG Total CO2 (19-24) mmol/L ABG O2 Saturation (94-97) % Potassium (3.5-5.1) mmol/L Chloride (98-107) mmol/L Carbon Dioxide (22-30) mmol/L BUN (9-20) mg/dL Glucose (74-99) mg/dL POC Glucose (mg/dL) 116 H (75-99) mg/dL Troponin I (0.000-0.034) ng/mL Thrombosis Risk Factor Assmnt - Choose All That Apply Each Factor Represents 1 point: Abnormal pulmonary function (COPD), Medical pt on bed rest, Obesity (BMI >25) Other Risk Factors: Yes Each Risk Factor Represents 2 Points: Age 61-74 years, Patient confined to bed Thrombosis Risk Factor Assessment Total Risk Factor Score: 7 Thrombosis Risk Factor Assessment Level: High Risk
--- NOTE | 2021-11-16 11:32 | ECHOF ---
Referral Reason:chf MEASUREMENTS -------- HEIGHT: 177.8 cm WEIGHT: 137.0 kg BP: 124/107 IVSd: 1.0 cm (0.6 - 1.1) LVIDd: 6.1 cm (3.9 - 5.3) LVPWd: 1.0 cm (0.6 - 1.1) IVSs: 1.3 cm LVIDs: 4.8 cm LVPWs: 1.5 cm LAESV Index (A-L): 37.68 ml/m RAP: 5.00 mmHg RVSP: 26.21 mmHg FINDINGS -------- This was a technically difficult study with suboptimal views. The left ventricle is mildly dilated. Left ventricular wall thickness is normal. Overall left lucas tricular systolic function is severely impaired with, an EF between 25 - 30 %. Global hypokinesis The RV was not well visualized. LA is moderately dilated 34-39 ml/m2 The right atrium was not well visualized. 5.0mg of Lumason was utilized for enhancement of images Interatrial and interventricular septum intact. There is no evidence of aortic regurgitation. There is no evidence of aortic stenosis. Rzhy-et-xmrykjeu mitral regurgitation is present. Mild tricuspid regurgitation present. There is no evidence of pulmonary hypertension. The right v entricular systolic pressure, as measured by Doppler, is 26.21mmHg. There is no pulmonic regurgitation present. The aortic root size is normal. There is no pericardial effusion. CONCLUSIONS -------- 1. The left ventricle is mildly dilated. 2. Left ventricular wall thickness is normal. 3. Overall left ventricular systolic function is severely impaired with, an EF between 25 - 30 %. 4. Global hypokinesis 5. LA is moderately dilated 34-39 ml/m2 6. Ebpm-vj-pvngjlyj mitral regurgitation is present. 7. Mild tricuspid regurgitation present. MERCHANDISE FLOW MANAGER: No Zamora RDCS
--- NOTE | 2021-11-16 11:57 | P.CNPUL ---
History of Present Illness Consult date: 11/16/21 History of present illness: This is a 66-year-old male patient with advanced COPD with an FEV1 of 25% of predicted, oxygen dependent at 2/3 L nasal cannula in addition to Prevacid history of coronary artery disease, has history of stent placement, previous history of ischemic cardiomyopathy with impaired ejection fraction that had been as low as 35% and subsequent improvement. The patient is known to me. He does have also an underlying bronchogenic cyst. The patient was getting progressively more short of breath over the past week. He was a bit hesitant to comment in hospital as he was worried that he will get intubated. He decided not to come and accordingly. He told his that he was adamant that he didn't want to get any form of invasive treatment such as intubation mechanical ventilation. By time he arrived to the emergency department, the patient was very much lethargic, tachypneic, on that, somnolent and his blood gases showed acute hypercapnic respiratory failure on top of chronic hypercapnic respiratory failure. His speech was at 7.14 with a pCO2 more than 120 and pO2 of 239 and this was done and FiO2 of 80%. At that point, I was contacted by the [facility] department. I was informed of his presence. Based on his DO NOT INTUBATE CODE STATUS, we decided to proceed with noninvasive positive pressure ventilation using the BiPAP. Accordingly, I put the patient about that a pressure of 16/6 and he is a full-term, drop the FiO2 down to 30% and this morning the patient is generating a tidal volume of 4 70 mL, and the patient has a minute ventilation of 11 L and the respiratory rate of 25. Is improved. His much more awake and alert and following commands and answering questions. Subsequently, I took him off the BiPAP and and I put him on 3 L about 2 by nasal cannula. He is on bronchodilators. He is on steroids. He was also given diuretics as the patient's chest exit showed some increased interstitial markings bilaterally. The patient is notable for extremity is without limitation. The patient was sent on 7.8 with hemoglobin of 12.5. Serum bicarbs at 41, potassium level is at 5.4, his sodium level is at 139, troponins of 0.058 and the patient's proBNP level was 1930. COVID 19 testing came back negative. Denies having any chest pain. No focal neurological deficits. He was found to be nature progression with rapid ventricular response. He was started on Cardizem drip and currently Cardizem drip with a running at 10 mg an hour and his rate is under much better control. He was started also on IV heparin. Echocardiogram is in progress. Review of Systems CONSTITUTIONAL: Denies any recent significant weight loss or weight gain. EYES: Denies change in vision. EARS, NOSE, MOUTH, THROAT: Denies headaches, denies sore throat. CARDIOVASCULAR: Positive for chest pain, no palpitations or syncopal episodes. RESPIRATORY: Positive for shortness of breath, cough, congestion no hemoptysis. Progressive worsening shortness of breath and the patient presented with significant respiratory distress, hypercapnic respiratory failure, hypoxic respiratory failure and CO2 narcosis GASTROINTESTINAL: Denies change in appetite, denies abdominal pain GENITOURINARY: Denies hematuria, denies infections. MUSKULOSKELETAL: Denies pain, denies swelling. INTEGUMENTARY: Denies rash, denies eczema. NEUROLOGICAL: Denies recent memory loss, no recent seizure activity. Diminished level of consciousness with CO2 narcosis PSYCHIATRIC: Denies anxiety, denies depression. HEMATOLOGIC/LYMPHATIC: Denies anemia, denies enlarged lymph nodes. Past Medical History Past Medical History: Atrial Fibrillation, Coronary Artery Disease (CAD), Chest Pain / Angina, Heart Failure, COPD, Hypertension, Myocardial Infarction ([place]), Pneumonia Additional Past Medical History / Comment(s): states had CT possible bronchial cyst Last Myocardial Infarction Date:: 12/02 History of Any Multi-Drug Resistant Organisms: None Reported Past Surgical History: No Surgical Hx Reported, Heart Catheterization, Heart Catheterization With Stent Past Anesthesia/Blood Transfusion Reactions: No Reported Reaction Additional Past Anesthesia/Blood Transfusion Reaction / Comment(s): states has not had anesthesia Date of Last Stent Placement:: 12/02 Past Psychological History: No Psychological Hx Reported Smoking Status: Former smoker Past Alcohol Use History: None Reported Additional Past Alcohol Use History / Comment(s): smoker from age [age] 1 ppd quit Past Drug Use History: None Reported - Past Family History Brother(s) Family Medical History: CVA/TIA Father Family Medical History: Diabetes Mellitus, Myocardial Infarction ([place]) Mother Family Medical History: No Reported History Medications and Allergies Home Medications Medication Instructions Recorded Confirmed Type Budesonide-Formot 160-4.5 Mcg 2 puff INHALATION RT-BID 11/05/16 11/15/21 History [Symbicort 160-4.5 Mcg Inhaler] Tiotropium [place] [Spiriva] 1 cap INHALATION RT-DAILY 11/05/16 11/15/21 History Albuterol Sulfate [Proair Hfa] 2 puff INHALATION RT-QID PRN 11/20/18 11/15/21 History Aspirin [Adult Low Dose Aspirin EC] 81 mg PO DAILY 11/20/18 11/15/21 History Atorvastatin [Lipitor] 80 mg PO DAILY 11/20/18 11/15/21 History Furosemide [Lasix] 20 mg PO DAILY PRN 11/20/18 11/15/21 History Metoprolol Tartrate [Lopressor] 25 mg PO BID 11/20/18 11/15/21 History Potassium Chloride [Potassium 10 meq PO DAILY PRN 11/20/18 11/15/21 History Chloride ER] lisinopriL [Prinivil] 5 mg PO DAILY 08/08/19 11/15/21 History Albuterol Nebulized [Ventolin 2.5 mg INHALATION RT-QID PRN 11/15/21 11/15/21 History Nebulized] Ascorbic Acid [Vitamin C] 1,000 mg PO DAILY 11/15/21 11/15/21 History Cholecalciferol [Vitamin D3 (125 125 mcg PO DAILY 11/15/21 11/15/21 History Mcg = 5000 Iu)] Cyanocobalamin [Vitamin B-12] 500 mcg PO DAILY 11/15/21 11/15/21 History Zinc Gluconate [Zinc] 50 mg PO DAILY 11/15/21 11/15/21 History Allergies Allergy/AdvReac Type Severity Reaction Status Date / Time No Known Allergies Allergy Verified 11/15/21 19:20 Physical Exam Vitals: Vital Signs Temp Pulse Resp BP Pulse Ox 11/16/21 11:22 73 13 11/16/21 11:11 79 13 11/16/21 11:00 81 18 118/60 96 11/16/21 10:00 80 22 118/60 92 L 11/16/21 09:00 78 16 118/72 96 11/16/21 08:00 98.0 F 78 14 106/55 94 L 11/16/21 07:12 77 12 11/16/21 07:00 78 19 122/55 91 L 11/16/21 06:56 79 19 11/16/21 06:00 77 34 H 117/63 94 L 11/16/21 05:00 90 34 H 111/52 93 L 11/16/21 04:00 75 19 115/60 98 11/16/21 03:00 98 F 112 H 40 H 87/70 97 11/16/21 02:30 134 H 32 H 141/86 96 11/16/21 02:00 149 H 32 H 121/77 96 11/16/21 01:00 146 H 32 H 114/75 96 11/16/21 00:00 144 H 44 H 107/69 96 11/15/21 22:51 96.7 F L 142 H 34 H 118/55 97 11/15/21 21:20 143 H 40 H 140/92 98 11/15/21 19:27 147 H 40 H 145/74 98 11/15/21 19:00 44 H 11/15/21 18:37 98.6 F 146 H 44 H 138/112 84 L Intake and Output 11/15/21 11/16/21 11/16/21 22:59 06:59 14:59 Intake Total 161.792 240 Output Total 635 1200 Balance -473.208 -960 Intake: Intake, IV Titration 161.792 Amount Diltiazem 125 mg In 93.333 Sodium Chloride 0.9% 100 ml @ Per Protocol IV .Q0M QUTEA Rx#:[id number] Heparin Sod,Pork in 0.45% 68.459 NaCl 25,000 unit In 0.45 % NaCl 1 250ml.bag @ 7.2 UNITS/KG/HR 9.994 mls/hr IV .Q24H QUETA Rx#: [id number] Oral 240 Output: Urine 635 1200 Uretheral ([place]) 225 Other: Voiding Method Indwelling Catheter Indwelling Catheter Weight 138.799 kg 137 kg 137 kg GENERAL EXAM: Morbidly obese pleasant 66-year-old gentleman. Alert, a mild degree of respiratory distress. He was taken off the BiPAP and the patient was placed on 3 L of oxygen by nasal cannula HEAD: Normocephalic. EYES: Normal reaction of pupils, equal size. NOSE: Clear with pink turbinates. THROAT: No erythema or exudates. NECK: No masses, no JVD. CHEST: No chest wall deformity. LUNGS: Marked diminished breath sounds along with scattered external wheezes throughout the lung his bilaterally. No dullness to percussion. CVS: Irregular rhythm consistent with atrial fibrillation. Currently on a Cardizem drip at 10 mg an hour. Overall heart rate is under better control. The patient heart sounds are quite distant this point in time. ABDOMEN: No hepatosplenomegaly, normal bowel sounds, no guarding or rigidity. SPINE: No scoliosis or deformity SKIN: No rashes CENTRAL NERVOUS SYSTEM: No focal deficits, tone is normal in all 4 extremities. EXTREMITIES: Trace edema lower extremities bilaterally.. No clubbing, no cyanosis. Peripheral pulses are intact. Results - Laboratory Findings CBC and BMP: 11/16/21 05:11 11/16/21 05:11 ABG ABG pH 7.33 (7.35-7.45) L 11/16/21 05:51 ABG pCO2 84 mmHg (35-45) H* 11/16/21 05:51 ABG pO2 69 mmHg (83-108) L 11/16/21 05:51 ABG O2 Saturation 93.6 % (94-97) L 11/16/21 05:51 PT/INR, D-dimer PT 11.9 sec (9.0-12.0) 11/16/21 05:11 INR 1.1 (<1.2) 11/16/21 05:11 Abnormal lab findings: Abnormal Labs 11/15/21 11/15/21 11/15/21 18:48 18:48 18:48 RBC 4.09 L Hgb MCV 109.2 H MCHC 30.3 L Lymphocytes # 0.6 L Macrocytosis Marked A APTT ABG pH ABG pCO2 ABG pO2 ABG HCO3 ABG Total CO2 ABG O2 Saturation Potassium 5.2 H Chloride 94 L Carbon Dioxide 39 H BUN 30 H Glucose 138 H POC Glucose (mg/dL) Troponin I 0.058 H* 11/15/21 11/16/21 11/16/21 21:00 02:49 05:11 RBC Hgb MCV MCHC Lymphocytes # Macrocytosis APTT ABG pH 7.14 L* ABG pCO2 >120 H* ABG pO2 239 H ABG HCO3 ABG Total CO2 ABG O2 Saturation 99.0 H Potassium 5.4 H Chloride 90 L Carbon Dioxide 41 H* BUN 34 H Glucose 128 H POC Glucose (mg/dL) 149 H Troponin I 11/16/21 11/16/21 11/16/21 05:11 05:11 05:51 RBC 3.71 L Hgb 12.5 L MCV 110.5 H MCHC 30.6 L Lymphocytes # 0.2 L Macrocytosis Marked A APTT 42.1 H ABG pH 7.33 L ABG pCO2 84 H* ABG pO2 69 L ABG HCO3 44 H* ABG Total CO2 47 H ABG O2 Saturation 93.6 L Potassium Chloride Carbon Dioxide BUN Glucose POC Glucose (mg/dL) Troponin I 11/16/21 11:12 RBC Hgb MCV MCHC Lymphocytes # Macrocytosis APTT ABG pH ABG pCO2 ABG pO2 ABG HCO3 ABG Total CO2 ABG O2 Saturation Potassium Chloride Carbon Dioxide BUN Glucose POC Glucose (mg/dL) 116 H Troponin I - Diagnostic Findings Chest x-ray: image reviewed Assessment and Plan Plan: 1 acute COPD exacerbation with secondary hypoxic and hypercapnic respiratory failure which is an acute on top of chronic hypoxic/hypercapnic respiratory failure. Patient was managed with BiPAP at a pressure of 16/6 cm of water with an FiO2 of 30%. Subsequent blood gases showed improvement and acid base status and the patient seems to be much more awake and alert compared to yesterday. Currently on 3 L about 2 by nasal cannula 2 acute COPD exacerbation 3 acute on chronic hypoxic and hypercapnic respiratory failure 4 advanced COPD with an FEV1 of 25% predicted 5 chronic hypoxic respiratory failure maintained on O2 at 3 L 6 A. fib fibrillation with RVR currently on Cardizem drip at 10 mg an hour for rate control in addition to IV heparin 7 coronary artery disease with persistent of coronary stenting involving the circumflex and November 2018 and the patient also has had previous stenting to the LAD and circumflex and 2017 8 severe ischemic cardiomyopathy with previous ejection fraction of around 35%, awaiting follow-up echocardiogram 9 bronchogenic cyst of the lung, right-sided, benign 10 hypertension 11 hyperlipidemia 12 obesity with a BMI of 43.3 Plan Continue DuoNeb nebulized she was 4 times a day [id number] Put the patient on a combination of Perforomist and Pulmicort neb last 2 minutes twice a day IV Solu Medrol 60 mg every 6 hours Empiric antibiotic coverage with Zithromax 500 mg by mouth daily Restart the patient on metoprolol 25 mg twice a day and gradually wean off the Cardizem drip and discontinue Continued IV Lasix 40 mg every 12 hours Initiate anticoagulation with Eliquis 5 mg by mouth twice a day Repeat echocardiogram Monitor mental status Continue using BiPAP on and off during the day as needed and continuously overnight May need to restart the lisinopril of the patient's blood pressure tolerates We'll continue to follow make further recommendations based on his progress. His CODE STATUS is DO NOT INTUBATE. Time with Patient: Greater than 30
[2021-11-16] MEDS: methylPREDNISolone SOD SUCCI 125 MG/2 ML VIAL IV SCH ×3 (12:53→23:45)
[2021-11-16] MEDS ORDERED: LORazepam 2 MG/ML INJ IV STA (14:11)
[2021-11-16 16:24] LABS: Glucose,Whole Blood 168 mg/dL (75-99)
--- NOTE | 2021-11-16 18:42 | P.CRDCN ---
History of Present Illness History of present illness: This is Dr. Higuera dictating a consult on this patient The patient was interviewed and examined IMPRESSION / ASSESSMENT: Atrial fibrillation with RVR COPD, severe hypoxic and hypercapnic respiratory failure, on BiPAP PLAN: Been of IV Cardizem Increase metoprolol to 50 mg twice daily, continue anticoagulate Will sign off. Please call as needed HPI Patient presented with shortness of breath and coughing with a pCO2 of 70 He has a history of atrial fibrillation and was found to be in an RVR and was started on IV Cardizem He is on ELIQUIS for anticoagulation ROS: No fever chills or rigors, no cough, phlegm or expectoration, no nausea, vomiting or diarrhea, no hematuria, dysuria, no musculoskeletal complaints, no strokes or seizures, no skin lesions. EXAMINATION: Pulse rate between 76-100 beats a minute, blood pressure 120 406 5 mmHg Breath sounds are reduced bilaterally local stress sounds Distant heart sounds Morbid obesity REVIEW OF LABS, ECG & MEDICAL DATA Hemoglobin 12.5, sodium 139, potassium 5.4, bicarb 41, creatinine 1.07 Magnesium 2.2 Past Medical History Past Medical History: Atrial Fibrillation, Coronary Artery Disease (CAD), Chest Pain / Angina, Heart Failure, COPD, Hypertension, Myocardial Infarction ([place]), Pneumonia Additional Past Medical History / Comment(s): states had CT possible bronchial cyst Last Myocardial Infarction Date:: 12/02 History of Any Multi-Drug Resistant Organisms: None Reported Past Surgical History: No Surgical Hx Reported, Heart Catheterization, Heart Catheterization With Stent Past Anesthesia/Blood Transfusion Reactions: No Reported Reaction Additional Past Anesthesia/Blood Transfusion Reaction / Comment(s): states has not had anesthesia Date of Last Stent Placement:: 12/02 Past Psychological History: No Psychological Hx Reported Smoking Status: Former smoker Past Alcohol Use History: None Reported Additional Past Alcohol Use History / Comment(s): smoker from age [age] 1 ppd quit Past Drug Use History: None Reported - Past Family History Brother(s) Family Medical History: CVA/TIA Father Family Medical History: Diabetes Mellitus, Myocardial Infarction ([place]) Mother Family Medical History: No Reported History Medications and Allergies Home Medications Medication Instructions Recorded Confirmed Type Budesonide-Formot 160-4.5 Mcg 2 puff INHALATION RT-BID 11/05/16 11/15/21 History [Symbicort 160-4.5 Mcg Inhaler] Tiotropium [place] [Spiriva] 1 cap INHALATION RT-DAILY 11/05/16 11/15/21 History Albuterol Sulfate [Proair Hfa] 2 puff INHALATION RT-QID PRN 11/20/18 11/15/21 History Aspirin [Adult Low Dose Aspirin EC] 81 mg PO DAILY 11/20/18 11/15/21 History Atorvastatin [Lipitor] 80 mg PO DAILY 11/20/18 11/15/21 History Furosemide [Lasix] 20 mg PO DAILY PRN 11/20/18 11/15/21 History Metoprolol Tartrate [Lopressor] 25 mg PO BID 11/20/18 11/15/21 History Potassium Chloride [Potassium 10 meq PO DAILY PRN 11/20/18 11/15/21 History Chloride ER] lisinopriL [Prinivil] 5 mg PO DAILY 08/08/19 11/15/21 History Albuterol Nebulized [Ventolin 2.5 mg INHALATION RT-QID PRN 11/15/21 11/15/21 History Nebulized] Ascorbic Acid [Vitamin C] 1,000 mg PO DAILY 11/15/21 11/15/21 History Cholecalciferol [Vitamin D3 (125 125 mcg PO DAILY 11/15/21 11/15/21 History Mcg = 5000 Iu)] Cyanocobalamin [Vitamin B-12] 500 mcg PO DAILY 11/15/21 11/15/21 History Zinc Gluconate [Zinc] 50 mg PO DAILY 11/15/21 11/15/21 History Allergies Allergy/AdvReac Type Severity Reaction Status Date / Time No Known Allergies Allergy Verified 11/15/21 19:20 Physical Exam Vitals: Vital Signs Temp Pulse Resp BP Pulse Ox 11/16/21 17:02 100 12 11/16/21 17:00 110 H 23 124/65 94 L 11/16/21 16:00 76 22 109/61 94 L 11/16/21 15:00 75 11 L 103/71 94 L 11/16/21 14:00 75 15 100/56 94 L 11/16/21 13:00 75 23 108/55 92 L 11/16/21 12:00 74 7 L 108/61 92 L 11/16/21 11:22 73 13 11/16/21 11:11 79 13 11/16/21 11:00 81 18 118/60 96 11/16/21 10:00 80 22 118/60 92 L 11/16/21 09:00 78 16 118/72 96 11/16/21 08:00 98.0 F 78 14 106/55 94 L 11/16/21 07:12 77 12 11/16/21 07:00 78 19 122/55 91 L 11/16/21 06:56 79 19 11/16/21 06:00 77 34 H 117/63 94 L 11/16/21 05:00 90 34 H 111/52 93 L 11/16/21 04:00 75 19 115/60 98 11/16/21 03:00 98 F 112 H 40 H 87/70 97 11/16/21 02:30 134 H 32 H 141/86 96 11/16/21 02:00 149 H 32 H 121/77 96 11/16/21 01:00 146 H 32 H 114/75 96 11/16/21 00:00 144 H 44 H 107/69 96 11/15/21 22:51 96.7 F L 142 H 34 H 118/55 97 11/15/21 21:20 143 H 40 H 140/92 98 11/15/21 19:27 147 H 40 H 145/74 98 11/15/21 19:00 44 H Intake and Output 11/16/21 11/16/21 11/16/21 06:59 14:59 22:59 Intake Total 161.792 919.181 800 Output Total 635 1450 300 Balance -473.208 -530.819 500 Intake: Intake, IV Titration 161.792 119.181 Amount Diltiazem 125 mg In 93.333 67.25 Sodium Chloride 0.9% 100 ml @ Per Protocol IV .Q0M QUETA Rx#:[id number] Heparin Sod,Pork in 0.45% 68.459 51.931 NaCl 25,000 unit In 0.45 % NaCl 1 250ml.bag @ 7.2 UNITS/KG/HR 9.994 mls/hr IV .Q24H QUETA Rx#: [id number] Oral 800 800 Output: Urine 635 1450 300 Uretheral ([place]) 225 Other: Voiding Method Indwelling Catheter Indwelling Catheter Indwelling Catheter Weight 137 kg 137 kg Results 11/16/21 05:11 11/16/21 05:11 Cardiac Enzymes 11/15/21 11/15/21 Range/Units 18:48 18:48 AST 44 (17-59) U/L Troponin I 0.058 H* (0.000-0.034) ng/mL Coagulation 11/15/21 11/16/21 Range/Units 18:48 05:11 PT 11.6 11.9 (9.0-12.0) sec APTT 25.1 42.1 H (22.0-30.0) sec CBC 11/15/21 11/16/21 Range/Units 18:48 05:11 WBC 9.3 7.8 (3.8-10.6) k/uL RBC 4.09 L 3.71 L (4.30-5.90) m/uL Hgb 13.5 12.5 L (13.0-17.5) gm/dL Hct 44.6 41.0 (39.0-53.0) % Plt Count 275 275 (150-450) k/uL Comprehensive Metabolic Panel 11/15/21 11/16/21 Range/Units 18:48 05:11 Sodium 139 139 (137-145) mmol/L Potassium 5.2 H 5.4 H (3.5-5.1) mmol/L Chloride 94 L 90 L (98-107) mmol/L Carbon Dioxide 39 H 41 H* (22-30) mmol/L BUN 30 H 34 H (9-20) mg/dL Creatinine 0.66 1.07 (0.66-1.25) mg/dL Glucose 138 H 128 H (74-99) mg/dL Calcium 8.6 8.4 (8.4-10.2) mg/dL AST 44 (17-59) U/L ALT 49 (4-49) U/L Alkaline Phosphatase 75 (38-126) U/L Total Protein 6.8 (6.3-8.2) g/dL Albumin 3.9 (3.5-5.0) g/dL Current Medications Generic Name Dose Route Start Last Admin Trade Name Freq PRN Reason Stop Dose Admin Albuterol/Ipratropium 3 ml 11/15/21 23:02 11/16/21 06:55 Ipratropium-Albuterol 3 Ml Neb INHALATION 3 ml RT-Q4H PRN Administration Shortness Of Breath Or Wheezing Albuterol/Ipratropium 3 ml 11/16/21 12:00 11/16/21 17:02 Ipratropium-Albuterol 3 Ml Neb INHALATION 3 ml RT-QID QUETA Administration Apixaban 5 mg 11/16/21 09:00 11/16/21 10:27 Apixaban 5 Mg Tab PO 5 mg BID QUETA Administration Protocol Ascorbic Acid 1,000 mg 11/16/21 09:00 11/16/21 08:10 Ascorbic Acid 500 Mg Tab PO Not Given DAILY QUETA Aspirin 81 mg 11/16/21 09:00 11/16/21 08:10 Aspirin 81 Mg PO Not Given DAILY QUETA Atorvastatin Calcium 80 mg 11/16/21 09:00 11/16/21 08:10 Atorvastatin 80 Mg Tab PO Not Given DAILY [facility] Azithromycin 500 mg 11/16/21 09:00 11/16/21 10:26 Azithromycin 500 Mg Tab PO 11/21/21 09:01 500 mg DAILY QUETA Administration Protocol Budesonide 0.5 mg 11/16/21 20:00 Budesonide 0.5 Mg/2 Ml Nebu INHALATION RT-BID [facility] Cholecalciferol 125 mcg 11/16/21 09:00 11/16/21 08:10 Cholecalciferol 125 Mcg (5000 Iu) Tablet PO Not Given DAILY [facility] Cyanocobalamin 500 mcg 11/16/21 09:00 11/16/21 08:10 Cyanocobalamin 500 Mcg Tab PO Not Given DAILY [facility] Formoterol Fumarate 20 mcg 11/16/21 20:00 Formoterol Fumarate 20 Mcg/2 Ml Nebu INHALATION RT-BID [facility] Furosemide 40 mg 11/16/21 09:00 11/16/21 08:09 Furosemide 10 Mg/Ml 4 Ml Vial IV 40 mg BID QUETA Administration Heparin Sodium (Porcine) 0 unit 11/15/21 23:12 Heparin Sodium 1,000 Un/Ml (10ml Vl) IV PER PROTOCOL PRN Low PTT Protocol Diltiazem HCl 125 mg/ Sodium 125 mls @ 0 mls/hr 11/15/21 20:45 11/16/21 12:00 Chloride IV 5 ml/hr .Q0M QUETA 5 mls/hr Titration Protocol Per Protocol Methylprednisolone Sodium Succinate 60 mg 11/16/21 12:00 11/16/21 12:53 Methylprednisolone Sod Succi 125 Mg/2 Ml Vial IV Not Given Q6HR QUETA Metoprolol Tartrate 50 mg 11/16/21 10:15 11/16/21 10:25 Metoprolol Tartrate 50 Mg Tab PO 50 mg BID QUETA Administration Naloxone HCl 0.2 mg 11/15/21 23:02 Naloxone 0.4 Mg/Ml 1 Ml Vial IV Q2M PRN Opioid Reversal Pantoprazole Sodium 40 mg 11/16/21 09:00 11/16/21 08:07 Pantoprazole 40 Mg/10 Ml Vial IV 40 mg DAILY QUETA Administration Zinc Sulfate 220 mg 11/16/21 09:00 11/16/21 08:11 Zinc Sulfate 220 Mg Cap PO Not Given DAILY QUETA Intake and Output 11/16/21 11/16/21 11/16/21 06:59 14:59 22:59 Intake Total 161.792 919.181 800 Output Total 635 1450 300 Balance -473.208 -530.819 500 Intake: Intake, IV Titration 161.792 119.181 Amount Diltiazem 125 mg In 93.333 67.25 Sodium Chloride 0.9% 100 ml @ Per Protocol IV .Q0M QUETA Rx#:[id number] Heparin Sod,Pork in 0.45% 68.459 51.931 NaCl 25,000 unit In 0.45 % NaCl 1 250ml.bag @ 7.2 UNITS/KG/HR 9.994 mls/hr IV .Q24H QUETA Rx#: [id number] Oral 800 800 Output: Urine 635 1450 300 Uretheral ([place]) 225 Other: Voiding Method Indwelling Catheter Indwelling Catheter Indwelling Catheter Weight 137 kg 137 kg Patient Weight 11/17/21 06:59 Weight 137 kg 11/16/21 05:11 11/16/21 05:11
[2021-11-16] MEDS: FORMOTEROL FUMARATE 20 MCG/2 ML NEBU INHALATION SCH (19:47)
[2021-11-16] MEDS: BUDESONIDE 0.5 MG/2 ML NEBU INHALATION SCH (19:47)
[2021-11-16 21:23] LABS: Glucose,Whole Blood 138 mg/dL (75-99)
[2021-11-17 05:34] LABS: Glucose,Whole Blood 148 mg/dL (75-99)
[2021-11-17] MEDS ORDERED: DILTIAZEM DRIP BOLUS FROM BAG 1 MG SOLN IV ONE (06:01)
[2021-11-17] MEDS: methylPREDNISolone SOD SUCCI 125 MG/2 ML VIAL IV SCH ×4 (06:15→23:58)
[2021-11-17] MEDS: DILTIAZEM 125 MG in SODIUM CHLORIDE 0.9% 100 ML IV SCH (06:16)
[2021-11-17 06:19] LABS: Basophils % (A) 0 %; Eosinophils % (A) 0 %; HCT 38.7 % (39.0-53.0); Hypochromasia Moderate; Lymphocytes # (A) 0.2 k/uL (1.0-4.8); Lymphocytes % (A) 2 %; MCH 33.3 pg (25.0-35.0); MCV 107.3 fL (80.0-100.0); Macrocytosis Moderate; Mean Platelet Volume 7.4; Monocytes # (A) 0.4 k/uL (0-1.0); Monocytes % (A) 3 %; Neutrophils # (A) 9.6 k/uL (1.3-7.7); Neutrophils % (A) 94 %; Platelet Count 242 k/uL (150-450); RBC 3.61 m/uL (4.30-5.90); RDW 13.6 % (11.5-15.5); WBC 10.2 k/uL (3.8-10.6)
[2021-11-17 06:29] LABS: African American GFR (CKD) >90 (>60 ml/min/1.73 sqM); Blood Urea Nitrogen 41 mg/dL (9-20); Calcium 8.3 mg/dL (8.4-10.2); Chloride 86 mmol/L (98-107); Glucose 149 mg/dL (74-99); Non-African American GFR(CKD) 82 (>60 ml/min/1.73 sqM); Potassium 5.1 mmol/L (3.5-5.1); Sodium 136 mmol/L (137-145)
[2021-11-17 06:35] LABS: Anion Gap 8 mmol/L
[2021-11-17 06:37] LABS: Carbon Dioxide 42 mmol/L (22-30)
--- NOTE | 2021-11-17 07:07 | XR ---
EXAMINATION TYPE: XR chest 1V portable DATE OF EXAM: 11/17/2021 HISTORY: Shortness of breath. COMPARISON: November 15, 2021 TECHNIQUE: Single view of the chest is submitted. FINDINGS: Demonstrated are scattered senescent parenchymal change. Increasing infiltrate right lower lobe. Mild stable stranding density left lower lobe. The remainder of the lungs are ultimately clear. The heart is stable. Hilar and mediastinal structures are within normal limits. Degenerative changes are seen of the dorsal spine. IMPRESSION: 1. Increasing infiltrate right lower lobe. Mild stable stranding density left lower lobe.
[2021-11-17] MEDS: FORMOTEROL FUMARATE 20 MCG/2 ML NEBU INHALATION SCH ×2 (07:23→20:06)
[2021-11-17] MEDS: BUDESONIDE 0.5 MG/2 ML NEBU INHALATION SCH ×2 (07:23→19:51)
[2021-11-17] MEDS: IPRATROPIUM-ALBUTEROL 3 ML NEB INHALATION SCH ×4 (07:23→19:51)
[2021-11-17] MEDS: METOPROLOL TARTRATE 50 MG TAB PO SCH ×4 (08:25→20:09)
[2021-11-17] MEDS: FUROSEMIDE 10 MG/ML 4 ML VIAL IV SCH ×2 (08:28→20:08)
[2021-11-17] MEDS ORDERED: guaiFENesin-DM 100-10MG/5ML 10 ML CUP PO PRN (10:58)
[2021-11-17 11:46] LABS: Glucose,Whole Blood 205 mg/dL (75-99)
[2021-11-17] MEDS: APIXABAN 5 MG TAB PO SCH ×2 (11:50→20:09)
[2021-11-17] MEDS: ATORVASTATIN 80 MG TAB PO SCH (11:51)
[2021-11-17] MEDS: AZITHROMYCIN 500 MG TAB PO SCH (11:51)
[2021-11-17] MEDS: ASPIRIN 81 MG PO SCH (11:51)
[2021-11-17] MEDS: CHOLECALCIFEROL 125 MCG (5000 IU) TABLET PO SCH (11:53)
[2021-11-17] MEDS: CYANOCOBALAMIN 500 MCG TAB PO SCH (11:53)
[2021-11-17] MEDS: ASCORBIC ACID 500 MG TAB PO SCH (11:53)
[2021-11-17] MEDS: ZINC SULFATE 220 MG CAP PO SCH (11:53)
[2021-11-17] MEDS: PANTOPRAZOLE 40 MG/10 ML VIAL IV SCH (12:03)
--- NOTE | 2021-11-17 12:39 | P.PN ---
Subjective Progress Note Date: 11/17/21 This is a 66-year-old male patient with advanced COPD with an FEV1 of 25% of predicted, oxygen dependent at 2/3 L nasal cannula in addition to Prevacid history of coronary artery disease, has history of stent placement, previous history of ischemic cardiomyopathy with impaired ejection fraction that had been as low as 35% and subsequent improvement. The patient is known to me. He does have also an underlying bronchogenic cyst. The patient was getting progressively more short of breath over the past week. He was a bit hesitant to comment in hospital as he was worried that he will get intubated. He decided not to come and accordingly. He told his that he was adamant that he didn't want to get any form of invasive treatment such as intubation mechanical ventilation. By time he arrived to the emergency department, the patient was very much lethargic, tachypneic, on that, somnolent and his blood gases showed acute hypercapnic respiratory failure on top of chronic hypercapnic respiratory failure. His speech was at 7.14 with a pCO2 more than 120 and pO2 of 239 and this was done and FiO2 of 80%. At that point, I was contacted by the [facility] department. I was informed of his presence. Based on his DO NOT INTUBATE CODE STATUS, we decided to proceed with noninvasive positive pressure ventilation using the BiPAP. Accordingly, I put the patient about that a pressure of 16/6 and he is a full-term, drop the FiO2 down to 30% and this morning the patient is generating a tidal volume of 4 70 mL, and the patient has a minute ventilation of 11 L and the respiratory rate of 25. Is improved. His much more awake and alert and following commands and answering questions. Subsequently, I took him off the BiPAP and and I put him on 3 L about 2 by nasal cannula. He is on bronchodilators. He is on steroids. He was also given diuretics as the patient's chest exit showed some increased interstitial markings bilaterally. The patient is notable for extremity is without limitation. The patient was sent on 7.8 with hemoglobin of 12.5. Serum bicarbs at 41, potassium level is at 5.4, his sodium level is at 139, troponins of 0.058 and the patient's proBNP level was 1930. COVID 19 testing came back negative. Denies having any chest pain. No focal neurological deficits. He was found to be nature progression with rapid ventricular response. He was started on Cardizem drip and currently Cardizem drip with a running at 10 mg an hour and his rate is under much better control. He was started also on IV heparin. Echocardiogram is in progress. On today's evaluation of 11/17/2021, the patient is feeling better and he is less short of breath. Overnight, he stepped on a BiPAP at a pressure of 16/6 cm of water with an FiO2 of 30%. This morning is on 3 L of oxygen by nasal cannula. He is having increased cough and congestion. The chest x-ray from today shows improvement in the volume status. Nevertheless, there is development of right lower lobe consolidation consistent with pneumonia. The patient was on Zithromax and Rocephin will be restarted again. Otherwise, he is diuresing well. Earlier this morning, the patient went into a flutter with rapid ventricular response. The patient was started on Cardizem drip which is running at 5 mg an hour. Metoprolol was restarted at 50 mg twice a day and the patient's heart rate is under better control for now. He remains on long-term and coagulation with Eliquis. No chest pain. No angina. No palpitation. Im provement in lower extremity edema and the patient is a negative fluid balance. In terms of COPD exacerbation, he remains on a combination of bronchodilators and steroids. The white cell count of 10.2 with hemoglobin of 12, serum bicarbonate of 42 with a BMI of 41 and creatinine is 0.9. Glucose at 205. Objective - Vital Signs Vital signs: Vital Signs Temp 98.3 F 11/17/21 12:00 Pulse 147 H 11/17/21 12:00 Resp 26 H 11/17/21 12:00 BP 99/74 11/17/21 12:00 Pulse Ox 95 11/17/21 12:00 Intake & Output 11/16/21 11/17/21 11/17/21 18:59 06:59 18:59 Intake Total 1719.181 40.667 304.167 Output Total 2259 114 7060 Balance -105.819 -759.333 -1035.833 Weight 137 kg 137.7 kg Intake: IV 70 0.9 Sodium Chloride 70 Intake, IV Titration 119.181 40.667 34.167 Amount Diltiazem 125 mg In 34.167 Sodium Chloride 0.9% 100 ml @ 5 MG/HR 5 mls/hr IV .Q24H [facility] Rx#:[id number] Diltiazem 125 mg In 67.25 40.667 Sodium Chloride 0.9% 100 ml @ Per Protocol IV .Q0M [facility] Rx#:[id number] Heparin Sod,Pork in 0.45% 51.931 NaCl 25,000 unit In 0.45 % NaCl 1 250ml.bag @ 7.2 UNITS/KG/HR 9.994 mls/hr IV .Q24H [facility] Rx#: [id number] Oral 1600 200 Output: Urine 6224 374 8914 Other: Voiding Method Indwelling Catheter Indwelling Catheter Indwelling Catheter - Exam GENERAL EXAM: Morbidly obese pleasant 66-year-old gentleman. Alert, a mild degree of respiratory distress. He was taken off the BiPAP and the patient was placed on 3 L of oxygen by nasal cannula HEAD: Normocephalic. EYES: Normal reaction of pupils, equal size. NOSE: Clear with pink turbinates. THROAT: No erythema or exudates. NECK: No masses, no JVD. CHEST: No chest wall deformity. LUNGS: Marked diminished breath sounds along with scattered external wheezes throughout the lung his bilaterally. No dullness to percussion. CVS: Irregular rhythm consistent with atrial fibrillation. Currently on a Cardizem drip at 10 mg an hour. Overall heart rate is under better control. The patient heart sounds are quite distant this point in time. ABDOMEN: No hepatosplenomegaly, normal bowel sounds, no guarding or rigidity. SPINE: No scoliosis or deformity SKIN: No rashes CENTRAL NERVOUS SYSTEM: No focal deficits, tone is normal in all 4 extremities. EXTREMITIES: Trace edema lower extremities bilaterally.. No clubbing, no cyanosis. Peripheral pulses are intact. - Labs CBC & Chem 7: 11/17/21 06:04 11/17/21 06:04 Labs: Abnormal Lab Results - Last 24 Hours (Table) 11/16/21 11/16/21 11/17/21 Range/Units 16:22 21:21 05:22 RBC (4.30-5.90) m/uL Hgb (13.0-17.5) gm/dL Hct (39.0-53.0) % MCV (80.0-100.0) fL Neutrophils # (1.3-7.7) k/uL Lymphocytes # (1.0-4.8) k/uL Sodium (137-145) mmol/L Chloride (98-107) mmol/L Carbon Dioxide (22-30) mmol/L BUN (9-20) mg/dL Glucose (74-99) mg/dL POC Glucose (mg/dL) 168 H 138 H 148 H (75-99) mg/dL Calcium (8.4-10.2) mg/dL 11/17/21 11/17/21 11/17/21 Range/Units 06:04 06:04 11:44 RBC 3.61 L (4.30-5.90) m/uL Hgb 12.0 L (13.0-17.5) gm/dL Hct 38.7 L (39.0-53.0) % MCV 107.3 H (80.0-100.0) fL Neutrophils # 9.6 H (1.3-7.7) k/uL Lymphocytes # 0.2 L (1.0-4.8) k/uL Sodium 136 L (137-145) mmol/L Chloride 86 L (98-107) mmol/L Carbon Dioxide 42 H* (22-30) mmol/L BUN 41 H (9-20) mg/dL Glucose 149 H (74-99) mg/dL POC Glucose (mg/dL) 205 H (75-99) mg/dL Calcium 8.3 L (8.4-10.2) mg/dL Microbiology - Last 24 Hours (Table) 11/15/21 21:01 Blood Culture - Preliminary Blood No Growth after 24 hours Assessment and Plan Plan: 1 acute COPD exacerbation with secondary hypoxic and hypercapnic respiratory failure which is an acute on top of chronic hypoxic/hypercapnic respiratory failure. The patient is currently off the BiPAP and he is using it only at nighttime. Meanwhile, the patient has also developed a right lower lobe consolidation highly suggestive underlying pneumonia in the right lung base. The patient is improving slowly. 2 acute COPD exacerbation, improving 3 acute on chronic hypoxic and hypercapnic respiratory failure 4 advanced COPD with an FEV1 of 25% predicted 5 chronic hypoxic respiratory failure maintained on O2 at 3 L 6 A. fib fibrillation with RVR /atrial flutter and the patient is currently on a Cardizem drip at 5 mg an hour 7 coronary artery disease with persistent of coronary stenting involving the circumflex and November 2018 and the patient also has had previous stenting to the LAD and circumflex and 2017 8 severe ischemic cardiomyopathy with previous ejection fraction of around 35%, repeat echocardiogram showed an ejection fraction of 25-30% with global hypokinesis. 9 bronchogenic cyst of the lung, right-sided, benign 10 hypertension 11 hyperlipidemia 12 obesity with a BMI of 43.3 Plan The patient is developing a right lower lobe consolidation. For that reason, the patient will be covered with a combination of Rocephin and Zithromax. Continue BiPAP overnight Continue diuresis with IV Lasix Continue DuoNeb nebulized she was 4 times a day [id number] Continue Perforomist and Pulmicort neb last 2 minutes twice a day IV Solu Medrol 60 mg every 6 hours Restart the patient on metoprolol 25 mg twice a day and gradually wean off the Cardizem drip and discontinue anticoagulation with Eliquis 5 mg by mouth twice a day Repeat echocardiogram was completed and the patient was found to have ejection fraction of 25-30% along with global hypokinesis. No significant pulmonary hypertension. Monitor mental status We'll continue to follow make further recommendations based on his progress. His CODE STATUS is DO NOT INTUBATE.
--- NOTE | 2021-11-17 14:09 | P.PN ---
Subjective Progress Note Date: 11/17/21 Patient is a 66-year-old male came in the with compensative shortness of breath does have history of COPD uses about 2 L of oxygen at home patient was severely hypoxic and hypercapnic with the pCO2 of greater than 120 patient was on BiPAP. Patient is presently being the BiPAP still wheezing. Patient doesn't have any pneumonia on the chest x-ray. Patient is on the systemic steroids in the form of IV steroids. Patient denied any fever chills patient is coughing not not bringing up much at this time. Patient baseline pCO2 appears to be around 70. Patient is not acidotic anymore pCO2 has gone down to 64 still bit hypoxic. Patient also has history of atrial fibrillation when he came and patient was in A. fib with rapid and regular rate secondary to hypoxemia this resolved and patient presently rate controlled still in A. fib, patient was started on the Cardizem drip was later weaned off and the patient was started on oral metoprolol and Eliquis. Patient had bilateral lower extremity swelling on admission which resolved at this time patient takes a low-dose of Lasix had a normal ejection fraction the past patient is also on KRISTOPHER inhibitor. Patient blood pressure is not elevated patient doesn't have any systolic dysfunction patient potassium is elevated because of these reasons this will be discontinued. Patient the creatinine went up from 0.66-1.07. Patient is presently on 4 L of oxygen. She denied mild elevation of troponin 0.058. Patient is obese, didn't have any history of sleep apnea but probably will need another sleep study as his previous sleep study was many years ago. 11/17/2021 Patient is seen in follow-up with morning continues to be closely monitored in the ICU with cardiology and pulmonary following closely. Chest x-ray this morning shows increasing infiltrate of the right lower lobe with mild stable stranding density at the left lower lobe. Patient is continued on IV antibiotics in the form of ceftriaxone along with oral Zithromax and also continues with breathing inhalational treatments and IV Solu-Medrol at 60 mg every 6 and will continue. Patient was rate controlled on oral Lopressor although heart rate became elevated and uncontrolled with a flutter and placed back on IV Cardizem and is currently at 10 mL per hour with cardiology following closely. Patient also continues on oral anticoagulant of eliquis and will continue. Patient is receiving IV Lasix twice daily as well. Patient continues on 4 L of oxygen via nasal cannula and denies any worsening shortness of breath although continues to be short of breath with minimal exertion. Patient reports to using BiPAP at night. Patient is afebrile and patient denies any chest pain or palpitations at this time. Patient's blood sugars have been elevated most likely steroid-induced as there is no history of diabetes and will add sliding scale and continue with Accu-Cheks before meals and at bedtime. Labs: WBC is 10.2, hemoglobin is 12.0, platelets are 242, sodium is 136, potassium is 5.1, carbon dioxide is 42, BUN is 41, creatinine is 0.96, calcium is 8.3. Review of systems: Constitutional: reports of fatigue, no reports of fever, or chills Cardiovascular: No reports of chest pain or palpitations Respiratory: reports of shortness of breath GI: No reports of nausea, vomiting, or diarrhea : No reports of dysuria or retention Neurovascular: reports of generalized weakness All medications have been reviewed Active Medications Albuterol/Ipratropium (Ipratropium-Albuterol 3 Ml Neb) 3 ml INHALATION RT-Q4H PRN PRN Reason: Shortness Of Breath Or Wheezing Last Admin: 11/16/21 06:55 Dose: 3 ml Documented by: Albuterol/Ipratropium (Ipratropium-Albuterol 3 Ml Neb) 3 ml INHALATION RT-QID [facility] Last Admin: 11/17/21 11:07 Dose: 3 ml Documented by: Apixaban (Apixaban 5 Mg Tab) 5 mg PO BID [facility]; Protocol Last Admin: 11/17/21 11:50 Dose: 5 mg Documented by: Ascorbic Acid (Ascorbic Acid 500 Mg Tab) 1,000 mg PO DAILY [facility] Last Admin: 11/17/21 11:53 Dose: 1,000 mg Documented by: Aspirin (Aspirin 81 Mg) 81 mg PO DAILY [facility] Last Admin: 11/17/21 11:51 Dose: 81 mg Documented by: Atorvastatin Calcium (Atorvastatin 80 Mg Tab) 80 mg PO DAILY [facility] Last Admin: 11/17/21 11:51 Dose: 80 mg Documented by: Azithromycin (Azithromycin 500 Mg Tab) 500 mg PO DAILY [facility]; Protocol Stop: 11/21/21 09:01 Last Admin: 11/17/21 11:51 Dose: 500 mg Documented by: Budesonide (Budesonide 0.5 Mg/2 Ml Nebu) 0.5 mg INHALATION RT-BID [facility] Last Admin: 11/17/21 07:23 Dose: 0.5 mg Documented by: Cholecalciferol (Cholecalciferol 125 Mcg (5000 Iu) Tablet) 125 mcg PO DAILY [facility] Last Admin: 11/17/21 11:53 Dose: 125 mcg Documented by: Cyanocobalamin (Cyanocobalamin 500 Mcg Tab) 500 mcg PO DAILY [facility] Last Admin: 11/17/21 11:53 Dose: 500 mcg Documented by: Formoterol Fumarate (Formoterol Fumarate 20 Mcg/2 Ml Nebu) 20 mcg INHALATION RT-BID [facility] Last Admin: 11/17/21 07:23 Dose: 20 mcg Documented by: Furosemide (Furosemide 10 Mg/Ml 4 Ml Vial) 40 mg IV BID [facility] Last Admin: 11/17/21 08:28 Dose: 40 mg Documented by: Guaifenesin/Dextromethorphan (Guaifenesin-Dm 100-10mg/5ml 10 Ml Cup) 10 ml PO Q6HR PRN PRN Reason: Cough Last Admin: 11/17/21 11:55 Dose: 10 ml Documented by: Heparin Sodium (Porcine) (Heparin Sodium 1,000 Un/Ml (10ml Vl)) 0 unit IV PER PROTOCOL PRN; Protocol PRN Reason: Low PTT Diltiazem HCl 125 mg/ Sodium (Chloride) 125 mls @ 5 mls/hr IV .Q24H [facility] Last Infusion: 11/17/21 10:06 Dose: 10 mg/hr, 10 mls/hr Documented by: Ceftriaxone Sodium 2 gm/ (Sodium Chloride) 50 mls @ 100 mls/hr IVPB Q12HR [facility]; Protocol Last Admin: 11/17/21 11:53 Dose: 100 mls/hr Documented by: Methylprednisolone Sodium Succinate (Methylprednisolone Sod Succi 125 Mg/2 Ml Vial) 60 mg IV Q6HR [facility] Last Admin: 11/17/21 12:05 Dose: 60 mg Documented by: Metoprolol Tartrate (Metoprolol Tartrate 50 Mg Tab) 50 mg PO TID [facility] Naloxone HCl (Naloxone 0.4 Mg/Ml 1 Ml Vial) 0.2 mg IV Q2M PRN PRN Reason: Opioid Reversal Pantoprazole Sodium (Pantoprazole 40 Mg/10 Ml Vial) 40 mg IV DAILY [facility] Last Admin: 11/17/21 12:03 Dose: 40 mg Documented by: Zinc Sulfate (Zinc Sulfate 220 Mg Cap) 220 mg PO DAILY [facility] Last Admin: 11/17/21 11:53 Dose: 220 mg Documented by: PHYSICAL EXAMINATION: GENERAL: The patient is alert and oriented x3, not in any acute distress. Morbidly Obese HEENT: Pupils are round and equally reacting to light. EOMI. No scleral icterus. No conjunctival pallor. Normocephalic, atraumatic. No pharyngeal erythema. No thyromegaly. CARDIOVASCULAR: S1 and S2 present. No murmurs, rubs, or gallops. Irregularly irregular rhythm PULMONARY: Decreased air entry with some mild expiratory wheezing on exam , crackles noted at the bases ABDOMEN: Soft, obese, non-tender, nondistended, normoactive bowel sounds. No palpable organomegaly. MUSCULOSKELETAL: No joint swelling or deformity. EXTREMITIES: No cyanosis, clubbing, mild pedal edema improved compared to yesterday. NEUROLOGICAL: Gross neurological examination did not reveal any focal deficits. SKIN: No rashes. Assessment: -Acute on chronic hypercapnic and hypoxic respiratory failure: This is secondary to COPD exacerbation, pulmonary following and patient is maintained on IV steroids along with breathing inhalational treatments, 4 L via nasal cannula and off BiPAP -Respiratory acidosis secondary to CO2 retention which improved at this time. Patient has a compensated metabolic alkalosis. -Peripheral edema: Secondary to obesity and venous insufficiency improved with Lasix and will maintain on IV Lasix twice daily and will continue -Elevated random glucose, most likely steroid-induced, will order hemoglobin A1c -Atrial fibrillation with rapid and regular rate, a flutter, placed back on IV Cardizem and increasing metoprolol per cardiology -Coronary artery disease with the stents in the past -Hypertension -Hypoventilation obesity possibly of sleep apnea will need another sleep study in the outpatient setting -Hyperkalemia secondary to KRISTOPHER inhibitor which will be discontinued for multiple reasons as mentioned above, improving and is 5.1 today -Hyperlipidemia -DVT prophylaxis: Patient is on anticoagulation with Eliquis -No code Plan: Recommend continue with current medications and current consultations of pulmonary and cardiology following closely. Patient is currently maintained on 4 L via nasal cannula and is off BiPAP although continues to use this at night. Patient reports not tolerating very well as every time he moves it continues to beep and make noises and doesn't allow him to sleep. Patient is maintained on IV antibiotics long with IV steroids, IV Lasix, and breathing inhalational treat ments and will continue. Patient reports to being currently on bedrest due to his heart rate being irregular and uncontrolled at this time. IV Cardizem resumed and cardiology following. Adjustments are being made to oral medications and will continue to monitor. Recommend continued telemetry mon itoring and close ICU observation at this time. Patient is tolerating diet and slowly being advanced per pulmonary physical therapy aid. Today's labs within normal limits and chest x-ray reviewed and recommend repeat labs tomorrow along with follow-up chest x-ray which have been ordered. Recommend Accu-Cheks before meals and at bedtime and close monitoring and continue with sliding scale as needed as patient is on high-dose steroids. Encouraged increase activity as tolerated and will have physical therapy evaluate the patient. The impression and plan of care has been dictated by Jaclyn Obregon, nurse practitioner as directed. MD Sue I have performed a history and examination and MDM of this patient, discussed the same with the dictator, and agree with the dictator's assessment and plan as written ,documented as a scribe. Based on total visit time, I have performed more than 50% of the visit. Total number of minutes spent on this visit, 20 minutes. Any additional findings or plans will be noted. Objective - Vital Signs Vital signs: Vital Signs Temp 98.1 F 11/17/21 04:00 Pulse 147 H 11/17/21 07:47 Resp 18 11/17/21 07:00 BP 96/72 11/17/21 07:00 Pulse Ox 90 L 11/17/21 07:23 Intake & Output 11/16/21 11/17/21 11/17/21 18:59 06:59 18:59 Intake Total 1719.181 40.667 9.667 Output Total 1825 800 65 Balance -105.819 -759.333 -55.333 Weight 137 kg 137.7 kg Intake: Intake, IV Titration 119.181 40.667 9.667 Amount Diltiazem 125 mg In 9.667 Sodium Chloride 0.9% 100 ml @ 5 MG/HR 5 mls/hr IV .Q24H [facility] Rx#:[id number] Diltiazem 125 mg In 67.25 40.667 Sodium Chloride 0.9% 100 ml @ Per Protocol IV .Q0M [facility] Rx#:[id number] Heparin Sod,Pork in 0.45% 51.931 NaCl 25,000 unit In 0.45 % NaCl 1 250ml.bag @ 7.2 UNITS/KG/HR 9.994 mls/hr IV .Q24H [facility] Rx#: [id number] Oral 1600 Output: Urine 1825 800 65 Other: Voiding Method Indwelling Catheter Indwelling Catheter - Labs CBC & Chem 7: 11/17/21 06:04 11/17/21 06:04 Labs: Abnormal Lab Results - Last 24 Hours (Table) 11/16/21 11/16/21 11/16/21 Range/Units 11:12 16:22 21:21 RBC (4.30-5.90) m/uL Hgb (13.0-17.5) gm/dL Hct (39.0-53.0) % MCV (80.0-100.0) fL Neutrophils # (1.3-7.7) k/uL Lymphocytes # (1.0-4.8) k/uL Sodium (137-145) mmol/L Chloride (98-107) mmol/L Carbon Dioxide (22-30) mmol/L BUN (9-20) mg/dL Glucose (74-99) mg/dL POC Glucose (mg/dL) 116 H 168 H 138 H (75-99) mg/dL Calcium (8.4-10.2) mg/dL 11/17/21 11/17/21 11/17/21 Range/Units 05:22 06:04 06:04 RBC 3.61 L (4.30-5.90) m/uL Hgb 12.0 L (13.0-17.5) gm/dL Hct 38.7 L (39.0-53.0) % MCV 107.3 H (80.0-100.0) fL Neutrophils # 9.6 H (1.3-7.7) k/uL Lymphocytes # 0.2 L (1.0-4.8) k/uL Sodium 136 L (137-145) mmol/L Chloride 86 L (98-107) mmol/L Carbon Dioxide 42 H* (22-30) mmol/L BUN 41 H (9-20) mg/dL Glucose 149 H (74-99) mg/dL POC Glucose (mg/dL) 148 H (75-99) mg/dL Calcium 8.3 L (8.4-10.2) mg/dL Microbiology - Last 24 Hours (Table) 11/15/21 21:01 Blood Culture - Preliminary Blood No Growth after 24 hours
--- NOTE | 2021-11-17 17:48 | CDI ---
Documentation Clarification Form Date: 11/17/2021 05:33:05 PM From: Maeve Hess RN, CCDS Admit Date: 11/15/2021 11:02:00 PM Patient Name: Naveen Moreira Visit Number: [id number] Discharge Date: ATTENTION: The Clinical Documentation Specialists (CDI) and [facility] Coding Staff appreciate your assistance in clarifying documentation. Please respond to the clarification below the line at the bottom and electronically sign. The CDI & [facility] Coding staff will review the response and follow-up if needed. Please note: Queries are made part of the Legal Health Record. If you have any questions, please contact the author of this message via ITS. Dr. Ernesto Higuera Atrial Fibrillation is documented the H/P, Cardiology consult and progress notes. Patient has a history of atrial fibrillation. Additional clarification regarding the type of atrial fibrillation is requested. History/Risk Factors: COPD, Atrial Fibrillation, Hypertension Clinical Indicators: 66-year-old male present to emergency department with shortness of breath. 3/2 vital sign: 138/112 146 44 98.6 84 % on 6/L NC: 145/74 147 40 98 % on BIPAP 3/2 EKG/telemetry: A Flutter with a rate of 148 (ED assessment) 3/2 Labs: Troponin I 0.058, BNP 1930 3/ ECHO: Left ventricle is mildly dilated. Left ventricular systolic function is severely impaired with, an EF between 25-30 % Treatment: ICU/[employer] Admin O2 Sat's (trtrate) Cardizem Drip 125 MG @ 5 MLS/HR IV Heparin drip (1,000 Units) per protocol Eliquis 5 MG PO BID Please clarify the type of atrial fibrillation, if known: [ ] Chronic [ ] Permanent [ ] Paroxysmal [ ] Persistent [ ] Other, please specify [ ] Unable to determine (Template Last Revised: January 2021) Persistent atrial fibrillation Dictated By: Antonio Morrison MD Signed By: <Electronically signed by Antonio Morrison MD> 11/20/21 0937 MTDD
[2021-11-17 17:58] LABS: Glucose,Whole Blood 229 mg/dL (75-99)
[2021-11-17] MEDS: INSULIN ASPART (NovoLOG) 100 UNIT/ML VIAL SQ SCH ×2 (17:58→20:08)
[2021-11-17 20:01] LABS: Glucose,Whole Blood 209 mg/dL (75-99)
[2021-11-18 06:04] LABS: Basophils % (A) 0 %; Eosinophils % (A) 0 %; HCT 40.1 % (39.0-53.0); HGB 12.4 gm/dL (13.0-17.5); Hypochromasia Moderate; Lymphocytes # (A) 0.2 k/uL (1.0-4.8); Lymphocytes % (A) 3 %; MCV 106.7 fL (80.0-100.0); Macrocytosis Moderate; Mean Platelet Volume 7.2; Monocytes # (A) 0.3 k/uL (0-1.0); Monocytes % (A) 4 %; Neutrophils # (A) 7.1 k/uL (1.3-7.7); Neutrophils % (A) 91 %; Platelet Count 246 k/uL (150-450); RBC 3.76 m/uL (4.30-5.90); RDW 14.2 % (11.5-15.5); WBC 7.8 k/uL (3.8-10.6)
[2021-11-18] MEDS: DILTIAZEM 125 MG in SODIUM CHLORIDE 0.9% 100 ML IV SCH ×2 (06:05→14:57)
[2021-11-18 06:45] LABS: Glucose,Whole Blood 141 mg/dL (75-99)
[2021-11-18] MEDS: INSULIN ASPART (NovoLOG) 100 UNIT/ML VIAL SQ SCH ×5 (06:46→20:26)
[2021-11-18] MEDS: methylPREDNISolone SOD SUCCI 125 MG/2 ML VIAL IV SCH ×3 (06:46→18:00)
[2021-11-18 06:57] LABS: ALT 31 U/L (4-49); AST 26 U/L (17-59); African American GFR (CKD) >90 (>60 ml/min/1.73 sqM); Albumin 3.4 g/dL (3.5-5.0); Alkaline Phosphatase 57 U/L (38-126); Blood Urea Nitrogen 38 mg/dL (9-20); Calcium 8.5 mg/dL (8.4-10.2); Chloride 87 mmol/L (98-107); Glucose 137 mg/dL (74-99); Non-African American GFR(CKD) 78 (>60 ml/min/1.73 sqM); Potassium 4.8 mmol/L (3.5-5.1); Sodium 137 mmol/L (137-145); Total Bilirubin 0.6 mg/dL (0.2-1.3); Total Protein 6.1 g/dL (6.3-8.2)
[2021-11-18 07:03] LABS: Anion Gap 4 mmol/L
[2021-11-18 07:04] LABS: Carbon Dioxide 46 mmol/L (22-30)
--- NOTE | 2021-11-18 07:11 | XR ---
EXAMINATION TYPE: XR chest 1V DATE OF EXAM: 11/18/2021 HISTORY: Shortness of breath. COMPARISON: 11/17/2021 TECHNIQUE: Single view of the chest is submitted. FINDINGS: Demonstrated are scattered senescent parenchymal change. Persistent right lower lobe infiltrate and strandy density left lower lobe. The heart is stable. Hilar and mediastinal structures are within normal limits. Degenerative changes are seen of the dorsal spine. IMPRESSION: 1. Persistent right lower lobe infiltrate and strandy density left lower lobe.
[2021-11-18] MEDS: IPRATROPIUM-ALBUTEROL 3 ML NEB INHALATION SCH ×4 (07:32→19:42)
[2021-11-18] MEDS: BUDESONIDE 0.5 MG/2 ML NEBU INHALATION SCH ×2 (07:32→19:42)
[2021-11-18] MEDS: FORMOTEROL FUMARATE 20 MCG/2 ML NEBU INHALATION SCH ×2 (07:32→19:54)
[2021-11-18] MEDS: PANTOPRAZOLE 40 MG/10 ML VIAL IV SCH (08:13)
[2021-11-18] MEDS: ASPIRIN 81 MG PO SCH (08:14)
[2021-11-18] MEDS: FUROSEMIDE 10 MG/ML 4 ML VIAL IV SCH ×2 (08:14→20:25)
[2021-11-18] MEDS: APIXABAN 5 MG TAB PO SCH ×2 (08:14→20:25)
[2021-11-18] MEDS: CHOLECALCIFEROL 125 MCG (5000 IU) TABLET PO SCH (08:14)
[2021-11-18] MEDS: AZITHROMYCIN 500 MG TAB PO SCH (08:14)
[2021-11-18] MEDS: CYANOCOBALAMIN 500 MCG TAB PO SCH (08:14)
[2021-11-18] MEDS: ASCORBIC ACID 500 MG TAB PO SCH (08:14)
[2021-11-18] MEDS: ATORVASTATIN 80 MG TAB PO SCH (08:14)
[2021-11-18] MEDS: ZINC SULFATE 220 MG CAP PO SCH (08:14)
[2021-11-18] MEDS: METOPROLOL TARTRATE 50 MG TAB PO SCH (08:15)
[2021-11-18] MEDS ORDERED: DILTIAZEM DRIP BOLUS FROM BAG 1 MG SOLN IV STA (08:51)
[2021-11-18 11:44] LABS: Glucose,Whole Blood 188 mg/dL (75-99)
--- NOTE | 2021-11-18 12:41 | P.PN ---
Subjective Progress Note Date: 11/18/21 This is Óscar hernandes NP, I'm dictating on behalf of Dr. Higuera's H&P and A&P. Patient was interviewed and examined. Patient is a pleasant 66-year-old male who initially presented to the hospital with acute on chronic hypoxic respiratory failure. Patient today reports that he has no chest pain or shortness of breath. His heart rhythm remains atrial fibrillation, with a rate in the 90s to 120s. He deftly appears to be more regulated with his current medications. He does currently remain on Cardizem at this time. GENERAL: Well-appearing, well-nourished and in no acute distress. NECK: Supple without JVD or thyromegaly. LUNGS: Breath sounds clear to auscultation bilaterally. Respiration equal and unlabored. No wheezes, rales or rhonchi. HEART: Regular rate and rhythm without murmurs, rubs or gallops. S1 and S2 heard. EXTREMITIES: Normal range of motion, no edema. No clubbing or cyanosis. Peripheral pulses intact and strong. VITALS: [Temp 98.4, pulse rate 98, respirations 30, blood pressure 119/61, O2 saturation 98% on 2 L of supplemental oxygen.] TELEMETRY: [Atrial fibrillation on telemetry] LABS: [White blood cell count 7.8, hemoglobin 12.4, platelets 246, sodium 137, potassi um 4.8, B1 38, creatinine 0.99,] IMPRESSION/PLAN: 1. Atrial fibrillation with rapid ventricular response; continue Cardizem. Increase metoprolol to 75 mg 3 times a day. 2. Acute on chronic exacerbation of COPD; continue to follow pulmonary recommendations. Objective - Vital Signs Vital signs: Vital Signs Temp 98.4 F 11/18/21 08:00 Pulse 75 11/18/21 11:35 Resp 35 H 11/18/21 11:00 BP 110/55 11/18/21 11:00 Pulse Ox 94 L 11/18/21 11:00 Intake & Output 11/17/21 11/18/21 11/18/21 18:59 06:59 18:59 Intake Total 424.167 328.25 171.167 Output Total 20090 1974 Balance -1585.833 -1201.75 -1803.833 Weight 138.7 kg Intake: IV 190 120 40 0.9 Sodium Chloride 190 120 40 Intake, IV Titration 34.167 8.25 131.167 Amount Diltiazem 125 mg In 34.167 8.25 31.167 Sodium Chloride 0.9% 100 ml @ 5 MG/HR 5 mls/hr IV .Q24H [facility] Rx#:[id number] cefTRIAXone 2 gm In 100 Sodium Chloride 0.9% 50 ml @ 100 mls/hr IVPB Q12HR [facility] Rx#:[id number] Oral 200 200 Output: Urine 2009 1529 1974 Other: Voiding Method Indwelling Catheter Indwelling Catheter Indwelling Catheter - Labs CBC & Chem 7: 11/18/21 05:39 11/18/21 05:39 Labs: Abnormal Lab Results - Last 24 Hours (Table) 11/17/21 11/17/21 11/17/21 Range/Units 06:04 17:46 19:59 RBC (4.30-5.90) m/uL Hgb (13.0-17.5) gm/dL MCV (80.0-100.0) fL Lymphocytes # (1.0-4.8) k/uL Chloride (98-107) mmol/L Carbon Dioxide (22-30) mmol/L BUN (9-20) mg/dL Glucose (74-99) mg/dL POC Glucose (mg/dL) 229 H 209 H (75-99) mg/dL Total Protein (6.3-8.2) g/dL Albumin (3.5-5.0) g/dL Vitamin B12 997.0 H (200.0-944.0) pg/mL 11/18/21 11/18/21 11/18/21 Range/Units 05:39 05:39 06:42 RBC 3.76 L (4.30-5.90) m/uL Hgb 12.4 L (13.0-17.5) gm/dL MCV 106.7 H (80.0-100.0) fL Lymphocytes # 0.2 L (1.0-4.8) k/uL Chloride 87 L (98-107) mmol/L Carbon Dioxide 46 H* (22-30) mmol/L BUN 38 H (9-20) mg/dL Glucose 137 H (74-99) mg/dL POC Glucose (mg/dL) 141 H (75-99) mg/dL Total Protein 6.1 L (6.3-8.2) g/dL Albumin 3.4 L (3.5-5.0) g/dL Vitamin B12 (200.0-944.0) pg/mL 11/18/21 Range/Units 11:43 RBC (4.30-5.90) m/uL Hgb (13.0-17.5) gm/dL MCV (80.0-100.0) fL Lymphocytes # (1.0-4.8) k/uL Chloride (98-107) mmol/L Carbon Dioxide (22-30) mmol/L BUN (9-20) mg/dL Glucose (74-99) mg/dL POC Glucose (mg/dL) 188 H (75-99) mg/dL Total Protein (6.3-8.2) g/dL Albumin (3.5-5.0) g/dL Vitamin B12 (200.0-944.0) pg/mL Microbiology - Last 24 Hours (Table) 11/15/21 21:01 Blood Culture - Preliminary Blood No Growth after 48 hours
--- NOTE | 2021-11-18 12:48 | P.PN ---
Subjective Progress Note Date: 11/18/21 Patient is a 66-year-old male came in the with compensative shortness of breath does have history of COPD uses about 2 L of oxygen at home patient was severely hypoxic and hypercapnic with the pCO2 of greater than 120 patient was on BiPAP. Patient is presently being the BiPAP still wheezing. Patient doesn't have any pneumonia on the chest x-ray. Patient is on the systemic steroids in the form of IV steroids. Patient denied any fever chills patient is coughing not not bringing up much at this time. Patient baseline pCO2 appears to be around 70. Patient is not acidotic anymore pCO2 has gone down to 64 still bit hypoxic. Patient also has history of atrial fibrillation when he came and patient was in A. fib with rapid and regular rate secondary to hypoxemia this resolved and patient presently rate controlled still in A. fib, patient was started on the Cardizem drip was later weaned off and the patient was started on oral metoprolol and Eliquis. Patient had bilateral lower extremity swelling on admission which resolved at this time patient takes a low-dose of Lasix had a normal ejection fraction the past patient is also on KRISTOPHER inhibitor. Patient blood pressure is not elevated patient doesn't have any systolic dysfunction patient potassium is elevated because of these reasons this will be discontinued. Patient the creatinine went up from 0.66-1.07. Patient is presently on 4 L of oxygen. She denied mild elevation of troponin 0.058. Patient is obese, didn't have any history of sleep apnea but probably will need another sleep study as his previous sleep study was many years ago. 11/17/2021 Patient is seen in follow-up with morning continues to be closely monitored in the ICU with cardiology and pulmonary following closely. Chest x-ray this morning shows increasing infiltrate of the right lower lobe with mild stable stranding density at the left lower lobe. Patient is continued on IV antibiotics in the form of ceftriaxone along with oral Zithromax and also continues with breathing inhalational treatments and IV Solu-Medrol at 60 mg every 6 and will continue. Patient was rate controlled on oral Lopressor although heart rate became elevated and uncontrolled with a flutter and placed back on IV Cardizem and is currently at 10 mL per hour with cardiology following closely. Patient also continues on oral anticoagulant of eliquis and will continue. Patient is receiving IV Lasix twice daily as well. Patient continues on 4 L of oxygen via nasal cannula and denies any worsening shortness of breath although continues to be short of breath with minimal exertion. Patient reports to using BiPAP at night. Patient is afebrile and patient denies any chest pain or palpitations at this time. Patient's blood sugars have been elevated most likely steroid-induced as there is no history of diabetes and will add sliding scale and continue with Accu-Cheks before meals and at bedtime. Labs: WBC is 10.2, hemoglobin is 12.0, platelets are 242, sodium is 136, potassium is 5.1, carbon dioxide is 42, BUN is 41, creatinine is 0.96, calcium is 8.3. 11/18/2021 Patient evaluated today resting in bed in ICU, being followed closely by cardiology and pulmonary. Patient today in atrial flutter in the 130's to 140's and was started back on cardizem gtt at 10 mLs per hour. Heart rate has improved into the 70s. Chest xray today persistent right lower lobe infiltrate and strandy density left lower lobe. Continues on IV ceftriaxone and oral azithromycin, updrafts, pulmicort, IV solu-medrol, IV lasix 40 BID. Patient significantly bronchospastic during examination, unable to take a deep breath without coughing, WBC 7.8, hgb 12.4, sodium 137, potassium 4.8, chloride 87, CO2 46, patient did wear the BiPAP most of the night. States earlier this morning he had some midsternal chest discomfort unable to describe or quantify, but states he was sleeping and it has since resolved. Blood sugars elevated 200's, receiving novolog sliding scale, patient is eating majority of meals will add meal time insulin and monitor. May need to start long acting while on IV steroids. Afebrile, heart rate 98, respirations 30, blood pressure 119/61, 98% on 2L NC. Review of systems: Constitutional: reports of fatigue, no reports of fever, or chills Cardiovascular: No reports of chest pain or palpitations Respiratory: reports of shortness of breath reports of congested non productive cough GI: No reports of nausea, vomiting, or diarrhea : No reports of dysuria or retention Neurovascular: reports of generalized weakness All medications have been reviewed PHYSICAL EXAMINATION: GENERAL: The patient is alert and oriented x3, not in any acute distress. Morbidly Obese HEENT: Pupils are round and equally reacting to light. EOMI. No scleral icterus. No conjunctival pallor. Normocephalic, atraumatic. No pharyngeal erythema. No thyromegaly. CARDIOVASCULAR: S1 and S2 present. No murmurs, rubs, or gallops. Irregularly irregular rhythm PULMONARY: Decreased air entry with expiratory wheezing on exam , crackles noted at the bases ABDOMEN: Soft, obese, non-tender, nondistended, normoactive bowel sounds. No palpable organomegaly. MUSCULOSKELETAL: No joint swelling or deformity. EXTREMITIES: No cyanosis, clubbing, mild pedal edema +1 NEUROLOGICAL: Gross neurological examination did not reveal any focal deficits. SKIN: No rashes. Assessment: -Acute on chronic hypercapnic and hypoxic respiratory failure: This is secondary to COPD exacerbation, pulmonary following and patient is maintained on IV steroids along with breathing inhalational treatments, on home does of 2L NC requiring BiPAP while resting. -Respiratory acidosis secondary to CO2 retention which improved at this time. Patient has a compensated metabolic alkalosis -Peripheral edema: Secondary to obesity and venous insufficiency improved with Lasix and will maintain on IV Lasix twice daily and will continue -Elevated random glucose, most likely steroid-induced, A1C 6.0 consistent with prediabetes -Atrial fibrillation with rapid and regular rate, a flutter, placed back on IV Cardizem and metoprolol was increased, heart rate now in the 70s -Coronary artery disease with history of stents in the past -Hypertension -Hypoventilation obesity possibly of sleep apnea will need another sleep study in the outpatient setting -Hyperkalemia secondary to KRISTOPHER inhibitor which will be discontinued for multiple reasons as mentioned above, improving and is 4.8 today -Hyperlipidemia -DVT prophylaxis: Patient is on anticoagulation with Eliquis -No code Plan: Recommend continue with current medications and current consultations of pulmonary and cardiology following closely. Patient is currently maintained on 2 L via nasal cannula and is off BiPAP although continues to use this at night. Patient reports not tolerating very well as every time he moves it continues to beep and make noises and doesn't allow him to sleep. Patient is maintained on IV antibiotics long with IV steroids, IV Lasix, and breathing inhalational treatments and will continue. Patient reports to being currently on bedrest due to his heart rate being irregular and uncontrolled at this time. IV Cardizem resumed and cardiology following. Adjustments are being made to oral medications and will continue to monitor. Recommend continued telemetry monitoring and close ICU observation at this time. Patient is tolerating diet and slowly being advanced per pulmonary can operator. Todays labs show potassium improving, CO2 remains elevated at 46, blood glucose increased to the 200s. Recommend Accu-Cheks before meals and at bedtime and close monitoring and continue with sliding scale as needed as patient is on high-dose steroids. Added meal time insulin today as patient is eating and tolerating diet. Encouraged increase activity as tolerated and will have physical therapy evaluate the patient. Objective - Vital Signs Vital signs: Vital Signs Temp 98.4 F 11/18/21 08:00 Pulse 75 11/18/21 11:35 Resp 35 H 11/18/21 11:00 BP 110/55 11/18/21 11:00 Pulse Ox 94 L 11/18/21 11:00 Intake & Output 11/17/21 11/18/21 11/18/21 18:59 06:59 18:59 Intake Total 424.167 328.25 140 Output Total 2009 1529 1974 Balance -1585.833 -1201.75 -1835 Weight 138.7 kg Intake: IV 190 120 40 0.9 Sodium Chloride 190 120 40 Intake, IV Titration 34.167 8.25 100 Amount Diltiazem 125 mg In 34.167 8.25 0 Sodium Chloride 0.9% 100 ml @ 5 MG/HR 5 mls/hr IV .Q24H [facility] Rx#:[id number] cefTRIAXone 2 gm In 100 Sodium Chloride 0.9% 50 ml @ 100 mls/hr IVPB Q12HR [facility] Rx#:[id number] Oral 200 200 Output: Urine 2009 1529 1974 Other: Voiding Method Indwelling Catheter Indwelling Catheter Indwelling Catheter - Labs CBC & Chem 7: 11/18/21 05:39 11/18/21 05:39 Labs: Abnormal Lab Results - Last 24 Hours (Table) 11/17/21 11/17/21 11/17/21 Range/Units 06:04 17:46 19:59 RBC (4.30-5.90) m/uL Hgb (13.0-17.5) gm/dL MCV (80.0-100.0) fL Lymphocytes # (1.0-4.8) k/uL Chloride (98-107) mmol/L Carbon Dioxide (22-30) mmol/L BUN (9-20) mg/dL Glucose (74-99) mg/dL POC Glucose (mg/dL) 229 H 209 H (75-99) mg/dL Total Protein (6.3-8.2) g/dL Albumin (3.5-5.0) g/dL Vitamin B12 997.0 H (200.0-944.0) pg/mL 11/18/21 11/18/21 11/18/21 Range/Units 05:39 05:39 06:42 RBC 3.76 L (4.30-5.90) m/uL Hgb 12.4 L (13.0-17.5) gm/dL MCV 106.7 H (80.0-100.0) fL Lymphocytes # 0.2 L (1.0-4.8) k/uL Chloride 87 L (98-107) mmol/L Carbon Dioxide 46 H* (22-30) mmol/L BUN 38 H (9-20) mg/dL Glucose 137 H (74-99) mg/dL POC Glucose (mg/dL) 141 H (75-99) mg/dL Total Protein 6.1 L (6.3-8.2) g/dL Albumin 3.4 L (3.5-5.0) g/dL Vitamin B12 (200.0-944.0) pg/mL 11/18/21 Range/Units 11:43 RBC (4.30-5.90) m/uL Hgb (13.0-17.5) gm/dL MCV (80.0-100.0) fL Lymphocytes # (1.0-4.8) k/uL Chloride (98-107) mmol/L Carbon Dioxide (22-30) mmol/L BUN (9-20) mg/dL Glucose (74-99) mg/dL POC Glucose (mg/dL) 188 H (75-99) mg/dL Total Protein (6.3-8.2) g/dL Albumin (3.5-5.0) g/dL Vitamin B12 (200.0-944.0) pg/mL Microbiology - Last 24 Hours (Table) 11/15/21 21:01 Blood Culture - Preliminary Blood No Growth after 48 hours Assessment and Plan Time with Patient: Less than 30
--- NOTE | 2021-11-18 12:55 | P.PN ---
Subjective Progress Note Date: 11/18/21 This is a 66-year-old male patient with advanced COPD with an FEV1 of 25% of predicted, oxygen dependent at 2/3 L nasal cannula in addition to Prevacid history of coronary artery disease, has history of stent placement, previous history of ischemic cardiomyopathy with impaired ejection fraction that had been as low as 35% and subsequent improvement. The patient is known to me. He does have also an underlying bronchogenic cyst. The patient was getting progressively more short of breath over the past week. He was a bit hesitant to comment in hospital as he was worried that he will get intubated. He decided not to come and accordingly. He told his that he was adamant that he didn't want to get any form of invasive treatment such as intubation mechanical ventilation. By time he arrived to the emergency department, the patient was very much lethargic, tachypneic, on that, somnolent and his blood gases showed acute hypercapnic respiratory failure on top of chronic hypercapnic respiratory failure. His speech was at 7.14 with a pCO2 more than 120 and pO2 of 239 and this was done and FiO2 of 80%. At that point, I was contacted by the [facility] department. I was informed of his presence. Based on his DO NOT INTUBATE CODE STATUS, we decided to proceed with noninvasive positive pressure ventilation using the BiPAP. Accordingly, I put the patient about that a pressure of 16/6 and he is a full-term, drop the FiO2 down to 30% and this morning the patient is generating a tidal volume of 4 70 mL, and the patient has a minute ventilation of 11 L and the respiratory rate of 25. Is improved. His much more awake and alert and following commands and answering questions. Subsequently, I took him off the BiPAP and and I put him on 3 L about 2 by nasal cannula. He is on bronchodilators. He is on steroids. He was also given diuretics as the patient's chest exit showed some increased interstitial markings bilaterally. The patient is notable for extremity is without limitation. The patient was sent on 7.8 with hemoglobin of 12.5. Serum bicarbs at 41, potassium level is at 5.4, his sodium level is at 139, troponins of 0.058 and the patient's proBNP level was 1930. COVID 19 testing came back negative. Denies having any chest pain. No focal neurological deficits. He was found to be nature progression with rapid ventricular response. He was started on Cardizem drip and currently Cardizem drip with a running at 10 mg an hour and his rate is under much better control. He was started also on IV heparin. Echocardiogram is in progress. On today's evaluation of 11/17/2021, the patient is feeling better and he is less short of breath. Overnight, he stepped on a BiPAP at a pressure of 16/6 cm of water with an FiO2 of 30%. This morning is on 3 L of oxygen by nasal cannula. He is having increased cough and congestion. The chest x-ray from today shows improvement in the volume status. Nevertheless, there is development of right lower lobe consolidation consistent with pneumonia. The patient was on Zithromax and Rocephin will be restarted again. Otherwise, he is diuresing well. Earlier this morning, the patient went into a flutter with rapid ventricular response. The patient was started on Cardizem drip which is running at 5 mg an hour. Metoprolol was restarted at 50 mg twice a day and the patient's heart rate is under better control for now. He remains on long-term and coagulation with Eliquis. No chest pain. No angina. No palpitation. Im provement in lower extremity edema and the patient is a negative fluid balance. In terms of COPD exacerbation, he remains on a combination of bronchodilators and steroids. The white cell count of 10.2 with hemoglobin of 12, serum bicarbonate of 42 with a BMI of 41 and creatinine is 0.9. Glucose at 205. 3522, seeing the patient for a follow-up. Overnight, the patient was the BiPAP at a pressure of 10/5 cm of water and FiO2 of 30%. The patient is more comfortable. He spent most of the day in bed and he was unable to get up on a recliner. He remains on oxygen 3 L per minute nasal cannula this morning. 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 He'll be started on a Cardizem drip again. He takes metoprolol 50 mg by mouth twice a day. He is on long-term and to coagulation with Eliquis 5 mg by mouth twice a day. The patient has a heart rate around 120-140, irregular and the patient is hemodynamically stable. The patient continues to receive treatment for an acute COPD exacerbation is currently on DuoNeb neb last treatment [id number]. The chest x-ray showing improvement in the right lower lobe consolidation and the patient remains on a come initial Rocephin and Zithromax. The patient remains on IV Solu Medrol 60 mg every 6 hours. No chest pain. No altered mentation. Overnight, he is using BiPAP for respiratory support. Overall fluid balance is -2.7 L over the past 24 hours. The patient continues to have some ongoing edema in lower extremity is bilaterally. No fever. No chills. No altered mentation. Quite weak and debilitated. Objective - Vital Signs Vital signs: Vital Signs Temp 98.4 F 11/18/21 12:00 Pulse 98 11/18/21 12:00 Resp 30 H 11/18/21 12:00 BP 119/61 11/18/21 12:00 Pulse Ox 98 11/18/21 12:00 Intake & Output 11/17/21 11/18/21 11/18/21 18:59 06:59 18:59 Intake Total 424.167 328.25 171.167 Output Total 2009 1529 1974 Balance -1585.833 -1201.75 -1803.833 Weight 138.7 kg Intake: IV 190 120 40 0.9 Sodium Chloride 190 120 40 Intake, IV Titration 34.167 8.25 131.167 Amount Diltiazem 125 mg In 34.167 8.25 31.167 Sodium Chloride 0.9% 100 ml @ 5 MG/HR 5 mls/hr IV .Q24H QUETA Rx#:[id number] cefTRIAXone 2 gm In 100 Sodium Chloride 0.9% 50 ml @ 100 mls/hr IVPB Q12HR QUETA Rx#:[id number] Oral 200 200 Output: Urine 2009 1529 1974 Other: Voiding Method Indwelling Catheter Indwelling Catheter Indwelling Catheter - Exam GENERAL EXAM: Morbidly obese pleasant 66-year-old gentleman. Alert, a mild degree of respiratory distress. He was taken off the BiPAP and the patient was placed on 3 L of oxygen by nasal cannula HEAD: Normocephalic. EYES: Normal reaction of pupils, equal size. NOSE: Clear with pink turbinates. THROAT: No erythema or exudates. NECK: No masses, no JVD. CHEST: No chest wall deformity. LUNGS: Marked diminished breath sounds along with scattered external wheezes throughout the lung his bilaterally. No dullness to percussion. CVS: Irregular rhythm consistent with atrial fibrillation. This morning, the patient was found to be nature fibrillation with rapid ventricular response The patient heart sounds are quite distant this point in time. ABDOMEN: No hepatosplenomegaly, normal bowel sounds, no guarding or rigidity. SPINE: No scoliosis or deformity SKIN: No rashes CENTRAL NERVOUS SYSTEM: No focal deficits, tone is normal in all 4 extremities. EXTREMITIES: Trace edema lower extremities bilaterally.. No clubbing, no cyanosis. Peripheral pulses are intact. - Labs CBC & Chem 7: 11/18/21 05:39 11/18/21 05:39 Labs: Abnormal Lab Results - Last 24 Hours (Table) 11/17/21 11/17/21 11/17/21 Range/Units 06:04 17:46 19:59 RBC (4.30-5.90) m/uL Hgb (13.0-17.5) gm/dL MCV (80.0-100.0) fL Lymphocytes # (1.0-4.8) k/uL Chloride (98-107) mmol/L Carbon Dioxide (22-30) mmol/L BUN (9-20) mg/dL Glucose (74-99) mg/dL POC Glucose (mg/dL) 229 H 209 H (75-99) mg/dL Total Protein (6.3-8.2) g/dL Albumin (3.5-5.0) g/dL Vitamin B12 997.0 H (200.0-944.0) pg/mL 11/18/21 11/18/21 11/18/21 Range/Units 05:39 05:39 06:42 RBC 3.76 L (4.30-5.90) m/uL Hgb 12.4 L (13.0-17.5) gm/dL MCV 106.7 H (80.0-100.0) fL Lymphocytes # 0.2 L (1.0-4.8) k/uL Chloride 87 L (98-107) mmol/L Carbon Dioxide 46 H* (22-30) mmol/L BUN 38 H (9-20) mg/dL Glucose 137 H (74-99) mg/dL POC Glucose (mg/dL) 141 H (75-99) mg/dL Total Protein 6.1 L (6.3-8.2) g/dL Albumin 3.4 L (3.5-5.0) g/dL Vitamin B12 (200.0-944.0) pg/mL 11/18/21 Range/Units 11:43 RBC (4.30-5.90) m/uL Hgb (13.0-17.5) gm/dL MCV (80.0-100.0) fL Lymphocytes # (1.0-4.8) k/uL Chloride (98-107) mmol/L Carbon Dioxide (22-30) mmol/L BUN (9-20) mg/dL Glucose (74-99) mg/dL POC Glucose (mg/dL) 188 H (75-99) mg/dL Total Protein (6.3-8.2) g/dL Albumin (3.5-5.0) g/dL Vitamin B12 (200.0-944.0) pg/mL Microbiology - Last 24 Hours (Table) 11/15/21 21:01 Blood Culture - Preliminary Blood No Growth after 48 hours Assessment and Plan Plan: 1 acute COPD exacerbation with secondary hypoxic and hypercapnic respiratory failure which is an acute on top of chronic hypoxic/hypercapnic respiratory failure. The patient is currently off the BiPAP and he is using it only at nighttime. Meanwhile, the patient has also developed a right lower lobe consolidation highly suggestive underlying pneumonia in the right lung base. The patient is improving slowly. The patient remains on examination Rocephin a nd Zithromax. The patient remains on a combination of bronchodilators and steroids and antibiotics. 2 acute COPD exacerbation, improving 3 acute on chronic hypoxic and hypercapnic respiratory failure 4 advanced COPD with an FEV1 of 25% predicted 5 chronic hypoxic respiratory failure maintained on O2 at 3 L 6 A. fib fibrillation with RVR /atrial flutter and the patient is having episodes of A. fib RVR in the morning, heart rate is much better controlled during the day. The patient remains on long-term and to coagulation with Eliquis 5 mg twice a day. 7 coronary artery disease with persistent of coronary stenting involving the circumflex and November 2018 and the patient also has had previous stenting to the LAD and circumflex and 2017 8 severe ischemic cardiomyopathy with previous ejection fraction of around 35%, repeat echocardiogram showed an ejection fraction of 25-30% with global hypokinesis. 9 bronchogenic cyst of the lung, right-sided, benign 10 hypertension 11 hyperlipidemia 12 obesity with a BMI of 43.3 Plan Continue BiPAP overnight Continue the combination of Rocephin and Zithromax. Continue BiPAP overnight Continue diuresis with IV Lasix Continue DuoNeb nebulized she was 4 times a day [id number] Continue Perforomist and Pulmicort neb last 2 minutes twice a day IV Solu Medrol 60 mg every 6 hours Metoprolol 75 mg by mouth 3 times a day and those will be modified as the patient is being gradually weaned off the Cardizem drip. anticoagulation with Eliquis 5 mg by mouth twice a day Repeat echocardiogram was completed and the patient was found to have ejection fraction of 25-30% along with global hypokinesis. No significant pulmonary hypertension. Monitor mental status We'll continue to follow make further recommendations based on his progress. His CODE STATUS is DO NOT INTUBATE.
[2021-11-18] MEDS: METOPROLOL TARTRATE 25 MG TAB PO SCH ×2 (15:44→20:25)
[2021-11-18 16:21] LABS: Glucose,Whole Blood 202 mg/dL (75-99)
[2021-11-18 20:11] LABS: Glucose,Whole Blood 219 mg/dL (75-99)
[2021-11-19] MEDS: methylPREDNISolone SOD SUCCI 125 MG/2 ML VIAL IV SCH ×4 (03:29→17:06)
[2021-11-19 04:38] LABS: HCT 39.1 % (39.0-53.0); HGB 12.6 gm/dL (13.0-17.5); Hypochromasia Slight; MCH 34.1 pg (25.0-35.0); MCHC 32.1 g/dL (31.0-37.0); MCV 106.3 fL (80.0-100.0); Macrocytosis Moderate; Mean Platelet Volume 7.2; Platelet Count 252 k/uL (150-450); RBC 3.68 m/uL (4.30-5.90); RDW 13.7 % (11.5-15.5); WBC 9.6 k/uL (3.8-10.6)
[2021-11-19 04:56] LABS: Calcium 8.7 mg/dL (8.4-10.2); Potassium 4.7 mmol/L (3.5-5.1)
[2021-11-19 07:11] LABS: Glucose,Whole Blood 124 mg/dL (75-99)
[2021-11-19] MEDS: INSULIN ASPART (NovoLOG) 100 UNIT/ML VIAL SQ SCH ×7 (07:22→21:40)
--- NOTE | 2021-11-19 07:39 | XR ---
EXAMINATION TYPE: XR chest 1V portable DATE OF EXAM: 11/19/2021 HISTORY: Shortness of breath. COMPARISON: 11/18/2021 TECHNIQUE: Single view of the chest is submitted. FINDINGS: Demonstrated are scattered senescent parenchymal change. Stable basilar infiltrates right greater than left. The heart is stable. Hilar and mediastinal structures are within normal limits. Degenerative changes are seen of the dorsal spine. IMPRESSION: 1. Stable basilar infiltrates right greater than left.
[2021-11-19] MEDS: IPRATROPIUM-ALBUTEROL 3 ML NEB INHALATION SCH ×4 (07:42→19:45)
[2021-11-19] MEDS: BUDESONIDE 0.5 MG/2 ML NEBU INHALATION SCH ×2 (07:42→19:45)
[2021-11-19] MEDS: FORMOTEROL FUMARATE 20 MCG/2 ML NEBU INHALATION SCH ×2 (07:42→19:45)
[2021-11-19] MEDS: FUROSEMIDE 10 MG/ML 4 ML VIAL IV SCH (07:51)
[2021-11-19] MEDS: PANTOPRAZOLE 40 MG/10 ML VIAL IV SCH (07:51)
[2021-11-19] MEDS: METOPROLOL TARTRATE 25 MG TAB PO SCH ×3 (07:52→21:39)
[2021-11-19] MEDS: APIXABAN 5 MG TAB PO SCH ×2 (07:52→21:39)
[2021-11-19] MEDS ORDERED: DEXTROSE 5% IN WATER 100 ML with AMIODARONE 150 MG IV ONE (08:29)
[2021-11-19] MEDS ORDERED: AMIODARONE 360 MG in DEXTROSE 5% IN WATER 200 ML IV ONE ×2 (08:30)
[2021-11-19] MEDS: ZINC SULFATE 220 MG CAP PO SCH (08:57)
[2021-11-19] MEDS: CHOLECALCIFEROL 125 MCG (5000 IU) TABLET PO SCH (08:57)
[2021-11-19] MEDS: ASCORBIC ACID 500 MG TAB PO SCH (08:57)
[2021-11-19] MEDS: CYANOCOBALAMIN 500 MCG TAB PO SCH (08:57)
[2021-11-19] MEDS: ASPIRIN 81 MG PO SCH (08:57)
[2021-11-19] MEDS: ATORVASTATIN 80 MG TAB PO SCH (08:57)
[2021-11-19] MEDS: AZITHROMYCIN 500 MG TAB PO SCH (08:57)
[2021-11-19 11:38] LABS: Glucose,Whole Blood 172 mg/dL (75-99)
--- NOTE | 2021-11-19 11:47 | P.PN ---
Subjective Progress Note Date: 11/19/21 This is a 66-year-old male patient with advanced COPD with an FEV1 of 25% of predicted, oxygen dependent at 2/3 L nasal cannula in addition to Prevacid history of coronary artery disease, has history of stent placement, previous history of ischemic cardiomyopathy with impaired ejection fraction that had been as low as 35% and subsequent improvement. The patient is known to me. He does have also an underlying bronchogenic cyst. The patient was getting progressively more short of breath over the past week. He was a bit hesitant to comment in hospital as he was worried that he will get intubated. He decided not to come and accordingly. He told his that he was adamant that he didn't want to get any form of invasive treatment such as intubation mechanical ventilation. By time he arrived to the emergency department, the patient was very much lethargic, tachypneic, on that, somnolent and his blood gases showed acute hypercapnic respiratory failure on top of chronic hypercapnic respiratory failure. His speech was at 7.14 with a pCO2 more than 120 and pO2 of 239 and this was done and FiO2 of 80%. At that point, I was contacted by the [facility] department. I was informed of his presence. Based on his DO NOT INTUBATE CODE STATUS, we decided to proceed with noninvasive positive pressure ventilation using the BiPAP. Accordingly, I put the patient about that a pressure of 16/6 and he is a full-term, drop the FiO2 down to 30% and this morning the patient is generating a tidal volume of 4 70 mL, and the patient has a minute ventilation of 11 L and the respiratory rate of 25. Is improved. His much more awake and alert and following commands and answering questions. Subsequently, I took him off the BiPAP and and I put him on 3 L about 2 by nasal cannula. He is on bronchodilators. He is on steroids. He was also given diuretics as the patient's chest exit showed some increased interstitial markings bilaterally. The patient is notable for extremity is without limitation. The patient was sent on 7.8 with hemoglobin of 12.5. Serum bicarbs at 41, potassium level is at 5.4, his sodium level is at 139, troponins of 0.058 and the patient's proBNP level was 1930. COVID 19 testing came back negative. Denies having any chest pain. No focal neurological deficits. He was found to be nature progression with rapid ventricular response. He was started on Cardizem drip and currently Cardizem drip with a running at 10 mg an hour and his rate is under much better control. He was started also on IV heparin. Echocardiogram is in progress. On today's evaluation of 11/17/2021, the patient is feeling better and he is less short of breath. Overnight, he stepped on a BiPAP at a pressure of 16/6 cm of water with an FiO2 of 30%. This morning is on 3 L of oxygen by nasal cannula. He is having increased cough and congestion. The chest x-ray from today shows improvement in the volume status. Nevertheless, there is development of right lower lobe consolidation consistent with pneumonia. The patient was on Zithromax and Rocephin will be restarted again. Otherwise, he is diuresing well. Earlier this morning, the patient went into a flutter with rapid ventricular response. The patient was started on Cardizem drip which is running at 5 mg an hour. Metoprolol was restarted at 50 mg twice a day and the patient's heart rate is under better control for now. He remains on long-term and coagulation with Eliquis. No chest pain. No angina. No palpitation. Im provement in lower extremity edema and the patient is a negative fluid balance. In terms of COPD exacerbation, he remains on a combination of bronchodilators and steroids. The white cell count of 10.2 with hemoglobin of 12, serum bicarbonate of 42 with a BMI of 41 and creatinine is 0.9. Glucose at 205. 3522, seeing the patient for a follow-up. Overnight, the patient was the BiPAP at a pressure of 10/5 cm of water and FiO2 of 30%. The patient is more comfortable. He spent most of the day in bed and he was unable to get up on a recliner. He remains on oxygen 3 L per minute nasal cannula this morning. 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 He'll be started on a Cardizem drip again. He takes metoprolol 50 mg by mouth twice a day. He is on long-term and to coagulation with Eliquis 5 mg by mouth twice a day. The patient has a heart rate around 120-140, irregular and the patient is hemodynamically stable. The patient continues to receive treatment for an acute COPD exacerbation is currently on DuoNeb neb last treatment [id number]. The chest x-ray showing improvement in the right lower lobe consolidation and the patient remains on a come initial Rocephin and Zithromax. The patient remains on IV Solu Medrol 60 mg every 6 hours. No chest pain. No altered mentation. Overnight, he is using BiPAP for respiratory support. Overall fluid balance is -2.7 L over the past 24 hours. The patient continues to have some ongoing edema in lower extremity is bilaterally. No fever. No chills. No altered mentation. Quite weak and debilitated. 11/19/2021, patient is being seen for a follow-up. Patient is off the BiPAP. The patient is on 3 L of oxygen nasal cannula. Input output ratio is -4.2 L over the past 24 hours. Earlier this morning is similar to yesterday, the patient went into SVT with episodes of A. fib RVR. Note that he is already on Cardizem which is currently running at 5 mg an hour and the patient is also on Lopressor 75 mg by mouth 3 times a day. He gets quite tachycardic and at times the rhythm is typical of an SVT. I give the patient carotid massage and I was unable to break the SVT. Following that, I give the patient an amiodarone bolus and currently is on a maintenance at 1 mg per minute. At this point his cardiac rhythm changed from SVT congestion fibrillation the rate was under better control. He is already on Eliquis 5 mg by mouth twice a day. Chest x-ray from today shows a dense consolidation right lower lobe and the patient remains on a come initial Rocephin and Zithromax. The patient is unable to produce a whole lot of sputum. Hemodynamically stable. Free of any angina. Tolerating diet. A bit weak and he's not doing a lot of activity and stenting in bed most of the time. Note that he has history of coronary artery disease, he also has severe cardiomyopathy with impaired left ventricular ejection fraction. He has advanced COPD with chronic atrial fibrillation. Objective - Vital Signs Vital signs: Vital Signs Temp 97.1 F L 11/19/21 08:00 Pulse 101 H 11/19/21 10:57 Resp 45 H 11/19/21 10:00 BP 114/74 03/06/22 10:00 Pulse Ox 97 11/19/21 10:00 Intake & Output 11/18/21 11/19/21 11/19/21 18:59 06:59 18:59 Intake Total 255.500 110 197.667 Output Total 2690 1960 1150 Balance -2434.500 -1850 -952.333 Weight 134.8 kg Intake: IV 110 110 50 0.9 Sodium Chloride 110 110 50 Intake, IV Titration 145.500 147.667 Amount Diltiazem 125 mg In 45.500 97.667 Sodium Chloride 0.9% 100 ml @ 5 MG/HR 5 mls/hr IV .Q24H QUETA Rx#:[id number] cefTRIAXone 2 gm In 100 50 Sodium Chloride 0.9% 50 ml @ 100 mls/hr IVPB Q12HR QUETA Rx#:[id number] Output: Urine 2690 1960 1150 Other: Voiding Method Indwelling Catheter Indwelling Catheter Indwelling Catheter - Exam GENERAL EXAM: Morbidly obese pleasant 66-year-old gentleman. Alert, a mild degree of respiratory distress. He was taken off the BiPAP and the patient was placed on 3 L of oxygen by nasal cannula HEAD: Normocephalic. EYES: Normal reaction of pupils, equal size. NOSE: Clear with pink turbinates. THROAT: No erythema or exudates. NECK: No masses, no JVD. CHEST: No chest wall deformity. LUNGS: Marked diminished breath sounds along with scattered external wheezes throughout the lung his bilaterally. No dullness to percussion. CVS: Irregular rhythm consistent with atrial fibrillation. This morning, the patient was found to be nature fibrillation with rapid ventricular response The patient heart sounds are quite distant this point in time. ABDOMEN: No hepatosplenomegaly, normal bowel sounds, no guarding or rigidity. SPINE: No scoliosis or deformity SKIN: No rashes CENTRAL NERVOUS SYSTEM: No focal deficits, tone is normal in all 4 extremities. EXTREMITIES: Trace edema lower extremities bilaterally.. No clubbing, no cyanosis. Peripheral pulses are intact. - Labs CBC & Chem 7: 11/19/21 04:17 11/19/21 04:17 Labs: Abnormal Lab Results - Last 24 Hours (Table) 11/18/21 11/18/21 11/18/21 Range/Units 11:43 16:19 20:09 RBC (4.30-5.90) m/uL Hgb (13.0-17.5) gm/dL MCV (80.0-100.0) fL Chloride (98-107) mmol/L Carbon Dioxide (22-30) mmol/L BUN (9-20) mg/dL Glucose (74-99) mg/dL POC Glucose (mg/dL) 188 H 202 H 219 H (75-99) mg/dL 11/19/21 11/19/21 11/19/21 Range/Units 04:17 04:17 07:09 RBC 3.68 L (4.30-5.90) m/uL Hgb 12.6 L (13.0-17.5) gm/dL MCV 106.3 H (80.0-100.0) fL Chloride 85 L (98-107) mmol/L Carbon Dioxide 44 H* (22-30) mmol/L BUN 47 H (9-20) mg/dL Glucose 139 H (74-99) mg/dL POC Glucose (mg/dL) 124 H (75-99) mg/dL 11/19/21 Range/Units 11:36 RBC (4.30-5.90) m/uL Hgb (13.0-17.5) gm/dL MCV (80.0-100.0) fL Chloride (98-107) mmol/L Carbon Dioxide (22-30) mmol/L BUN (9-20) mg/dL Glucose (74-99) mg/dL POC Glucose (mg/dL) 172 H (75-99) mg/dL Microbiology - Last 24 Hours (Table) 11/15/21 21:01 Blood Culture - Preliminary Blood No Growth after 72 hours Assessment and Plan Plan: 1 acute COPD exacerbation with secondary hypoxic and hypercapnic respiratory failure which is an acute on top of chronic hypoxic/hypercapnic respiratory failure. The patient has a right lower lobe consolidation consistent of pneumonia, and the patient is stable consolidation on today's chest x-ray currently, combination of Rocephin and Zithromax. 2 acute COPD exacerbation, improving, remains stable on a combination of bronchodilators and steroids , 3 acute on chronic hypoxic and hypercapnic respiratory failure, currently between 2 and 3 L of oxygen by nasal cannula 4 advanced COPD with an FEV1 of 25% predicted 5 chronic hypoxic respiratory failure maintained on O2 at 3 L 6 A. fib fibrillation with RVR /atrial flutter and the patient is having episodes of A. fib RVR in the morning, along with episodes of SVTs 7 coronary artery disease with persistent of coronary stenting involving the circumflex and November 2018 and the patient also has had previous stenting to the LAD and circumflex and 2017 8 severe ischemic cardiomyopathy with previous ejection fraction of around 35%, repeat echocardiogram showed an ejection fraction of 25-30% with global hypokinesis. 9 bronchogenic cyst of the lung, right-sided, benign 10 hypertension 11 hyperlipidemia 12 obesity with a BMI of 43.3 Plan Continue BiPAP overnight Continue the combination of Rocephin and Zithromax. Continue BiPAP overnight This continued IV Lasix and the patient has established himself a negative fluid balance over the past 24 hours to 48 hours IV amiodarone bolus was given and the patient will be loaded with amiodarone and the cardiac rhythm will be monitored. Continue DuoNeb nebulized she was 4 times a day [id number] Continue Perforomist and Pulmicort neb last 2 minutes twice a day Continue IV Solu Medrol 60 mg every 6 hours Continue Metoprolol 75 mg by mouth 3 times a day Wean off Cardizem drip and discontinue anticoagulation with Eliquis 5 mg by mouth twice a day Repeat echocardiogram was completed and the patient was found to have ejection fraction of 25-30% along with global hypokinesis. No significant pulmonary hypertension. Monitor mental status We'll continue to follow make further recommendations based on his progress. His CODE STATUS is DO NOT INTUBATE.
--- NOTE | 2021-11-19 11:52 | P.PN ---
Subjective Progress Note Date: 11/19/21 This is Óscar hernandes NP, I'm dictating on behalf of Dr. Higuera's H&P and A&P. Patient was interviewed and examined. Patient is a pleasant 66-year-old male who initially presented to the hospital acute on chronic hypoxic respiratory failure. Patient continues to report no chest pain or shortness of breath. Patient has continued to maintain atrial fibrillation with an elevated heart rate. We will increase his metoprolol to 75 mg 3 times a day, and have not seen that appreciably bring his heart rate down. The patient was started on amiodarone earlier this morning for continued elevated heart rate. It does appear that the amiodarone is working, as the patient's heart rates currently in the 90s. GENERAL: Well-appearing, well-nourished and in no acute distress. NECK: Supple without JVD or thyromegaly. LUNGS: Breath sounds clear to auscultation bilaterally. Respiration equal and unlabored. No wheezes, rales or rhonchi. HEART: Regular rate and rhythm without murmurs, rubs or gallops. S1 and S2 heard. EXTREMITIES: Normal range of motion, no edema. No clubbing or cyanosis. Peripheral pulses intact and strong. VITALS: Heart rate 101, respirations 45, blood pressure 114/74, O2 saturation 97% on room air TELEMETRY: Atrial fibrillation with controlled rate LABS: White count 9.6, hemoglobin 12.6, platelets 252, sodium 138, potassium 4.7, B1 47, creatinine 1.07, IMPRESSION/PLAN: 1. Atrial fibrillation with rapid ventricular response-continue amiodarone as ordered. Once the maintenance drip was completed, patient can be bridged over to amiodarone 200 mg oral daily. Continue metoprolol as ordered. 2. Acute on chronic exacerbation of COPD-continue pulmonary recommendations. Objective - Vital Signs Vital signs: Vital Signs Temp 97.1 F L 11/19/21 08:00 Pulse 101 H 11/19/21 10:57 Resp 45 H 11/19/21 10:00 BP 114/74 11/19/21 10:00 Pulse Ox 97 11/19/21 10:00 Intake & Output 11/18/21 11/19/21 11/19/21 18:59 06:59 18:59 Intake Total 255.500 110 197.667 Output Total 2690 1960 1150 Balance -2434.500 -1850 -952.333 Weight 134.8 kg Intake: IV 110 110 50 0.9 Sodium Chloride 110 110 50 Intake, IV Titration 145.500 147.667 Amount Diltiazem 125 mg In 45.500 97.667 Sodium Chloride 0.9% 100 ml @ 5 MG/HR 5 mls/hr IV .Q24H [facility] Rx#:[id number] cefTRIAXone 2 gm In 100 50 Sodium Chloride 0.9% 50 ml @ 100 mls/hr IVPB Q12HR [facility] Rx#:[id number] Output: Urine 2690 1960 1150 Other: Voiding Method Indwelling Catheter Indwelling Catheter Indwelling Catheter - Labs CBC & Chem 7: 11/19/21 04:17 11/19/21 04:17 Labs: Abnormal Lab Results - Last 24 Hours (Table) 11/18/21 11/18/21 11/18/21 Range/Units 11:43 16:19 20:09 RBC (4.30-5.90) m/uL Hgb (13.0-17.5) gm/dL MCV (80.0-100.0) fL Chloride (98-107) mmol/L Carbon Dioxide (22-30) mmol/L BUN (9-20) mg/dL Glucose (74-99) mg/dL POC Glucose (mg/dL) 188 H 202 H 219 H (75-99) mg/dL 11/19/21 11/19/21 11/19/21 Range/Units 04:17 04:17 07:09 RBC 3.68 L (4.30-5.90) m/uL Hgb 12.6 L (13.0-17.5) gm/dL MCV 106.3 H (80.0-100.0) fL Chloride 85 L (98-107) mmol/L Carbon Dioxide 44 H* (22-30) mmol/L BUN 47 H (9-20) mg/dL Glucose 139 H (74-99) mg/dL POC Glucose (mg/dL) 124 H (75-99) mg/dL 11/19/21 Range/Units 11:36 RBC (4.30-5.90) m/uL Hgb (13.0-17.5) gm/dL MCV (80.0-100.0) fL Chloride (98-107) mmol/L Carbon Dioxide (22-30) mmol/L BUN (9-20) mg/dL Glucose (74-99) mg/dL POC Glucose (mg/dL) 172 H (75-99) mg/dL Microbiology - Last 24 Hours (Table) 11/15/21 21:01 Blood Culture - Preliminary Blood No Growth after 72 hours
[2021-11-19] MEDS: AMIODARONE 450 MG in DEXTROSE 5% IN WATER 250 ML IV SCH ×2 (14:25)
[2021-11-19] MEDS ORDERED: LACTULOSE 20 GM/30 ML CUP PO ONE (14:43)
--- NOTE | 2021-11-19 14:46 | P.PN ---
Subjective Progress Note Date: 11/19/21 Patient is a 66-year-old male came in the with compensative shortness of breath does have history of COPD uses about 2 L of oxygen at home patient was severely hypoxic and hypercapnic with the pCO2 of greater than 120 patient was on BiPAP. Patient is presently being the BiPAP still wheezing. Patient doesn't have any pneumonia on the chest x-ray. Patient is on the systemic steroids in the form of IV steroids. Patient denied any fever chills patient is coughing not not bringing up much at this time. Patient baseline pCO2 appears to be around 70. Patient is not acidotic anymore pCO2 has gone down to 64 still bit hypoxic. Patient also has history of atrial fibrillation when he came and patient was in A. fib with rapid and regular rate secondary to hypoxemia this resolved and patient presently rate controlled still in A. fib, patient was started on the Cardizem drip was later weaned off and the patient was started on oral metoprolol and Eliquis. Patient had bilateral lower extremity swelling on admission which resolved at this time patient takes a low-dose of Lasix had a normal ejection fraction the past patient is also on KRISTOPHER inhibitor. Patient blood pressure is not elevated patient doesn't have any systolic dysfunction patient potassium is elevated because of these reasons this will be discontinued. Patient the creatinine went up from 0.66-1.07. Patient is presently on 4 L of oxygen. She denied mild elevation of troponin 0.058. Patient is obese, didn't have any history of sleep apnea but probably will need another sleep study as his previous sleep study was many years ago. 11/17/2021 Patient is seen in follow-up with morning continues to be closely monitored in the ICU with cardiology and pulmonary following closely. Chest x-ray this morning shows increasing infiltrate of the right lower lobe with mild stable stranding density at the left lower lobe. Patient is continued on IV antibiotics in the form of ceftriaxone along with oral Zithromax and also continues with breathing inhalational treatments and IV Solu-Medrol at 60 mg every 6 and will continue. Patient was rate controlled on oral Lopressor although heart rate became elevated and uncontrolled with a flutter and placed back on IV Cardizem and is currently at 10 mL per hour with cardiology following closely. Patient also continues on oral anticoagulant of eliquis and will continue. Patient is receiving IV Lasix twice daily as well. Patient continues on 4 L of oxygen via nasal cannula and denies any worsening shortness of breath although continues to be short of breath with minimal exertion. Patient reports to using BiPAP at night. Patient is afebrile and patient denies any chest pain or palpitations at this time. Patient's blood sugars have been elevated most likely steroid-induced as there is no history of diabetes and will add sliding scale and continue with Accu-Cheks before meals and at bedtime. Labs: WBC is 10.2, hemoglobin is 12.0, platelets are 242, sodium is 136, potassium is 5.1, carbon dioxide is 42, BUN is 41, creatinine is 0.96, calcium is 8.3. 11/18/2021 Patient evaluated today resting in bed in ICU, being followed closely by cardiology and pulmonary. Patient today in atrial flutter in the 130's to 140's and was started back on cardizem gtt at 10 mLs per hour. Heart rate has improved into the 70s. Chest xray today persistent right lower lobe infiltrate and strandy density left lower lobe. Continues on IV ceftriaxone and oral azithromycin, updrafts, pulmicort, IV solu-medrol, IV lasix 40 BID. Patient significantly bronchospastic during examination, unable to take a deep breath without coughing, WBC 7.8, hgb 12.4, sodium 137, potassium 4.8, chloride 87, CO2 46, patient did wear the BiPAP most of the night. States earlier this morning he had some midsternal chest discomfort unable to describe or quantify, but states he was sleeping and it has since resolved. Blood sugars elevated 200's, receiving novolog sliding scale, patient is eating majority of meals will add meal time insulin and monitor. May need to start long acting while on IV steroids. Afebrile, heart rate 98, respirations 30, blood pressure 119/61, 98% on 2L NC. 11/19/2021 Patient evaluated in the ICU today. Patient had an elevated heart rate up in the 170s this morning, Cardizem drip is currently off and he is on amiodarone bolus and infusion. Metoprolol was increased yesterday. Patient did not wear the BiPAP last night states that he felt short of breath while wearing it. Labs today show WBC 9.6, hgb 12.6, sodium 138, potassium 4.7, magnesium 2.2, chloride 85, CO2 44, BUN 47, creatinine slightly elevated at 1.07, blood glucose in the 120s. Chest xray this morning shows stable basilar infiltrates right greater than left. IV lasix was discontinued today. Patient is showing a negative fluid balance, down 1.6 Liters in the last 24 hours. Continues on IV ceftriaxone, PO azithromycin, updrafts, IV solu-medrol, on eliquis. Patient has not had a BM since admission, Patient is being follow closely by pulmonary, cardiology. Review of systems: Constitutional: reports of fatigue, no reports of fever, or chills Cardiovascular: No reports of chest pain or palpitations Respiratory: reports of shortness of breath reports of congested non productive cough GI: No reports of nausea, vomiting, or diarrhea, no BM : No reports of dysuria or retention Neurovascular: reports of generalized weakness All medications have been reviewed PHYSICAL EXAMINATION: GENERAL: The patient is alert and oriented x3, dyspneic while talking. Morbidly Obese HEENT: Pupils are round and equally reacting to light. EOMI. No scleral icterus. No conjunctival pallor. Normocephalic, atraumatic. No pharyngeal erythema. No thyromegaly. CARDIOVASCULAR: S1 and S2 present. No murmurs, rubs, or gallops. Irregularly irregular rhythm PULMONARY: Decreased air entry with expiratory wheezing on exam , crackles noted at the bases. Bronchospastic ABDOMEN: Soft, obese, non-tender, nondistended, normoactive bowel sounds. No palpable organomegaly. MUSCULOSKELETAL: No joint swelling or deformity. EXTREMITIES: No cyanosis, clubbing, mild pedal edema +1 NEUROLOGICAL: Gross neurological examination did not reveal any focal deficits. SKIN: No rashes. Assessment: -Acute on chronic hypercapnic and hypoxic respiratory failure: Secondary to COPD exacerbation, pulmonary following and patient is maintained on IV steroids along with breathing inhalational treatments, requiring 2 to 3 L -Respiratory acidosis secondary to CO2 retention which improved from admission. Patient has a compensated metabolic alkalosis. CO2 today 44 -Peripheral edema: Secondary to obesity and venous insufficiency improved with Lasix, IV lasix discontinued today -Elevated random glucose, most likely steroid-induced, A1C 6.0 consistent with prediabetes -Atrial fibrillation with rapid and regular rate, a flutter, improved with IV cardizem and metoprolol, patient with SVT today now on IV amiodarone, cardizem discontinued. -Coronary artery disease with history of stents in the past -Hypertension -Hypoventilation obesity possibly of sleep apnea will need another sleep study in the outpatient setting -Hyperkalemia secondary to KRISTOPHER inhibitor which will be discontinued for multiple reasons as mentioned above, improving and is 4.7 today -Hyperlipidemia -DVT prophylaxis: Patient is on anticoagulation with Eliquis -No code Plan: Recommend continue with current medications and current consultations of pulmonary and cardiology following closely. Patient is currently maintained on 2 L via nasal cannula and is off BiPAP although continues to use this at night. Patient reports not tolerating very well as every time he moves it continues to beep and make noises and doesn't allow him to sleep. Patient is maintained on IV and PO antibiotics long with IV steroids, and breathing inhalational treatme nts and will continue. Patient currently on bedrest due to his heart rate being irregular and uncontrolled at this time. Patient off cardizem infusion and now on amiodarone due to elevated heart rate. Adjustments are being made to oral medications and will continue to monitor. Recommend continued telemetry monitoring and close ICU observation at this time. Patient is tolerating diet. Todays labs show potassium improving, CO2 remains elevated at 44, blood glucose improved slightly. Recommend Accu-Cheks before meals and at bedtime and close monitoring and continue with sliding scale as needed as patient is on high-dose steroids. Added meal time insulin today as patient is eating and tolerating diet. Encouraged increase activity as tolerated and will have physical therapy evaluate the patient. Objective - Vital Signs Vital signs: Vital Signs Temp 97.1 F L 11/19/21 08:00 Pulse 101 H 11/19/21 10:57 Resp 45 H 11/19/21 10:00 BP 114/74 11/19/21 10:00 Pulse Ox 97 11/19/21 10:00 Intake & Output 11/18/21 11/19/21 11/19/21 18:59 06:59 18:59 Intake Total 255.500 110 197.667 Output Total 2690 1960 1150 Balance -3464.500 -0620 -952.333 Weight 134.8 kg Intake: IV 110 110 50 0.9 Sodium Chloride 110 110 50 Intake, IV Titration 145.500 147.667 Amount Diltiazem 125 mg In 45.500 97.667 Sodium Chloride 0.9% 100 ml @ 5 MG/HR 5 mls/hr IV .Q24H [facility] Rx#:[id number] cefTRIAXone 2 gm In 100 50 Sodium Chloride 0.9% 50 ml @ 100 mls/hr IVPB Q12HR [facility] Rx#:[id number] Output: Urine 2690 1960 1150 Other: Voiding Method Indwelling Catheter Indwelling Catheter - Labs CBC & Chem 7: 11/19/21 04:17 11/19/21 04:17 Labs: Abnormal Lab Results - Last 24 Hours (Table) 11/18/21 11/18/21 11/18/21 Range/Units 11:43 16:19 20:09 RBC (4.30-5.90) m/uL Hgb (13.0-17.5) gm/dL MCV (80.0-100.0) fL Chloride (98-107) mmol/L Carbon Dioxide (22-30) mmol/L BUN (9-20) mg/dL Glucose (74-99) mg/dL POC Glucose (mg/dL) 188 H 202 H 219 H (75-99) mg/dL 11/19/21 11/19/21 11/19/21 Range/Units 04:17 04:17 07:09 RBC 3.68 L (4.30-5.90) m/uL Hgb 12.6 L (13.0-17.5) gm/dL MCV 106.3 H (80.0-100.0) fL Chloride 85 L (98-107) mmol/L Carbon Dioxide 44 H* (22-30) mmol/L BUN 47 H (9-20) mg/dL Glucose 139 H (74-99) mg/dL POC Glucose (mg/dL) 124 H (75-99) mg/dL Microbiology - Last 24 Hours (Table) 11/15/21 21:01 Blood Culture - Preliminary Blood No Growth after 72 hours Assessment and Plan Time with Patient: Less than 30
[2021-11-19 16:44] LABS: Glucose,Whole Blood 244 mg/dL (75-99)
[2021-11-19 20:00] LABS: Glucose,Whole Blood 225 mg/dL (75-99)
[2021-11-20] MEDS: methylPREDNISolone SOD SUCCI 125 MG/2 ML VIAL IV SCH ×4 (01:00→17:08)
[2021-11-20 06:55] LABS: Basophils % (A) 0 %; Eosinophils % (A) 0 %; HGB 13.2 gm/dL (13.0-17.5); Hypochromasia Moderate; Lymphocytes # (A) 0.2 k/uL (1.0-4.8); Lymphocytes % (A) 2 %; MCH 33.1 pg (25.0-35.0); MCHC 30.7 g/dL (31.0-37.0); MCV 107.8 fL (80.0-100.0); Macrocytosis Moderate; Mean Platelet Volume 7.2; Monocytes # (A) 0.5 k/uL (0-1.0); Monocytes % (A) 6 %; Neutrophils % (A) 89 %; Platelet Count 248 k/uL (150-450); RBC 3.99 m/uL (4.30-5.90); RDW 14.1 % (11.5-15.5)
[2021-11-20 06:56] LABS: Glucose,Whole Blood 111 mg/dL (75-99)
[2021-11-20] MEDS: INSULIN ASPART (NovoLOG) 100 UNIT/ML VIAL SQ SCH ×7 (07:05→20:39)
--- NOTE | 2021-11-20 07:15 | XR ---
EXAMINATION TYPE: XR chest 1V portable DATE OF EXAM: 11/20/2021 COMPARISON: Chest x-ray 11/19/2021 HISTORY: Shortness of breath TECHNIQUE: Single frontal view of the chest is obtained. FINDINGS: Bilateral airspace disease present at the lung bases. There are overlying artifacts. No ev ident pneumothorax or pleural effusion. Cardiomediastinal silhouette is stable. The aorta is dense. IMPRESSION: Correlate for pneumonia.
[2021-11-20] MEDS: FORMOTEROL FUMARATE 20 MCG/2 ML NEBU INHALATION SCH ×2 (07:42→19:43)
[2021-11-20] MEDS: IPRATROPIUM-ALBUTEROL 3 ML NEB INHALATION SCH ×4 (07:42→19:43)
[2021-11-20] MEDS: BUDESONIDE 0.5 MG/2 ML NEBU INHALATION SCH ×2 (07:42→19:43)
[2021-11-20 07:50] LABS: Albumin 3.5 g/dL (3.5-5.0); Calcium 8.4 mg/dL (8.4-10.2); Magnesium 2.5 mg/dL (1.6-2.3); Potassium 4.4 mmol/L (3.5-5.1); Total Bilirubin 0.7 mg/dL (0.2-1.3); Total Protein 6.3 g/dL (6.3-8.2)
[2021-11-20] MEDS: AMIODARONE 450 MG in DEXTROSE 5% IN WATER 250 ML IV SCH ×2 (08:38)
[2021-11-20] MEDS: APIXABAN 5 MG TAB PO SCH ×2 (08:54→20:39)
[2021-11-20] MEDS: ZINC SULFATE 220 MG CAP PO SCH (08:54)
[2021-11-20] MEDS: CHOLECALCIFEROL 125 MCG (5000 IU) TABLET PO SCH (08:54)
[2021-11-20] MEDS: ASPIRIN 81 MG PO SCH (08:54)
[2021-11-20] MEDS: METOPROLOL TARTRATE 25 MG TAB PO SCH ×3 (08:54→20:39)
[2021-11-20] MEDS: PANTOPRAZOLE 40 MG/10 ML VIAL IV SCH (08:54)
[2021-11-20] MEDS: ATORVASTATIN 80 MG TAB PO SCH (08:54)
[2021-11-20] MEDS: CYANOCOBALAMIN 500 MCG TAB PO SCH (08:54)
[2021-11-20] MEDS: ASCORBIC ACID 500 MG TAB PO SCH (08:54)
[2021-11-20] MEDS ORDERED: AMIODARONE 200 MG TAB PO SCH (09:00)
--- NOTE | 2021-11-20 09:30 | P.PN ---
Objective - Vital Signs Vital signs: Vital Signs Temp 97.8 F 11/20/21 04:00 Pulse 108 H 11/20/21 08:00 Resp 31 H 11/20/21 07:00 BP 128/81 11/20/21 07:00 Pulse Ox 95 11/20/21 07:00 Intake & Output 11/19/21 11/20/21 11/20/21 18:59 06:59 18:59 Intake Total 282.084 50 Output Total 1660 610 35 Balance -1377.916 -560 -35 Weight 134.6 kg Intake: IV 130 50 0.9 Sodium Chloride 130 cefTRIAXone 2 gm In 50 Sodium Chloride 0.9% 50 ml @ 100 mls/hr IVPB Q12HR [facility] Rx#:[id number] Intake, IV Titration 152.084 Amount Diltiazem 125 mg In 102.084 Sodium Chloride 0.9% 100 ml @ 5 MG/HR 5 mls/hr IV .Q24H [facility] Rx#:[id number] cefTRIAXone 2 gm In 50 Sodium Chloride 0.9% 50 ml @ 100 mls/hr IVPB Q12HR [facility] Rx#:[id number] Output: Urine 1660 610 35 Other: Voiding Method Indwelling Catheter Indwelling Catheter - Labs CBC & Chem 7: 11/20/21 06:11 11/20/21 06:11 Labs: Abnormal Lab Results - Last 24 Hours (Table) 11/19/21 11/19/21 11/19/21 Range/Units 11:36 16:42 19:59 RBC (4.30-5.90) m/uL MCV (80.0-100.0) fL MCHC (31.0-37.0) g/dL Neutrophils # (1.3-7.7) k/uL Lymphocytes # (1.0-4.8) k/uL Chloride (98-107) mmol/L Carbon Dioxide (22-30) mmol/L BUN (9-20) mg/dL Glucose (74-99) mg/dL POC Glucose (mg/dL) 172 H 244 H 225 H (75-99) mg/dL Magnesium (1.6-2.3) mg/dL 11/20/21 11/20/21 11/20/21 Range/Units 06:11 06:11 06:54 RBC 3.99 L (4.30-5.90) m/uL MCV 107.8 H (80.0-100.0) fL MCHC 30.7 L (31.0-37.0) g/dL Neutrophils # 8.0 H (1.3-7.7) k/uL Lymphocytes # 0.2 L (1.0-4.8) k/uL Chloride 85 L (98-107) mmol/L Carbon Dioxide 47 H* (22-30) mmol/L BUN 51 H (9-20) mg/dL Glucose 102 H (74-99) mg/dL POC Glucose (mg/dL) 111 H (75-99) mg/dL Magnesium 2.5 H (1.6-2.3) mg/dL Microbiology - Last 24 Hours (Table) 11/15/21 21:01 Blood Culture - Preliminary Blood No Growth after 96 hours
--- NOTE | 2021-11-20 09:37 | P.PN ---
Subjective Patient remains in atrial fibrillation with poorly controlled ventricular rate. Her shortness of breath at rest. Overall he has gotten a lot better. He is off the antibiotics now. Awaiting transfer to [facility]. This morning heart rate is elevated. He was on amiodarone intravenously that has been switched to by mouth amiodarone. I will increase amiodarone to 400 mg twice a day On exam: Comfortable at rest heart rate is 97 bpm blood pressure is 110/70 chest exam reveals bilateral rhonchi. Heart exam reveals first and second heart sounds are regular rhythm and a systolic murmur at the apex abdomen is soft examination extremities reveals mild bilateral leg edema Labs have been reviewed Persistent atrial fibrillation Pneumonia I will increase the dose of amiodarone and continue the beta blockers Objective - Vital Signs Vital signs: Vital Signs Temp 97.8 F 11/20/21 04:00 Pulse 108 H 11/20/21 08:00 Resp 31 H 11/20/21 07:00 BP 128/81 11/20/21 07:00 Pulse Ox 95 11/20/21 07:00 Intake & Output 11/19/21 11/20/21 11/20/21 18:59 06:59 18:59 Intake Total 282.084 50 Output Total 1660 610 35 Balance -1377.916 -560 -35 Weight 134.6 kg Intake: IV 130 50 0.9 Sodium Chloride 130 cefTRIAXone 2 gm In 50 Sodium Chloride 0.9% 50 ml @ 100 mls/hr IVPB Q12HR [facility] Rx#:[id number] Intake, IV Titration 152.084 Amount Diltiazem 125 mg In 102.084 Sodium Chloride 0.9% 100 ml @ 5 MG/HR 5 mls/hr IV .Q24H [facility] Rx#:[id number] cefTRIAXone 2 gm In 50 Sodium Chloride 0.9% 50 ml @ 100 mls/hr IVPB Q12HR [facility] Rx#:[id number] Output: Urine 1660 610 35 Other: Voiding Method Indwelling Catheter Indwelling Catheter - Labs CBC & Chem 7: 11/20/21 06:11 11/20/21 06:11 Labs: Abnormal Lab Results - Last 24 Hours (Table) 11/19/21 11/19/21 11/19/21 Range/Units 11:36 16:42 19:59 RBC (4.30-5.90) m/uL MCV (80.0-100.0) fL MCHC (31.0-37.0) g/dL Neutrophils # (1.3-7.7) k/uL Lymphocytes # (1.0-4.8) k/uL Chloride (98-107) mmol/L Carbon Dioxide (22-30) mmol/L BUN (9-20) mg/dL Glucose (74-99) mg/dL POC Glucose (mg/dL) 172 H 244 H 225 H (75-99) mg/dL Magnesium (1.6-2.3) mg/dL 11/20/21 11/20/21 11/20/21 Range/Units 06:11 06:11 06:54 RBC 3.99 L (4.30-5.90) m/uL MCV 107.8 H (80.0-100.0) fL MCHC 30.7 L (31.0-37.0) g/dL Neutrophils # 8.0 H (1.3-7.7) k/uL Lymphocytes # 0.2 L (1.0-4.8) k/uL Chloride 85 L (98-107) mmol/L Carbon Dioxide 47 H* (22-30) mmol/L BUN 51 H (9-20) mg/dL Glucose 102 H (74-99) mg/dL POC Glucose (mg/dL) 111 H (75-99) mg/dL Magnesium 2.5 H (1.6-2.3) mg/dL Microbiology - Last 24 Hours (Table) 11/15/21 21:01 Blood Culture - Preliminary Blood No Growth after 96 hours
--- NOTE | 2021-11-20 10:34 | P.PN ---
Subjective Progress Note Date: 11/20/21 Principal diagnosis: Altered mental status This is a 66-year-old male patient with advanced COPD with an FEV1 of 25% of predicted, oxygen dependent at 2/3 L nasal cannula in addition to Prevacid history of coronary artery disease, has history of stent placement, previous history of ischemic cardiomyopathy with impaired ejection fraction that had been as low as 35% and subsequent improvement. The patient is known to me. He does have also an underlying bronchogenic cyst. The patient was getting progressively more short of breath over the past week. He was a bit hesitant to comment in hospital as he was worried that he will get intubated. He decided not to come and accordingly. He told his that he was adamant that he didn't want to get any form of invasive treatment such as intubation mechanical ventilation. By time he arrived to the emergency department, the patient was very much lethargic, tachypneic, on that, somnolent and his blood gases showed acute hypercapnic respiratory failure on top of chronic hypercapnic respiratory failure. His speech was at 7.14 with a pCO2 more than 120 and pO2 of 239 and this was done and FiO2 of 80%. At that point, I was contacted by the [facility] department. I was informed of his presence. Based on his DO NOT INTUBATE CODE STATUS, we decided to proceed with noninvasive positive pressure ventilation using the BiPAP. Accordingly, I put the patient about that a pressure of 16/6 and he is a full-term, drop the FiO2 down to 30% and this morning the patient is generating a tidal volume of 4 70 mL, and the patient has a minute ventilation of 11 L and the respiratory rate of 25. Is improved. His much more awake and alert and following commands and answering questions. Subsequently, I took him off the BiPAP and and I put him on 3 L about 2 by nasal cannula. He is on bronchodilators. He is on steroids. He was also given diuretics as the patient's chest exit showed some increased interstitial markings bilaterally. The patient is notable for extremity is without limitation. The patient was sent on 7.8 with hemoglobin of 12.5. Serum bicarbs at 41, potassium level is at 5.4, his sodium level is at 139, troponins of 0.058 and the patient's proBNP level was 1930. COVID 19 testing came back negative. Denies having any chest pain. No focal neurological deficits. He was found to be nature progression with rapid ventricular response. He was started on Cardizem drip and currently Cardizem drip with a running at 10 mg an hour and his rate is under much better control. He was started also on IV heparin. Echocardiogram is in progress. On today's evaluation of 11/17/2021, the patient is feeling better and he is less short of breath. Overnight, he stepped on a BiPAP at a pressure of 16/6 cm of water with an FiO2 of 30%. This morning is on 3 L of oxygen by nasal cannula. He is having increased cough and congestion. The chest x-ray from today shows improvement in the volume status. Nevertheless, there is development of right lower lobe consolidation consistent with pneumonia. The patient was on Zithromax and Rocephin will be restarted again. Otherwise, he is diuresing well. Earlier this morning, the patient went into a flutter with rapid ventricular response. The patient was started on Cardizem drip which is running at 5 mg an hour. Metoprolol was restarted at 50 mg twice a day and the patient's heart rate is under better control for now. He remains on long-term and coagulation with Eliquis. No chest pain. No angina. No palpitation. Improvement in lower extremity edema and the patient is a negative fluid balance. In terms of COPD exacerbation, he remains on a combination of bronchodilators and steroids. The white cell count of 10.2 with hemoglobin of 12, serum bicarbonate of 42 with a BMI of 41 and creatinine is 0.9. Glucose at 205. 3522, seeing the patient for a follow-up. Overnight, the patient was the BiPAP at a pressure of 10/5 cm of water and FiO2 of 30%. The patient is more comfortable. He spent most of the day in bed and he was unable to get up on a recliner. He remains on oxygen 3 L per minute nasal cannula this morning. 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 He'll be started on a Cardizem drip again. He takes metoprolol 50 mg by mouth twice a day. He is on long-term and to coagulation with Eliquis 5 mg by mouth twice a day. The patient has a heart rate around 120-140, irregular and the patient is hemodynamically stable. The patient continues to receive treatment for an acute COPD exacerbation is currently on DuoNeb neb last treatment [id number]. The chest x-ray showing improvement in the right lower lobe consolidation and the patient remains on a come initial Rocephin and Zithromax. The patient remains on IV Solu Medrol 60 mg every 6 hours. No chest pain. No altered mentation. Overnight, he is using BiPAP for respiratory support. Overall fluid balance is -2.7 L over the past 24 hours. The patient continues to have some ongoing edema in lower extremity is bilaterally. No fever. No chills. No altered mentation. Quite weak and debilitated. 11/19/2021, patient is being seen for a follow-up. Patient is off the BiPAP. The patient is on 3 L of oxygen nasal cannula. Input output ratio is -4.2 L over the past 24 hours. Earlier this morning is similar to yesterday, the patient went into SVT with episodes of A. fib RVR. Note that he is already on Cardizem which is currently running at 5 mg an hour and the patient is also on Lopressor 75 mg by mouth 3 times a day. He gets quite tachycardic and at times the rhythm is typical of an SVT. I give the patient carotid massage and I was unable to break the SVT. Following that, I give the patient an amiodarone bolus and currently is on a maintenance at 1 mg per minute. At this point his cardiac rhythm changed from SVT congestion fibrillation the rate was under better control. He is already on Eliquis 5 mg by mouth twice a day. Chest x-ray from today shows a dense consolidation right lower lobe and the patient remains on a come initial Rocephin and Zithromax. The patient is unable to produce a whole lot of sputum. Hemodynamically stable. Free of any angina. Tolerating diet. A bit weak and he's not doing a lot of activity and stenting in bed most of the time. Note that he has history of coronary artery disease, he also has severe cardiomyopathy with impaired left ventricular ejection fraction. He has advanced COPD with chronic atrial fibrillation. On the 11/20/2021 patient seen in follow-up in intensive care unit, he is awake and alert, in no acute distress, is currently on 2 L of oxygen pulse ox is 95%, he did wear BiPAP support last night with pressures of 10 and 5 and FiO2 of 30%. He is oriented 3, responding to questions appropriately, he denies any wors ening dyspnea, no cough, no complaints of chest discomfort, his chest x-ray today has been reviewed showing bilateral airspace disease, no evident pneumothorax. Patient continues on nebulized bronchodilators, IV Solu-Medrol 60 mg every 6 hours, his amiodarone drip has been discontinued, and patient is being transitioned to oral amiodarone. Patient continues on Eliquis for new onset atrial fibrillation with RVR during this admission. Currently remains in atrial fibrillation, and patient still a little tachycardic with a rate in the low 100s. Cardiology is following, and patient continues on metoprolol 75 mg 3 times daily. Lung sounds are diminished, no wheezing, no rhonchi or rales. Amina suh is tolerating oral intake on his had no acute events overnight, his is at the bedside. She was updated on patient's progress. Objective - Vital Signs Vital signs: Vital Signs Temp 97.8 F 11/20/21 04:00 Pulse 108 H 11/20/21 08:00 Resp 31 H 11/20/21 07:00 BP 128/81 11/20/21 07:00 Pulse Ox 95 11/20/21 07:00 Intake & Output 11/19/21 11/20/21 11/20/21 18:59 06:59 18:59 Intake Total 282.084 50 Output Total 1660 610 35 Balance -1377.916 -560 -35 Weight 134.6 kg Intake: IV 130 50 0.9 Sodium Chloride 130 cefTRIAXone 2 gm In 50 Sodium Chloride 0.9% 50 ml @ 100 mls/hr IVPB Q12HR QUETA Rx#:[id number] Intake, IV Titration 152.084 Amount Diltiazem 125 mg In 102.084 Sodium Chloride 0.9% 100 ml @ 5 MG/HR 5 mls/hr IV .Q24H QUETA Rx#:[id number] cefTRIAXone 2 gm In 50 Sodium Chloride 0.9% 50 ml @ 100 mls/hr IVPB Q12HR QUETA Rx#:[id number] Output: Urine 1660 610 35 Other: Voiding Method Indwelling Catheter Indwelling Catheter - Exam GENERAL EXAM: Alert, pleasant, 66-year-old white male on today's of oxygen pulse ox is 95% comfortable in no apparent distress. HEAD: Normocephalic/atraumatic. EYES: Normal reaction of pupils, equal size. Conjunctiva pink, sclera white. NOSE: Clear with pink turbinates. THROAT: No erythema or exudates. NECK: No masses, no JVD, no thyroid enlargement, no adenopathy. CHEST: No chest wall deformity. Symmetrical expansion. LUNGS: Equal air entry with no crackles, wheeze, rhonchi or dullness. CVS: Irregular rate and rhythm, normal S1 and S2, no gallops, no murmurs, no rubs ABDOMEN: Soft, nontender. No hepatosplenomegaly, normal bowel sounds, no guarding or rigidity. EXTREMITIES: No clubbing, no edema, no cyanosis, 2+ pulses and upper and lower extremities. MUSCULOSKELETAL: Muscle strength and tone normal. SPINE: No scoliosis or deformity SKIN: No rashes CENTRAL NERVOUS SYSTEM: Alert and oriented -3. No focal deficits, tone is normal in all 4 extremities. PSYCHIATRIC: Alert and oriented -3. Appropriate affect. Intact judgment and insight. - Labs CBC & Chem 7: 11/20/21 06:11 11/20/21 06:11 Labs: Abnormal Lab Results - Last 24 Hours (Table) 11/19/21 11/19/21 11/19/21 Range/Units 11:36 16:42 19:59 RBC (4.30-5.90) m/uL MCV (80.0-100.0) fL MCHC (31.0-37.0) g/dL Neutrophils # (1.3-7.7) k/uL Lymphocytes # (1.0-4.8) k/uL Chloride (98-107) mmol/L Carbon Dioxide (22-30) mmol/L BUN (9-20) mg/dL Glucose (74-99) mg/dL POC Glucose (mg/dL) 172 H 244 H 225 H (75-99) mg/dL Magnesium (1.6-2.3) mg/dL 11/20/21 11/20/21 11/20/21 Range/Units 06:11 06:11 06:54 RBC 3.99 L (4.30-5.90) m/uL MCV 107.8 H (80.0-100.0) fL MCHC 30.7 L (31.0-37.0) g/dL Neutrophils # 8.0 H (1.3-7.7) k/uL Lymphocytes # 0.2 L (1.0-4.8) k/uL Chloride 85 L (98-107) mmol/L Carbon Dioxide 47 H* (22-30) mmol/L BUN 51 H (9-20) mg/dL Glucose 102 H (74-99) mg/dL POC Glucose (mg/dL) 111 H (75-99) mg/dL Magnesium 2.5 H (1.6-2.3) mg/dL Microbiology - Last 24 Hours (Table) 11/15/21 21:01 Blood Culture - Preliminary Blood No Growth after 96 hours Assessment and Plan Plan: Assessment: #1. Acute exacerbation of COPD with secondary acute on chronic hypoxic and hypercapnic respiratory failure complicated by a right lower lobe consolidation consistent with pneumonia, possibly community acquired #2. Altered mental status, related to acute on chronic hypercapnic respiratory failure, improved with BiPAP support, and medical treatment #3. Chronic hypoxic respiratory failure patient usually wears 2-3 L of oxygen by nasal cannula on a regular basis #4. Advanced COPD with FEV1 25% predicted #5. A. fib with RVR, patient currently is being transitioned to oral amiodarone, and remains on metoprolol 75 mg 3 times a day and Eliquis #6. Coronary artery disease with coronary artery stenting involving the circumflex in November 2018, and previous stenting of the LAD and circumflex in 2007 #7. Severe ischemic cardiac myopathy with ejection fraction of 35% #8. Bronchogenic cyst of the lung on the right side, benign #9. Hypertension #10. Hyperlipidemia #11. Obesity with BMI 43.3 Plan: Continue current medical treatment Patient may benefit from Trilogy ventilator for home use for history of advanced COPD with chronic hypoxic and hypercapnic respiratory failure Patient qualifies for it based on his blood gas We will obtain overnight oximetry study on 2-3 L of oxygen Rate control medications per cardiology Patient continues on oral anticoagulation Continue nebulized bronchodilators BiPAP support at bedtime and as needed during the day Monitor mental status, Increase activity as tolerated We may consider transfer out of intensive care unit if remains stable and continues to improve I have personally seen and examined the patient, performed the documentation and the assessment and plan as written. Number of minutes spent on the visit: 0 Time with Patient: Less than 30
[2021-11-20 11:09] LABS: Glucose,Whole Blood 180 mg/dL (75-99)
--- NOTE | 2021-11-20 11:46 | P.PN ---
Subjective Progress Note Date: 11/20/21 Patient is a 66-year-old male came in the with compensative shortness of breath does have history of COPD uses about 2 L of oxygen at home patient was severely hypoxic and hypercapnic with the pCO2 of greater than 120 patient was on BiPAP. Patient is presently being the BiPAP still wheezing. Patient doesn't have any pneumonia on the chest x-ray. Patient is on the systemic steroids in the form of IV steroids. Patient denied any fever chills patient is coughing not not bringing up much at this time. Patient baseline pCO2 appears to be around 70. Patient is not acidotic anymore pCO2 has gone down to 64 still bit hypoxic. Patient also has history of atrial fibrillation when he came and patient was in A. fib with rapid and regular rate secondary to hypoxemia this resolved and patient presently rate controlled still in A. fib, patient was started on the Cardizem drip was later weaned off and the patient was started on oral metoprolol and Eliquis. Patient had bilateral lower extremity swelling on admission which resolved at this time patient takes a low-dose of Lasix had a normal ejection fraction the past patient is also on KRISTOPHER inhibitor. Patient blood pressure is not elevated patient doesn't have any systolic dysfunction patient potassium is elevated because of these reasons this will be discontinued. Patient the creatinine went up from 0.66-1.07. Patient is presently on 4 L of oxygen. She denied mild elevation of troponin 0.058. Patient is obese, didn't have any history of sleep apnea but probably will need another sleep study as his previous sleep study was many years ago. 11/17/2021 Patient is seen in follow-up with morning continues to be closely monitored in the ICU with cardiology and pulmonary following closely. Chest x-ray this morning shows increasing infiltrate of the right lower lobe with mild stable stranding density at the left lower lobe. Patient is continued on IV antibiotics in the form of ceftriaxone along with oral Zithromax and also continues with breathing inhalational treatments and IV Solu-Medrol at 60 mg every 6 and will continue. Patient was rate controlled on oral Lopressor although heart rate became elevated and uncontrolled with a flutter and placed back on IV Cardizem and is currently at 10 mL per hour with cardiology following closely. Patient also continues on oral anticoagulant of eliquis and will continue. Patient is receiving IV Lasix twice daily as well. Patient continues on 4 L of oxygen via nasal cannula and denies any worsening shortness of breath although continues to be short of breath with minimal exertion. Patient reports to using BiPAP at night. Patient is afebrile and patient denies any chest pain or palpitations at this time. Patient's blood sugars have been elevated most likely steroid-induced as there is no history of diabetes and will add sliding scale and continue with Accu-Cheks before meals and at bedtime. Labs: WBC is 10.2, hemoglobin is 12.0, platelets are 242, sodium is 136, potassium is 5.1, carbon dioxide is 42, BUN is 41, creatinine is 0.96, calcium is 8.3. 11/18/2021 Patient evaluated today resting in bed in ICU, being followed closely by cardiology and pulmonary. Patient today in atrial flutter in the 130's to 140's and was started back on cardizem gtt at 10 mLs per hour. Heart rate has improved into the 70s. Chest xray today persistent right lower lobe infiltrate and strandy density left lower lobe. Continues on IV ceftriaxone and oral azithromycin, updrafts, pulmicort, IV solu-medrol, IV lasix 40 BID. Patient significantly bronchospastic during examination, unable to take a deep breath without coughing, WBC 7.8, hgb 12.4, sodium 137, potassium 4.8, chloride 87, CO2 46, patient did wear the BiPAP most of the night. States earlier this morning he had some midsternal chest discomfort unable to describe or quantify, but states he was sleeping and it has since resolved. Blood sugars elevated 200's, receiving novolog sliding scale, patient is eating majority of meals will add meal time insulin and monitor. May need to start long acting while on IV steroids. Afebrile, heart rate 98, respirations 30, blood pressure 119/61, 98% on 2L NC. 11/19/2021 Patient evaluated in the ICU today. Patient had an elevated heart rate up in the 170s this morning, Cardizem drip is currently off and he is on amiodarone bolus and infusion. Metoprolol was increased yesterday. Patient did not wear the BiPAP last night states that he felt short of breath while wearing it. Labs today show WBC 9.6, hgb 12.6, sodium 138, potassium 4.7, magnesium 2.2, chloride 85, CO2 44, BUN 47, creatinine slightly elevated at 1.07, blood glucose in the 120s. Chest xray this morning shows stable basilar infiltrates right greater than left. IV lasix was discontinued today. Patient is showing a negative fluid balance, down 1.6 Liters in the last 24 hours. Continues on IV ceftriaxone, PO azithromycin, updrafts, IV solu-medrol, on eliquis. Patient has not had a BM since admission, Patient is being follow closely by pulmonary, cardiology. 11/20/2021 Patient evaluated today in the ICU with at the bedside. Off the amiodarone gtt and now on oral amiodarone 400 mg PO daily, also metoprolol 75 mg po three times a day. Heart rate ranging between 80's to low 100's. Patient states he was able to tolerate the BIPAP last night when sleeping. No wheezing noted on exam today. Labs today show a serum CO2 level of 47 which is increased from yesterday, chloride stable at 85, BUN 51, creat 1.02. Afebrile, blood pressure 129/98, respirations in the 20's, oxygenation 93%. Passing more gas but still with no BM will repeat dose of lactulose today. Currently no complaints of chest, no shortness of breath at rest. Has not gotten up out of bed yet. Patient will undergo PT/OT evaluation today. Also will undergo overnight pulse ox study tonight. Patient is followed closely by cardiology and pulmonary team. Review of systems: Constitutional: reports of fatigue, no reports of fever, or chills Cardiovascular: No reports of chest pain or palpitations Respiratory: Denies shortness of breath still with bronchospastic congested cough worse with deep inspiration GI: No reports of nausea, vomiting, or diarrhea, no BM : No reports of dysuria or retention Neurovascular: reports of generalized weakness All medications have been reviewed PHYSICAL EXAMINATION: GENERAL: The patient is alert and oriented x3 Morbidly Obese HEENT: Pupils are round and equally reacting to light. EOMI. No scleral icterus. No conjunctival pallor. Normocephalic, atraumatic. No pharyngeal erythema. No thyromegaly. CARDIOVASCULAR: S1 and S2 present. No murmurs, rubs, or gallops. Irregularly irregular rhythm PULMONARY: Increased aeration today no wheezing noted at rest. Still with congested cough ABDOMEN: Soft, obese, non-tender, nondistended, normoactive bowel sounds. No palpable organomegaly. MUSCULOSKELETAL: No joint swelling or deformity. EXTREMITIES: No cyanosis, clubbing, mild pedal edema +1 NEUROLOGICAL: Gross neurological examination did not reveal any focal deficits. SKIN: No rashes. Assessment: -Acute on chronic hypercapnic and hypoxic respiratory failure: Secondary to COPD exacerbation, pulmonary following and patient is maintained on IV steroids along with breathing inhalational treatments, requiring 2 to 3 L -Respiratory acidosis secondary to CO2 retention which improved from admission. Patient has a compensated metabolic alkalosis. CO2 today 44 -Peripheral edema: Secondary to obesity and venous insufficiency improved with Lasix, IV lasix discontinued today -Elevated random glucose, most likely steroid-induced, A1C 6.0 consistent with prediabetes -Atrial fibrillation with rapid and regular rate, a flutter, transitioned to oral amiodarone and metoprolol followed closely by cardiology -Ischemic cardiomyopathy with EF of 35% -Coronary artery disease with history of stents in the past -Hypertension -Hypoventilation obesity possibly of sleep apnea will need another sleep study in the outpatient setting -Hyperkalemia secondary to KRISTOPHER inhibitor which will be discontinued for multiple reasons as mentioned above, improving and is 4.4 today -Hyperlipidemia -Obesity -DVT prophylaxis: Patient is on anticoagulation with Eliquis -No code Plan: Recommend continue with current medications and current consultations of pulmonary and cardiology following closely. Patient is currently maintained on 2-3 L via nasal cannula and is off BiPAP although continues to use this at night. Tolerated the BIPAP last night. Patient is maintained on IV steroids, and breathing inhalational treatments and will continue. Patient will undergo PT/OT evaluation today. Patient transitioned off all IV cardiac medications, now on oral amiodarone, metoprolol for atrial flutter, heart rate improved. Recommend continued telemetry monitoring. Patient is tolerating diet. Todays labs show potassium improving, CO2 remains elevated at 44, blood glucose improved slightly. Recommend Accu-Cheks before meals and at bedtime and close monitoring and continue with sliding scale as needed as patient is on high-dose steroids. Added meal time insulin today as patient is eating and tolerating diet. Encouraged increase activity as tolerated and will have physical therapy evaluat e the patient. Patient to undergo overnight pulse ox study inpatient while on 2- 3 L Nasal cannula, further recommendations by pulmonary team. Possible downgrade out of the ICU today. Objective - Vital Signs Vital signs: Vital Signs Temp 98.6 F 11/20/21 09:00 Pulse 86 11/20/21 11:23 Resp 43 H 11/20/21 10:00 BP 129/98 11/20/21 10:00 Pulse Ox 93 L 11/20/21 10:00 Intake & Output 11/19/21 11/20/21 11/20/21 18:59 06:59 18:59 Intake Total 282.084 50 240 Output Total 1660 610 340 Balance -1377.916 -560 -100 Weight 134.6 kg 134.6 kg Intake: IV 130 50 0.9 Sodium Chloride 130 cefTRIAXone 2 gm In 50 Sodium Chloride 0.9% 50 ml @ 100 mls/hr IVPB Q12HR QUETA Rx#:[id number] Intake, IV Titration 152.084 Amount Diltiazem 125 mg In 102.084 Sodium Chloride 0.9% 100 ml @ 5 MG/HR 5 mls/hr IV .Q24H QUETA Rx#:[id number] cefTRIAXone 2 gm In 50 Sodium Chloride 0.9% 50 ml @ 100 mls/hr IVPB Q12HR QUETA Rx#:[id number] Oral 240 Output: Urine 1660 610 340 Other: Voiding Method Indwelling Catheter Indwelling Catheter Indwelling Catheter - Labs CBC & Chem 7: 11/20/21 06:11 11/20/21 06:11 Labs: Abnormal Lab Results - Last 24 Hours (Table) 11/19/21 11/19/21 11/19/21 Range/Units 11:36 16:42 19:59 RBC (4.30-5.90) m/uL MCV (80.0-100.0) fL MCHC (31.0-37.0) g/dL Neutrophils # (1.3-7.7) k/uL Lymphocytes # (1.0-4.8) k/uL Chloride (98-107) mmol/L Carbon Dioxide (22-30) mmol/L BUN (9-20) mg/dL Glucose (74-99) mg/dL POC Glucose (mg/dL) 172 H 244 H 225 H (75-99) mg/dL Magnesium (1.6-2.3) mg/dL 03/04/0611/20/21 11/20/21 Range/Units 06:11 06:11 06:54 RBC 3.99 L (4.30-5.90) m/uL MCV 107.8 H (80.0-100.0) fL MCHC 30.7 L (31.0-37.0) g/dL Neutrophils # 8.0 H (1.3-7.7) k/uL Lymphocytes # 0.2 L (1.0-4.8) k/uL Chloride 85 L (98-107) mmol/L Carbon Dioxide 47 H* (22-30) mmol/L BUN 51 H (9-20) mg/dL Glucose 102 H (74-99) mg/dL POC Glucose (mg/dL) 111 H (75-99) mg/dL Magnesium 2.5 H (1.6-2.3) mg/dL 11/20/21 Range/Units 11:08 RBC (4.30-5.90) m/uL MCV (80.0-100.0) fL MCHC (31.0-37.0) g/dL Neutrophils # (1.3-7.7) k/uL Lymphocytes # (1.0-4.8) k/uL Chloride (98-107) mmol/L Carbon Dioxide (22-30) mmol/L BUN (9-20) mg/dL Glucose (74-99) mg/dL POC Glucose (mg/dL) 180 H (75-99) mg/dL Magnesium (1.6-2.3) mg/dL Microbiology - Last 24 Hours (Table) 11/15/21 21:01 Blood Culture - Preliminary Blood No Growth after 96 hours Assessment and Plan Time with Patient: Less than 30
[2021-11-20] MEDS ORDERED: LACTULOSE 20 GM/30 ML CUP PO ONE (12:00)
[2021-11-20] MEDS: AMIODARONE 200 MG TAB PO SCH (12:41)
[2021-11-20 16:59] LABS: Glucose,Whole Blood 162 mg/dL (75-99)
[2021-11-20 20:33] LABS: Glucose,Whole Blood 200 mg/dL (75-99)
[2021-11-21] MEDS: methylPREDNISolone SOD SUCCI 125 MG/2 ML VIAL IV SCH ×2 (01:02→05:19)
[2021-11-21 06:46] LABS: Glucose,Whole Blood 133 mg/dL (75-99)
[2021-11-21] MEDS: INSULIN ASPART (NovoLOG) 100 UNIT/ML VIAL SQ SCH ×7 (06:49→20:15)
[2021-11-21] MEDS: FORMOTEROL FUMARATE 20 MCG/2 ML NEBU INHALATION SCH ×2 (07:19→19:47)
[2021-11-21] MEDS: IPRATROPIUM-ALBUTEROL 3 ML NEB INHALATION SCH ×4 (07:19→19:47)
[2021-11-21] MEDS: BUDESONIDE 0.5 MG/2 ML NEBU INHALATION SCH ×2 (07:19→19:47)
[2021-11-21 07:51] LABS: Calcium 8.6 mg/dL (8.4-10.2); Potassium 4.6 mmol/L (3.5-5.1)
[2021-11-21] MEDS: AMIODARONE 200 MG TAB PO SCH (08:49)
[2021-11-21] MEDS: APIXABAN 5 MG TAB PO SCH ×2 (08:51→20:14)
[2021-11-21] MEDS: ASCORBIC ACID 500 MG TAB PO SCH (08:52)
[2021-11-21] MEDS: METOPROLOL TARTRATE 25 MG TAB PO SCH ×3 (08:52→20:14)
[2021-11-21] MEDS: ATORVASTATIN 80 MG TAB PO SCH (08:52)
[2021-11-21] MEDS: ASPIRIN 81 MG PO SCH (08:52)
[2021-11-21] MEDS: CYANOCOBALAMIN 500 MCG TAB PO SCH (08:52)
[2021-11-21] MEDS: CHOLECALCIFEROL 125 MCG (5000 IU) TABLET PO SCH (08:52)
[2021-11-21] MEDS: PANTOPRAZOLE 40 MG/10 ML VIAL IV SCH (08:53)
[2021-11-21] MEDS: ZINC SULFATE 220 MG CAP PO SCH (08:53)
--- NOTE | 2021-11-21 09:48 | P.PN ---
Subjective Progress Note Date: 11/21/21 Principal diagnosis: Altered mental status This is a 66-year-old male patient with advanced COPD with an FEV1 of 25% of predicted, oxygen dependent at 2/3 L nasal cannula in addition to Prevacid history of coronary artery disease, has history of stent placement, previous history of ischemic cardiomyopathy with impaired ejection fraction that had been as low as 35% and subsequent improvement. The patient is known to me. He does have also an underlying bronchogenic cyst. The patient was getting progressively more short of breath over the past week. He was a bit hesitant to comment in hospital as he was worried that he will get intubated. He decided not to come and accordingly. He told his that he was adamant that he didn't want to get any form of invasive treatment such as intubation mechanical ventilation. By time he arrived to the emergency department, the patient was very much lethargic, tachypneic, on that, somnolent and his blood gases showed acute hypercapnic respiratory failure on top of chronic hypercapnic respiratory failure. His speech was at 7.14 with a pCO2 more than 120 and pO2 of 239 and this was done and FiO2 of 80%. At that point, I was contacted by the [facility] [place] department. I was informed of his presence. Based on his DO NOT INTUBATE CODE STATUS, we decided to proceed with noninvasive positive pressure ventilation using the BiPAP. Accordingly, I put the patient about that a pressure of 16/6 and he is a full-term, drop the FiO2 down to 30% and this morning the patient is generating a tidal volume of 4 70 mL, and the patient has a minute ventilation of 11 L and the respiratory rate of 25. Is improved. His much more awake and alert and following commands and answering questions. Subsequently, I took him off the BiPAP and and I put him on 3 L about 2 by nasal cannula. He is on bronchodilators. He is on steroids. He was also given diuretics as the patient's chest exit showed some increased interstitial markings bilaterally. The patient is notable for extremity is without limitation. The patient was sent on 7.8 with hemoglobin of 12.5. Serum bicarbs at 41, potassium level is at 5.4, his sodium level is at 139, troponins of 0.058 and the patient's proBNP level was 1930. COVID 19 testing came back negative. Denies having any chest pain. No focal neurological deficits. He was found to be nature progression with rapid ventricular response. He was started on Cardizem drip and currently Cardizem drip with a running at 10 mg an hour and his rate is under much better control. He was started also on IV heparin. Echocardiogram is in progress. On today's evaluation of 11/17/2021, the patient is feeling better and he is less short of breath. Overnight, he stepped on a BiPAP at a pressure of 16/6 cm of water with an FiO2 of 30%. This morning is on 3 L of oxygen by nasal cannula. He is having increased cough and congestion. The chest x-ray from today shows improvement in the volume status. Nevertheless, there is development of right lower lobe consolidation consistent with pneumonia. The patient was on Zithromax and Rocephin will be restarted again. Otherwise, he is diuresing well. Earlier this morning, the patient went into a flutter with rapid ventricular response. The patient was started on Cardizem drip which is running at 5 mg an hour. Metoprolol was restarted at 50 mg twice a day and the patient's heart rate is under better control for now. He remains on long-term and coagulation with Eliquis. No chest pain. No angina. No palpitation. Improvement in lower extremity edema and the patient is a negative fluid balance. In terms of COPD exacerbation, he remains on a combination of bronchodilators and steroids. The white cell count of 10.2 with hemoglobin of 12, serum bicarbonate of 42 with a BMI of 41 and creatinine is 0.9. Glucose at 205. 3522, seeing the patient for a follow-up. Overnight, the patient was the BiPAP at a pressure of 10/5 cm of water and FiO2 of 30%. The patient is more comfortable. He spent most of the day in bed and he was unable to get up on a recliner. He remains on oxygen 3 L per minute nasal cannula this morning. The patient is developing seaweed harvester atrial fibrillation with rapid ventricular response. He'll be started on a Cardizem drip again. He takes metoprolol 50 mg by mouth twice a day. He is on long-term and to coagulation with Eliquis 5 mg by mouth twice a day. The patient has a heart rate around 120-140, irregular and the patient is hemodynamically stable. The patient continues to receive treatment for an acute COPD exacerbation is currently on DuoNeb neb last treatment [id number]. The chest x-ray showing improvement in the right lower lobe consolidation and the patient remains on a come initial Rocephin and Zithromax. The patient remains on IV Solu Medrol 60 mg every 6 hours. No chest pain. No altered mentation. Overnight, he is using BiPAP for respiratory support. Overall fluid balance is -2.7 L over the past 24 hours. The patient continues to have some ongoing edema in lower extremity is bilaterally. No fever. No chills. No altered mentation. Quite weak and debilitated. 11/19/2021, patient is being seen for a follow-up. Patient is off the BiPAP. The patient is on 3 L of oxygen nasal cannula. Input output ratio is -4.2 L over the past 24 hours. Earlier this morning is similar to yesterday, the patient went into SVT with episodes of A. fib RVR. Note that he is already on Cardizem which is currently running at 5 mg an hour and the patient is also on Lopressor 75 mg by mouth 3 times a day. He gets quite tachycardic and at times the rhythm is typical of an SVT. I give the patient carotid massage and I was unable to break the SVT. Following that, I give the patient an amiodarone bolus and currently is on a maintenance at 1 mg per minute. At this point his cardiac rhythm changed from SVT congestion fibrillation the rate was under better control. He is already on Eliquis 5 mg by mouth twice a day. Chest x-ray from today shows a dense consolidation right lower lobe and the patient remains on a come initial Rocephin and Zithromax. The patient is unable to produce a whole lot of sputum. Hemodynamically stable. Free of any angina. Tolerating diet. A bit weak and he's not doing a lot of activity and stenting in bed most of the time. Note that he has history of coronary artery disease, he also has severe cardiomyopathy with impaired left ventricular ejection fraction. He has advanced COPD with chronic atrial fibrillation. On the 11/20/2021 patient seen in follow-up in intensive care unit, he is awake and alert, in no acute distress, is currently on 2 L of oxygen pulse ox is 95%, he did wear BiPAP support last night with pressures of 10 and 5 and FiO2 of 30%. He is oriented 3, responding to questions appropriately, he denies any wors ening dyspnea, no cough, no complaints of chest discomfort, his chest x-ray today has been reviewed showing bilateral airspace disease, no evident pneumothorax. Patient continues on nebulized bronchodilators, IV Solu-Medrol 60 mg every 6 hours, his amiodarone drip has been discontinued, and patient is being transitioned to oral amiodarone. Patient continues on Eliquis for new onset atrial fibrillation with RVR during this admission. Currently remains in atrial fibrillation, and patient still a little tachycardic with a rate in the low 100s. Cardiology is following, and patient continues on metoprolol 75 mg 3 times daily. Lung sounds are diminished, no wheezing, no rhonchi or rales. Amina suh is tolerating oral intake on his had no acute events overnight, his is at the bedside. She was updated on patient's progress. On 11/21/2021 patient seen in follow-up in the intensive care unit, he is awake and alert, in no acute distress, is currently on 2 L of oxygen breathing comfortably, pulse ox is 97%, he did wear BiPAP support last night with pressures of 1005 and FiO2 of 30%.'s been afebrile, hemodynamically stable, he is in A. fib with a rate of 116 BPM. Lung sounds today reveal some mild wheezing, no rhonchi, no crackles. His diuretics remain on hold, but patient does have 1+ pretibial and ankle and pedal edema. He states he takes Lasix on an as-needed basis at home, today's labs have been reviewed showing sodium of 138, potassium is 4.6, chloride is 86, CO2 of 51, BUN of 51 creatinine is 1.03. Patient is in -710 mL negative net fluid balance. And patient was in the 1.9 L net fluid balance over the last 24 hours prior to that. He has been on Solu- Medrol for the past 4 days, less bronchospastic, breathing easier, and Solu- Medrol will be dropped to 40 mg every 8 hours. Patient was up in the chair yesterday, he stated he ambulated in the room tolerated activity fairly well. Patient currently remains on Lopressor 75 mg 3 times a day for rate control, and Eliquis 5 mg twice a day for anticoagulation, cardiology is closely following. Otherwise no acute events overnight, patient is stable to transfer out of intensive care unit today, his overnight pulse oximetry study was not completed last night due to some confusion on what settings it needed to be completed on. He will be completed tonight, and this needs to be done on his home dose O2 at 2 L Objective - Vital Signs Vital signs: Vital Signs Temp 97.9 F 11/21/21 08:00 Pulse 110 H 11/21/21 09:00 Resp 37 H 11/21/21 09:00 BP 146/75 11/21/21 09:00 Pulse Ox 94 L 11/21/21 09:00 Intake & Output 11/20/21 11/21/21 11/21/21 18:59 06:59 18:59 Intake Total 840 200 Output Total 920 630 0 Balance -80 -630 200 Weight 134.6 kg 134.5 kg Intake: Oral 840 Tube Feeding 200 Output: Urine 920 630 0 Other: Voiding Method Indwelling Catheter Indwelling Catheter - Exam GENERAL EXAM: Alert, pleasant, 66-year-old white male on today's of oxygen pulse ox is 95% comfortable in no apparent distress. HEAD: Normocephalic/atraumatic. EYES: Normal reaction of pupils, equal size. Conjunctiva pink, sclera white. NOSE: Clear with pink turbinates. THROAT: No erythema or exudates. NECK: No masses, no JVD, no thyroid enlargement, no adenopathy. CHEST: No chest wall deformity. Symmetrical expansion. LUNGS: Equal air entry with mild wheezes CVS: Irregular rate and rhythm, normal S1 and S2, no gallops, no murmurs, no rubs ABDOMEN: Soft, nontender. No hepatosplenomegaly, normal bowel sounds, no guarding or rigidity. EXTREMITIES: No clubbing, 1+ edema, no cyanosis, 2+ pulses and upper and lower extremities. MUSCULOSKELETAL: Muscle strength and tone normal. SPINE: No scoliosis or deformity SKIN: No rashes CENTRAL NERVOUS SYSTEM: Alert and oriented -3. No focal deficits, tone is normal in all 4 extremities. PSYCHIATRIC: Alert and oriented -3. Appropriate affect. Intact judgment and insight. - Labs CBC & Chem 7: 11/20/21 06:11 11/21/21 07:09 Labs: Abnormal Lab Results - Last 24 Hours (Table) 11/20/21 11/20/21 11/20/21 Range/Units 11:08 16:57 20:32 Chloride (98-107) mmol/L Carbon Dioxide (22-30) mmol/L BUN (9-20) mg/dL Glucose (74-99) mg/dL POC Glucose (mg/dL) 180 H 162 H 200 H (75-99) mg/dL 11/21/21 11/21/21 Range/Units 06:44 07:09 Chloride 86 L (98-107) mmol/L Carbon Dioxide 51 H* (22-30) mmol/L BUN 51 H (9-20) mg/dL Glucose 148 H (74-99) mg/dL POC Glucose (mg/dL) 133 H (75-99) mg/dL Microbiology - Last 24 Hours (Table) 11/15/21 21:01 Blood Culture - Preliminary Blood No Growth after 120 hours Assessment and Plan Plan: Assessment: #1. Acute exacerbation of COPD with secondary acute on chronic hypoxic and hypercapnic respiratory failure complicated by a right lower lobe consolidation consistent with pneumonia, possibly community acquired #2. Altered mental status, related to acute on chronic hypercapnic respiratory failure, improved with BiPAP support, and medical treatment #3. Chronic hypoxic respiratory failure patient usually wears 2-3 L of oxygen by nasal cannula on a regular basis #4. Advanced COPD with FEV1 25% predicted #5. A. fib with RVR, patient currently is being transitioned to oral amiodarone, and remains on metoprolol 75 mg 3 times a day and Eliquis #6. Coronary artery disease with coronary artery stenting involving the circumflex in November 2018, and previous stenting of the LAD and circumflex in 2007 #7. Severe ischemic cardiac myopathy with ejection fraction of 35% #8. Bronchogenic cyst of the lung on the right side, benign #9. Hypertension #10. Hyperlipidemia #11. Obesity with BMI 43.3 Plan: Continue current medical treatment We'll drop the Solu-Medrol down to 40 mg every 8 hours Patient is autodiuresing, we'll hold any additional diuretics for now Continue breathing treatments Rate control and anticoagulation per cardiology Overnight pulse oximetry study on 2 L of oxygen to be completed tonight to qualify the patient for home Trilogy vent Increase activity as tolerated Transfer to [facility] today I have personally seen and examined the patient, performed the documentation and the assessment and plan as written. Number of minutes spent on the visit: 0 Time with Patient: Less than 30
[2021-11-21] MEDS: ACETAMINOPHEN TAB 500 MG TAB PO PRN (11:29)
[2021-11-21 11:55] LABS: Glucose,Whole Blood 137 mg/dL (75-99)
--- NOTE | 2021-11-21 12:10 | P.PN ---
Subjective 66-year-old gentleman is admitted to hospital with shortness of breath and possible pneumonia COPD exacerbation and atrial fibrillation with poorly c ontrolled ventricular rate. Patient is currently on beta blockers and amiodarone and heart rate is better controlled. She is on an oral anticoagulant On exam today he is comfortable at rest heart rate is around 110 bpm blood pressure is 110/70 chest exam reveals bilateral rhonchi heart exam reveals first and second heart sounds are regular rhythm and a systolic murmur at the left lower sternal border abdomen is soft exemption extremities reveals bilateral 1+ pitting edema Assessment and plan: COPD exacerbation Persistent atrial fibrillation with poorly controlled ventricular rate I will continue the metoprolol and the amiodarone Patient is on metoprolol 75 3 times a day and then amiodarone 200 mg twice a day Objective - Vital Signs Vital signs: Vital Signs Temp 97.9 F 11/21/21 08:00 Pulse 72 11/21/21 11:22 Resp 38 H 11/21/21 10:00 BP 146/75 11/21/21 09:00 Pulse Ox 96 11/21/21 10:00 Intake & Output 11/20/21 11/21/21 11/21/21 18:59 06:59 18:59 Intake Total 840 200 Output Total 920 630 125 Balance -80 -630 75 Weight 134.6 kg 134.5 kg Intake: Oral 840 Tube Feeding 200 Output: Urine 920 630 125 Other: Voiding Method Indwelling Catheter Indwelling Catheter - Labs CBC & Chem 7: 11/20/21 06:11 11/21/21 07:09 Labs: Abnormal Lab Results - Last 24 Hours (Table) 11/20/21 11/20/21 11/21/21 Range/Units 16:57 20:32 06:44 Chloride (98-107) mmol/L Carbon Dioxide (22-30) mmol/L BUN (9-20) mg/dL Glucose (74-99) mg/dL POC Glucose (mg/dL) 162 H 200 H 133 H (75-99) mg/dL 11/21/21 11/21/21 Range/Units 07:09 11:53 Chloride 86 L (98-107) mmol/L Carbon Dioxide 51 H* (22-30) mmol/L BUN 51 H (9-20) mg/dL Glucose 148 H (74-99) mg/dL POC Glucose (mg/dL) 137 H (75-99) mg/dL Microbiology - Last 24 Hours (Table) 11/15/21 21:01 Blood Culture - Preliminary Blood No Growth after 120 hours
--- NOTE | 2021-11-21 12:39 | P.PN ---
Subjective Progress Note Date: 11/21/21 Patient is a 66-year-old male came in the with compensative shortness of breath does have history of COPD uses about 2 L of oxygen at home patient was severely hypoxic and hypercapnic with the pCO2 of greater than 120 patient was on BiPAP. Patient is presently being the BiPAP still wheezing. Patient doesn't have any pneumonia on the chest x-ray. Patient is on the systemic steroids in the form of IV steroids. Patient denied any fever chills patient is coughing not not bringing up much at this time. Patient baseline pCO2 appears to be around 70. Patient is not acidotic anymore pCO2 has gone down to 64 still bit hypoxic. Patient also has history of atrial fibrillation when he came and patient was in A. fib with rapid and regular rate secondary to hypoxemia this resolved and patient presently rate controlled still in A. fib, patient was started on the Cardizem drip was later weaned off and the patient was started on oral metoprolol and Eliquis. Patient had bilateral lower extremity swelling on admission which resolved at this time patient takes a low-dose of Lasix had a normal ejection fraction the past patient is also on KRISTOPHER inhibitor. Patient blood pressure is not elevated patient doesn't have any systolic dysfunction patient potassium is elevated because of these reasons this will be discontinued. Patient the creatinine went up from 0.66-1.07. Patient is presently on 4 L of oxygen. She denied mild elevation of troponin 0.058. Patient is obese, didn't have any history of sleep apnea but probably will need another sleep study as his previous sleep study was many years ago. 11/17/2021 Patient is seen in follow-up with morning continues to be closely monitored in the ICU with cardiology and pulmonary following closely. Chest x-ray this morning shows increasing infiltrate of the right lower lobe with mild stable stranding density at the left lower lobe. Patient is continued on IV antibiotics in the form of ceftriaxone along with oral Zithromax and also continues with breathing inhalational treatments and IV Solu-Medrol at 60 mg every 6 and will continue. Patient was rate controlled on oral Lopressor although heart rate became elevated and uncontrolled with a flutter and placed back on IV Cardizem and is currently at 10 mL per hour with cardiology following closely. Patient also continues on oral anticoagulant of eliquis and will continue. Patient is receiving IV Lasix twice daily as well. Patient continues on 4 L of oxygen via nasal cannula and denies any worsening shortness of breath although continues to be short of breath with minimal exertion. Patient reports to using BiPAP at night. Patient is afebrile and patient denies any chest pain or palpitations at this time. Patient's blood sugars have been elevated most likely steroid-induced as there is no history of diabetes and will add sliding scale and continue with Accu-Cheks before meals and at bedtime. 11/18/2021 Patient evaluated today resting in bed in ICU, being followed closely by cardiology and pulmonary. Patient today in atrial flutter in the 130's to 140's and was started back on cardizem gtt at 10 mLs per hour. Heart rate has improved into the 70s. Chest xray today persistent right lower lobe infiltrate and strandy density left lower lobe. Continues on IV ceftriaxone and oral azithromycin, updrafts, pulmicort, IV solu-medrol, IV lasix 40 BID. Patient significantly bronchospastic during examination, unable to take a deep breath without coughing, WBC 7.8, hgb 12.4, sodium 137, potassium 4.8, chloride 87, CO2 46, patient did wear the BiPAP most of the night. States earlier this morning he had some midsternal chest discomfort unable to describe or quantify, but states he was sleeping and it has since resolved. Blood sugars elevated 200's, receiving novolog sliding scale, patient is eating majority of meals will add meal time insulin and monitor. May need to start long acting while on IV steroids. Afebrile, heart rate 98, respirations 30, blood pressure 119/61, 98% on 2L NC. 11/19/2021 Patient evaluated in the ICU today. Patient had an elevated heart rate up in the 170s this morning, Cardizem drip is currently off and he is on amiodarone bolus and infusion. Metoprolol was increased yesterday. Patient did not wear the BiPAP last night states that he felt short of breath while wearing it. Labs today show WBC 9.6, hgb 12.6, sodium 138, potassium 4.7, magnesium 2.2, chloride 85, CO2 44, BUN 47, creatinine slightly elevated at 1.07, blood glucose in the 120s. Chest xray this morning shows stable basilar infiltrates right greater than left. IV lasix was discontinued today. Patient is showing a negative fluid balance, down 1.6 Liters in the last 24 hours. Continues on IV ceftriaxone, PO azithromycin, updrafts, IV solu-medrol, on eliquis. Patient has not had a BM since admission, Patient is being follow closely by pulmonary, cardiology. 11/20/2021 Patient evaluated today in the ICU with at the bedside. Off the amiodarone gtt and now on oral amiodarone 400 mg PO daily, also metoprolol 75 mg po three times a day. Heart rate ranging between 80's to low 100's. Patient states he was able to tolerate the BIPAP last night when sleeping. No wheezing noted on exam today. Labs today show a serum CO2 level of 47 which is increased from yes terday, chloride stable at 85, BUN 51, creat 1.02. Afebrile, blood pressure 129/98, respirations in the 20's, oxygenation 93%. Passing more gas but still with no BM will repeat dose of lactulose today. Currently no complaints of chest, no shortness of breath at rest. Has not gotten up out of bed yet. Patient will undergo PT/OT evaluation today. Also will undergo overnight pulse ox study tonight. Patient is followed closely by cardiology and pulmonary team. 11/21/2021 Patient is seen in follow-up this morning and is being followed closely by pulmonary and cardiology. Patient is off amiodarone drip and on oral amiodarone lung with metoprolol 75 mg 3 times a day and oral anticoagulant. Pulmonary are following closely patient is maintained on IV steroids and being decreased to 40 every 8 and will continue to monitor closely. Patient also receiving breathing inhalational treatments and will continue. Patient currently on 2-3 L via nasal cannula with oxygen saturations of 94%. Patient continues to be dyspneic with minimal exertion and patient is weak and working with physical therapy daily. Plan is to return home with home care and his spouse on discharge. Blood sugars were controlled on current regimen and will continue and continue to recommend Accu-Cheks before meals and at bedtime. Review of systems: Constitutional: no reports of fatigue, no reports of fever, or chills Cardiovascular: No reports of chest pain or palpitations Respiratory: reports of shortness of breath and dyspnea with exertion GI: No reports of nausea, vomiting, no BM but reports to passing gas : No reports of dysuria or retention Neurovascular: reports of generalized weakness All medications have been reviewed Active Medications Acetaminophen (Acetaminophen Tab 500 Mg Tab) 500 mg PO Q6HR PRN PRN Reason: Fever and/ or Pain Last Admin: 11/21/21 11:29 Dose: 500 mg Documented by: Albuterol/Ipratropium (Ipratropium-Albuterol 3 Ml Neb) 3 ml INHALATION RT-Q4H PRN PRN Reason: Shortness Of Breath Or Wheezing Last Admin: 11/16/21 06:55 Dose: 3 ml Documented by: Albuterol/Ipratropium (Ipratropium-Albuterol 3 Ml Neb) 3 ml INHALATION RT-QID REPLACED BY [facility] Last Admin: 11/21/21 11:12 Dose: 3 ml Documented by: Amiodarone HCl (Amiodarone 200 Mg Tab) 200 mg PO BID REPLACED BY [facility] Apixaban (Apixaban 5 Mg Tab) 5 mg PO BID REPLACED BY [facility]; Protocol Last Admin: 11/21/21 08:51 Dose: 5 mg Documented by: Ascorbic Acid (Ascorbic Acid 500 Mg Tab) 1,000 mg PO DAILY REPLACED BY [facility] Last Admin: 11/21/21 08:52 Dose: 1,000 mg Documented by: Aspirin (Aspirin 81 Mg) 81 mg PO DAILY REPLACED BY [facility] Last Admin: 11/21/21 08:52 Dose: 81 mg Documented by: Atorvastatin Calcium (Atorvastatin 80 Mg Tab) 80 mg PO DAILY REPLACED BY [facility] Last Admin: 11/21/21 08:52 Dose: 80 mg Documented by: Budesonide (Budesonide 0.5 Mg/2 Ml Nebu) 0.5 mg INHALATION RT-BID REPLACED BY [facility] Last Admin: 11/21/21 07:19 Dose: 0.5 mg Documented by: Cholecalciferol (Cholecalciferol 125 Mcg (5000 Iu) Tablet) 125 mcg PO DAILY REPLACED BY [facility] Last Admin: 11/21/21 08:52 Dose: 125 mcg Documented by: Cyanocobalamin (Cyanocobalamin 500 Mcg Tab) 500 mcg PO DAILY REPLACED BY [facility] Last Admin: 11/21/21 08:52 Dose: 500 mcg Documented by: Formoterol Fumarate (Formoterol Fumarate 20 Mcg/2 Ml Nebu) 20 mcg INHALATION RT-BID REPLACED BY [facility] Last Admin: 11/21/21 07:19 Dose: 20 mcg Documented by: Guaifenesin/Dextromethorphan (Guaifenesin-Dm 100-10mg/5ml 10 Ml Cup) 10 ml PO Q6HR PRN PRN Reason: Cough Last Admin: 11/17/21 11:55 Dose: 10 ml Documented by: Heparin Sodium (Porcine) (Heparin Sodium 1,000 Un/Ml (10ml Vl)) 0 unit IV PER PROTOCOL PRN; Protocol PRN Reason: Low PTT Insulin Aspart (Insulin Aspart (Novolog) 100 Unit/Ml Vial) 0 unit SQ ACHS REPLACED BY [facility]; Protocol Last Admin: 11/21/21 11:59 Dose: 1 unit Documented by: Insulin Aspart (Insulin Aspart (Novolog) 100 Unit/Ml Vial) 2 unit SQ AC-TID REPLACED BY [facility] Last Admin: 11/21/21 11:59 Dose: 2 unit Documented by: Methylprednisolone Sodium Succinate (Methylprednisolone Sod Succi 40 Mg/Ml 1 Ml Vial) 40 mg IV Q8HR REPLACED BY [facility] Metoprolol Tartrate (Metoprolol Tartrate 25 Mg Tab) 75 mg PO TID REPLACED BY [facility] Last Admin: 11/21/21 08:52 Dose: 75 mg Documented by: Naloxone HCl (Naloxone 0.4 Mg/Ml 1 Ml Vial) 0.2 mg IV Q2M PRN PRN Reason: Opioid Reversal Pantoprazole Sodium (Pantoprazole 40 Mg/10 Ml Vial) 40 mg IV DAILY REPLACED BY [facility] Last Admin: 11/21/21 08:53 Dose: 40 mg Documented by: Zinc Sulfate (Zinc Sulfate 220 Mg Cap) 220 mg PO DAILY REPLACED BY [facility] Last Admin: 11/21/21 08:53 Dose: 220 mg Documented by: PHYSICAL EXAMINATION: GENERAL: The patient is alert and oriented x3, not in any acute distress. Morbidly Obese currently on 2-3 L via nasal cannula HEENT: Pupils are round and equally reacting to light. EOMI. No scleral icteru s. No conjunctival pallor. Normocephalic, atraumatic. No pharyngeal erythema. No thyromegaly. CARDIOVASCULAR: S1 and S2 muffled. Irregularly irregular rhythm PULMONARY: Decreased air entry with some mild expiratory wheezing on exam , crackles noted at the bases ABDOMEN: Soft, obese, non-tender, nondistended, normoactive bowel sounds. No palpable organomegaly. MUSCULOSKELETAL: No joint swelling or deformity. EXTREMITIES: No cyanosis, clubbing, mild pedal edema improved compared to yesterday. NEUROLOGICAL: Gross neurological examination did not reveal any focal deficits. SKIN: No rashes. Assessment: -Acute on chronic hypercapnic and hypoxic respiratory failure: Secondary to COPD exacerbation, pulmonary following and patient is maintained on IV steroids along with breathing inhalational treatments, requiring 2 to 3 L -Respiratory acidosis secondary to CO2 retention which improved from admission. Patient has a compensated metabolic alkalosis. CO2 today 46 -Peripheral edema: Secondary to obesity and venous insufficiency, improved -Elevated random glucose, most likely steroid-induced, A1C 6.0 consistent with pre-diabetes -Atrial fibrillation with rapid and regular rate, a flutter, transitioned to oral amiodarone and metoprolol followed closely by cardiology -Ischemic cardiomyopathy with EF of 35% -Coronary artery disease with history of stents in the past -Hypertension -Hypoventilation obesity possibly of sleep apnea will need another sleep study in the outpatient setting -Hyperkalemia secondary to KRISTOPHER inhibitor use, improved -Hyperlipidemia -Obesity -DVT prophylaxis: Patient is on anticoagulation with Eliquis -No code Plan: Recommend continue with current medications and current consultations of pulmonary and cardiology following closely. Patient is currently maintained on 2-3 L via nasal cannula and is off BiPAP although continues to use this at night. Patient is maintained on IV steroids and dose being titrated to 40 mg every 8 hours, and breathing inhalational treatments and will continue. Patient working with PT/OT daily for continued weakness. Etiology following closely and patient is now on oral amiodarone, metoprolol for atrial flutter, heart rate improved. Recommend continued telemetry monitoring. Patient is tolerating diet. Recommend Accu-Cheks before meals and at bedtime and close monitoring and continue with sliding scale as needed as patient is on high-dose steroids. Encouraged increase activity as tolerated. Pulmonary and cardiology continue to follow closely. Possible downgrade out of the ICU today. Due to multiple Medical issues, prognosis is guarded. The impression and plan of care has been dictated by Jaclyn Obregon, nurse practitioner as directed. MD Shai I have performed a history and examination and MDM of this patient, discussed the same with the dictator, and agree with the dictator's assessment and plan as written ,documented as a scribe. Based on total visit time, I have performed more than 50% of the visit. Total number of minutes spent on this visit, 20 minutes. Any additional findings or plans will be noted. Objective - Vital Signs Vital signs: Vital Signs Temp 97.9 F 11/21/21 08:00 Pulse 110 H 11/21/21 09:00 Resp 37 H 11/21/21 09:00 BP 146/75 11/21/21 09:00 Pulse Ox 94 L 11/21/21 09:00 Intake & Output 11/20/21 11/21/21 11/21/21 18:59 06:59 18:59 Intake Total 840 Output Total 920 630 0 Balance -80 -630 0 Weight 134.6 kg 134.5 kg Intake: Oral 840 Output: Urine 920 630 0 Other: Voiding Method Indwelling Catheter Indwelling Catheter - Labs CBC & Chem 7: 11/20/21 06:11 11/21/21 07:09 Labs: Abnormal Lab Results - Last 24 Hours (Table) 11/20/21 11/20/21 11/20/21 Range/Units 11:08 16:57 20:32 Chloride (98-107) mmol/L Carbon Dioxide (22-30) mmol/L BUN (9-20) mg/dL Glucose (74-99) mg/dL POC Glucose (mg/dL) 180 H 162 H 200 H (75-99) mg/dL 11/21/21 11/21/21 Range/Units 06:44 07:09 Chloride 86 L (98-107) mmol/L Carbon Dioxide 51 H* (22-30) mmol/L BUN 51 H (9-20) mg/dL Glucose 148 H (74-99) mg/dL POC Glucose (mg/dL) 133 H (75-99) mg/dL Microbiology - Last 24 Hours (Table) 11/15/21 21:01 Blood Culture - Preliminary Blood No Growth after 120 hours
[2021-11-21] MEDS: methylPREDNISolone SOD SUCCI 40 MG/ML 1 ML VIAL IV SCH ×2 (16:21→23:56)
[2021-11-21 16:28] LABS: Glucose,Whole Blood 205 mg/dL (75-99)
[2021-11-21 20:14] LABS: Glucose,Whole Blood 189 mg/dL (75-99)
[2021-11-22] MEDS: ACETAMINOPHEN TAB 500 MG TAB PO PRN (05:37)
[2021-11-22] MEDS: INSULIN ASPART (NovoLOG) 100 UNIT/ML VIAL SQ SCH ×7 (06:35→22:17)
[2021-11-22 06:36] LABS: Glucose,Whole Blood 125 mg/dL (75-99)
[2021-11-22] MEDS: FORMOTEROL FUMARATE 20 MCG/2 ML NEBU INHALATION SCH ×2 (07:29→19:56)
[2021-11-22] MEDS: BUDESONIDE 0.5 MG/2 ML NEBU INHALATION SCH ×2 (07:29→19:56)
[2021-11-22] MEDS: IPRATROPIUM-ALBUTEROL 3 ML NEB INHALATION SCH ×4 (07:29→19:56)
[2021-11-22] MEDS ORDERED: FUROSEMIDE 10 MG/ML 4 ML VIAL IV STA (09:16)
--- NOTE | 2021-11-22 09:24 | XR ---
EXAMINATION TYPE: XR chest 1V portable DATE OF EXAM: 11/22/2021 HISTORY: Shortness of breath. COMPARISON: 11/20/2021 TECHNIQUE: Single view of the chest is submitted. FINDINGS: Demonstrated are scattered senescent parenchymal change. Persistent patchy basilar infiltrates compatible with pneumonia. The heart is stable. Hilar and mediastinal structures are within normal limits. Degenerative changes are seen of the dorsal spine. IMPRESSION: 1. Persistent patchy basilar infiltrates compatible with pneumonia.
[2021-11-22] MEDS: CYANOCOBALAMIN 500 MCG TAB PO SCH (09:40)
[2021-11-22] MEDS: AMIODARONE 200 MG TAB PO SCH ×2 (09:40→22:18)
[2021-11-22] MEDS: ASPIRIN 81 MG PO SCH (09:40)
[2021-11-22] MEDS: ZINC SULFATE 220 MG CAP PO SCH (09:40)
[2021-11-22] MEDS: methylPREDNISolone SOD SUCCI 40 MG/ML 1 ML VIAL IV SCH ×2 (09:41→17:44)
[2021-11-22] MEDS: CHOLECALCIFEROL 125 MCG (5000 IU) TABLET PO SCH (09:41)
[2021-11-22] MEDS: ATORVASTATIN 80 MG TAB PO SCH (09:41)
[2021-11-22] MEDS: APIXABAN 5 MG TAB PO SCH ×2 (09:41→22:17)
[2021-11-22] MEDS: ASCORBIC ACID 500 MG TAB PO SCH (09:41)
[2021-11-22] MEDS: PANTOPRAZOLE 40 MG/10 ML VIAL IV SCH (09:41)
[2021-11-22] MEDS: METOPROLOL TARTRATE 25 MG TAB PO SCH ×3 (09:41→22:17)
--- NOTE | 2021-11-22 09:51 | P.PN ---
Subjective Progress Note Date: 11/22/21 Principal diagnosis: Altered mental status This is a 66-year-old male patient with advanced COPD with an FEV1 of 25% of predicted, oxygen dependent at 2/3 L nasal cannula in addition to Prevacid history of coronary artery disease, has history of stent placement, previous history of ischemic cardiomyopathy with impaired ejection fraction that had been as low as 35% and subsequent improvement. The patient is known to me. He does have also an underlying bronchogenic cyst. The patient was getting progressively more short of breath over the past week. He was a bit hesitant to comment in hospital as he was worried that he will get intubated. He decided not to come and accordingly. He told his that he was adamant that he didn't want to get any form of invasive treatment such as intubation mechanical ventilation. By time he arrived to the emergency department, the patient was very much lethargic, tachypneic, on that, somnolent and his blood gases showed acute hypercapnic respiratory failure on top of chronic hypercapnic respiratory failure. His speech was at 7.14 with a pCO2 more than 120 and pO2 of 239 and this was done and FiO2 of 80%. At that point, I was contacted by the [facility] department. I was informed of his presence. Based on his DO NOT INTUBATE CODE STATUS, we decided to proceed with noninvasive positive pressure ventilation using the BiPAP. Accordingly, I put the patient about that a pressure of 16/6 and he is a full-term, drop the FiO2 down to 30% and this morning the patient is generating a tidal volume of 4 70 mL, and the patient has a minute ventilation of 11 L and the respiratory rate of 25. Is improved. His much more awake and alert and following commands and answering questions. Subsequently, I took him off the BiPAP and and I put him on 3 L about 2 by nasal cannula. He is on bronchodilators. He is on steroids. He was also given diuretics as the patient's chest exit showed some increased interstitial markings bilaterally. The patient is notable for extremity is without limitation. The patient was sent on 7.8 with hemoglobin of 12.5. Serum bicarbs at 41, potassium level is at 5.4, his sodium level is at 139, troponins of 0.058 and the patient's proBNP level was 1930. COVID 19 testing came back negative. Denies having any chest pain. No focal neurological deficits. He was found to be nature progression with rapid ventricular response. He was started on Cardizem drip and currently Cardizem drip with a running at 10 mg an hour and his rate is under much better control. He was started also on IV heparin. Echocardiogram is in progress. On today's evaluation of 11/17/2021, the patient is feeling better and he is less short of breath. Overnight, he stepped on a BiPAP at a pressure of 16/6 cm of water with an FiO2 of 30%. This morning is on 3 L of oxygen by nasal cannula. He is having increased cough and congestion. The chest x-ray from today shows improvement in the volume status. Nevertheless, there is development of right lower lobe consolidation consistent with pneumonia. The patient was on Zithromax and Rocephin will be restarted again. Otherwise, he is diuresing well. Earlier this morning, the patient went into a flutter with rapid ventricular response. The patient was started on Cardizem drip which is running at 5 mg an hour. Metoprolol was restarted at 50 mg twice a day and the patient's heart rate is under better control for now. He remains on long-term and coagulation with Eliquis. No chest pain. No angina. No palpitation. Improvement in lower extremity edema and the patient is a negative fluid balance. In terms of COPD exacerbation, he remains on a combination of bronchodilators and steroids. The white cell count of 10.2 with hemoglobin of 12, serum bicarbonate of 42 with a BMI of 41 and creatinine is 0.9. Glucose at 205. 3522, seeing the patient for a follow-up. Overnight, the patient was the BiPAP at a pressure of 10/5 cm of water and FiO2 of 30%. The patient is more comfortable. He spent most of the day in bed and he was unable to get up on a recliner. He remains on oxygen 3 L per minute nasal cannula this morning. 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 He'll be started on a Cardizem drip again. He takes metoprolol 50 mg by mouth twice a day. He is on long-term and to coagulation with Eliquis 5 mg by mouth twice a day. The patient has a heart rate around 120-140, irregular and the patient is hemodynamically stable. The patient continues to receive treatment for an acute COPD exacerbation is currently on DuoNeb neb last treatment [id number]. The chest x-ray showing improvement in the right lower lobe consolidation and the patient remains on a come initial Rocephin and Zithromax. The patient remains on IV Solu Medrol 60 mg every 6 hours. No chest pain. No altered mentation. Overnight, he is using BiPAP for respiratory support. Overall fluid balance is -2.7 L over the past 24 hours. The patient continues to have some ongoing edema in lower extremity is bilaterally. No fever. No chills. No altered mentation. Quite weak and debilitated. 11/19/2021, patient is being seen for a follow-up. Patient is off the BiPAP. The patient is on 3 L of oxygen nasal cannula. Input output ratio is -4.2 L over the past 24 hours. Earlier this morning is similar to yesterday, the patient went into SVT with episodes of A. fib RVR. Note that he is already on Cardizem which is currently running at 5 mg an hour and the patient is also on Lopressor 75 mg by mouth 3 times a day. He gets quite tachycardic and at times the rhythm is typical of an SVT. I give the patient carotid massage and I was unable to break the SVT. Following that, I give the patient an amiodarone bolus and currently is on a maintenance at 1 mg per minute. At this point his cardiac rhythm changed from SVT congestion fibrillation the rate was under better control. He is already on Eliquis 5 mg by mouth twice a day. Chest x-ray from today shows a dense consolidation right lower lobe and the patient remains on a come initial Rocephin and Zithromax. The patient is unable to produce a whole lot of sputum. Hemodynamically stable. Free of any angina. Tolerating diet. A bit weak and he's not doing a lot of activity and stenting in bed most of the time. Note that he has history of coronary artery disease, he also has severe cardiomyopathy with impaired left ventricular ejection fraction. He has advanced COPD with chronic atrial fibrillation. On the 11/20/2021 patient seen in follow-up in intensive care unit, he is awake and alert, in no acute distress, is currently on 2 L of oxygen pulse ox is 95%, he did wear BiPAP support last night with pressures of 10 and 5 and FiO2 of 30%. He is oriented 3, responding to questions appropriately, he denies any wors ening dyspnea, no cough, no complaints of chest discomfort, his chest x-ray today has been reviewed showing bilateral airspace disease, no evident pneumothorax. Patient continues on nebulized bronchodilators, IV Solu-Medrol 60 mg every 6 hours, his amiodarone drip has been discontinued, and patient is being transitioned to oral amiodarone. Patient continues on Eliquis for new onset atrial fibrillation with RVR during this admission. Currently remains in atrial fibrillation, and patient still a little tachycardic with a rate in the low 100s. Cardiology is following, and patient continues on metoprolol 75 mg 3 times daily. Lung sounds are diminished, no wheezing, no rhonchi or rales. Amina suh is tolerating oral intake on his had no acute events overnight, his is at the bedside. She was updated on patient's progress. On 11/21/2021 patient seen in follow-up in the intensive care unit, he is awake and alert, in no acute distress, is currently on 2 L of oxygen breathing comfortably, pulse ox is 97%, he did wear BiPAP support last night with pressures of 1005 and FiO2 of 30%.'s been afebrile, hemodynamically stable, he is in A. fib with a rate of 116 BPM. Lung sounds today reveal some mild wheezing, no rhonchi, no crackles. His diuretics remain on hold, but patient does have 1+ pretibial and ankle and pedal edema. He states he takes Lasix on an as-needed basis at home, today's labs have been reviewed showing sodium of 138, potassium is 4.6, chloride is 86, CO2 of 51, BUN of 51 creatinine is 1.03. Patient is in -710 mL negative net fluid balance. And patient was in the 1.9 L net fluid balance over the last 24 hours prior to that. He has been on Solu- Medrol for the past 4 days, less bronchospastic, breathing easier, and Solu- Medrol will be dropped to 40 mg every 8 hours. Patient was up in the chair yesterday, he stated he ambulated in the room tolerated activity fairly well. Patient currently remains on Lopressor 75 mg 3 times a day for rate control, and Eliquis 5 mg twice a day for anticoagulation, cardiology is closely following. Otherwise no acute events overnight, patient is stable to transfer out of intensive care unit today, his overnight pulse oximetry study was not completed last night due to some confusion on what settings it needed to be completed on. He will be completed tonight, and this needs to be done on his home dose O2 at 2 L On 11/22/2021 patient seen in follow-up in the intensive care unit, he is awake and alert, in no acute distress, currently on 2 L oxygen pulse ox is 98%, hemodynamically stable, remains in A. fib, slightly tachycardic, blood pressure stable. Patient had overnight pulse oximetry study, the longest continuous time with saturation of less than 80% was at around midnight, there were 5 desaturation events over 3 minutes duration. There were 26 desaturation events of less than 3 minutes duration during which the mean high was 98.2%, and the mean low was 91.7% desaturation event index was 3.7/h. No acute events overnight, still bronchospastic, the patient has lower extremity swelling. Follow-up chest x-ray has been obtained and reviewed showing persistent patchy basilar infiltrate compatible with pneumonia . Improvement in the appearance of airspace disease at the right lung base Objective - Vital Signs Vital signs: Vital Signs Temp 97.7 F 11/22/21 08:00 Pulse 117 H 11/22/21 08:00 Resp 31 H 11/22/21 08:00 BP 134/78 11/22/21 08:00 Pulse Ox 98 11/22/21 08:00 Intake & Output 11/21/21 11/22/21 11/22/21 18:59 06:59 18:59 Intake Total 200 300 Output Total 125 450 Balance 75 -150 Weight 135 kg Intake: Oral 300 Tube Feeding 200 Output: Urine 125 450 Other: # Voids 3 - Exam GENERAL EXAM: Alert, pleasant, 66-year-old white male on today's of oxygen pulse ox is 98% on 2 L of oxygen comfortable in no apparent distress. HEAD: Normocephalic/atraumatic. EYES: Normal reaction of pupils, equal size. Conjunctiva pink, sclera white. NOSE: Clear with pink turbinates. THROAT: No erythema or exudates. NECK: No masses, no JVD, no thyroid enlargement, no adenopathy. CHEST: No chest wall deformity. Symmetrical expansion. LUNGS: Equal air entry with mild wheezes CVS: Irregular rate and rhythm, normal S1 and S2, no gallops, no murmurs, no rubs ABDOMEN: Soft, nontender. No hepatosplenomegaly, normal bowel sounds, no guarding or rigidity. EXTREMITIES: No clubbing, 1+ edema, no cyanosis, 2+ pulses and upper and lower extremities. MUSCULOSKELETAL: Muscle strength and tone normal. SPINE: No scoliosis or deformity SKIN: No rashes CENTRAL NERVOUS SYSTEM: Alert and oriented -3. No focal deficits, tone is normal in all 4 extremities. PSYCHIATRIC: Alert and oriented -3. Appropriate affect. Intact judgment and insight. - Labs CBC & Chem 7: 11/20/21 06:11 11/21/21 07:09 Labs: Abnormal Lab Results - Last 24 Hours (Table) 11/21/21 11/21/21 11/21/21 Range/Units 11:53 16:26 20:13 POC Glucose (mg/dL) 137 H 205 H 189 H (75-99) mg/dL 11/22/21 Range/Units 06:34 POC Glucose (mg/dL) 125 H (75-99) mg/dL Microbiology - Last 24 Hours (Table) 11/15/21 21:01 Blood Culture - Final Blood No Growth after 144 hours Assessment and Plan Plan: Assessment: #1. Acute exacerbation of COPD with secondary acute on chronic hypoxic and hype rcapnic respiratory failure complicated by a right lower lobe consolidation consistent with pneumonia, possibly community acquired #2. Altered mental status, related to acute on chronic hypercapnic respiratory failure, improved with BiPAP support, and medical treatment #3. Chronic hypoxic respiratory failure patient usually wears 2-3 L of oxygen by nasal cannula on a regular basis #4. Advanced COPD with FEV1 25% predicted #5. A. fib with RVR, patient currently is being transitioned to oral amiodarone, and remains on metoprolol 75 mg 3 times a day and Eliquis #6. Coronary artery disease with coronary artery stenting involving the circumflex in November 2018, and previous stenting of the LAD and circumflex in 2007 #7. Severe ischemic cardiac myopathy with ejection fraction of 35% #8. Bronchogenic cyst of the lung on the right side, benign #9. Hypertension #10. Hyperlipidemia #11. Obesity with BMI 43.3 Plan: Continue current medical treatment Continue IV steroids We'll give the patient Lasix 40 mg 1 Continue breathing treatments Overnight pulse oximetry study was reviewed, patient had 5 desaturation events of less than 88% over 3 minutes duration We'll check with discharge planning to see if patient qualifies for trilogy ventilator for a diagnosis of severe COPD Increase activity as tolerated Stable for transfer out of intensive care unit to [facility] care today I have personally seen and examined the patient, performed the documentation and the assessment and plan as written. Number of minutes spent on the visit: 0 Time with Patient: Less than 30
[2021-11-22 10:02] LABS: Basophils % (A) 0 %; Eosinophils % (A) 0 %; HCT 43.9 % (39.0-53.0); HGB 13.4 gm/dL (13.0-17.5); Hypochromasia Moderate; Lymphocytes # (A) 0.2 k/uL (1.0-4.8); Lymphocytes % (A) 2 %; MCH 33.2 pg (25.0-35.0); MCHC 30.6 g/dL (31.0-37.0); MCV 108.3 fL (80.0-100.0); Macrocytosis Moderate; Mean Platelet Volume 7.4; Monocytes # (A) 0.8 k/uL (0-1.0); Monocytes % (A) 6 %; Neutrophils # (A) 11.3 k/uL (1.3-7.7); Neutrophils % (A) 91 %; Platelet Count 226 k/uL (150-450); RBC 4.05 m/uL (4.30-5.90); RDW 13.4 % (11.5-15.5); WBC 12.4 k/uL (3.8-10.6)
[2021-11-22 10:16] LABS: African American GFR (CKD) >90 (>60 ml/min/1.73 sqM); Blood Urea Nitrogen 54 mg/dL (9-20); Calcium 8.4 mg/dL (8.4-10.2); Chloride 86 mmol/L (98-107); Glucose 213 mg/dL (74-99); Non-African American GFR(CKD) 87 (>60 ml/min/1.73 sqM); Potassium 4.4 mmol/L (3.5-5.1); Sodium 137 mmol/L (137-145)
[2021-11-22 10:24] LABS: Anion Gap 8 mmol/L
[2021-11-22 10:28] LABS: Carbon Dioxide 43 mmol/L (22-30)
--- NOTE | 2021-11-22 11:47 | P.PN ---
Subjective 66-year-old gentleman remains in atrial fibrillation with better controlled ventricular rate. He is still short of breath receiving nebulizers. He is an amiodarone 200 twice a day and metoprolol 75 3 times a day for rate control. He has cardiomyopathy with LV dysfunction hence is not a candidate for Cardizem I will add digoxin . At rest patient's heart rate is fairly well controlled. On exam: Heart rate is around 110 bpm irregular blood pressure is 130/70 chest exam reveals bilateral wheezing that has improved heart exam reveals first and second heart sounds are regular rhythm examthe extremities reveals mild edema Labs showed a hemoglobin of 13.4 platelet count of 226 potassium is 4.4 creatinine is 0.5 Patient is currently on liquids 5 twice a day amiodarone and metoprolol and digoxin had just been added Assessment and plan: Persistent atrial fibrillation with poorly controlled ventricular rate COPD exacerbation Continue current medications Objective - Vital Signs Vital signs: Vital Signs Temp 97.7 F 11/22/21 08:00 Pulse 115 H 11/22/21 11:32 Resp 31 H 11/22/21 08:00 BP 134/78 11/22/21 08:00 Pulse Ox 98 11/22/21 08:00 Intake & Output 11/21/21 11/22/21 11/22/21 18:59 06:59 18:59 Intake Total 200 300 Output Total 125 450 200 Balance 75 -150 -200 Weight 135 kg Intake: Oral 300 Tube Feeding 200 Output: Urine 125 450 200 Other: # Voids 3 - Labs CBC & Chem 7: 11/22/21 09:44 11/22/21 09:44 Labs: Abnormal Lab Results - Last 24 Hours (Table) 11/21/21 11/21/21 11/21/21 Range/Units 11:53 16:26 20:13 WBC (3.8-10.6) k/uL RBC (4.30-5.90) m/uL MCV (80.0-100.0) fL MCHC (31.0-37.0) g/dL Neutrophils # (1.3-7.7) k/uL Lymphocytes # (1.0-4.8) k/uL Chloride (98-107) mmol/L Carbon Dioxide (22-30) mmol/L BUN (9-20) mg/dL Glucose (74-99) mg/dL POC Glucose (mg/dL) 137 H 205 H 189 H (75-99) mg/dL 11/22/21 11/22/21 11/22/21 Range/Units 06:34 09:44 09:44 WBC 12.4 H (3.8-10.6) k/uL RBC 4.05 L (4.30-5.90) m/uL MCV 108.3 H (80.0-100.0) fL MCHC 30.6 L (31.0-37.0) g/dL Neutrophils # 11.3 H (1.3-7.7) k/uL Lymphocytes # 0.2 L (1.0-4.8) k/uL Chloride 86 L (98-107) mmol/L Carbon Dioxide 43 H* (22-30) mmol/L BUN 54 H (9-20) mg/dL Glucose 213 H (74-99) mg/dL POC Glucose (mg/dL) 125 H (75-99) mg/dL Microbiology - Last 24 Hours (Table) 11/15/21 21:01 Blood Culture - Final Blood No Growth after 144 hours
[2021-11-22] MEDS: DIGOXIN 125 MCG TAB PO SCH (12:16)
[2021-11-22 12:22] LABS: Glucose,Whole Blood 154 mg/dL (75-99)
--- NOTE | 2021-11-22 13:22 | P.PN ---
Subjective Progress Note Date: 11/22/21 Patient is a 66-year-old male came in the with compensative shortness of breath does have history of COPD uses about 2 L of oxygen at home patient was severely hypoxic and hypercapnic with the pCO2 of greater than 120 patient was on BiPAP. Patient is presently being the BiPAP still wheezing. Patient doesn't have any pneumonia on the chest x-ray. Patient is on the systemic steroids in the form of IV steroids. Patient denied any fever chills patient is coughing not not bringing up much at this time. Patient baseline pCO2 appears to be around 70. Patient is not acidotic anymore pCO2 has gone down to 64 still bit hypoxic. Patient also has history of atrial fibrillation when he came and patient was in A. fib with rapid and regular rate secondary to hypoxemia this resolved and patient presently rate controlled still in A. fib, patient was started on the Cardizem drip was later weaned off and the patient was started on oral metoprolol and Eliquis. Patient had bilateral lower extremity swelling on admission which resolved at this time patient takes a low-dose of Lasix had a normal ejection fraction the past patient is also on KRISTOPHER inhibitor. Patient blood pressure is not elevated patient doesn't have any systolic dysfunction patient potassium is elevated because of these reasons this will be discontinued. Patient the creatinine went up from 0.66-1.07. Patient is presently on 4 L of oxygen. She denied mild elevation of troponin 0.058. Patient is obese, didn't have any history of sleep apnea but probably will need another sleep study as his previous sleep study was many years ago. 11/17/2021 Patient is seen in follow-up with morning continues to be closely monitored in the ICU with cardiology and pulmonary following closely. Chest x-ray this morning shows increasing infiltrate of the right lower lobe with mild stable stranding density at the left lower lobe. Patient is continued on IV antibiotics in the form of ceftriaxone along with oral Zithromax and also continues with breathing inhalational treatments and IV Solu-Medrol at 60 mg every 6 and will continue. Patient was rate controlled on oral Lopressor although heart rate became elevated and uncontrolled with a flutter and placed back on IV Cardizem and is currently at 10 mL per hour with cardiology following closely. Patient also continues on oral anticoagulant of eliquis and will continue. Patient is receiving IV Lasix twice daily as well. Patient continues on 4 L of oxygen via nasal cannula and denies any worsening shortness of breath although continues to be short of breath with minimal exertion. Patient reports to using BiPAP at night. Patient is afebrile and patient denies any chest pain or palpitations at this time. Patient's blood sugars have been elevated most likely steroid-induced as there is no history of diabetes and will add sliding scale and continue with Accu-Cheks before meals and at bedtime. 11/18/2021 Patient evaluated today resting in bed in ICU, being followed closely by cardiology and pulmonary. Patient today in atrial flutter in the 130's to 140's and was started back on cardizem gtt at 10 mLs per hour. Heart rate has improved into the 70s. Chest xray today persistent right lower lobe infiltrate and strandy density left lower lobe. Continues on IV ceftriaxone and oral azithromycin, updrafts, pulmicort, IV solu-medrol, IV lasix 40 BID. Patient significantly bronchospastic during examination, unable to take a deep breath without coughing, WBC 7.8, hgb 12.4, sodium 137, potassium 4.8, chloride 87, CO2 46, patient did wear the BiPAP most of the night. States earlier this morning he had some midsternal chest discomfort unable to describe or quantify, but states he was sleeping and it has since resolved. Blood sugars elevated 200's, receiving novolog sliding scale, patient is eating majority of meals will add meal time insulin and monitor. May need to start long acting while on IV steroids. Afebrile, heart rate 98, respirations 30, blood pressure 119/61, 98% on 2L NC. 11/19/2021 Patient evaluated in the ICU today. Patient had an elevated heart rate up in the 170s this morning, Cardizem drip is currently off and he is on amiodarone bolus and infusion. Metoprolol was increased yesterday. Patient did not wear the BiPAP last night states that he felt short of breath while wearing it. Labs today show WBC 9.6, hgb 12.6, sodium 138, potassium 4.7, magnesium 2.2, chloride 85, CO2 44, BUN 47, creatinine slightly elevated at 1.07, blood glucose in the 120s. Chest xray this morning shows stable basilar infiltrates right greater than left. IV lasix was discontinued today. Patient is showing a negative fluid balance, down 1.6 Liters in the last 24 hours. Continues on IV ceftriaxone, PO azithromycin, updrafts, IV solu-medrol, on eliquis. Patient has not had a BM since admission, Patient is being follow closely by pulmonary, cardiology. 11/20/2021 Patient evaluated today in the ICU with at the bedside. Off the amiodarone gtt and now on oral amiodarone 400 mg PO daily, also metoprolol 75 mg po three times a day. Heart rate ranging between 80's to low 100's. Patient states he was able to tolerate the BIPAP last night when sleeping. No wheezing noted on exam today. Labs today show a serum CO2 level of 47 which is increased from yes terday, chloride stable at 85, BUN 51, creat 1.02. Afebrile, blood pressure 129/98, respirations in the 20's, oxygenation 93%. Passing more gas but still with no BM will repeat dose of lactulose today. Currently no complaints of chest, no shortness of breath at rest. Has not gotten up out of bed yet. Patient will undergo PT/OT evaluation today. Also will undergo overnight pulse ox study tonight. Patient is followed closely by cardiology and pulmonary team. 11/21/2021 Patient is seen in follow-up this morning and is being followed closely by pulmonary and cardiology. Patient is off amiodarone drip and on oral amiodarone lung with metoprolol 75 mg 3 times a day and oral anticoagulant. Pulmonary are following closely patient is maintained on IV steroids and being decreased to 40 every 8 and will continue to monitor closely. Patient also receiving breathing inhalational treatments and will continue. Patient currently on 2-3 L via nasal cannula with oxygen saturations of 94%. Patient continues to be dyspneic with minimal exertion and patient is weak and working with physical therapy daily. Plan is to return home with home care and his spouse on discharge. Blood sugars were controlled on current regimen and will continue and continue to recommend Accu-Cheks before meals and at bedtime. 11/22/2021 Patient is seen this morning and continues to be in the ICU currently awaiting a bed available on 3 S. for transfer out of the ICU. Patient was off of BiPAP all night and underwent continuous pulse ox monitoring throughout the night. Patient is currently maintained on 2 L via nasal cannula. Pulmonary and cardiology following closely. On exam patient's heart rate was elevated in the 130s and appears to be atrial fib cardiology following working on medication adjustments. Patient is currently maintained on oral amiodarone 200 mg twice daily along with being started on digoxin and also continues on metoprolol. On exam patient continues with wheezing and diminished breath sounds bilaterally more so on the right. Patient to receive a dose of IV Lasix today. Chest x-ray today shows persistent patchy basilar infiltrates compatible with pneumonia. Patient continues off antibiotics and blood cultures remain negative. Patient continues with significant weakness and working with physical therapy daily. Patient may possibly require BiPAP in the outpatient setting and case management following and working on discharge planning. Review of systems: Constitutional: no reports of fatigue, no reports of fever, or chills Cardiovascular: No reports of chest pain or palpitations Respiratory: reports of shortness of breath and dyspnea with exertion, continued on 2 L via nasal cannula GI: No reports of nausea, vomiting, no BM but reports to passing gas : No reports of dysuria or retention Neurovascular: reports of generalized weakness All medications have been reviewed Active Medications Acetaminophen (Acetaminophen Tab 500 Mg Tab) 500 mg PO Q6HR PRN PRN Reason: Fever and/ or Pain Last Admin: 11/22/21 05:37 Dose: 500 mg Documented by: Albuterol/Ipratropium (Ipratropium-Albuterol 3 Ml Neb) 3 ml INHALATION RT-Q4H PRN PRN Reason: Shortness Of Breath Or Wheezing Last Admin: 11/16/21 06:55 Dose: 3 ml Documented by: Albuterol/Ipratropium (Ipratropium-Albuterol 3 Ml Neb) 3 ml INHALATION RT-QID [facility] Last Admin: 11/22/21 11:22 Dose: 3 ml Documented by: Amiodarone HCl (Amiodarone 200 Mg Tab) 200 mg PO BID [facility] Last Admin: 11/22/21 09:40 Dose: 200 mg Documented by: Apixaban (Apixaban 5 Mg Tab) 5 mg PO BID [facility]; Protocol Last Admin: 11/22/21 09:41 Dose: 5 mg Documented by: Ascorbic Acid (Ascorbic Acid 500 Mg Tab) 1,000 mg PO DAILY [facility] Last Admin: 11/22/21 09:41 Dose: 1,000 mg Documented by: Aspirin (Aspirin 81 Mg) 81 mg PO DAILY [facility] Last Admin: 11/22/21 09:40 Dose: 81 mg Documented by: Atorvastatin Calcium (Atorvastatin 80 Mg Tab) 80 mg PO DAILY [facility] Last Admin: 11/22/21 09:41 Dose: 80 mg Documented by: Budesonide (Budesonide 0.5 Mg/2 Ml Nebu) 0.5 mg INHALATION RT-BID [facility] Last Admin: 11/22/21 07:29 Dose: 0.5 mg Documented by: Cholecalciferol (Cholecalciferol 125 Mcg (5000 Iu) Tablet) 125 mcg PO DAILY [facility] Last Admin: 11/22/21 09:41 Dose: 125 mcg Documented by: Cyanocobalamin (Cyanocobalamin 500 Mcg Tab) 500 mcg PO DAILY [facility] Last Admin: 11/22/21 09:40 Dose: 500 mcg Documented by: Digoxin (Digoxin 125 Mcg Tab) 125 mcg PO DAILY [facility] Last Admin: 11/22/21 12:16 Dose: 125 mcg Documented by: Formoterol Fumarate (Formoterol Fumarate 20 Mcg/2 Ml Nebu) 20 mcg INHALATION RT-BID [facility] Last Admin: 11/22/21 07:29 Dose: 20 mcg Documented by: Guaifenesin/Dextromethorphan (Guaifenesin-Dm 100-10mg/5ml 10 Ml Cup) 10 ml PO Q6HR PRN PRN Reason: Cough Last Admin: 11/17/21 11:55 Dose: 10 ml Documented by: Heparin Sodium (Porcine) (Heparin Sodium 1,000 Un/Ml (10ml Vl)) 0 unit IV PER PROTOCOL PRN; Protocol PRN Reason: Low PTT Insulin Aspart (Insulin Aspart (Novolog) 100 Unit/Ml Vial) 0 unit SQ ACHS [facility]; Protocol Last Admin: 11/22/21 12:31 Dose: 2 unit Documented by: Insulin Aspart (Insulin Aspart (Novolog) 100 Unit/Ml Vial) 2 unit SQ AC-TID [facility] Last Admin: 11/22/21 12:32 Dose: 2 unit Documented by: Methylprednisolone Sodium Succinate (Methylprednisolone Sod Succi 40 Mg/Ml 1 Ml Vial) 40 mg IV Q8HR [facility] Last Admin: 11/22/21 09:41 Dose: 40 mg Documented by: Metoprolol Tartrate (Metoprolol Tartrate 25 Mg Tab) 75 mg PO TID [facility] Last Admin: 11/22/21 09:41 Dose: 75 mg Documented by: Naloxone HCl (Naloxone 0.4 Mg/Ml 1 Ml Vial) 0.2 mg IV Q2M PRN PRN Reason: Opioid Reversal Pantoprazole Sodium (Pantoprazole 40 Mg/10 Ml Vial) 40 mg IV DAILY [facility] Last Admin: 11/22/21 09:41 Dose: 40 mg Documented by: Zinc Sulfate (Zinc Sulfate 220 Mg Cap) 220 mg PO DAILY [facility] Last Admin: 11/22/21 09:40 Dose: 220 mg Documented by: PHYSICAL EXAMINATION: GENERAL: The patient is alert and oriented x3, tachypneic. Morbidly Obese currently on 2-3 L via nasal cannula HEENT: Pupils are round and equally reacting to light. EOMI. No scleral icterus. No conjunctival pallor. Normocephalic, atraumatic. No pharyngeal erythema. No thyromegaly. CARDIOVASCULAR: S1 and S2 muffled. Irregularly irregular rhythm, A. fib on the monitor PULMONARY: Decreased air entry with some mild expiratory wheezing on exam , crackles noted at the bases, diminished air entry more prominent on the right ABDOMEN: Soft, obese, non-tender, nondistended, normoactive bowel sounds. No palpable organomegaly. MUSCULOSKELETAL: No joint swelling or deformity. EXTREMITIES: No cyanosis, clubbing, mild pedal edema improved compared to yesterday. NEUROLOGICAL: Gross neurological examination did not reveal any focal deficits. SKIN: No rashes. Assessment: -Acute on chronic hypercapnic and hypoxic respiratory failure: Secondary to COPD exacerbation, pulmonary following and patient is maintained on IV steroids along with breathing inhalational treatments, requiring 2 L -Respiratory acidosis secondary to CO2 retention which improved from admission. Patient has a compensated metabolic alkalosis -Peripheral edema: Secondary to obesity and venous insufficiency, improved -Elevated random glucose, most likely steroid-induced, A1C 6.0 consistent with pre-diabetes -Atrial fibrillation with rapid and regular rate, a flutter, and continued on oral amiodarone and metoprolol., Being started on digoxin, followed closely by cardiology -Ischemic cardiomyopathy with EF of 35% -Coronary artery disease with history of stents in the past -Hypertension -Hypoventilation obesity possibly of sleep apnea will need another sleep study in the outpatient setting -Hyperkalemia secondary to KRISTOPHER inhibitor use, improved -Hyperlipidemia -Obesity -DVT prophylaxis: Patient is on anticoagulation with Eliquis -No code Plan: Recommend continue with current medications and current consultations of pulmonary and cardiology following closely. Patient is currently maintained on 2-3 L via nasal cannula and underwent continuous pulse ox study last night now off BiPAP. Patient may require BiPAP on discharge in order to manage COPD in the outpatient setting. Case management following working on discharge planning. Patient is maintained on IV steroids and dose being titrated to 40 mg every 8 hours, and breathing inhalational treatments and will continue. Patient working with PT/OT daily for continued weakness. Cardiology following closely and patient is now on oral amiodarone, metoprolol and being started on digoxin for atrial fibrillation, atrial flutter. Recommend continued telemetry monitoring. Patient is tolerating diet. Recommend Accu-Cheks before meals and at bedtime and close monitoring and continue with sliding scale as needed as patient is on high-dose steroids. Encouraged increase activity as tolerated. PT/OT therapy working with the patient daily. Pulmonary and cardiology continue to follow closely. Possible downgrade out of the ICU today if a bed becomes available on selective. Due to multiple Medical issues, prognosis is guarded. The impression and plan of care has been dictated by Jaclyn Obregon, nurse practitioner as directed. MD Shai I have performed a history and examination and MDM of this patient, discussed the same with the dictator, and agree with the dictator's assessment and plan as written ,documented as a scribe. Based on total visit time, I have performed more than 50% of the visit. Total number of minutes spent on this visit, 20 minutes. Any additional findings or plans will be noted. Objective - Vital Signs Vital signs: Vital Signs Temp 97.6 F 11/22/21 04:00 Pulse 90 11/22/21 07:52 Resp 35 H 11/22/21 04:00 BP 142/86 11/22/21 04:00 Pulse Ox 95 11/22/21 04:00 Intake & Output 11/21/21 11/22/21 11/22/21 18:59 06:59 18:59 Intake Total 200 300 Output Total 125 450 Balance 75 -150 Weight 135 kg Intake: Oral 300 Tube Feeding 200 Output: Urine 125 450 Other: # Voids 3 - Labs CBC & Chem 7: 11/22/21 09:44 11/22/21 09:44 Labs: Abnormal Lab Results - Last 24 Hours (Table) 11/21/21 11/21/21 11/21/21 Range/Units 11:53 16:26 20:13 POC Glucose (mg/dL) 137 H 205 H 189 H (75-99) mg/dL 11/22/21 Range/Units 06:34 POC Glucose (mg/dL) 125 H (75-99) mg/dL Microbiology - Last 24 Hours (Table) 11/15/21 21:01 Blood Culture - Final Blood No Growth after 144 hours
[2021-11-22 16:36] LABS: Glucose,Whole Blood 117 mg/dL (75-99)
[2021-11-22 20:15] LABS: Glucose,Whole Blood 195 mg/dL (75-99)
[2021-11-23] MEDS: methylPREDNISolone SOD SUCCI 40 MG/ML 1 ML VIAL IV SCH ×3 (00:52→17:16)
[2021-11-23 06:03] LABS: Glucose,Whole Blood 172 mg/dL (75-99)
[2021-11-23] MEDS: INSULIN ASPART (NovoLOG) 100 UNIT/ML VIAL SQ SCH ×7 (06:50→21:09)
--- NOTE | 2021-11-23 07:11 | XR ---
EXAMINATION TYPE: XR chest 1V portable DATE OF EXAM: 11/23/2021 COMPARISON: 11/22/2021 HISTORY: Shortness of breath TECHNIQUE: Single frontal view of the chest is obtained. FINDINGS: Demonstrated are scattered senescent parenchymal change. Persistent patchy basilar infiltr ates compatible with pneumonia. The heart is stable. Hilar and mediastinal structures are within norm al limits. Degenerative changes are seen of the dorsal spine. IMPRESSION: Patchy bilateral areas of infiltrate greater on the right stable.
[2021-11-23 07:48] LABS: African American GFR (CKD) >90 (>60 ml/min/1.73 sqM); Blood Urea Nitrogen 54 mg/dL (9-20); Calcium 8.7 mg/dL (8.4-10.2); Chloride 88 mmol/L (98-107); Glucose 165 mg/dL (74-99); Non-African American GFR(CKD) 88 (>60 ml/min/1.73 sqM); Potassium 5.2 mmol/L (3.5-5.1); Sodium 139 mmol/L (137-145)
[2021-11-23 07:51] LABS: Basophils % (A) 0 %; Eosinophils % (A) 0 %; HCT 47.7 % (39.0-53.0); HGB 14.8 gm/dL (13.0-17.5); Hypochromasia Moderate; Lymphocytes # (A) 0.2 k/uL (1.0-4.8); Lymphocytes % (A) 1 %; MCH 33.1 pg (25.0-35.0); MCV 106.7 fL (80.0-100.0); Macrocytosis Moderate; Mean Platelet Volume 7.5; Monocytes # (A) 0.7 k/uL (0-1.0); Monocytes % (A) 5 %; Neutrophils # (A) 14.4 k/uL (1.3-7.7); Neutrophils % (A) 93 %; Platelet Count 264 k/uL (150-450); RBC 4.47 m/uL (4.30-5.90); RDW 13.9 % (11.5-15.5); WBC 15.6 k/uL (3.8-10.6)
[2021-11-23 07:55] LABS: Anion Gap 6 mmol/L
[2021-11-23] MEDS: IPRATROPIUM-ALBUTEROL 3 ML NEB INHALATION SCH ×4 (08:15→19:12)
[2021-11-23] MEDS: FORMOTEROL FUMARATE 20 MCG/2 ML NEBU INHALATION SCH ×2 (08:15→19:12)
[2021-11-23] MEDS: BUDESONIDE 0.5 MG/2 ML NEBU INHALATION SCH ×2 (08:15→19:12)
[2021-11-23 08:18] LABS: Carbon Dioxide 45 mmol/L (22-30)
[2021-11-23] MEDS: CHOLECALCIFEROL 125 MCG (5000 IU) TABLET PO SCH (08:54)
[2021-11-23] MEDS: METOPROLOL TARTRATE 25 MG TAB PO SCH ×3 (08:54→21:08)
[2021-11-23] MEDS: ASPIRIN 81 MG PO SCH (08:54)
[2021-11-23] MEDS: APIXABAN 5 MG TAB PO SCH ×2 (08:54→21:08)
[2021-11-23] MEDS: ZINC SULFATE 220 MG CAP PO SCH (08:54)
[2021-11-23] MEDS: DIGOXIN 125 MCG TAB PO SCH (08:55)
[2021-11-23] MEDS: AMIODARONE 200 MG TAB PO SCH ×2 (08:55→21:08)
[2021-11-23] MEDS: PANTOPRAZOLE 40 MG/10 ML VIAL IV SCH (08:55)
[2021-11-23] MEDS: ASCORBIC ACID 500 MG TAB PO SCH (08:55)
[2021-11-23] MEDS: ATORVASTATIN 80 MG TAB PO SCH (08:55)
[2021-11-23] MEDS: CYANOCOBALAMIN 500 MCG TAB PO SCH (08:56)
[2021-11-23] MEDS ORDERED: FUROSEMIDE 10 MG/ML 4 ML VIAL IV STA (10:35)
[2021-11-23 11:37] LABS: Glucose,Whole Blood 162 mg/dL (75-99)
--- NOTE | 2021-11-23 12:21 | P.PN ---
Subjective Progress Note Date: 11/23/21 Principal diagnosis: Shortness of breath. On the 11/20/2021 patient seen in follow-up in intensive care unit, he is awake and alert, in no acute distress, is currently on 2 L of oxygen pulse ox is 95%, he did wear BiPAP support last night with pressures of 10 and 5 and FiO2 of 30%. He is oriented 3, responding to questions appropriately, he denies any worsening dyspnea, no cough, no complaints of chest discomfort, his chest x-ray today has been reviewed showing bilateral airspace disease, no evident pneumothorax. Patient continues on nebulized bronchodilators, IV Solu-Medrol 60 mg every 6 hours, his amiodarone drip has been discontinued, and patient is being transitioned to oral amiodarone. Patient continues on Eliquis for new onset atrial fibrillation with RVR during this admission. Currently remains in atrial fibrillation, and patient still a little tachycardic with a rate in the low 100s. Cardiology is following, and patient continues on metoprolol 75 mg 3 times daily. Lung sounds are diminished, no wheezing, no rhonchi or rales. Patient is tolerating oral intake on his had no acute events overnight, his is at the bedside. She was updated on patient's progress. On 11/21/2021 patient seen in follow-up in the intensive care unit, he is awake and alert, in no acute distress, is currently on 2 L of oxygen breathing comfortably, pulse ox is 97%, he did wear BiPAP support last night with pressures of 1005 and FiO2 of 30%.'s been afebrile, hemodynamically stable, he is in A. fib with a rate of 116 BPM. Lung sounds today reveal some mild whee zing, no rhonchi, no crackles. His diuretics remain on hold, but patient does have 1+ pretibial and ankle and pedal edema. He states he takes Lasix on an as- needed basis at home, today's labs have been reviewed showing sodium of 138, potassium is 4.6, chloride is 86, CO2 of 51, BUN of 51 creatinine is 1.03. Patient is in -710 mL negative net fluid balance. And patient was in the 1.9 L net fluid balance over the last 24 hours prior to that. He has been on Solu- Medrol for the past 4 days, less bronchospastic, breathing easier, and Solu- Medrol will be dropped to 40 mg every 8 hours. Patient was up in the chair yesterday, he stated he ambulated in the room tolerated activity fairly well. Patient currently remains on Lopressor 75 mg 3 times a day for rate control, and Eliquis 5 mg twice a day for anticoagulation, cardiology is closely following. Otherwise no acute events overnight, patient is stable to transfer out of intensive care unit today, his overnight pulse oximetry study was not completed last night due to some confusion on what settings it needed to be completed on. He will be completed tonight, and this needs to be done on his home dose O2 at 2 L On 11/22/2021 patient seen in follow-up in the intensive care unit, he is awake and alert, in no acute distress, currently on 2 L oxygen pulse ox is 98%, hemodynamically stable, remains in A. fib, slightly tachycardic, blood pressure stable. Patient had overnight pulse oximetry study, the longest continuous time with saturation of less than 80% was at around midnight, there were 5 desaturation events over 3 minutes duration. There were 26 desaturation events of less than 3 minutes duration during which the mean high was 98.2%, and the mean low was 91.7% desaturation event index was 3.7/h. No acute events overn ight, still bronchospastic, the patient has lower extremity swelling. Follow-up chest x-ray has been obtained and reviewed showing persistent patchy basilar infiltrate compatible with pneumonia . Improvement in the appearance of airspace disease at the right lung base Progress note dated 11/23/2021. The patient was transferred out of the intensive care unit yesterday. Currently, he remains on 2 L nasal cannula. Earlier today, the patient was given Lasix 40 mg IV push. More recently, the patient was placed on BiPAP, and, a stat blood gas was ordered. He apparently does not like using the CPAP device at nighttime. White count 15.6, hemoglobin 14.8, hematocrit 47.7, and platelet count 264,000. Sodium 139, potassium 5.2, chlorides 88, CO2 45, anion gap 6, BUN 54, and creatinine 0.89. Patient has a patchy infiltrate at the right lung base. The patient is a DO NOT RESUSCITATE. The patient remains on Solu-Medrol, albuterol, ipratropium bromide, formoterol, and budesonide. Objective - Vital Signs Vital signs: Vital Signs Temp 98.0 F 11/23/21 04:00 Pulse 72 11/23/21 11:52 Resp 52 H 11/23/21 11:44 BP 169/90 11/23/21 11:44 Pulse Ox 96 11/23/21 11:44 Intake & Output 11/22/21 11/23/21 11/23/21 18:59 06:59 18:59 Intake Total 440 1080 118 Output Total 500 Balance -60 1080 118 Intake: Oral 440 1080 118 Output: Urine 500 Other: Voiding Method Urinal Urinal Urinal - Exam Oriented 3, mild conversational dyspnea. Currently on O2 at 2 L. HEENT examination is grossly unremarkable. Neck supple. Full range of motion. No adenopathy thyromegaly or neck vein distention. Cardiovascular examination reveals regular rhythm rate. S1-S2 normal. No S3 or S4. No discernible murmur noted. Heart rate 72 bpm. Heart sounds are distant. Lungs reveal scattered diffuse rhonchi. Minimal crackles. Minimal wheezes. Breath sounds equal bilaterally but diminished throughout. Abdomen obese. Bowel sounds are noted. Extremities are intact. No cyanosis or clubbing. Trace edema noted. Skin is without rash or lesion. Neurologic examination is brief but nonfocal. - Labs CBC & Chem 7: 11/23/21 06:53 11/23/21 06:53 Labs: Abnormal Lab Results - Last 24 Hours (Table) 11/22/21 11/22/21 11/22/21 Range/Units 12:21 16:35 20:10 WBC (3.8-10.6) k/uL MCV (80.0-100.0) fL Neutrophils # (1.3-7.7) k/uL Lymphocytes # (1.0-4.8) k/uL Potassium (3.5-5.1) mmol/L Chloride (98-107) mmol/L Carbon Dioxide (22-30) mmol/L BUN (9-20) mg/dL Glucose (74-99) mg/dL POC Glucose (mg/dL) 154 H 117 H 195 H (75-99) mg/dL 11/23/21 11/23/21 11/23/21 Range/Units 06:02 06:53 06:53 WBC 15.6 H (3.8-10.6) k/uL MCV 106.7 H (80.0-100.0) fL Neutrophils # 14.4 H (1.3-7.7) k/uL Lymphocytes # 0.2 L (1.0-4.8) k/uL Potassium 5.2 H (3.5-5.1) mmol/L Chloride 88 L (98-107) mmol/L Carbon Dioxide 45 H* (22-30) mmol/L BUN 54 H (9-20) mg/dL Glucose 165 H (74-99) mg/dL POC Glucose (mg/dL) 172 H (75-99) mg/dL 11/23/21 Range/Units 11:36 WBC (3.8-10.6) k/uL MCV (80.0-100.0) fL Neutrophils # (1.3-7.7) k/uL Lymphocytes # (1.0-4.8) k/uL Potassium (3.5-5.1) mmol/L Chloride (98-107) mmol/L Carbon Dioxide (22-30) mmol/L BUN (9-20) mg/dL Glucose (74-99) mg/dL POC Glucose (mg/dL) 162 H (75-99) mg/dL Assessment and Plan Assessment: #1. Acute exacerbation of COPD with secondary acute on chronic hypoxic and hypercapnic respiratory failure complicated by a right lower lobe consolidation consistent with pneumonia, possibly community acquired. #2. Altered mental status, related to acute on chronic hypercapnic respiratory failure, improved with BiPAP support, and medical treatment. #3. Chronic hypoxic respiratory failure patient usually wears 2-3 L of oxygen by nasal cannula on a regular basis. #4. Advanced COPD with FEV1 25% predicted. #5. A. fib with RVR, patient currently is being transitioned to oral amiodarone, and remains on metoprolol 75 mg 3 times a day and Eliquis. #6. Coronary artery disease with coronary artery stenting involving the circumflex in November 2018, and previous stenting of the LAD and circumflex in 2007. #7. 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 #8. Bronchogenic cyst of the lung on the right side, benign. #9. Hypertension. #10. Hyperlipidemia. #11. Obesity with BMI 43.3. Plan: Plan dated 11/23/2021. The patient did receive Lasix, 40 mg IV push today. The patient is currently being evaluated for possible Trilogy ventilator. The patient does express concerns about using CPAP throughout the night. Subsequent to me seeing him, the nurse notified me that his respiratory status has declined a bit. We recommended BiPAP therapy. In addition, I recommended a stat blood gas. The p atvikash is a DO NOT RESUSCITATE patient. He has very poor pulmonary function. Labs, x-rays, and medications are reviewed. I will add some antibiotic to his regimen. Time with Patient: Less than 30
--- NOTE | 2021-11-23 13:01 | P.PN ---
Subjective Progress Note Date: 11/23/21 Patient is a 66-year-old male came in the with compensative shortness of breath does have history of COPD uses about 2 L of oxygen at home patient was severely hypoxic and hypercapnic with the pCO2 of greater than 120 patient was on BiPAP. Patient is presently being the BiPAP still wheezing. Patient doesn't have any pneumonia on the chest x-ray. Patient is on the systemic steroids in the form of IV steroids. Patient denied any fever chills patient is coughing not not bringing up much at this time. Patient baseline pCO2 appears to be around 70. Patient is not acidotic anymore pCO2 has gone down to 64 still bit hypoxic. Patient also has history of atrial fibrillation when he came and patient was in A. fib with rapid and regular rate secondary to hypoxemia this resolved and patient presently rate controlled still in A. fib, patient was started on the Cardizem drip was later weaned off and the patient was started on oral metoprolol and Eliquis. Patient had bilateral lower extremity swelling on admission which resolved at this time patient takes a low-dose of Lasix had a normal ejection fraction the past patient is also on KRISTOPHER inhibitor. Patient blood pressure is not elevated patient doesn't have any systolic dysfunction patient potassium is elevated because of these reasons this will be discontinued. Patient the creatinine went up from 0.66-1.07. Patient is presently on 4 L of oxygen. She denied mild elevation of troponin 0.058. Patient is obese, didn't have any history of sleep apnea but probably will need another sleep study as his previous sleep study was many years ago. 11/17/2021 Patient is seen in follow-up with morning continues to be closely monitored in the ICU with cardiology and pulmonary following closely. Chest x-ray this morning shows increasing infiltrate of the right lower lobe with mild stable stranding density at the left lower lobe. Patient is continued on IV antibiotics in the form of ceftriaxone along with oral Zithromax and also continues with breathing inhalational treatments and IV Solu-Medrol at 60 mg every 6 and will continue. Patient was rate controlled on oral Lopressor although heart rate became elevated and uncontrolled with a flutter and placed back on IV Cardizem and is currently at 10 mL per hour with cardiology following closely. Patient also continues on oral anticoagulant of eliquis and will continue. Patient is receiving IV Lasix twice daily as well. Patient continues on 4 L of oxygen via nasal cannula and denies any worsening shortness of breath although continues to be short of breath with minimal exertion. Patient reports to using BiPAP at night. Patient is afebrile and patient denies any chest pain or palpitations at this time. Patient's blood sugars have been elevated most likely steroid-induced as there is no history of diabetes and will add sliding scale and continue with Accu-Cheks before meals and at bedtime. 11/18/2021 Patient evaluated today resting in bed in ICU, being followed closely by cardiology and pulmonary. Patient today in atrial flutter in the 130's to 140's and was started back on cardizem gtt at 10 mLs per hour. Heart rate has improved into the 70s. Chest xray today persistent right lower lobe infiltrate and strandy density left lower lobe. Continues on IV ceftriaxone and oral azithromycin, updrafts, pulmicort, IV solu-medrol, IV lasix 40 BID. Patient significantly bronchospastic during examination, unable to take a deep breath without coughing, WBC 7.8, hgb 12.4, sodium 137, potassium 4.8, chloride 87, CO2 46, patient did wear the BiPAP most of the night. States earlier this morning he had some midsternal chest discomfort unable to describe or quantify, but states he was sleeping and it has since resolved. Blood sugars elevated 200's, receiving novolog sliding scale, patient is eating majority of meals will add meal time insulin and monitor. May need to start long acting while on IV steroids. Afebrile, heart rate 98, respirations 30, blood pressure 119/61, 98% on 2L NC. 11/19/2021 Patient evaluated in the ICU today. Patient had an elevated heart rate up in the 170s this morning, Cardizem drip is currently off and he is on amiodarone bolus and infusion. Metoprolol was increased yesterday. Patient did not wear the BiPAP last night states that he felt short of breath while wearing it. Labs today show WBC 9.6, hgb 12.6, sodium 138, potassium 4.7, magnesium 2.2, chloride 85, CO2 44, BUN 47, creatinine slightly elevated at 1.07, blood glucose in the 120s. Chest xray this morning shows stable basilar infiltrates right greater than left. IV lasix was discontinued today. Patient is showing a negative fluid balance, down 1.6 Liters in the last 24 hours. Continues on IV ceftriaxone, PO azithromycin, updrafts, IV solu-medrol, on eliquis. Patient has not had a BM since admission, Patient is being follow closely by pulmonary, cardiology. 11/20/2021 Patient evaluated today in the ICU with at the bedside. Off the amiodarone gtt and now on oral amiodarone 400 mg PO daily, also metoprolol 75 mg po three times a day. Heart rate ranging between 80's to low 100's. Patient states he was able to tolerate the BIPAP last night when sleeping. No wheezing noted on exam today. Labs today show a serum CO2 level of 47 which is increased from yes terday, chloride stable at 85, BUN 51, creat 1.02. Afebrile, blood pressure 129/98, respirations in the 20's, oxygenation 93%. Passing more gas but still with no BM will repeat dose of lactulose today. Currently no complaints of chest, no shortness of breath at rest. Has not gotten up out of bed yet. Patient will undergo PT/OT evaluation today. Also will undergo overnight pulse ox study tonight. Patient is followed closely by cardiology and pulmonary team. 11/21/2021 Patient is seen in follow-up this morning and is being followed closely by pulmonary and cardiology. Patient is off amiodarone drip and on oral amiodarone lung with metoprolol 75 mg 3 times a day and oral anticoagulant. Pulmonary are following closely patient is maintained on IV steroids and being decreased to 40 every 8 and will continue to monitor closely. Patient also receiving breathing inhalational treatments and will continue. Patient currently on 2-3 L via nasal cannula with oxygen saturations of 94%. Patient continues to be dyspneic with minimal exertion and patient is weak and working with physical therapy daily. Plan is to return home with home care and his spouse on discharge. Blood sugars were controlled on current regimen and will continue and continue to recommend Accu-Cheks before meals and at bedtime. 11/22/2021 Patient is seen this morning and continues to be in the ICU currently awaiting a bed available on 3 S. for transfer out of the ICU. Patient was off of BiPAP all night and underwent continuous pulse ox monitoring throughout the night. Patient is currently maintained on 2 L via nasal cannula. Pulmonary and cardiology following closely. On exam patient's heart rate was elevated in the 130s and appears to be atrial fib cardiology following working on medication adjustments. Patient is currently maintained on oral amiodarone 200 mg twice daily along with being started on digoxin and also continues on metoprolol. On exam patient continues with wheezing and diminished breath sounds bilaterally more so on the right. Patient to receive a dose of IV Lasix today. Chest x-ray today shows persistent patchy basilar infiltrates compatible with pneumonia. Patient continues off antibiotics and blood cultures remain negative. Patient continues with significant weakness and working with physical therapy daily. Patient may possibly require BiPAP in the outpatient setting and case management following and working on discharge planning. 11/23/2021 Patient is seen in follow-up this morning recently transferred out of the ICU to the selected unit and is being closely monitored. Patient continues on cardiac telemetry with cardiology and pulmonary account officer following closely. Patient continues with extreme shortness of breath and dyspnea with minimal exertion and was maintained on 2-3 L via nasal cannula although becoming more anxious and dyspneic and patient being placed back on BiPAP with an FiO2 of 32% and a PEEP of 5. Patient does normally wear a CPAP at night although not tolerating and strongly recommend patient be on BiPAP scheduled from 8 PM to 8 AM and as needed. Patient to receive another dose of IV Lasix as chest x-ray today shows persistent patchy bilateral areas of infiltrate greater on the right possibly compatible with pneumonia. Patient had been off antibiotic therapy and white blood count mildly elevated at 15.6 which may also be a component of high-dose IV steroids. Patient is continued on IV steroids along with breathing inha lational treatments and will continue. Patient being started on IV antibiotics prophylactically. Blood cultures have been negative. Patient is afebrile. Patient denies chest pain or palpitations. Cardiology also following and patient is maintained on digoxin, oral amiodarone, metoprolol, and eliquis and will continue. Prognosis is guarded. Recommend repeat chest x-ray and labs in the a.m. Review of systems: Constitutional: reports of fatigue, no reports of fever, or chills Cardiovascular: No reports of chest pain or palpitations Respiratory: reports of shortness of breath and dyspnea with minimal exertion, currently being placed back on BiPAP GI: No reports of nausea, vomiting, no BM but reports to passing gas : No reports of dysuria or retention Neurovascular: reports of generalized weakness All medications have been reviewed Active Medications Acetaminophen (Acetaminophen Tab 500 Mg Tab) 500 mg PO Q6HR PRN PRN Reason: Fever and/ or Pain Last Admin: 11/22/21 05:37 Dose: 500 mg Documented by: Albuterol/Ipratropium (Ipratropium-Albuterol 3 Ml Neb) 3 ml INHALATION RT-Q4H PRN PRN Reason: Shortness Of Breath Or Wheezing Last Admin: 11/16/21 06:55 Dose: 3 ml Documented by: Albuterol/Ipratropium (Ipratropium-Albuterol 3 Ml Neb) 3 ml INHALATION RT-QID [facility] Last Admin: 11/23/21 11:39 Dose: 3 ml Documented by: Amiodarone HCl (Amiodarone 200 Mg Tab) 200 mg PO BID [facility] Last Admin: 11/23/21 08:55 Dose: 200 mg Documented by: Apixaban (Apixaban 5 Mg Tab) 5 mg PO BID [facility]; Protocol Last Admin: 11/23/21 08:54 Dose: 5 mg Documented by: Ascorbic Acid (Ascorbic Acid 500 Mg Tab) 1,000 mg PO DAILY [facility] Last Admin: 11/23/21 08:55 Dose: 1,000 mg Documented by: Aspirin (Aspirin 81 Mg) 81 mg PO DAILY [facility] Last Admin: 11/23/21 08:54 Dose: 81 mg Documented by: Atorvastatin Calcium (Atorvastatin 80 Mg Tab) 80 mg PO DAILY [facility] Last Admin: 11/23/21 08:55 Dose: 80 mg Documented by: Budesonide (Budesonide 0.5 Mg/2 Ml Nebu) 0.5 mg INHALATION RT-BID [facility] Last Admin: 11/23/21 08:15 Dose: 0.5 mg Documented by: Cholecalciferol (Cholecalciferol 125 Mcg (5000 Iu) Tablet) 125 mcg PO DAILY [facility] Last Admin: 11/23/21 08:54 Dose: 125 mcg Documented by: Cyanocobalamin (Cyanocobalamin 500 Mcg Tab) 500 mcg PO DAILY [facility] Last Admin: 11/23/21 08:56 Dose: 500 mcg Documented by: Digoxin (Digoxin 125 Mcg Tab) 125 mcg PO DAILY [facility] Last Admin: 11/23/21 08:55 Dose: 125 mcg Documented by: Formoterol Fumarate (Formoterol Fumarate 20 Mcg/2 Ml Nebu) 20 mcg INHALATION RT-BID [facility] Last Admin: 11/23/21 08:15 Dose: 20 mcg Documented by: Guaifenesin/Dextromethorphan (Guaifenesin-Dm 100-10mg/5ml 10 Ml Cup) 10 ml PO Q 6HR PRN PRN Reason: Cough Last Admin: 11/17/21 11:55 Dose: 10 ml Documented by: Heparin Sodium (Porcine) (Heparin Sodium 1,000 Un/Ml (10ml Vl)) 0 unit IV PER PROTOCOL PRN; Protocol PRN Reason: Low PTT Piperacillin Sod/Tazobactam (Sod 3.375 gm/ Sodium Chloride) 100 mls @ 25 mls/hr IVPB Q8HR [facility]; Protocol Insulin Aspart (Insulin Aspart (Novolog) 100 Unit/Ml Vial) 0 unit SQ ACHS [facility]; Protocol Last Admin: 11/23/21 11:43 Dose: Not Given Documented by: Insulin Aspart (Insulin Aspart (Novolog) 100 Unit/Ml Vial) 2 unit SQ AC-TID [facility] Last Admin: 11/23/21 11:43 Dose: Not Given Documented by: Methylprednisolone Sodium Succinate (Methylprednisolone Sod Succi 40 Mg/Ml 1 Ml Vial) 40 mg IV Q8HR [facility] Last Admin: 11/23/21 08:55 Dose: 40 mg Documented by: Metoprolol Tartrate (Metoprolol Tartrate 25 Mg Tab) 75 mg PO TID [facility] Last Admin: 11/23/21 08:54 Dose: 75 mg Documented by: Naloxone HCl (Naloxone 0.4 Mg/Ml 1 Ml Vial) 0.2 mg IV Q2M PRN PRN Reason: Opioid Reversal Pantoprazole Sodium (Pantoprazole 40 Mg/10 Ml Vial) 40 mg IV DAILY [facility] Last Admin: 11/23/21 08:55 Dose: 40 mg Documented by: Zinc Sulfate (Zinc Sulfate 220 Mg Cap) 220 mg PO DAILY [facility] Last Admin: 11/23/21 08:54 Dose: 220 mg Documented by: PHYSICAL EXAMINATION: GENERAL: The patient is alert and oriented x3, tachypneic. Morbidly Obese currently on 2-3 L via nasal cannula and being placed on BiPAP with an FiO2 of 32% and PEEP of 5 HEENT: Pupils are round and equally reacting to light. EOMI. No scleral icterus. No conjunctival pallor. Normocephalic, atraumatic. No pharyngeal erythema. No thyromegaly. CARDIOVASCULAR: S1 and S2 muffled. Irregularly irregular rhythm, A. fib on the monitor PULMONARY: Decreased air entry with some mild expiratory wheezing on exam , crackles noted at the bases, diminished air entry more prominent on the right ABDOMEN: Soft, obese, non-tender, nondistended, normoactive bowel sounds. No palpable organomegaly. MUSCULOSKELETAL: No joint swelling or deformity. EXTREMITIES: No cyanosis, clubbing, mild pedal edema improved compared to yesterday. NEUROLOGICAL: Gross neurological examination did not reveal any focal deficits. Diffusely weak SKIN: No rashes. Chronic discoloration noted on bilateral lower extremities Assessment: -Acute on chronic hypercapnic and hypoxic respiratory failure: Secondary to COPD exacerbation -Respiratory acidosis secondary to CO2 retention. Patient has a compensated metabolic alkalosis -Peripheral edema: Secondary to obesity and venous insufficiency, improved -Elevated random glucose, most likely steroid-induced, A1C 6.0 consistent with pre-diabetes -Atrial fibrillation with rapid and regular rate, a flutter, and continued on oral amiodarone and metoprolol., Being started on digoxin, followed closely by cardiology -Ischemic cardiomyopathy with EF of 35% -Coronary artery disease with history of stents in the past -Hypertension -Hypoventilation obesity possibly of sleep apnea will need another sleep study in the outpatient setting -Hyperkalemia secondary to KRISTOPHER inhibitor use, improved -Hyperlipidemia -Obesity -DVT prophylaxis: Patient is on anticoagulation with Eliquis -No code Plan: Recommend continue with current medications and current consultations of pulmonary and cardiology following closely. Patient was currently maintained on 2-3 L via nasal cannula although breathing has worsened and patient being placed back on BiPAP and stat ABG was ordered. Recommend scheduled use of BiPAP at 8 PM to 8 AM and as needed. Case management following working on discharge planning. Patient is maintained on IV steroids , and breathing inhalational treatments and will continue. Patient working with PT/OT daily for continued weakness. Cardiology following closely and patient is now on oral amiodarone, metoprolol, digoxin, and eliquis and will continue. Recommend continued telemetry monitoring. Patient is tolerating diet. Recommend Accu-Cheks before meals and at bedtime and close monitoring and continue with sliding scale as needed as patient is on high-dose steroids. Encouraged increase activity as tolerated. PT/OT therapy working with the patient daily. Pulmonary and cardiology continue to follow closely. Possible was transferred out of the ICU yesterday and currently on selected unit. Recommend repeat labs and follow-up chest x-ray in the morning. Patient is also being started on IV antibiotics. Due to multiple Medical issues, prognosis is extremely guarded. The impression and plan of care has been dictated by Jaclyn Obregon, nurse practitioner as directed. MD Shai I have performed a history and examination and MDM of this patient, discussed the same with the dictator, and agree with the dictator's assessment and plan as written ,documented as a scribe. Based on total visit time, I have performed more than 50% of the visit. Total number of minutes spent on this visit, 20 minutes. Any additional findings or plans will be noted. Objective - Vital Signs Vital signs: Vital Signs Temp 98.0 F 11/23/21 04:00 Pulse 80 11/23/21 08:32 Resp 24 11/23/21 08:00 BP 141/87 11/23/21 08:00 Pulse Ox 96 11/23/21 08:15 Intake & Output 11/22/21 11/23/21 11/23/21 18:59 06:59 18:59 Intake Total 440 1080 Output Total 500 Balance -60 1080 Intake: Oral 440 1080 Output: Urine 500 Other: Voiding Method Urinal Urinal - Labs CBC & Chem 7: 11/23/21 06:53 11/23/21 06:53 Labs: Abnormal Lab Results - Last 24 Hours (Table) 11/22/21 11/22/21 11/22/21 Range/Units 09:44 09:44 12:21 WBC 12.4 H (3.8-10.6) k/uL RBC 4.05 L (4.30-5.90) m/uL MCV 108.3 H (80.0-100.0) fL MCHC 30.6 L (31.0-37.0) g/dL Neutrophils # 11.3 H (1.3-7.7) k/uL Lymphocytes # 0.2 L (1.0-4.8) k/uL Potassium (3.5-5.1) mmol/L Chloride 86 L (98-107) mmol/L Carbon Dioxide 43 H* (22-30) mmol/L BUN 54 H (9-20) mg/dL Glucose 213 H (74-99) mg/dL POC Glucose (mg/dL) 154 H (75-99) mg/dL 11/22/21 11/22/21 11/23/21 Range/Units 16:35 20:10 06:02 WBC (3.8-10.6) k/uL RBC (4.30-5.90) m/uL MCV (80.0-100.0) fL MCHC (31.0-37.0) g/dL Neutrophils # (1.3-7.7) k/uL Lymphocytes # (1.0-4.8) k/uL Potassium (3.5-5.1) mmol/L Chloride (98-107) mmol/L Carbon Dioxide (22-30) mmol/L BUN (9-20) mg/dL Glucose (74-99) mg/dL POC Glucose (mg/dL) 117 H 195 H 172 H (75-99) mg/dL 11/23/21 11/23/21 Range/Units 06:53 06:53 WBC 15.6 H (3.8-10.6) k/uL RBC (4.30-5.90) m/uL MCV 106.7 H (80.0-100.0) fL MCHC (31.0-37.0) g/dL Neutrophils # 14.4 H (1.3-7.7) k/uL Lymphocytes # 0.2 L (1.0-4.8) k/uL Potassium 5.2 H (3.5-5.1) mmol/L Chloride 88 L (98-107) mmol/L Carbon Dioxide 45 H* (22-30) mmol/L BUN 54 H (9-20) mg/dL Glucose 165 H (74-99) mg/dL POC Glucose (mg/dL) (75-99) mg/dL
[2021-11-23 13:05] LABS: ABG Base Excess 26.2 mmol/L; ABG Oxygen Saturation 96.7 % (94-97); ABG PH 7.35 (7.35-7.45); ABG PO2 96 mmHg (83-108); ABG TCO2 55 mmol/L (19-24); Allen Test Performed? Yes
[2021-11-23 13:07] LABS: ABG HCO3 52 mmol/L (21-25); ABG PCO2 94 mmHg (35-45)
--- NOTE | 2021-11-23 13:48 | P.PN ---
Subjective This is a 66-year-old male with a past medical history of hypertension, dyslipidemia, coronary artery disease with prior PCI OM2 and mid LAD in 09/2017 and PCI proximal circumflex in 11/2018, ischemic cardiomyopathy with EF of 35%, COPD. He follows with Dr. Funes. We have been consulted for atrial fibrillation with RVR. Patient presents to the emergency department on 11/15/2021 for complaints of shortness of breath. Found to be in acute hypoxic respiratory failure, acute exacerbation of COPD, and found to have right lower lobe consolidation highly suggestive underlying pneumonia in the right lung base. He was initially admitted to the ICU requiring BIPAP. Patient went into atrial fibrillation with RVR and cardiology was consulted. Echocardiogram revealed EF of 2530%, global hypokinesis, mild to moderate mitral regurgitation, mild tricuspid regurgitation 11/23/2021 Patient was transferred out of the ICU, seen today on the 3S cardiac stepdown unit. He states he is feeling, well continues to be short of breath, cough and sputum production. On 2L nasal cannula. Telemetry reviewed patient in atrial fibrillation rates are relatively controlled in the 80s-90s, occasionally tachycardic this morning with HR 110 He's currently maintained on amiodarone 200 mg twice a day, Eliquis 5 mg twice a day, aspirin 81 mg daily, atorvastatin 80 mg daily, IV Lasix 40 mg daily, metoprolol tartrate 75 mg 3 times a day, digoxin 125mcg daily Labs: Sodium 139, potassium 5.2, BUN 54, stroke in 0.8, WBC 15.6, hemoglobin 14 .8, platelets 264 GENERAL: In no acute distress, appears short of breath. NECK: Supple without JVD LUNGS: Breath sounds diffuse rhonci to auscultation bilaterally. Respiration equal and unlabored. HEART: Irregular rate and rhythm without murmurs, rubs or gallops. S1 and S2 heard. EXTREMITIES: Normal range of motion, no edema. No clubbing or cyanosis. Peripheral pulses intact. ASSESSMENT Persistent atrial fibrillation with RVR, on Eliquis Acute on chronic hypoxic respiratory failure COPD exacerbation Right lower lobe Pneumonia Chronic heart failure with reduced ejection fraction Ischemic cardiomyopathy Coronary artery disease with prior PCI OM2 and mid LAD in 09/2017 and PCI proximal circumflex in 11/2018 Hypertension Dyslipidemia Obesity BMI 42 PLAN Continue present medical therapy with amiodarone, Eliquis, statin, Digoxin, metoprolol tartrate Continue cardiac telemetry Further recommendations based on clinical course Nurse Practitioner note has been reviewed, I agree with a documented findings and plan of care. Patient was seen and examined. Objective - Vital Signs Vital signs: Vital Signs Temp 98.0 F 11/23/21 04:00 Pulse 72 11/23/21 11:52 Resp 52 H 11/23/21 11:44 BP 169/90 11/23/21 11:44 Pulse Ox 96 11/23/21 11:44 Intake & Output 11/22/21 11/23/21 11/23/21 18:59 06:59 18:59 Intake Total 440 1080 118 Output Total 500 500 Balance -60 1080 -382 Intake: Oral 440 1080 118 Output: Urine 500 500 Other: Voiding Method Urinal Urinal Urinal - Labs CBC & Chem 7: 11/23/21 06:53 11/23/21 06:53 Labs: Abnormal Lab Results - Last 24 Hours (Table) 11/22/21 11/22/21 11/23/21 Range/Units 16:35 20:10 06:02 WBC (3.8-10.6) k/uL MCV (80.0-100.0) fL Neutrophils # (1.3-7.7) k/uL Lymphocytes # (1.0-4.8) k/uL ABG pCO2 (35-45) mmHg ABG HCO3 (21-25) mmol/L ABG Total CO2 (19-24) mmol/L Potassium (3.5-5.1) mmol/L Chloride (98-107) mmol/L Carbon Dioxide (22-30) mmol/L BUN (9-20) mg/dL Glucose (74-99) mg/dL POC Glucose (mg/dL) 117 H 195 H 172 H (75-99) mg/dL 11/23/21 11/23/21 11/23/21 Range/Units 06:53 06:53 11:36 WBC 15.6 H (3.8-10.6) k/uL MCV 106.7 H (80.0-100.0) fL Neutrophils # 14.4 H (1.3-7.7) k/uL Lymphocytes # 0.2 L (1.0-4.8) k/uL ABG pCO2 (35-45) mmHg ABG HCO3 (21-25) mmol/L ABG Total CO2 (19-24) mmol/L Potassium 5.2 H (3.5-5.1) mmol/L Chloride 88 L (98-107) mmol/L Carbon Dioxide 45 H* (22-30) mmol/L BUN 54 H (9-20) mg/dL Glucose 165 H (74-99) mg/dL POC Glucose (mg/dL) 162 H (75-99) mg/dL 11/23/21 Range/Units 12:47 WBC (3.8-10.6) k/uL MCV (80.0-100.0) fL Neutrophils # (1.3-7.7) k/uL Lymphocytes # (1.0-4.8) k/uL ABG pCO2 94 H* (35-45) mmHg ABG HCO3 52 H* (21-25) mmol/L ABG Total CO2 55 H (19-24) mmol/L Potassium (3.5-5.1) mmol/L Chloride (98-107) mmol/L Carbon Dioxide (22-30) mmol/L BUN (9-20) mg/dL Glucose (74-99) mg/dL POC Glucose (mg/dL) (75-99) mg/dL
[2021-11-23 16:32] LABS: Glucose,Whole Blood 121 mg/dL (75-99)
[2021-11-23] MEDS: PIPERACILLIN-TAZOBACTAM 3.375 GM in SODIUM CHLORIDE 0.9% 100 ML IVPB SCH (17:17)
[2021-11-23 20:38] LABS: Glucose,Whole Blood 155 mg/dL (75-99)
[2021-11-24] MEDS: methylPREDNISolone SOD SUCCI 40 MG/ML 1 ML VIAL IV SCH ×2 (00:33→09:08)
[2021-11-24] MEDS: PIPERACILLIN-TAZOBACTAM 3.375 GM in SODIUM CHLORIDE 0.9% 100 ML IVPB SCH ×4 (00:33→23:40)
[2021-11-24] MEDS: INSULIN ASPART (NovoLOG) 100 UNIT/ML VIAL SQ SCH ×7 (06:40→21:16)
[2021-11-24 06:43] LABS: Glucose,Whole Blood 119 mg/dL (75-99)
[2021-11-24 07:23] LABS: Calcium 8.3 mg/dL (8.4-10.2)
--- NOTE | 2021-11-24 07:26 | XR ---
EXAMINATION TYPE: XR chest 1V portable DATE OF EXAM: 11/24/2021 HISTORY: Shortness of breath. COMPARISON: 11/23/2021 TECHNIQUE: Single view of the chest is submitted. FINDINGS: Demonstrated are scattered senescent parenchymal change. Improving right basilar infiltrate. The heart is stable. Hilar and mediastinal structures are within normal limits. Degenerative changes are seen of the dorsal spine. IMPRESSION: 1. Improving right basilar infiltrate.
[2021-11-24] MEDS: FORMOTEROL FUMARATE 20 MCG/2 ML NEBU INHALATION SCH (07:34)
[2021-11-24] MEDS: IPRATROPIUM-ALBUTEROL 3 ML NEB INHALATION SCH ×4 (07:34→21:24)
[2021-11-24] MEDS: BUDESONIDE 0.5 MG/2 ML NEBU INHALATION SCH (07:34)
[2021-11-24 07:38] LABS: Basophils % (A) 0 %; Eosinophils % (A) 0 %; HCT 48.5 % (39.0-53.0); HGB 14.9 gm/dL (13.0-17.5); Hypochromasia Moderate; Lymphocytes # (A) 0.2 k/uL (1.0-4.8); Lymphocytes % (A) 1 %; MCH 33.3 pg (25.0-35.0); MCHC 30.8 g/dL (31.0-37.0); MCV 108.3 fL (80.0-100.0); Macrocytosis Marked; Mean Platelet Volume 7.7; Monocytes # (A) 0.6 k/uL (0-1.0); Monocytes % (A) 4 %; Neutrophils # (A) 13.4 k/uL (1.3-7.7); Neutrophils % (A) 92 %; Platelet Count 224 k/uL (150-450); RBC 4.48 m/uL (4.30-5.90); RDW 13.8 % (11.5-15.5); WBC 14.5 k/uL (3.8-10.6)
[2021-11-24] MEDS: ATORVASTATIN 80 MG TAB PO SCH (09:08)
[2021-11-24] MEDS: DIGOXIN 125 MCG TAB PO SCH (09:08)
[2021-11-24] MEDS: PANTOPRAZOLE 40 MG/10 ML VIAL IV SCH (09:08)
[2021-11-24] MEDS: METOPROLOL TARTRATE 25 MG TAB PO SCH ×3 (09:08→21:16)
[2021-11-24] MEDS: CHOLECALCIFEROL 125 MCG (5000 IU) TABLET PO SCH (09:09)
[2021-11-24] MEDS: ASPIRIN 81 MG PO SCH (09:09)
[2021-11-24] MEDS: AMIODARONE 200 MG TAB PO SCH ×2 (09:09→21:16)
[2021-11-24] MEDS: APIXABAN 5 MG TAB PO SCH ×2 (09:09→21:16)
[2021-11-24] MEDS: ZINC SULFATE 220 MG CAP PO SCH (09:09)
[2021-11-24] MEDS: ASCORBIC ACID 500 MG TAB PO SCH (09:09)
[2021-11-24] MEDS: CYANOCOBALAMIN 500 MCG TAB PO SCH (09:16)
--- NOTE | 2021-11-24 11:23 | P.PN ---
Subjective Progress Note Date: 11/24/21 Principal diagnosis: Shortness of breath. On the 11/20/2021 patient seen in follow-up in intensive care unit, he is awake and alert, in no acute distress, is currently on 2 L of oxygen pulse ox is 95%, he did wear BiPAP support last night with pressures of 10 and 5 and FiO2 of 30%. He is oriented 3, responding to questions appropriately, he denies any worsening dyspnea, no cough, no complaints of chest discomfort, his chest x-ray today has been reviewed showing bilateral airspace disease, no evident pneumothorax. Patient continues on nebulized bronchodilators, IV Solu-Medrol 60 mg every 6 hours, his amiodarone drip has been discontinued, and patient is being transitioned to oral amiodarone. Patient continues on Eliquis for new onset atrial fibrillation with RVR during this admission. Currently remains in atrial fibrillation, and patient still a little tachycardic with a rate in the low 100s. Cardiology is following, and patient continues on metoprolol 75 mg 3 times daily. Lung sounds are diminished, no wheezing, no rhonchi or rales. Patient is tolerating oral intake on his had no acute events overnight, his is at the bedside. She was updated on patient's progress. On 11/21/2021 patient seen in follow-up in the intensive care unit, he is awake and alert, in no acute distress, is currently on 2 L of oxygen breathing comfortably, pulse ox is 97%, he did wear BiPAP support last night with pressures of 1005 and FiO2 of 30%.'s been afebrile, hemodynamically stable, he is in A. fib with a rate of 116 BPM. Lung sounds today reveal some mild whee zing, no rhonchi, no crackles. His diuretics remain on hold, but patient does have 1+ pretibial and ankle and pedal edema. He states he takes Lasix on an as- needed basis at home, today's labs have been reviewed showing sodium of 138, potassium is 4.6, chloride is 86, CO2 of 51, BUN of 51 creatinine is 1.03. Patient is in -710 mL negative net fluid balance. And patient was in the 1.9 L net fluid balance over the last 24 hours prior to that. He has been on Solu- Medrol for the past 4 days, less bronchospastic, breathing easier, and Solu- Medrol will be dropped to 40 mg every 8 hours. Patient was up in the chair yesterday, he stated he ambulated in the room tolerated activity fairly well. Patient currently remains on Lopressor 75 mg 3 times a day for rate control, and Eliquis 5 mg twice a day for anticoagulation, cardiology is closely following. Otherwise no acute events overnight, patient is stable to transfer out of intensive care unit today, his overnight pulse oximetry study was not completed last night due to some confusion on what settings it needed to be completed on. He will be completed tonight, and this needs to be done on his home dose O2 at 2 L On 11/22/2021 patient seen in follow-up in the intensive care unit, he is awake and alert, in no acute distress, currently on 2 L oxygen pulse ox is 98%, hemodynamically stable, remains in A. fib, slightly tachycardic, blood pressure stable. Patient had overnight pulse oximetry study, the longest continuous time with saturation of less than 80% was at around midnight, there were 5 desaturation events over 3 minutes duration. There were 26 desaturation events of less than 3 minutes duration during which the mean high was 98.2%, and the mean low was 91.7% desaturation event index was 3.7/h. No acute events overn ight, still bronchospastic, the patient has lower extremity swelling. Follow-up chest x-ray has been obtained and reviewed showing persistent patchy basilar infiltrate compatible with pneumonia . Improvement in the appearance of airspace disease at the right lung base Progress note dated 11/23/2021. The patient was transferred out of the intensive care unit yesterday. Currently, he remains on 2 L nasal cannula. Earlier today, the patient was given Lasix 40 mg IV push. More recently, the patient was placed on BiPAP, and, a stat blood gas was ordered. He apparently does not like using the CPAP device at nighttime. White count 15.6, hemoglobin 14.8, hematocrit 47.7, and platelet count 264,000. Sodium 139, potassium 5.2, chlorides 88, CO2 45, anion gap 6, BUN 54, and creatinine 0.89. Patient has a patchy infiltrate at the right lung base. The patient is a DO NOT RESUSCITATE. The patient remains on Solu-Medrol, albuterol, ipratropium bromide, formoterol, and budesonide. Progress note dated 11/24/2021. The patient is seen today in room 355. Today, I signed papers for a Trilogy ventilator. Currently, the patient is on 4 L nasal cannula. Saturations are 96%. His temperature is 96.9, and heart rate is 86. Respiratory rate is in the low 20s. He appears not to have any respiratory distress. He may or may not be discharged today. At nighttime, the patient is using BiPAP with settings of IPAP 12, EPAP 5, with an FiO2 of 32%. He does not like wearing the BiPAP all n ight. Today's labs include a white count 14.5, hemoglobin 14.9, hematocrit 48.5, and platelet count 224,000. Sodium 141, potassium 5, chlorides 89, CO2 46, anion gap 6, BUN 62, and creatinine 1.02. Calcium is 8.3. Chest x-ray show some minimal basilar atelectasis or infiltrate. Right basilar infiltrate is improved. Objective - Vital Signs Vital signs: Vital Signs Temp 96.9 F L 11/24/21 08:00 Pulse 86 11/24/21 08:00 Resp 30 H 11/24/21 08:00 BP 160/75 11/24/21 08:00 Pulse Ox 96 11/24/21 08:00 Intake & Output 11/23/21 11/24/21 11/24/21 18:59 06:59 18:59 Intake Total 118 240 Output Total 750 435 Balance -632 -435 240 Intake: Oral 118 240 Output: Urine 750 435 Other: Voiding Method Urinal Urinal Urinal - Exam Oriented 3, mild conversational dyspnea. Currently on O2 at 4 L. Saturations are 96%. HEENT examination is grossly unremarkable. Neck supple. Full range of motion. No adenopathy thyromegaly or neck vein distention. Cardiovascular examination reveals regular rhythm rate. S1-S2 normal. No S3 or S4. No discernible murmur noted. Heart rate 74 bpm. Heart sounds are distant. Lungs reveal scattered diffuse rhonchi. Minimal crackles. Minimal wheezes. Breath sounds equal bilaterally but diminished throughout. Abdomen obese. Bowel sounds are noted. Extremities are intact. No cyanosis or clubbing. Trace edema noted. Skin is without rash or lesion. Neurologic examination is brief but nonfocal. - Labs CBC & Chem 7: 11/24/21 06:26 11/24/21 06:26 Labs: Abnormal Lab Results - Last 24 Hours (Table) 11/23/21 11/23/21 11/23/21 Range/Units 11:36 12:47 16:30 WBC (3.8-10.6) k/uL MCV (80.0-100.0) fL MCHC (31.0-37.0) g/dL Neutrophils # (1.3-7.7) k/uL Lymphocytes # (1.0-4.8) k/uL Macrocytosis ABG pCO2 94 H* (35-45) mmHg ABG HCO3 52 H* (21-25) mmol/L ABG Total CO2 55 H (19-24) mmol/L Chloride (98-107) mmol/L Carbon Dioxide (22-30) mmol/L BUN (9-20) mg/dL Glucose (74-99) mg/dL POC Glucose (mg/dL) 162 H 121 H (75-99) mg/dL Calcium (8.4-10.2) mg/dL 11/23/21 11/24/21 11/24/21 Range/Units 20:28 06:26 06:26 WBC 14.5 H (3.8-10.6) k/uL MCV 108.3 H (80.0-100.0) fL MCHC 30.8 L (31.0-37.0) g/dL Neutrophils # 13.4 H (1.3-7.7) k/uL Lymphocytes # 0.2 L (1.0-4.8) k/uL Macrocytosis Marked A ABG pCO2 (35-45) mmHg ABG HCO3 (21-25) mmol/L ABG Total CO2 (19-24) mmol/L Chloride 89 L (98-107) mmol/L Carbon Dioxide 46 H* (22-30) mmol/L BUN 62 H (9-20) mg/dL Glucose 133 H (74-99) mg/dL POC Glucose (mg/dL) 155 H (75-99) mg/dL Calcium 8.3 L (8.4-10.2) mg/dL 11/24/21 Range/Units 06:39 WBC (3.8-10.6) k/uL MCV (80.0-100.0) fL MCHC (31.0-37.0) g/dL Neutrophils # (1.3-7.7) k/uL Lymphocytes # (1.0-4.8) k/uL Macrocytosis ABG pCO2 (35-45) mmHg ABG HCO3 (21-25) mmol/L ABG Total CO2 (19-24) mmol/L Chloride (98-107) mmol/L Carbon Dioxide (22-30) mmol/L BUN (9-20) mg/dL Glucose (74-99) mg/dL POC Glucose (mg/dL) 119 H (75-99) mg/dL Calcium (8.4-10.2) mg/dL Assessment and Plan Assessment: #1. Acute exacerbation of COPD with secondary acute on chronic hypoxic and hypercapnic respiratory failure complicated by a right lower lobe consolidation consistent with pneumonia, possibly community acquired. #2. Altered mental status, related to acute on chronic hypercapnic respiratory failure, improved with BiPAP support, and medical treatment. #3. Chronic hypoxic respiratory failure patient usually wears 2-3 L of oxygen by nasal cannula on a regular basis. #4. Advanced COPD with FEV1 25% predicted. #5. A. fib with RVR, patient currently is being transitioned to oral amiodarone, and remains on metoprolol 75 mg 3 times a day and Eliquis. #6. Coronary artery disease with coronary artery stenting involving the circumflex in November 2018, and previous stenting of the LAD and circumflex in 2007. #7. 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 #8. Bronchogenic cyst of the lung on the right side, benign. #9. Hypertension. #10. Hyperlipidemia. #11. Obesity with BMI 43.3. Plan: Plan dated 11/23/2021. The patient did receive Lasix, 40 mg IV push today. The patient is currently being evaluated for possible Trilogy ventilator. The patient does express concerns about using CPAP throughout the night. Subsequent to me seeing him, the nurse notified me that his respiratory status has declined a bit. We recommended BiPAP therapy. In addition, I recommended a stat blood gas. The patient is a DO NOT RESUSCITATE patient. He has very poor pulmonary function. Labs, x-rays, and medications are reviewed. I will add some antibiotic to his regimen. Plan dated 11/24/2021. The patient's chest x-ray in my opinion is improved. The patient's on 4 L nasal cannula. The patient could be considered for discharge, although I will leave that up to the primary service. I did sign paperwork for a Trilogy ventilator. Today I discontinued the patient's Solu-Medrol in favor of prednisone 40 mg a day. Also, the patient's formoterol and budesonide or discontinued in favor of Symbicort, 2 puffs twice a day. The patient is a DO NOT RESUSCITATE patient. Labs, x-rays, and medications are reviewed. Overall prognosis remains guarded. We will continue to follow make recommendations where appropriate. Time with Patient: Less than 30
[2021-11-24 11:44] LABS: Glucose,Whole Blood 219 mg/dL (75-99)
--- NOTE | 2021-11-24 12:43 | P.PN ---
Subjective This is a 66-year-old male with a past medical history of hypertension, dyslipidemia, coronary artery disease with prior PCI OM2 and mid LAD in 09/2017 and PCI proximal circumflex in 11/2018, ischemic cardiomyopathy with EF of 35%, COPD. He follows with Dr. Funes. We have been consulted for atrial fibrillation with RVR. Patient presents to the emergency department on 11/15/2021 for complaints of shortness of breath. Found to be in acute hypoxic respiratory failure, acute exacerbation of COPD, and found to have right lower lobe consolidation highly suggestive underlying pneumonia in the right lung base. He was initially admitted to the ICU requiring BIPAP. Patient went into atrial fibrillation with RVR and cardiology was consulted. Echocardiogram revealed EF of 2530%, global hypokinesis, mild to moderate mitral regurgitation, mild tricuspid regurgitation 11/24/2021 Patient seen at bedside, He states he is feeling, his breathing has improved On 2L nasal cannula. Telemetry reviewed patient in atrial flutter rates are relatively controlled in the 70s He's currently maintained on amiodarone 200 mg twice a day, Eliquis 5 mg twice a day, aspirin 81 mg daily, atorvastatin 80 mg daily, IV Lasix 40 mg daily, metoprolol tartrate 75 mg 3 times a day, digoxin 125mcg daily Chest xray with improvement Labs: Sodium 141, potassium 5.0, BUN 62, serum creatinine 1.0, chloride 89, Co2 46. GENERAL: In no acute distress, appears short of breath. NECK: Supple without JVD LUNGS: Breath sounds diffuse rhonci to auscultation bilaterally. Respiration equal and unlabored. HEART: Irregular rate and rhythm without murmurs, rubs or gallops. S1 and S2 heard. EXTREMITIES: Normal range of motion, no edema. No clubbing or cyanosis. Peripheral pulses intact. ASSESSMENT Persistent atrial fibrillation with RVR, on Eliquis Typical atrial flutter Acute on chronic hypoxic respiratory failure COPD exacerbation Right lower lobe Pneumonia Chronic heart failure with reduced ejection fraction Ischemic cardiomyopathy Coronary artery disease with prior PCI OM2 and mid LAD in 09/2017 and PCI proximal circumflex in 11/2018 Hypertension Dyslipidemia Obesity BMI 42 PLAN Continue present medical therapy with amiodarone, Eliquis, statin, Digoxin, metoprolol tartrate Continue cardiac telemetry Further recommendations based on clinical course Nurse Practitioner note has been reviewed, I agree with a documented findings and plan of care. Patient was seen and examined. Objective - Vital Signs Vital signs: Vital Signs Temp 96.9 F L 11/24/21 08:00 Pulse 74 11/24/21 12:00 Resp 16 11/24/21 12:00 BP 139/84 11/24/21 12:00 Pulse Ox 95 11/24/21 12:00 Intake & Output 11/23/21 11/24/21 11/24/21 18:59 06:59 18:59 Intake Total 118 240 Output Total 750 435 Balance -632 -435 240 Intake: Oral 118 240 Output: Urine 750 435 Other: Voiding Method Urinal Urinal Urinal - Labs CBC & Chem 7: 11/24/21 06:26 11/24/21 06:26 Labs: Abnormal Lab Results - Last 24 Hours (Table) 11/23/21 11/23/21 11/23/21 Range/Units 12:47 16:30 20:28 WBC (3.8-10.6) k/uL MCV (80.0-100.0) fL MCHC (31.0-37.0) g/dL Neutrophils # (1.3-7.7) k/uL Lymphocytes # (1.0-4.8) k/uL Macrocytosis ABG pCO2 94 H* (35-45) mmHg ABG HCO3 52 H* (21-25) mmol/L ABG Total CO2 55 H (19-24) mmol/L Chloride (98-107) mmol/L Carbon Dioxide (22-30) mmol/L BUN (9-20) mg/dL Glucose (74-99) mg/dL POC Glucose (mg/dL) 121 H 155 H (75-99) mg/dL Calcium (8.4-10.2) mg/dL 11/24/21 11/24/21 11/24/21 Range/Units 06:26 06:26 06:39 WBC 14.5 H (3.8-10.6) k/uL MCV 108.3 H (80.0-100.0) fL MCHC 30.8 L (31.0-37.0) g/dL Neutrophils # 13.4 H (1.3-7.7) k/uL Lymphocytes # 0.2 L (1.0-4.8) k/uL Macrocytosis Marked A ABG pCO2 (35-45) mmHg ABG HCO3 (21-25) mmol/L ABG Total CO2 (19-24) mmol/L Chloride 89 L (98-107) mmol/L Carbon Dioxide 46 H* (22-30) mmol/L BUN 62 H (9-20) mg/dL Glucose 133 H (74-99) mg/dL POC Glucose (mg/dL) 119 H (75-99) mg/dL Calcium 8.3 L (8.4-10.2) mg/dL 11/24/21 Range/Units 11:42 WBC (3.8-10.6) k/uL MCV (80.0-100.0) fL MCHC (31.0-37.0) g/dL Neutrophils # (1.3-7.7) k/uL Lymphocytes # (1.0-4.8) k/uL Macrocytosis ABG pCO2 (35-45) mmHg ABG HCO3 (21-25) mmol/L ABG Total CO2 (19-24) mmol/L Chloride (98-107) mmol/L Carbon Dioxide (22-30) mmol/L BUN (9-20) mg/dL Glucose (74-99) mg/dL POC Glucose (mg/dL) 219 H (75-99) mg/dL Calcium (8.4-10.2) mg/dL
--- NOTE | 2021-11-24 15:06 | P.PN ---
Subjective Progress Note Date: 11/24/21 Patient is a 66-year-old male came in the with compensative shortness of breath does have history of COPD uses about 2 L of oxygen at home patient was severely hypoxic and hypercapnic with the pCO2 of greater than 120 patient was on BiPAP. Patient is presently being the BiPAP still wheezing. Patient doesn't have any pneumonia on the chest x-ray. Patient is on the systemic steroids in the form of IV steroids. Patient denied any fever chills patient is coughing not not bringing up much at this time. Patient baseline pCO2 appears to be around 70. Patient is not acidotic anymore pCO2 has gone down to 64 still bit hypoxic. Patient also has history of atrial fibrillation when he came and patient was in A. fib with rapid and regular rate secondary to hypoxemia this resolved and patient presently rate controlled still in A. fib, patient was started on the Cardizem drip was later weaned off and the patient was started on oral metoprolol and Eliquis. Patient had bilateral lower extremity swelling on admission which resolved at this time patient takes a low-dose of Lasix had a normal ejection fraction the past patient is also on KRISTOPHER inhibitor. Patient blood pressure is not elevated patient doesn't have any systolic dysfunction patient potassium is elevated because of these reasons this will be discontinued. Patient the creatinine went up from 0.66-1.07. Patient is presently on 4 L of oxygen. She denied mild elevation of troponin 0.058. Patient is obese, didn't have any history of sleep apnea but probably will need another sleep study as his previous sleep study was many years ago. 11/17/2021 Patient is seen in follow-up with morning continues to be closely monitored in the ICU with cardiology and pulmonary following closely. Chest x-ray this morning shows increasing infiltrate of the right lower lobe with mild stable stranding density at the left lower lobe. Patient is continued on IV antibiotics in the form of ceftriaxone along with oral Zithromax and also continues with breathing inhalational treatments and IV Solu-Medrol at 60 mg every 6 and will continue. Patient was rate controlled on oral Lopressor although heart rate became elevated and uncontrolled with a flutter and placed back on IV Cardizem and is currently at 10 mL per hour with cardiology following closely. Patient also continues on oral anticoagulant of eliquis and will continue. Patient is receiving IV Lasix twice daily as well. Patient continues on 4 L of oxygen via nasal cannula and denies any worsening shortness of breath although continues to be short of breath with minimal exertion. Patient reports to using BiPAP at night. Patient is afebrile and patient denies any chest pain or palpitations at this time. Patient's blood sugars have been elevated most likely steroid-induced as there is no history of diabetes and will add sliding scale and continue with Accu-Cheks before meals and at bedtime. 11/18/2021 Patient evaluated today resting in bed in ICU, being followed closely by cardiology and pulmonary. Patient today in atrial flutter in the 130's to 140's and was started back on cardizem gtt at 10 mLs per hour. Heart rate has improved into the 70s. Chest xray today persistent right lower lobe infiltrate and strandy density left lower lobe. Continues on IV ceftriaxone and oral azithromycin, updrafts, pulmicort, IV solu-medrol, IV lasix 40 BID. Patient significantly bronchospastic during examination, unable to take a deep breath without coughing, WBC 7.8, hgb 12.4, sodium 137, potassium 4.8, chloride 87, CO2 46, patient did wear the BiPAP most of the night. States earlier this morning he had some midsternal chest discomfort unable to describe or quantify, but states he was sleeping and it has since resolved. Blood sugars elevated 200's, receiving novolog sliding scale, patient is eating majority of meals will add meal time insulin and monitor. May need to start long acting while on IV steroids. Afebrile, heart rate 98, respirations 30, blood pressure 119/61, 98% on 2L NC. 11/19/2021 Patient evaluated in the ICU today. Patient had an elevated heart rate up in the 170s this morning, Cardizem drip is currently off and he is on amiodarone bolus and infusion. Metoprolol was increased yesterday. Patient did not wear the BiPAP last night states that he felt short of breath while wearing it. Labs today show WBC 9.6, hgb 12.6, sodium 138, potassium 4.7, magnesium 2.2, chloride 85, CO2 44, BUN 47, creatinine slightly elevated at 1.07, blood glucose in the 120s. Chest xray this morning shows stable basilar infiltrates right greater than left. IV lasix was discontinued today. Patient is showing a negative fluid balance, down 1.6 Liters in the last 24 hours. Continues on IV ceftriaxone, PO azithromycin, updrafts, IV solu-medrol, on eliquis. Patient has not had a BM since admission, Patient is being follow closely by pulmonary, cardiology. 11/20/2021 Patient evaluated today in the ICU with at the bedside. Off the amiodarone gtt and now on oral amiodarone 400 mg PO daily, also metoprolol 75 mg po three times a day. Heart rate ranging between 80's to low 100's. Patient states he was able to tolerate the BIPAP last night when sleeping. No wheezing noted on exam today. Labs today show a serum CO2 level of 47 which is increased from yes terday, chloride stable at 85, BUN 51, creat 1.02. Afebrile, blood pressure 129/98, respirations in the 20's, oxygenation 93%. Passing more gas but still with no BM will repeat dose of lactulose today. Currently no complaints of chest, no shortness of breath at rest. Has not gotten up out of bed yet. Patient will undergo PT/OT evaluation today. Also will undergo overnight pulse ox study tonight. Patient is followed closely by cardiology and pulmonary team. 11/21/2021 Patient is seen in follow-up this morning and is being followed closely by pulmonary and cardiology. Patient is off amiodarone drip and on oral amiodarone lung with metoprolol 75 mg 3 times a day and oral anticoagulant. Pulmonary are following closely patient is maintained on IV steroids and being decreased to 40 every 8 and will continue to monitor closely. Patient also receiving breathing inhalational treatments and will continue. Patient currently on 2-3 L via nasal cannula with oxygen saturations of 94%. Patient continues to be dyspneic with minimal exertion and patient is weak and working with physical therapy daily. Plan is to return home with home care and his spouse on discharge. Blood sugars were controlled on current regimen and will continue and continue to recommend Accu-Cheks before meals and at bedtime. 11/22/2021 Patient is seen this morning and continues to be in the ICU currently awaiting a bed available on 3 S. for transfer out of the ICU. Patient was off of BiPAP all night and underwent continuous pulse ox monitoring throughout the night. Patient is currently maintained on 2 L via nasal cannula. Pulmonary and cardiology following closely. On exam patient's heart rate was elevated in the 130s and appears to be atrial fib cardiology following working on medication adjustments. Patient is currently maintained on oral amiodarone 200 mg twice daily along with being started on digoxin and also continues on metoprolol. On exam patient continues with wheezing and diminished breath sounds bilaterally more so on the right. Patient to receive a dose of IV Lasix today. Chest x-ray today shows persistent patchy basilar infiltrates compatible with pneumonia. Patient continues off antibiotics and blood cultures remain negative. Patient continues with significant weakness and working with physical therapy daily. Patient may possibly require BiPAP in the outpatient setting and case management following and working on discharge planning. 11/23/2021 Patient is seen in follow-up this morning recently transferred out of the ICU to the selected unit and is being closely monitored. Patient continues on cardiac telemetry with cardiology and pulmonary medical/surgery registered nurse following closely. Patient continues with extreme shortness of breath and dyspnea with minimal exertion and was maintained on 2-3 L via nasal cannula although becoming more anxious and dyspneic and patient being placed back on BiPAP with an FiO2 of 32% and a PEEP of 5. Patient does normally wear a CPAP at night although not tolerating and strongly recommend patient be on BiPAP scheduled from 8 PM to 8 AM and as needed. Patient to receive another dose of IV Lasix as chest x-ray today shows persistent patchy bilateral areas of infiltrate greater on the right possibly compatible with pneumonia. Patient had been off antibiotic therapy and white blood count mildly elevated at 15.6 which may also be a component of high-dose IV steroids. Patient is continued on IV steroids along with breathing inha lational treatments and will continue. Patient being started on IV antibiotics prophylactically. Blood cultures have been negative. Patient is afebrile. Patient denies chest pain or palpitations. Cardiology also following and patient is maintained on digoxin, oral amiodarone, metoprolol, and eliquis and will continue. Prognosis is guarded. Recommend repeat chest x-ray and labs in the a.m. 11/24/2021 Patient is seen this morning with at the bedside continue to be short of breath and was maintained on BiPAP overnight in case management following working on obtaining BiPAP with necessary equipment for at home. Patient is weak and discussed with family at the bedside about possible ECF although they have made plans to care for him at home and have necessary equipment that they n eed. Family is refusing rehab at this time. Patient continues on IV Zosyn, breathing inhalational treatments, and IV steroids have been transitioned oral with pulmonary following. WBC is 14.5, hemoglobin is stable at 14.9, carbon dioxide is 46, creatinine is 1.02. Blood sugars controlled on current regimen and will continue. Patient denies chest pain or palpitations. Patient is afebrile. She tolerating diet with no reports of nausea or vomiting at this time. Review of systems: Constitutional: reports of fatigue, no reports of fever, or chills Cardiovascular: No reports of chest pain or palpitations Respiratory: reports of shortness of breath and dyspnea with minimal exertion GI: No reports of nausea, vomiting, no reports of diarrhea : No reports of dysuria or retention Neurovascular: reports of generalized weakness All medications have been reviewed Active Medications Acetaminophen (Acetaminophen Tab 500 Mg Tab) 500 mg PO Q6HR PRN PRN Reason: Fever and/ or Pain Last Admin: 11/22/21 05:37 Dose: 500 mg Documented by: Albuterol/Ipratropium (Ipratropium-Albuterol 3 Ml Neb) 3 ml INHALATION RT-Q4H PRN PRN Reason: Shortness Of Breath Or Wheezing Last Admin: 11/16/21 06:55 Dose: 3 ml Documented by: Albuterol/Ipratropium (Ipratropium-Albuterol 3 Ml Neb) 3 ml INHALATION RT-QID [facility] Last Admin: 11/24/21 11:28 Dose: 3 ml Documented by: Amiodarone HCl (Amiodarone 200 Mg Tab) 200 mg PO BID [facility] Last Admin: 11/24/21 09:09 Dose: 200 mg Documented by: Apixaban (Apixaban 5 Mg Tab) 5 mg PO BID [facility]; Protocol Last Admin: 11/24/21 09:09 Dose: 5 mg Documented by: Ascorbic Acid (Ascorbic Acid 500 Mg Tab) 1,000 mg PO DAILY [facility] Last Admin: 11/24/21 09:09 Dose: 1,000 mg Documented by: Aspirin (Aspirin 81 Mg) 81 mg PO DAILY [facility] Last Admin: 11/24/21 09:09 Dose: 81 mg Documented by: Atorvastatin Calcium (Atorvastatin 80 Mg Tab) 80 mg PO DAILY [facility] Last Admin: 11/24/21 09:08 Dose: 80 mg Documented by: Budesonide/Formoterol Fumarate (Symbicort 160-4.5 Mcg Inhaler) 2 puff INHALATION RT-BID [facility] Cholecalciferol (Cholecalciferol 125 Mcg (5000 Iu) Tablet) 125 mcg PO DAILY [facility] Last Admin: 11/24/21 09:09 Dose: 125 mcg Documented by: Cyanocobalamin (Cyanocobalamin 500 Mcg Tab) 500 mcg PO DAILY [facility] Last Admin: 11/24/21 09:16 Dose: 500 mcg Documented by: Digoxin (Digoxin 125 Mcg Tab) 125 mcg PO DAILY [facility] Last Admin: 11/24/21 09:08 Dose: 125 mcg Documented by: Guaifenesin/Dextromethorphan (Guaifenesin-Dm 100-10mg/5ml 10 Ml Cup) 10 ml PO Q6HR PRN PRN Reason: Cough Last Admin: 11/17/21 11:55 Dose: 10 ml Documented by: Heparin Sodium (Porcine) (Heparin Sodium 1,000 Un/Ml (10ml Vl)) 0 unit IV PER PROTOCOL PRN; Protocol PRN Reason: Low PTT Piperacillin Sod/Tazobactam (Sod 3.375 gm/ Sodium Chloride) 100 mls @ 25 mls/hr IVPB Q8HR [facility]; Protocol Last Admin: 11/24/21 09:07 Dose: 25 mls/hr Documented by: Insulin Aspart (Insulin Aspart (Novolog) 100 Unit/Ml Vial) 0 unit SQ ACHS [facility]; Protocol Last Admin: 11/24/21 12:24 Dose: 7 unit Documented by: Insulin Aspart (Insulin Aspart (Novolog) 100 Unit/Ml Vial) 2 unit SQ AC-TID [facility] Last Admin: 11/24/21 12:25 Dose: 2 unit Documented by: Metoprolol Tartrate (Metoprolol Tartrate 25 Mg Tab) 75 mg PO TID [facility] Last Admin: 11/24/21 09:08 Dose: 75 mg Documented by: Naloxone HCl (Naloxone 0.4 Mg/Ml 1 Ml Vial) 0.2 mg IV Q2M PRN PRN Reason: Opioid Reversal Pantoprazole Sodium (Pantoprazole 40 Mg/10 Ml Vial) 40 mg IV DAILY [facility] Last Admin: 11/24/21 09:08 Dose: 40 mg Documented by: Prednisone (Prednisone 20 Mg Tab) 40 mg PO DAILY [facility] Zinc Sulfate (Zinc Sulfate 220 Mg Cap) 220 mg PO DAILY [facility] Last Admin: 11/24/21 09:09 Dose: 220 mg Documented by: PHYSICAL EXAMINATION: GENERAL: The patient is alert and oriented x3, tachypneic. Morbidly Obese currently on 4 L via nasal cannula and continues on BiPAP with an FiO2 of 32% and PEEP of 5 at night HEENT: Pupils are round and equally reacting to light. EOMI. No scleral icterus. No conjunctival pallor. Normocephalic, atraumatic. No pharyngeal erythema. No thyromegaly. CARDIOVASCULAR: S1 and S2 muffled. Irregularly irregular rhythm, A. fib on the monitor PULMONARY: Decreased air entry with some mild expiratory wheezing on exam , crackles noted at the bases, diminished air entry more prominent on the right ABDOMEN: Soft, obese, non-tender, nondistended, normoactive bowel sounds. No palpable organomegaly. MUSCULOSKELETAL: No joint swelling or deformity. EXTREMITIES: No cyanosis, clubbing, mild pedal edema improved compared to yesterday. NEUROLOGICAL: Gross neurological examination did not reveal any focal deficits. Diffusely weak SKIN: No rashes. Chronic discoloration noted on bilateral lower extremities Assessment: -Acute on chronic hypercapnic and hypoxic respiratory failure: Secondary to COPD exacerbation -Respiratory acidosis secondary to CO2 retention. Patient has a compensated metabolic alkalosis -Peripheral edema: Secondary to obesity and venous insufficiency, improved -Elevated random glucose, most likely steroid-induced, A1C 6.0 consistent with pre-diabetes -Atrial fibrillation with rapid and regular rate, a flutter, and continued on oral amiodarone and metoprolol., digoxin, followed closely by cardiology -Ischemic cardiomyopathy with EF of 35% -Coronary artery disease with history of stents in the past -Hypertension -Hypoventilation obesity possibly of sleep apnea will need another sleep study in the outpatient setting -Hyperkalemia secondary to KRISTOPHER inhibitor use, improved -Hyperlipidemia -Obesity -DVT prophylaxis: Patient is on anticoagulation with Eliquis -No code Plan: Recommend continue with current medications and current consultations of pulmonary and cardiology following closely. Patient was currently maintained on 4 L via nasal cannula and to continue on BiPAP at night and as needed. Recommend scheduled use of BiPAP at 8 PM to 8 AM and as needed. Case management following working on discharge planning. Arranging for BiPAP in the outpatient setting. Patient IV steroids and transitioned oral prednisone, and breathing inhalational treatments and will continue. Patient working with PT/OT daily for continued weakness. Cardiology following closely and patient is now on oral amiodarone, metoprolol, digoxin, and eliquis and will continue. Recommend continued telemetry monitoring. Patient is tolerating diet. Recommend Accu- Cheks before meals and at bedtime and close monitoring and continue with sliding scale as needed as patient is on high-dose steroids. Encouraged increase activity as tolerated. PT/OT therapy working with the patient daily. Pulmonary and cardiology continue to follow closely. Recommend repeat labs and follow-up chest x-ray in the morning. Patient to continue IV antibiotics at this time. Due to multiple Medical issues, prognosis is extremely guarded. The impression and plan of care has been dictated by Jaclyn Obregon, nurse practitioner as directed. MD Shai I have performed a history and examination and MDM of this patient, discussed the same with the dictator, and agree with the dictator's assessment and plan as written ,documented as a scribe. Based on total visit time, I have performed more than 50% of the visit. Total number of minutes spent on this visit, 20 minutes. Any additional findings or plans will be noted. Objective - Vital Signs Vital signs: Vital Signs Temp 98.0 F 11/24/21 04:00 Pulse 74 11/24/21 07:55 Resp 33 H 11/24/21 04:00 BP 137/80 11/24/21 04:00 Pulse Ox 95 11/24/21 04:00 Intake & Output 11/23/21 11/24/21 11/24/21 18:59 06:59 18:59 Intake Total 118 Output Total 750 435 Balance -632 -435 Intake: Oral 118 Output: Urine 750 435 Other: Voiding Method Urinal Urinal - Labs CBC & Chem 7: 11/24/21 06:26 11/24/21 06:26 Labs: Abnormal Lab Results - Last 24 Hours (Table) 11/23/21 11/23/21 11/23/21 Range/Units 11:36 12:47 16:30 WBC (3.8-10.6) k/uL MCV (80.0-100.0) fL MCHC (31.0-37.0) g/dL Neutrophils # (1.3-7.7) k/uL Lymphocytes # (1.0-4.8) k/uL Macrocytosis ABG pCO2 94 H* (35-45) mmHg ABG HCO3 52 H* (21-25) mmol/L ABG Total CO2 55 H (19-24) mmol/L Chloride (98-107) mmol/L Carbon Dioxide (22-30) mmol/L BUN (9-20) mg/dL Glucose (74-99) mg/dL POC Glucose (mg/dL) 162 H 121 H (75-99) mg/dL Calcium (8.4-10.2) mg/dL 11/23/21 11/24/21 11/24/21 Range/Units 20:28 06:26 06:26 WBC 14.5 H (3.8-10.6) k/uL MCV 108.3 H (80.0-100.0) fL MCHC 30.8 L (31.0-37.0) g/dL Neutrophils # 13.4 H (1.3-7.7) k/uL Lymphocytes # 0.2 L (1.0-4.8) k/uL Macrocytosis Marked A ABG pCO2 (35-45) mmHg ABG HCO3 (21-25) mmol/L ABG Total CO2 (19-24) mmol/L Chloride 89 L (98-107) mmol/L Carbon Dioxide 46 H* (22-30) mmol/L BUN 62 H (9-20) mg/dL Glucose 133 H (74-99) mg/dL POC Glucose (mg/dL) 155 H (75-99) mg/dL Calcium 8.3 L (8.4-10.2) mg/dL 11/24/21 Range/Units 06:39 WBC (3.8-10.6) k/uL MCV (80.0-100.0) fL MCHC (31.0-37.0) g/dL Neutrophils # (1.3-7.7) k/uL Lymphocytes # (1.0-4.8) k/uL Macrocytosis ABG pCO2 (35-45) mmHg ABG HCO3 (21-25) mmol/L ABG Total CO2 (19-24) mmol/L Chloride (98-107) mmol/L Carbon Dioxide (22-30) mmol/L BUN (9-20) mg/dL Glucose (74-99) mg/dL POC Glucose (mg/dL) 119 H (75-99) mg/dL Calcium (8.4-10.2) mg/dL
[2021-11-24 16:33] LABS: Glucose,Whole Blood 163 mg/dL (75-99)
[2021-11-24 20:52] LABS: Glucose,Whole Blood 173 mg/dL (75-99)
[2021-11-24] MEDS: SYMBICORT 160-4.5 MCG INHALER INHALATION SCH (21:24)
[2021-11-24] MEDS: ACETAMINOPHEN TAB 500 MG TAB PO PRN (23:43)
[2021-11-25 06:30] LABS: Glucose,Whole Blood 97 mg/dL (75-99)
--- NOTE | 2021-11-25 07:11 | XR ---
EXAMINATION TYPE: XR chest 1V portable DATE OF EXAM: 11/25/2021 COMPARISON: 11/24/2021 HISTORY: Shortness of breath TECHNIQUE: Single frontal view of the chest is obtained. FINDINGS: There is moderate cardiomegaly without pulmonary vascular congestion or interstitial edema . There is a small focal opacity in the right lung base laterally which has improved slightly in the interval and possibly represents a resolving pneumonic infiltrate. There is no large pleural effusion and no pneumothorax. The osseous structures are intact. IMPRESSION: Marked cardiomegaly without pulmonary vascular congestion or interstitial edema. Suggest ion of a small focal airspace opacity in the right lung base which is improved slightly in the interv al.
[2021-11-25] MEDS: SYMBICORT 160-4.5 MCG INHALER INHALATION SCH ×2 (07:35→19:42)
[2021-11-25] MEDS: IPRATROPIUM-ALBUTEROL 3 ML NEB INHALATION SCH ×4 (07:35→19:42)
[2021-11-25] MEDS: INSULIN ASPART (NovoLOG) 100 UNIT/ML VIAL SQ SCH ×7 (07:40→21:47)
[2021-11-25 09:13] LABS: Basophils # (A) 0.1 k/uL (0-0.2); Basophils % (A) 0 %; Eosinophils % (A) 0 %; HCT 51.2 % (39.0-53.0); HGB 15.2 gm/dL (13.0-17.5); Hypochromasia Marked; Lymphocytes # (A) 0.4 k/uL (1.0-4.8); Lymphocytes % (A) 3 %; MCHC 29.7 g/dL (31.0-37.0); Macrocytosis Marked; Mean Platelet Volume 7.7; Monocytes # (A) 0.7 k/uL (0-1.0); Monocytes % (A) 5 %; Neutrophils # (A) 11.8 k/uL (1.3-7.7); Neutrophils % (A) 88 %; Platelet Count 225 k/uL (150-450); RBC 4.62 m/uL (4.30-5.90); RDW 13.7 % (11.5-15.5); WBC 13.4 k/uL (3.8-10.6)
[2021-11-25 09:34] LABS: African American GFR (CKD) >90 (>60 ml/min/1.73 sqM); Blood Urea Nitrogen 60 mg/dL (9-20); Calcium 8.5 mg/dL (8.4-10.2); Chloride 90 mmol/L (98-107); Glucose 182 mg/dL (74-99); Non-African American GFR(CKD) 87 (>60 ml/min/1.73 sqM); Potassium 4.6 mmol/L (3.5-5.1); Sodium 141 mmol/L (137-145)
[2021-11-25 09:40] LABS: Anion Gap 2 mmol/L
[2021-11-25 09:50] LABS: Carbon Dioxide 49 mmol/L (22-30)
[2021-11-25] MEDS: ASCORBIC ACID 500 MG TAB PO SCH (10:26)
[2021-11-25] MEDS: PIPERACILLIN-TAZOBACTAM 3.375 GM in SODIUM CHLORIDE 0.9% 100 ML IVPB SCH ×3 (10:26→23:14)
[2021-11-25] MEDS: predniSONE 20 MG TAB PO SCH (10:27)
[2021-11-25] MEDS: METOPROLOL TARTRATE 25 MG TAB PO SCH ×3 (10:27→20:02)
[2021-11-25] MEDS: CHOLECALCIFEROL 125 MCG (5000 IU) TABLET PO SCH (10:27)
[2021-11-25] MEDS: ATORVASTATIN 80 MG TAB PO SCH (10:27)
[2021-11-25] MEDS: ASPIRIN 81 MG PO SCH (10:27)
[2021-11-25] MEDS: ACETAMINOPHEN TAB 500 MG TAB PO PRN (10:27)
[2021-11-25] MEDS: AMIODARONE 200 MG TAB PO SCH ×2 (10:27→20:02)
[2021-11-25] MEDS: CYANOCOBALAMIN 500 MCG TAB PO SCH (10:27)
[2021-11-25] MEDS: APIXABAN 5 MG TAB PO SCH ×2 (10:27→20:02)
[2021-11-25] MEDS: DIGOXIN 125 MCG TAB PO SCH (10:27)
[2021-11-25] MEDS: PANTOPRAZOLE 40 MG/10 ML VIAL IV SCH (10:28)
[2021-11-25] MEDS: ZINC SULFATE 220 MG CAP PO SCH (10:29)
--- NOTE | 2021-11-25 11:33 | P.PN ---
Subjective Progress Note Date: 11/25/21 This is a 66-year-old male with a past medical history of hypertension, dyslipidemia, coronary artery disease with prior PCI OM2 and mid LAD in 09/2017 and PCI proximal circumflex in 11/2018, ischemic cardiomyopathy with EF of 35%, COPD. He follows with Dr. Funes. We have been consulted for atrial fibrillation with RVR. Patient presents to the emergency department on 11/15/2021 for complaints of shortness of breath. Found to be in acute hypoxic respiratory failure, acute exacerbation of COPD, and found to have right lower lobe consolidation highly suggestive underlying pneumonia in the right lung base. He was initially admitted to the ICU requiring BIPAP. Patient went into atrial fibrillation with RVR and cardiology was consulted. Echocardiogram revealed EF of 2530%, global hypokinesis, mild to moderate mitral regurgitation, mild tricuspid regurgitation Patient seen resting comfortably sleeping in bed on 2L nasal cannula. He reports he still has shortness of breath upon exertion. He also has a productive cough. Patient had mild wheezing throughout the left side. After he was asked to cough and clear his throat the wheezing cleared. Telemetry reviewed patient in atrial fibrillation rates are relatively controlled in the 70s-90s He's currently maintained on amiodarone 200 mg twice a day, Eliquis 5 mg twice a day, aspirin 81 mg daily, atorvastatin 80 mg daily, metoprolol tartrate 75 mg 3 times a day, digoxin 125mcg daily Labs reviewed CO2 remains elevated at 49 hemoglobin is 15.2 Objective - Vital Signs Vital signs: Vital Signs Temp 98.3 F 11/25/21 10:20 Pulse 59 L 11/25/21 11:07 Resp 36 H 11/25/21 10:20 BP 161/88 11/25/21 10:20 Pulse Ox 98 11/25/21 10:20 Intake & Output 11/24/21 11/25/21 11/25/21 18:59 06:59 18:59 Intake Total 480 100 240 Output Total 100 450 325 Balance 380 -350 -85 Intake: Intake, IV Titration 100 Amount Piperacillin-Tazobactam 3 100 .375 gm In Sodium Chloride 0.9% 100 ml @ 25 mls/hr IVPB Q8HR [facility] Rx# :[id number] Oral 480 240 Output: Urine 100 450 325 Other: Voiding Method Urinal Urinal Urinal # Voids 1 2 - Exam GENERAL: In no acute distress, appears short of breath. NECK: Supple without JVD LUNGS: Breath sounds diffuse rhonci to auscultation bilaterally. Respiration equal and unlabored. HEART: Irregular rate and rhythm without murmurs, rubs or gallops. S1 and S2 heard. EXTREMITIES: Normal range of motion, no edema. No clubbing or cyanosis. Peripheral pulses intact. Bilateral mild lower extremity edema - Labs CBC & Chem 7: 11/25/21 08:23 11/25/21 08:23 Labs: Abnormal Lab Results - Last 24 Hours (Table) 11/24/21 11/24/21 11/24/21 Range/Units 11:42 16:32 20:38 WBC (3.8-10.6) k/uL MCV (80.0-100.0) fL MCHC (31.0-37.0) g/dL Neutrophils # (1.3-7.7) k/uL Lymphocytes # (1.0-4.8) k/uL Macrocytosis Chloride (98-107) mmol/L Carbon Dioxide (22-30) mmol/L BUN (9-20) mg/dL Glucose (74-99) mg/dL POC Glucose (mg/dL) 219 H 163 H 173 H (75-99) mg/dL 11/25/21 11/25/21 Range/Units 08:23 08:23 WBC 13.4 H (3.8-10.6) k/uL MCV 111.0 H (80.0-100.0) fL MCHC 29.7 L (31.0-37.0) g/dL Neutrophils # 11.8 H (1.3-7.7) k/uL Lymphocytes # 0.4 L (1.0-4.8) k/uL Macrocytosis Marked A Chloride 90 L (98-107) mmol/L Carbon Dioxide 49 H* (22-30) mmol/L BUN 60 H (9-20) mg/dL Glucose 182 H (74-99) mg/dL POC Glucose (mg/dL) (75-99) mg/dL Assessment and Plan Assessment: Persistent atrial fibrillation with RVR, on Eliquis Acute on chronic hypoxic respiratory failure COPD exacerbation Right lower lobe Pneumonia Chronic heart failure with reduced ejection fraction Ischemic cardiomyopathy Coronary artery disease with prior PCI OM2 and mid LAD in 09/2017 and PCI proximal circumflex in 11/2018 Hypertension Dyslipidemia Obesity BMI 42 Plan: Continue present medical therapy with amiodarone, Eliquis, statin, Digoxin, metoprolol tartrate Continue cardiac telemetry Further recommendations based on clinical course Nurse Practitioner note has been reviewed, I agree with a documented findings and plan of care. Patient was seen and examined.
[2021-11-25 11:39] LABS: Glucose,Whole Blood 126 mg/dL (75-99)
--- NOTE | 2021-11-25 14:12 | P.PN ---
Subjective Progress Note Date: 11/25/21 Principal diagnosis: Shortness of breath. On the 11/20/2021 patient seen in follow-up in intensive care unit, he is awake and alert, in no acute distress, is currently on 2 L of oxygen pulse ox is 95%, he did wear BiPAP support last night with pressures of 10 and 5 and FiO2 of 30%. He is oriented 3, responding to questions appropriately, he denies any worsening dyspnea, no cough, no complaints of chest discomfort, his chest x-ray today has been reviewed showing bilateral airspace disease, no evident pneumothorax. Patient continues on nebulized bronchodilators, IV Solu-Medrol 60 mg every 6 hours, his amiodarone drip has been discontinued, and patient is being transitioned to oral amiodarone. Patient continues on Eliquis for new onset atrial fibrillation with RVR during this admission. Currently remains in atrial fibrillation, and patient still a little tachycardic with a rate in the low 100s. Cardiology is following, and patient continues on metoprolol 75 mg 3 times daily. Lung sounds are diminished, no wheezing, no rhonchi or rales. Patient is tolerating oral intake on his had no acute events overnight, his is at the bedside. She was updated on patient's progress. On 11/21/2021 patient seen in follow-up in the intensive care unit, he is awake and alert, in no acute distress, is currently on 2 L of oxygen breathing comfortably, pulse ox is 97%, he did wear BiPAP support last night with pressures of 1005 and FiO2 of 30%.'s been afebrile, hemodynamically stable, he is in A. fib with a rate of 116 BPM. Lung sounds today reveal some mild whee zing, no rhonchi, no crackles. His diuretics remain on hold, but patient does have 1+ pretibial and ankle and pedal edema. He states he takes Lasix on an as- needed basis at home, today's labs have been reviewed showing sodium of 138, potassium is 4.6, chloride is 86, CO2 of 51, BUN of 51 creatinine is 1.03. Patient is in -710 mL negative net fluid balance. And patient was in the 1.9 L net fluid balance over the last 24 hours prior to that. He has been on Solu- Medrol for the past 4 days, less bronchospastic, breathing easier, and Solu- Medrol will be dropped to 40 mg every 8 hours. Patient was up in the chair yesterday, he stated he ambulated in the room tolerated activity fairly well. Patient currently remains on Lopressor 75 mg 3 times a day for rate control, and Eliquis 5 mg twice a day for anticoagulation, cardiology is closely following. Otherwise no acute events overnight, patient is stable to transfer out of intensive care unit today, his overnight pulse oximetry study was not completed last night due to some confusion on what settings it needed to be completed on. He will be completed tonight, and this needs to be done on his home dose O2 at 2 L On 11/22/2021 patient seen in follow-up in the intensive care unit, he is awake and alert, in no acute distress, currently on 2 L oxygen pulse ox is 98%, hemodynamically stable, remains in A. fib, slightly tachycardic, blood pressure stable. Patient had overnight pulse oximetry study, the longest continuous time with saturation of less than 80% was at around midnight, there were 5 desaturation events over 3 minutes duration. There were 26 desaturation events of less than 3 minutes duration during which the mean high was 98.2%, and the mean low was 91.7% desaturation event index was 3.7/h. No acute events overn ight, still bronchospastic, the patient has lower extremity swelling. Follow-up chest x-ray has been obtained and reviewed showing persistent patchy basilar infiltrate compatible with pneumonia . Improvement in the appearance of airspace disease at the right lung base Progress note dated 11/23/2021. The patient was transferred out of the intensive care unit yesterday. Currently, he remains on 2 L nasal cannula. Earlier today, the patient was given Lasix 40 mg IV push. More recently, the patient was placed on BiPAP, and, a stat blood gas was ordered. He apparently does not like using the CPAP device at nighttime. White count 15.6, hemoglobin 14.8, hematocrit 47.7, and platelet count 264,000. Sodium 139, potassium 5.2, chlorides 88, CO2 45, anion gap 6, BUN 54, and creatinine 0.89. Patient has a patchy infiltrate at the right lung base. The patient is a DO NOT RESUSCITATE. The patient remains on Solu-Medrol, albuterol, ipratropium bromide, formoterol, and budesonide. Progress note dated 11/24/2021. The patient is seen today in room 355. Today, I signed papers for a Trilogy ventilator. Currently, the patient is on 4 L nasal cannula. Saturations are 96%. His temperature is 96.9, and heart rate is 86. Respiratory rate is in the low 20s. He appears not to have any respiratory distress. He may or may not be discharged today. At nighttime, the patient is using BiPAP with settings of IPAP 12, EPAP 5, with an FiO2 of 32%. He does not like wearing the BiPAP all n ight. Today's labs include a white count 14.5, hemoglobin 14.9, hematocrit 48.5, and platelet count 224,000. Sodium 141, potassium 5, chlorides 89, CO2 46, anion gap 6, BUN 62, and creatinine 1.02. Calcium is 8.3. Chest x-ray show some minimal basilar atelectasis or infiltrate. Right basilar infiltrate is improved. Progress note dated 11/25/2021. The patient is again seen today in room 355. The patient is currently on BiPAP. The patient will likely be discharged sometime early next week. Currently, the patient sleeping and seemed relatively comfortable. I did explain to his , that we were able to secure a Trilogy ventilator for the patient. His current BiPAP settings are IPAP 12, EPAP 5, with an FiO2 of 32%. Current labs include a white count of 13.4, he will been 15.2, hematocrit 51.2, and platelet count 325,000. Sodium 141, potassium 4.6, chlorides 90, CO2 49, BUN 60, and creatinine 0.9. Calcium is 8.5. Chest x-rays consistent with mild fluid overload. There is an infiltrate in the right lung base, which is improved. Objective - Vital Signs Vital signs: Vital Signs Temp 98.3 F 11/25/21 10:20 Pulse 59 L 11/25/21 11:07 Resp 36 H 11/25/21 10:20 BP 161/88 11/25/21 10:20 Pulse Ox 98 11/25/21 10:20 Intake & Output 11/24/21 11/25/21 11/25/21 18:59 06:59 18:59 Intake Total 480 100 240 Output Total 100 450 325 Balance 380 -350 -85 Intake: Intake, IV Titration 100 Amount Piperacillin-Tazobactam 3 100 .375 gm In Sodium Chloride 0.9% 100 ml @ 25 mls/hr IVPB Q8HR [facility] Rx# :[id number] Oral 480 240 Output: Urine 100 450 325 Other: Voiding Method Urinal Urinal Urinal # Voids 1 2 - Exam Oriented 3, mild conversational dyspnea. Currently on BiPAP. Saturations are 98%. HEENT examination is grossly unremarkable. Neck supple. Full range of motion. No adenopathy thyromegaly or neck vein distention. Cardiovascular examination reveals regular rhythm rate. S1-S2 normal. No S3 or S4. No discernible murmur noted. Heart rate 63 bpm. Heart sounds are distant. Lungs reveal scattered diffuse rhonchi. Minimal crackles. Minimal wheezes. Breath sounds equal bilaterally but diminished throughout. Abdomen obese. Bowel sounds are noted. Extremities are intact. No cyanosis or clubbing. Trace edema noted. Skin is without rash or lesion. Neurologic examination is brief but nonfocal. - Labs CBC & Chem 7: 11/25/21 08:23 11/25/21 08:23 Labs: Abnormal Lab Results - Last 24 Hours (Table) 11/24/21 11/24/21 11/25/21 Range/Units 16:32 20:38 08:23 WBC 13.4 H (3.8-10.6) k/uL MCV 111.0 H (80.0-100.0) fL MCHC 29.7 L (31.0-37.0) g/dL Neutrophils # 11.8 H (1.3-7.7) k/uL Lymphocytes # 0.4 L (1.0-4.8) k/uL Macrocytosis Marked A Chloride (98-107) mmol/L Carbon Dioxide (22-30) mmol/L BUN (9-20) mg/dL Glucose (74-99) mg/dL POC Glucose (mg/dL) 163 H 173 H (75-99) mg/dL 11/25/21 11/25/21 Range/Units 08:23 11:38 WBC (3.8-10.6) k/uL MCV (80.0-100.0) fL MCHC (31.0-37.0) g/dL Neutrophils # (1.3-7.7) k/uL Lymphocytes # (1.0-4.8) k/uL Macrocytosis Chloride 90 L (98-107) mmol/L Carbon Dioxide 49 H* (22-30) mmol/L BUN 60 H (9-20) mg/dL Glucose 182 H (74-99) mg/dL POC Glucose (mg/dL) 126 H (75-99) mg/dL Assessment and Plan Assessment: #1. Acute exacerbation of COPD with secondary acute on chronic hypoxic and hypercapnic respiratory failure complicated by a right lower lobe consolidation consistent with pneumonia, possibly community acquired. #2. Altered mental status, related to acute on chronic hypercapnic respiratory failure, improved with BiPAP support, and medical treatment. #3. Chronic hypoxic respiratory failure patient usually wears 2-3 L of oxygen by nasal cannula on a regular basis. #4. Advanced COPD with FEV1 25% predicted. #5. A. fib with RVR, patient currently is being transitioned to oral amiodarone, and remains on metoprolol 75 mg 3 times a day and Eliquis. #6. Coronary artery disease with coronary artery stenting involving the circumflex in November 2018, and previous stenting of the LAD and circumflex in 2007. #7. 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 #8. Bronchogenic cyst of the lung on the right side, benign. #9. Hypertension. #10. Hyperlipidemia. #11. Obesity with BMI 43.3. Plan: Plan dated 11/23/2021. The patient did receive Lasix, 40 mg IV push today. The patient is currently being evaluated for possible Trilogy ventilator. The patient does express concerns about using CPAP throughout the night. Subsequent to me seeing him, the nurse notified me that his respiratory status has declined a bit. We recommended BiPAP therapy. In addition, I recommended a stat blood gas. The patient is a DO NOT RESUSCITATE patient. He has very poor pulmonary function. Labs, x-rays, and medications are reviewed. I will add some antibiotic to his regimen. Plan dated 11/24/2021. The patient's chest x-ray in my opinion is improved. The patient's on 4 L nasal cannula. The patient could be considered for discharge, although I will leave that up to the primary service. I did sign paperwork for a Trilogy ventilator. Today I discontinued the patient's Solu-Medrol in favor of prednisone 40 mg a day. Also, the patient's formoterol and budesonide or discontinued in favor of Symbicort, 2 puffs twice a day. The patient is a DO NOT RESUSCITATE patient. Labs, x-rays, and medications are reviewed. Overall prognosis remains guarded. We will continue to follow make recommendations where appropriate. Plan dated 11/25/2021. The patient is currently on BiPAP. Saturations are excellent. The that we were able to secure a Trilogy ventilator for this patient. Labs, x-rays, and medications are reviewed. The patient is currently on Symbicort, as well as DuoNeb, 4 times a day and when necessary. In addition, the patient is on prednisone 40 mg a day, and remains on Zosyn. We will continue to follow and make recommendations where appropriate. It appears that he may not be discharged until early next week. The patient is a DO NOT RESUSCITATE patient. Additional recommendations and suggestions are forthcoming. Prognosis is certainly guarded. Time with Patient: Less than 30
[2021-11-25 16:30] LABS: Glucose,Whole Blood 204 mg/dL (75-99)
[2021-11-25] MEDS: amLODIPine 10 MG TAB PO SCH (17:29)
[2021-11-25 20:35] LABS: Glucose,Whole Blood 201 mg/dL (75-99)
--- NOTE | 2021-11-25 20:55 | PN ---
PROGRESS NOTE DATE OF SERVICE: 11/25/2021 This 66-year-old gentleman was admitted with COPD exacerbation also had change in mental status and hypercarbia. The patient is being slated to have BiPAP at home. The nurse outreach case manager is working towards that. The patient is still having shortness of breath. The patient is currently drowsy. The patient has severe hypercarbia. Most recent chest x-ray which I reviewed personally showed some pulmonary congestion. Past medical history reviewed. REVIEW OF SYSTEMS: Could not be taken, the patient is drowsy. CURRENT MEDICATIONS: Reviewed and include: Tylenol, DuoNeb, Cordarone, other medications. PHYSICAL EXAMINATION: Pulse is 71, blood pressure 130/88, respiration 30, pulse ox 93% on 4 L. HEENT: Conjunctivae normal. Neck: No JVD. Cardiovascular: S1, S2 muffled. Respiratory: Breath sounds diminished at the bases. A few scattered rhonchi and basal crackles. Abdomen: Soft, obese. Nervous system: Weak. LABS: WBC 13.3, other labs are noted. CO2 is 49. ASSESSMENT: 1. Chronic obstructive pulmonary disease, acute exacerbation with acute hypoxic hypercarbic respiratory failure. 2. Acute respiratory acidosis. 3. Elevated random glucose. 4. Atrial fibrillation. 5. Ischemic cardiomyopathy. 6. Coronary artery disease. 7. On BiPAP. RECOMMENDATIONS AND DISCUSSION: I recommend to continue current medications, symptomatic treatment. I recommend BiPAP also during the daytime as well for the hypercarbia and change in mental status. Closely follow with Pulmonary. Continue the bronchodilators. Continue the rest of medications. Repeat labs. I would also recommend monitor labs also. A chest x-ray was reviewed and broad-spectrum IV antibiotics will be continued and further recommendations to follow. The cultures are negative so far. material requirements planning manager and director of social work to work on obtaining BiPAP at home. MMODL / IJN: [id number] /
[2021-11-25] MEDS ORDERED: ALPRAZolam 0.5 MG TAB PO STA (21:20)
[2021-11-26 06:10] LABS: Glucose,Whole Blood 126 mg/dL (75-99)
[2021-11-26] MEDS: INSULIN ASPART (NovoLOG) 100 UNIT/ML VIAL SQ SCH ×7 (06:42→20:37)
[2021-11-26] MEDS: IPRATROPIUM-ALBUTEROL 3 ML NEB INHALATION SCH ×4 (08:15→19:43)
[2021-11-26] MEDS: SYMBICORT 160-4.5 MCG INHALER INHALATION SCH ×2 (08:15→19:43)
[2021-11-26] MEDS: ZINC SULFATE 220 MG CAP PO SCH (08:21)
[2021-11-26] MEDS: PIPERACILLIN-TAZOBACTAM 3.375 GM in SODIUM CHLORIDE 0.9% 100 ML IVPB SCH ×3 (08:21→23:13)
[2021-11-26] MEDS: ASPIRIN 81 MG PO SCH (08:21)
[2021-11-26] MEDS: ASCORBIC ACID 500 MG TAB PO SCH (08:21)
[2021-11-26] MEDS: CHOLECALCIFEROL 125 MCG (5000 IU) TABLET PO SCH (08:21)
[2021-11-26] MEDS: PANTOPRAZOLE 40 MG/10 ML VIAL IV SCH (08:21)
[2021-11-26] MEDS: CYANOCOBALAMIN 500 MCG TAB PO SCH (08:22)
[2021-11-26] MEDS: DIGOXIN 125 MCG TAB PO SCH (08:22)
[2021-11-26] MEDS: APIXABAN 5 MG TAB PO SCH ×2 (08:22→20:37)
[2021-11-26] MEDS: ATORVASTATIN 80 MG TAB PO SCH (08:22)
[2021-11-26] MEDS: AMIODARONE 200 MG TAB PO SCH ×2 (08:22→20:37)
[2021-11-26] MEDS: METOPROLOL TARTRATE 25 MG TAB PO SCH ×3 (08:22→20:37)
[2021-11-26] MEDS: amLODIPine 10 MG TAB PO SCH (08:22)
[2021-11-26] MEDS: predniSONE 20 MG TAB PO SCH (08:22)
[2021-11-26 09:36] LABS: Basophils % (A) 0 %; Eosinophils % (A) 0 %; HCT 48.9 % (39.0-53.0); HGB 14.6 gm/dL (13.0-17.5); Hypochromasia Marked; Lymphocytes # (A) 0.5 k/uL (1.0-4.8); Lymphocytes % (A) 4 %; MCH 32.8 pg (25.0-35.0); MCHC 29.9 g/dL (31.0-37.0); MCV 109.7 fL (80.0-100.0); Macrocytosis Marked; Mean Platelet Volume 7.5; Monocytes % (A) 8 %; Neutrophils # (A) 10.8 k/uL (1.3-7.7); Neutrophils % (A) 85 %; Platelet Count 204 k/uL (150-450); RBC 4.45 m/uL (4.30-5.90); RDW 13.6 % (11.5-15.5); WBC 12.8 k/uL (3.8-10.6)
[2021-11-26 09:48] LABS: African American GFR (CKD) >90 (>60 ml/min/1.73 sqM); Anion Gap 7 mmol/L; Blood Urea Nitrogen 54 mg/dL (9-20); Calcium 8.4 mg/dL (8.4-10.2); Chloride 93 mmol/L (98-107); Glucose 116 mg/dL (74-99); Non-African American GFR(CKD) >90 (>60 ml/min/1.73 sqM); Potassium 5.1 mmol/L (3.5-5.1); Sodium 140 mmol/L (137-145)
[2021-11-26 09:59] LABS: Carbon Dioxide 40 mmol/L (22-30)
[2021-11-26] MEDS ORDERED: FUROSEMIDE 10 MG/ML 4 ML VIAL IV STA (10:42)
[2021-11-26 11:38] LABS: Glucose,Whole Blood 137 mg/dL (75-99)
--- NOTE | 2021-11-26 12:42 | P.PN ---
Subjective Progress Note Date: 11/26/21 Principal diagnosis: Shortness of breath. On the 11/20/2021 patient seen in follow-up in intensive care unit, he is awake and alert, in no acute distress, is currently on 2 L of oxygen pulse ox is 95%, he did wear BiPAP support last night with pressures of 10 and 5 and FiO2 of 30%. He is oriented 3, responding to questions appropriately, he denies any worsening dyspnea, no cough, no complaints of chest discomfort, his chest x-ray today has been reviewed showing bilateral airspace disease, no evident pneumothorax. Patient continues on nebulized bronchodilators, IV Solu-Medrol 60 mg every 6 hours, his amiodarone drip has been discontinued, and patient is being transitioned to oral amiodarone. Patient continues on Eliquis for new onset atrial fibrillation with RVR during this admission. Currently remains in atrial fibrillation, and patient still a little tachycardic with a rate in the low 100s. Cardiology is following, and patient continues on metoprolol 75 mg 3 times daily. Lung sounds are diminished, no wheezing, no rhonchi or rales. Patient is tolerating oral intake on his had no acute events overnight, his is at the bedside. She was updated on patient's progress. On 11/21/2021 patient seen in follow-up in the intensive care unit, he is awake and alert, in no acute distress, is currently on 2 L of oxygen breathing comfortably, pulse ox is 97%, he did wear BiPAP support last night with pressures of 1005 and FiO2 of 30%.'s been afebrile, hemodynamically stable, he is in A. fib with a rate of 116 BPM. Lung sounds today reveal some mild whee zing, no rhonchi, no crackles. His diuretics remain on hold, but patient does have 1+ pretibial and ankle and pedal edema. He states he takes Lasix on an as- needed basis at home, today's labs have been reviewed showing sodium of 138, potassium is 4.6, chloride is 86, CO2 of 51, BUN of 51 creatinine is 1.03. Patient is in -710 mL negative net fluid balance. And patient was in the 1.9 L net fluid balance over the last 24 hours prior to that. He has been on Solu- Medrol for the past 4 days, less bronchospastic, breathing easier, and Solu- Medrol will be dropped to 40 mg every 8 hours. Patient was up in the chair yesterday, he stated he ambulated in the room tolerated activity fairly well. Patient currently remains on Lopressor 75 mg 3 times a day for rate control, and Eliquis 5 mg twice a day for anticoagulation, cardiology is closely following. Otherwise no acute events overnight, patient is stable to transfer out of intensive care unit today, his overnight pulse oximetry study was not completed last night due to some confusion on what settings it needed to be completed on. He will be completed tonight, and this needs to be done on his home dose O2 at 2 L On 11/22/2021 patient seen in follow-up in the intensive care unit, he is awake and alert, in no acute distress, currently on 2 L oxygen pulse ox is 98%, hemodynamically stable, remains in A. fib, slightly tachycardic, blood pressure stable. Patient had overnight pulse oximetry study, the longest continuous time with saturation of less than 80% was at around midnight, there were 5 desaturation events over 3 minutes duration. There were 26 desaturation events of less than 3 minutes duration during which the mean high was 98.2%, and the mean low was 91.7% desaturation event index was 3.7/h. No acute events overn ight, still bronchospastic, the patient has lower extremity swelling. Follow-up chest x-ray has been obtained and reviewed showing persistent patchy basilar infiltrate compatible with pneumonia . Improvement in the appearance of airspace disease at the right lung base Progress note dated 11/23/2021. The patient was transferred out of the intensive care unit yesterday. Currently, he remains on 2 L nasal cannula. Earlier today, the patient was given Lasix 40 mg IV push. More recently, the patient was placed on BiPAP, and, a stat blood gas was ordered. He apparently does not like using the CPAP device at nighttime. White count 15.6, hemoglobin 14.8, hematocrit 47.7, and platelet count 264,000. Sodium 139, potassium 5.2, chlorides 88, CO2 45, anion gap 6, BUN 54, and creatinine 0.89. Patient has a patchy infiltrate at the right lung base. The patient is a DO NOT RESUSCITATE. The patient remains on Solu-Medrol, albuterol, ipratropium bromide, formoterol, and budesonide. Progress note dated 11/24/2021. The patient is seen today in room 355. Today, I signed papers for a Trilogy ventilator. Currently, the patient is on 4 L nasal cannula. Saturations are 96%. His temperature is 96.9, and heart rate is 86. Respiratory rate is in the low 20s. He appears not to have any respiratory distress. He may or may not be discharged today. At nighttime, the patient is using BiPAP with settings of IPAP 12, EPAP 5, with an FiO2 of 32%. He does not like wearing the BiPAP all n ight. Today's labs include a white count 14.5, hemoglobin 14.9, hematocrit 48.5, and platelet count 224,000. Sodium 141, potassium 5, chlorides 89, CO2 46, anion gap 6, BUN 62, and creatinine 1.02. Calcium is 8.3. Chest x-ray show some minimal basilar atelectasis or infiltrate. Right basilar infiltrate is improved. Progress note dated 11/25/2021. The patient is again seen today in room 355. The patient is currently on BiPAP. The patient will likely be discharged sometime early next week. Currently, the patient sleeping and seemed relatively comfortable. I did explain to his , that we were able to secure a Trilogy ventilator for the patient. His current BiPAP settings are IPAP 12, EPAP 5, with an FiO2 of 32%. Current labs include a white count of 13.4, he will been 15.2, hematocrit 51.2, and platelet count 325,000. Sodium 141, potassium 4.6, chlorides 90, CO2 49, BUN 60, and creatinine 0.9. Calcium is 8.5. Chest x-rays consistent with mild fluid overload. There is an infiltrate in the right lung base, which is improved. Progress note dated 11/26/2021. Or congested today. We did order 1 dose of Lasix, 40 mg, IV push. The patient has been using BiPAP at nighttime. His BiPAP settings included an IPAP of 12, EPAP of 5, and FiO2 of 32%. He does tolerate that a bit better. In addition, we were able to secure him a Trilogy ventilator for home use. Labs, x-rays, and medications are reviewed. White count 12.8, hemoglobin 14.6, hematocrit 48.9, and platelet count 84,000. Sodium 140, potassium 5.1, chlorides 93, CO2 40, anion gap 7, BUN 54, and creatinine 0.79. Calcium 8.4. Chest x-ray from yesterday is reviewed. Microbiologic studies are negative. Objective - Vital Signs Vital signs: Vital Signs Temp 97.8 F 11/26/21 08:15 Pulse 80 11/26/21 11:45 Resp 22 11/26/21 11:45 BP 166/93 11/26/21 08:15 Pulse Ox 97 11/26/21 08:15 Intake & Output 11/25/21 11/26/21 11/26/21 17:59 06:59 18:59 Intake Total 180 Output Total Balance 180 Weight Intake: Intake, IV Titration Amount Piperacillin-Tazobactam 3 .375 gm In Sodium Chloride 0.9% 100 ml @ 25 mls/hr IVPB Q8HR [facility] Rx# :[id number] Oral 180 Output: Urine Other: Voiding Method Urinal # Voids - Exam Oriented 3, mild conversational dyspnea. Currently on nasal O2. Saturations are in the low to mid 90s. HEENT examination is grossly unremarkable. Neck supple. Full range of motion. No adenopathy thyromegaly or neck vein distention. Cardiovascular examination reveals regular rhythm rate. S1-S2 normal. No S3 or S4. No discernible murmur noted. Heart rate 80 bpm. Heart sounds are distant. Lungs reveal scattered diffuse rhonchi. Minimal crackles. Minimal wheezes. Breath sounds equal bilaterally but diminished throughout. Abdomen obese. Bowel sounds are noted. Extremities are intact. No cyanosis or clubbing. Trace edema noted. Skin is without rash or lesion. Neurologic examination is brief but nonfocal. - Labs CBC & Chem 7: 11/26/21 08:55 11/26/21 08:55 Labs: Abnormal Lab Results - Last 24 Hours (Table) 11/25/21 11/25/21 11/25/21 Range/Units 11:38 16:26 20:33 WBC (3.8-10.6) k/uL MCV (80.0-100.0) fL MCHC (31.0-37.0) g/dL Neutrophils # (1.3-7.7) k/uL Lymphocytes # (1.0-4.8) k/uL Macrocytosis Chloride (98-107) mmol/L Carbon Dioxide (22-30) mmol/L BUN (9-20) mg/dL Glucose (74-99) mg/dL POC Glucose (mg/dL) 126 H 204 H 201 H (75-99) mg/dL 11/26/21 11/26/21 11/26/21 Range/Units 06:09 08:55 08:55 WBC 12.8 H (3.8-10.6) k/uL MCV 109.7 H (80.0-100.0) fL MCHC 29.9 L (31.0-37.0) g/dL Neutrophils # 10.8 H (1.3-7.7) k/uL Lymphocytes # 0.5 L (1.0-4.8) k/uL Macrocytosis Marked A Chloride 93 L (98-107) mmol/L Carbon Dioxide 40 H (22-30) mmol/L BUN 54 H (9-20) mg/dL Glucose 116 H (74-99) mg/dL POC Glucose (mg/dL) 126 H (75-99) mg/dL 11/26/21 Range/Units 11:35 WBC (3.8-10.6) k/uL MCV (80.0-100.0) fL MCHC (31.0-37.0) g/dL Neutrophils # (1.3-7.7) k/uL Lymphocytes # (1.0-4.8) k/uL Macrocytosis Chloride (98-107) mmol/L Carbon Dioxide (22-30) mmol/L BUN (9-20) mg/dL Glucose (74-99) mg/dL POC Glucose (mg/dL) 137 H (75-99) mg/dL Assessment and Plan Assessment: #1. Acute exacerbation of COPD with secondary acute on chronic hypoxic and h ypercapnic respiratory failure complicated by a right lower lobe consolidation consistent with pneumonia, possibly community acquired. #2. Altered mental status, related to acute on chronic hypercapnic respiratory failure, improved with BiPAP support, and medical treatment. Patient was approved for a Trilogy ventilator for home use. #3. Chronic hypoxic respiratory failure patient usually wears 2-3 L of oxygen by nasal cannula on a regular basis. #4. Advanced COPD with FEV1 25% predicted. #5. A. fib with RVR, patient currently is being transitioned to oral amiodarone, and remains on metoprolol 75 mg 3 times a day and Eliquis. #6. Coronary artery disease with coronary artery stenting involving the circumflex in November 2018, and previous stenting of the LAD and circumflex in 2007. #7. 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 #8. Bronchogenic cyst of the lung on the right side, benign. #9. Hypertension. #10. Hyperlipidemia. #11. Obesity with BMI 43.3. Plan: Plan dated 11/23/2021. The patient did receive Lasix, 40 mg IV push today. The patient is currently being evaluated for possible Trilogy ventilator. The patient does express concerns about using CPAP throughout the night. Subsequent to me seeing him, the nurse notified me that his respiratory status has declined a bit. We recommended BiPAP therapy. In addition, I recommended a stat blood gas. The patient is a DO NOT RESUSCITATE patient. He has very poor pulmonary function. Labs, x-rays, and medications are reviewed. I will add some antibiotic to his regimen. Plan dated 11/24/2021. The patient's chest x-ray in my opinion is improved. The patient's on 4 L nasal cannula. The patient could be considered for discharge, although I will leave that up to the primary service. I did sign paperwork for a Trilogy ventilator. Today I discontinued the patient's Solu-Medrol in favor of prednisone 40 mg a day. Also, the patient's formoterol and budesonide or discontinued in favor of Symbicort, 2 puffs twice a day. The patient is a DO NOT RESUSCITATE patient. Labs, x-rays, and medications are reviewed. Overall prognosis remains guarded. We will continue to follow make recommendations where appropriate. Plan dated 11/25/2021. The patient is currently on BiPAP. Saturations are excellent. The that we were able to secure a Trilogy ventilator for this patient. Labs, x-rays, and medications are reviewed. The patient is currently on Symbicort, as well as DuoNeb, 4 times a day and when necessary. In addition, the patient is on prednisone 40 mg a day, and remains on Zosyn. We will continue to follow and make recommendations where appropriate. It appears that he may not be discharged until early next week. The patient is a DO NOT RESUSCITATE patient. Additional recommendations and suggestions are forthcoming. Prognosis is certainly guarded. Plan dated 11/26/2021. The patient is currently on nasal O2. He does sound a bit more congested today. The patient will get Lasix 40 mg IV push once. His other medications include Symbicort, DuoNeb, prednisone and Zosyn. We will continue to follow and make recommendations where appropriate. The patient is a DO NOT RESUSCITATE patient. The patient has been approved for a home ventilator. Overall prognosis is guarded. Labs, x-rays, and medications are all reviewed. Time with Patient: Less than 30
--- NOTE | 2021-11-26 12:48 | P.PN ---
Subjective Progress Note Date: 11/26/21 Patient seen resting comfortably sleeping in bed on 2L nasal cannula.Patient reports his breathing is better today. Patient has rhonchi throughout bilaterally. Patient's blood pressure is elevated today. Will restart lisinopril 5 mg daily There is concern for aspiration. Speech therapy consulted. Telemetry reviewed patient in atrial fibrillation rates with a controlled ventricular rate He's currently maintained on amiodarone 200 mg twice a day, Eliquis 5 mg twice a day, aspirin 81 mg daily, atorvastatin 80 mg daily, metoprolol tartrate 75 mg 3 times a day, digoxin 125mcg daily Objective - Vital Signs Vital signs: Vital Signs Temp 97.8 F 11/26/21 08:15 Pulse 80 11/26/21 11:45 Resp 22 11/26/21 11:45 BP 166/93 11/26/21 08:15 Pulse Ox 97 11/26/21 08:15 Intake & Output 11/25/21 11/26/21 11/26/21 17:59 06:59 18:59 Intake Total 180 Output Total Balance 180 Weight Intake: Intake, IV Titration Amount Piperacillin-Tazobactam 3 .375 gm In Sodium Chloride 0.9% 100 ml @ 25 mls/hr IVPB Q8HR [facility] Rx# :[id number] Oral 180 Output: Urine Other: Voiding Method Urinal # Voids - Exam GENERAL: In no acute distress, appears short of breath. NECK: Supple without JVD LUNGS: Breath sounds diffuse rhonci to auscultation bilaterally. Respiration equal and unlabored. HEART: Irregular rate and rhythm without murmurs, rubs or gallops. S1 and S2 heard. EXTREMITIES: Normal range of motion, no edema. No clubbing or cyanosis. Peripheral pulses intact. Bilateral mild lower extremity edema - Labs CBC & Chem 7: 11/26/21 08:55 11/26/21 08:55 Labs: Abnormal Lab Results - Last 24 Hours (Table) 11/25/21 11/25/21 11/26/21 Range/Units 16:26 20:33 06:09 WBC (3.8-10.6) k/uL MCV (80.0-100.0) fL MCHC (31.0-37.0) g/dL Neutrophils # (1.3-7.7) k/uL Lymphocytes # (1.0-4.8) k/uL Macrocytosis Chloride (98-107) mmol/L Carbon Dioxide (22-30) mmol/L BUN (9-20) mg/dL Glucose (74-99) mg/dL POC Glucose (mg/dL) 204 H 201 H 126 H (75-99) mg/dL 11/26/21 11/26/21 11/26/21 Range/Units 08:55 08:55 11:35 WBC 12.8 H (3.8-10.6) k/uL MCV 109.7 H (80.0-100.0) fL MCHC 29.9 L (31.0-37.0) g/dL Neutrophils # 10.8 H (1.3-7.7) k/uL Lymphocytes # 0.5 L (1.0-4.8) k/uL Macrocytosis Marked A Chloride 93 L (98-107) mmol/L Carbon Dioxide 40 H (22-30) mmol/L BUN 54 H (9-20) mg/dL Glucose 116 H (74-99) mg/dL POC Glucose (mg/dL) 137 H (75-99) mg/dL Assessment and Plan Assessment: Persistent atrial fibrillation with RVR, on Eliquis Acute on chronic hypoxic respiratory failure COPD exacerbation Right lower lobe Pneumonia Chronic heart failure with reduced ejection fraction Ischemic cardiomyopathy Coronary artery disease with prior PCI OM2 and mid LAD in 09/2017 and PCI proximal circumflex in 11/2018 Hypertension Dyslipidemia Obesity BMI 42 Plan: Continue present medical therapy with amiodarone, Eliquis, statin, Digoxin, metoprolol tartrate Will restart lisinopril 5 mg daily Continue cardiac telemetry Consult speech therapy for possible aspiration Further recommendations based on clinical course Nurse Practitioner note has been reviewed, I agree with a documented findings and plan of care. Patient was seen and examined.
[2021-11-26 16:36] LABS: Glucose,Whole Blood 126 mg/dL (75-99)
[2021-11-26] MEDS: lisinopriL 5 MG TAB PO SCH (17:08)
--- NOTE | 2021-11-26 18:32 | PN ---
PROGRESS NOTE DATE OF SERVICE: 11/26/2021 This 66-year-old gentleman who was admitted with COPD exacerbation, acute hypoxic hypercarbic respiratory failure, is using BiPAP for drowsiness and CO2 is still elevated. No chest pain. No palpitation. EXAM: Pulse is 76, blood pressure 141/94, respiration 22, pulse ox 98% on 4 L. HEENT: Conjunctivae normal. Cardiovascular: S1, S2. Respiration: A few scattered rhonchi. Abdomen: Soft, obese. LABS: Reviewed. ASSESSMENT: 1. Chronic obstructive pulmonary disease acute exacerbation with acute hypoxic hypercarbic respiratory failure. 2. Acute respiratory acidosis. 3. Elevated random glucose. 4. Atrial fibrillation. 5. Ischemic cardiomyopathy. 6. Coronary artery disease. 7. On BiPAP. RECOMMENDATIONS AND DISCUSSION: Recommend to continue current management and symptomatic treatment. Otherwise continue the bronchodilators. Continue BiPAP. Social Work and case Management. Tolerating the BiPAP. Further recommendations to follow. Prognosis guarded. Discussed with the family. MMODL / IJN: [id number] /
[2021-11-26 20:01] LABS: Glucose,Whole Blood 143 mg/dL (75-99)
[2021-11-27 06:02] LABS: Glucose,Whole Blood 107 mg/dL (75-99)
[2021-11-27] MEDS: INSULIN ASPART (NovoLOG) 100 UNIT/ML VIAL SQ SCH ×7 (06:06→21:54)
[2021-11-27 07:24] LABS: HCT 46.8 % (39.0-53.0); HGB 14.4 gm/dL (13.0-17.5); Hypochromasia Marked; MCH 33.8 pg (25.0-35.0); MCHC 30.9 g/dL (31.0-37.0); Macrocytosis Marked; Mean Platelet Volume 7.8; Platelet Count 198 k/uL (150-450); RBC 4.27 m/uL (4.30-5.90); RDW 13.3 % (11.5-15.5); WBC 13.2 k/uL (3.8-10.6)
[2021-11-27 07:48] LABS: African American GFR (CKD) >90 (>60 ml/min/1.73 sqM); Blood Urea Nitrogen 63 mg/dL (9-20); Calcium 8.4 mg/dL (8.4-10.2); Chloride 92 mmol/L (98-107); Glucose 103 mg/dL (74-99); Non-African American GFR(CKD) 84 (>60 ml/min/1.73 sqM); Potassium 4.7 mmol/L (3.5-5.1); Sodium 140 mmol/L (137-145)
[2021-11-27 08:03] LABS: MCV 109.6 fL (80.0-100.0)
[2021-11-27 08:14] LABS: Anion Gap 1 mmol/L
[2021-11-27 08:37] LABS: Carbon Dioxide 47 mmol/L (22-30)
[2021-11-27] MEDS: PANTOPRAZOLE 40 MG/10 ML VIAL IV SCH (08:43)
[2021-11-27] MEDS: APIXABAN 5 MG TAB PO SCH ×2 (08:43→21:54)
[2021-11-27] MEDS: ZINC SULFATE 220 MG CAP PO SCH (08:43)
[2021-11-27] MEDS: predniSONE 20 MG TAB PO SCH (08:44)
[2021-11-27] MEDS: ASPIRIN 81 MG PO SCH (08:44)
[2021-11-27] MEDS: CHOLECALCIFEROL 125 MCG (5000 IU) TABLET PO SCH (08:44)
[2021-11-27] MEDS: ACETAMINOPHEN TAB 500 MG TAB PO PRN (08:44)
[2021-11-27] MEDS: amLODIPine 10 MG TAB PO SCH (08:44)
[2021-11-27] MEDS: CYANOCOBALAMIN 500 MCG TAB PO SCH (08:44)
[2021-11-27] MEDS: ATORVASTATIN 80 MG TAB PO SCH (08:44)
[2021-11-27] MEDS: lisinopriL 5 MG TAB PO SCH (08:44)
[2021-11-27] MEDS: DIGOXIN 125 MCG TAB PO SCH (08:45)
[2021-11-27] MEDS: PIPERACILLIN-TAZOBACTAM 3.375 GM in SODIUM CHLORIDE 0.9% 100 ML IVPB SCH ×3 (08:45→23:56)
[2021-11-27] MEDS: AMIODARONE 200 MG TAB PO SCH ×2 (08:46→21:54)
[2021-11-27] MEDS: METOPROLOL TARTRATE 25 MG TAB PO SCH ×3 (08:54→21:54)
--- NOTE | 2021-11-27 08:56 | P.PN ---
Subjective Progress Note Date: 11/27/21 Principal diagnosis: Permanent atrial fibrillation The patient is a pleasant 66-year-old gentleman with coronary artery disease and cardiomyopathy as well as permanent atrial fibrillation as well as COPD who was admitted to the hospital with COPD/pneumonia. The patient was seen this morning. He is feeling better. He reports no pain in the chest. On examination he does have mild bilateral expiratory wheezing. He would like to go home. He is on oral anticoagulation. From the cardiac standpoint of view, the patient can be discharged home. Objective - Vital Signs Vital signs: Vital Signs Temp 98.6 F 11/27/21 04:00 Pulse 44 L 11/27/21 04:00 Resp 30 H 11/27/21 04:00 BP 129/61 11/27/21 04:00 Pulse Ox 95 11/27/21 04:00 Intake & Output 11/26/21 11/27/21 11/27/21 18:59 06:59 18:59 Intake Total 280 Output Total 900 300 Balance -620 -300 Weight 110.5 kg Intake: Intake, IV Titration 100 Amount Piperacillin-Tazobactam 3 100 .375 gm In Sodium Chloride 0.9% 100 ml @ 25 mls/hr IVPB Q8HR [facility] Rx# :[id number] Oral 180 Output: Urine 900 300 Other: Voiding Method Urinal Urinal # Voids 1 - Constitutional General appearance: Present: no acute distress - Respiratory Respiratory: bilateral: wheezing - Cardiovascular Rhythm: irregularly irregular Heart sounds: normal: S1, S2 - Labs CBC & Chem 7: 11/27/21 06:13 11/27/21 06:13 Labs: Abnormal Lab Results - Last 24 Hours (Table) 11/26/21 11/26/21 11/26/21 Range/Units 08:55 08:55 11:35 WBC 12.8 H (3.8-10.6) k/uL RBC (4.30-5.90) m/uL MCV 109.7 H (80.0-100.0) fL MCHC 29.9 L (31.0-37.0) g/dL Neutrophils # 10.8 H (1.3-7.7) k/uL Lymphocytes # 0.5 L (1.0-4.8) k/uL Macrocytosis Marked A Chloride 93 L (98-107) mmol/L Carbon Dioxide 40 H (22-30) mmol/L BUN 54 H (9-20) mg/dL Glucose 116 H (74-99) mg/dL POC Glucose (mg/dL) 137 H (75-99) mg/dL 11/26/21 11/26/21 11/27/21 Range/Units 16:34 20:00 05:56 WBC (3.8-10.6) k/uL RBC (4.30-5.90) m/uL MCV (80.0-100.0) fL MCHC (31.0-37.0) g/dL Neutrophils # (1.3-7.7) k/uL Lymphocytes # (1.0-4.8) k/uL Macrocytosis Chloride (98-107) mmol/L Carbon Dioxide (22-30) mmol/L BUN (9-20) mg/dL Glucose (74-99) mg/dL POC Glucose (mg/dL) 126 H 143 H 107 H (75-99) mg/dL 11/27/21 11/27/21 Range/Units 06:13 06:13 WBC 13.2 H (3.8-10.6) k/uL RBC 4.27 L (4.30-5.90) m/uL MCV 109.6 H (80.0-100.0) fL MCHC 30.9 L (31.0-37.0) g/dL Neutrophils # (1.3-7.7) k/uL Lymphocytes # (1.0-4.8) k/uL Macrocytosis Marked A Chloride 92 L (98-107) mmol/L Carbon Dioxide 47 H* (22-30) mmol/L BUN 63 H (9-20) mg/dL Glucose 103 H (74-99) mg/dL POC Glucose (mg/dL) (75-99) mg/dL Assessment and Plan Assessment: Assessment #1 COPD exacerbation #2 permanent atrial fibrillation was controlled heart rate #3 coronary artery disease #4 artery myopathy #5 multiple comorbid conditions Plan #1 continue the current medical regimen #2 the patient can be discharged home
[2021-11-27] MEDS: ASCORBIC ACID 500 MG TAB PO SCH (10:05)
[2021-11-27] MEDS: SYMBICORT 160-4.5 MCG INHALER INHALATION SCH ×2 (10:54→20:27)
[2021-11-27] MEDS: IPRATROPIUM-ALBUTEROL 3 ML NEB INHALATION SCH ×4 (10:55→20:27)
[2021-11-27 11:21] LABS: Glucose,Whole Blood 97 mg/dL (75-99)
[2021-11-27] MEDS: FUROSEMIDE 40 MG TAB PO SCH (12:27)
--- NOTE | 2021-11-27 15:06 | P.PN ---
Subjective Progress Note Date: 11/27/21 Patient is a 66-year-old male came in the with compensative shortness of breath does have history of COPD uses about 2 L of oxygen at home patient was severely hypoxic and hypercapnic with the pCO2 of greater than 120 patient was on BiPAP. Patient is presently being the BiPAP still wheezing. Patient doesn't have any pneumonia on the chest x-ray. Patient is on the systemic steroids in the form of IV steroids. Patient denied any fever chills patient is coughing not not bringing up much at this time. Patient baseline pCO2 appears to be around 70. Patient is not acidotic anymore pCO2 has gone down to 64 still bit hypoxic. Patient also has history of atrial fibrillation when he came and patient was in A. fib with rapid and regular rate secondary to hypoxemia this resolved and patient presently rate controlled still in A. fib, patient was started on the Cardizem drip was later weaned off and the patient was started on oral metoprolol and Eliquis. Patient had bilateral lower extremity swelling on admission which resolved at this time patient takes a low-dose of Lasix had a normal ejection fraction the past patient is also on KRISTOPHER inhibitor. Patient blood pressure is not elevated patient doesn't have any systolic dysfunction patient potassium is elevated because of these reasons this will be discontinued. Patient the creatinine went up from 0.66-1.07. Patient is presently on 4 L of oxygen. She denied mild elevation of troponin 0.058. Patient is obese, didn't have any history of sleep apnea but probably will need another sleep study as his previous sleep study was many years ago. 11/17/2021 Patient is seen in follow-up with morning continues to be closely monitored in the ICU with cardiology and pulmonary following closely. Chest x-ray this morning shows increasing infiltrate of the right lower lobe with mild stable stranding density at the left lower lobe. Patient is continued on IV antibiotics in the form of ceftriaxone along with oral Zithromax and also continues with breathing inhalational treatments and IV Solu-Medrol at 60 mg every 6 and will continue. Patient was rate controlled on oral Lopressor although heart rate became elevated and uncontrolled with a flutter and placed back on IV Cardizem and is currently at 10 mL per hour with cardiology following closely. Patient also continues on oral anticoagulant of eliquis and will continue. Patient is receiving IV Lasix twice daily as well. Patient continues on 4 L of oxygen via nasal cannula and denies any worsening shortness of breath although continues to be short of breath with minimal exertion. Patient reports to using BiPAP at night. Patient is afebrile and patient denies any chest pain or palpitations at this time. Patient's blood sugars have been elevated most likely steroid-induced as there is no history of diabetes and will add sliding scale and continue with Accu-Cheks before meals and at bedtime. 11/18/2021 Patient evaluated today resting in bed in ICU, being followed closely by cardiology and pulmonary. Patient today in atrial flutter in the 130's to 140's and was started back on cardizem gtt at 10 mLs per hour. Heart rate has improved into the 70s. Chest xray today persistent right lower lobe infiltrate and strandy density left lower lobe. Continues on IV ceftriaxone and oral azithromycin, updrafts, pulmicort, IV solu-medrol, IV lasix 40 BID. Patient significantly bronchospastic during examination, unable to take a deep breath without coughing, WBC 7.8, hgb 12.4, sodium 137, potassium 4.8, chloride 87, CO2 46, patient did wear the BiPAP most of the night. States earlier this morning he had some midsternal chest discomfort unable to describe or quantify, but states he was sleeping and it has since resolved. Blood sugars elevated 200's, receiving novolog sliding scale, patient is eating majority of meals will add meal time insulin and monitor. May need to start long acting while on IV steroids. Afebrile, heart rate 98, respirations 30, blood pressure 119/61, 98% on 2L NC. 11/19/2021 Patient evaluated in the ICU today. Patient had an elevated heart rate up in the 170s this morning, Cardizem drip is currently off and he is on amiodarone bolus and infusion. Metoprolol was increased yesterday. Patient did not wear the BiPAP last night states that he felt short of breath while wearing it. Labs today show WBC 9.6, hgb 12.6, sodium 138, potassium 4.7, magnesium 2.2, chloride 85, CO2 44, BUN 47, creatinine slightly elevated at 1.07, blood glucose in the 120s. Chest xray this morning shows stable basilar infiltrates right greater than left. IV lasix was discontinued today. Patient is showing a negative fluid balance, down 1.6 Liters in the last 24 hours. Continues on IV ceftriaxone, PO azithromycin, updrafts, IV solu-medrol, on eliquis. Patient has not had a BM since admission, Patient is being follow closely by pulmonary, cardiology. 11/20/2021 Patient evaluated today in the ICU with at the bedside. Off the amiodarone gtt and now on oral amiodarone 400 mg PO daily, also metoprolol 75 mg po three times a day. Heart rate ranging between 80's to low 100's. Patient states he was able to tolerate the BIPAP last night when sleeping. No wheezing noted on exam today. Labs today show a serum CO2 level of 47 which is increased from yes terday, chloride stable at 85, BUN 51, creat 1.02. Afebrile, blood pressure 129/98, respirations in the 20's, oxygenation 93%. Passing more gas but still with no BM will repeat dose of lactulose today. Currently no complaints of chest, no shortness of breath at rest. Has not gotten up out of bed yet. Patient will undergo PT/OT evaluation today. Also will undergo overnight pulse ox study tonight. Patient is followed closely by cardiology and pulmonary team. 11/21/2021 Patient is seen in follow-up this morning and is being followed closely by pulmonary and cardiology. Patient is off amiodarone drip and on oral amiodarone lung with metoprolol 75 mg 3 times a day and oral anticoagulant. Pulmonary are following closely patient is maintained on IV steroids and being decreased to 40 every 8 and will continue to monitor closely. Patient also receiving breathing inhalational treatments and will continue. Patient currently on 2-3 L via nasal cannula with oxygen saturations of 94%. Patient continues to be dyspneic with minimal exertion and patient is weak and working with physical therapy daily. Plan is to return home with home care and his spouse on discharge. Blood sugars were controlled on current regimen and will continue and continue to recommend Accu-Cheks before meals and at bedtime. 11/22/2021 Patient is seen this morning and continues to be in the ICU currently awaiting a bed available on 3 S. for transfer out of the ICU. Patient was off of BiPAP all night and underwent continuous pulse ox monitoring throughout the night. Patient is currently maintained on 2 L via nasal cannula. Pulmonary and cardiology following closely. On exam patient's heart rate was elevated in the 130s and appears to be atrial fib cardiology following working on medication adjustments. Patient is currently maintained on oral amiodarone 200 mg twice daily along with being started on digoxin and also continues on metoprolol. On exam patient continues with wheezing and diminished breath sounds bilaterally more so on the right. Patient to receive a dose of IV Lasix today. Chest x-ray today shows persistent patchy basilar infiltrates compatible with pneumonia. Patient continues off antibiotics and blood cultures remain negative. Patient continues with significant weakness and working with physical therapy daily. Patient may possibly require BiPAP in the outpatient setting and case management following and working on discharge planning. 11/23/2021 Patient is seen in follow-up this morning recently transferred out of the ICU to the selected unit and is being closely monitored. Patient continues on cardiac telemetry with cardiology and pulmonary health consultant following closely. Patient continues with extreme shortness of breath and dyspnea with minimal exertion and was maintained on 2-3 L via nasal cannula although becoming more anxious and dyspneic and patient being placed back on BiPAP with an FiO2 of 32% and a PEEP of 5. Patient does normally wear a CPAP at night although not tolerating and strongly recommend patient be on BiPAP scheduled from 8 PM to 8 AM and as needed. Patient to receive another dose of IV Lasix as chest x-ray today shows persistent patchy bilateral areas of infiltrate greater on the right possibly compatible with pneumonia. Patient had been off antibiotic therapy and white blood count mildly elevated at 15.6 which may also be a component of high-dose IV steroids. Patient is continued on IV steroids along with breathing inha lational treatments and will continue. Patient being started on IV antibiotics prophylactically. Blood cultures have been negative. Patient is afebrile. Patient denies chest pain or palpitations. Cardiology also following and patient is maintained on digoxin, oral amiodarone, metoprolol, and eliquis and will continue. Prognosis is guarded. Recommend repeat chest x-ray and labs in the a.m. 11/24/2021 Patient is seen this morning with at the bedside continue to be short of breath and was maintained on BiPAP overnight in case management following working on obtaining BiPAP with necessary equipment for at home. Patient is weak and discussed with family at the bedside about possible ECF although they have made plans to care for him at home and have necessary equipment that they n eed. Family is refusing rehab at this time. Patient continues on IV Zosyn, breathing inhalational treatments, and IV steroids have been transitioned oral with pulmonary following. WBC is 14.5, hemoglobin is stable at 14.9, carbon dioxide is 46, creatinine is 1.02. Blood sugars controlled on current regimen and will continue. Patient denies chest pain or palpitations. Patient is afebrile. She tolerating diet with no reports of nausea or vomiting at this time. 11/27/2021 Patient is seen in follow-up this morning and per nursing staff lung sounds for wet and concern for possible aspiration. Speech therapy consulted currently performing a bedside swallow and a modified barium swallow is ordered and pending. Pulmonary health consultant following as well recommending outpatient follow-up and patient also will be receiving BiPAP at home in the outpatient setting. Case management following in arranging for this and patient must be present at the home during the time of delivery to receive adequate education and instructions on the use of the BiPAP. Unfortunately patient will not make it home in time and will be discharged in the morning if modified barium swallow is within normal limits. Patient continues on 4 L via nasal cannula. Patient is afebrile. No worsening reports of shortness of breath although continues to be shortness of breath with minimal exertion. Patient denies chest pain or palpitations at this time. Prednisone being titrated down and patient continues on IV Zosyn and will continue. at the bedside and questions and concerns were answered. Review of systems: Constitutional: reports of fatigue, no reports of fever, or chills Cardiovascular: No reports of chest pain or palpitations Respiratory: reports of shortness of breath and dyspnea with minimal exertion GI: No reports of nausea, vomiting, no reports of diarrhea : No reports of dysuria or retention Neurovascular: reports of generalized weakness All medications have been reviewed Active Medications Acetaminophen (Acetaminophen Tab 500 Mg Tab) 500 mg PO Q6HR PRN PRN Reason: Fever and/ or Pain Last Admin: 11/27/21 08:44 Dose: 500 mg Documented by: Albuterol/Ipratropium (Ipratropium-Albuterol 3 Ml Neb) 3 ml INHALATION RT-Q4H PRN PRN Reason: Shortness Of Breath Or Wheezing Last Admin: 11/16/21 06:55 Dose: 3 ml Documented by: Albuterol/Ipratropium (Ipratropium-Albuterol 3 Ml Neb) 3 ml INHALATION RT-QID [facility] Last Admin: 11/27/21 11:40 Dose: 3 ml Documented by: Amiodarone HCl (Amiodarone 200 Mg Tab) 200 mg PO BID [facility] Last Admin: 11/27/21 08:46 Dose: 200 mg Documented by: Amlodipine Besylate (Amlodipine 10 Mg Tab) 10 mg PO DAILY [facility] Last Admin: 11/27/21 08:44 Dose: 10 mg Documented by: Apixaban (Apixaban 5 Mg Tab) 5 mg PO BID [facility]; Protocol Last Admin: 11/27/21 08:43 Dose: 5 mg Documented by: Ascorbic Acid (Ascorbic Acid 500 Mg Tab) 1,000 mg PO DAILY [facility] Last Admin: 11/27/21 10:05 Dose: Not Given Documented by: Aspirin (Aspirin 81 Mg) 81 mg PO DAILY [facility] Last Admin: 11/27/21 08:44 Dose: 81 mg Documented by: Atorvastatin Calcium (Atorvastatin 80 Mg Tab) 80 mg PO DAILY [facility] Last Admin: 11/27/21 08:44 Dose: 80 mg Documented by: Budesonide/Formoterol Fumarate (Symbicort 160-4.5 Mcg Inhaler) 2 puff INHALATION RT-BID [facility] Last Admin: 11/27/21 10:54 Dose: Not Given Documented by: Cholecalciferol (Cholecalciferol 125 Mcg (5000 Iu) Tablet) 125 mcg PO DAILY [facility] Last Admin: 11/27/21 08:44 Dose: 125 mcg Documented by: Cyanocobalamin (Cyanocobalamin 500 Mcg Tab) 500 mcg PO DAILY [facility] Last Admin: 11/27/21 08:44 Dose: 500 mcg Documented by: Digoxin (Digoxin 125 Mcg Tab) 125 mcg PO DAILY [facility] Last Admin: 11/27/21 08:45 Dose: 125 mcg Documented by: Furosemide (Furosemide 40 Mg Tab) 40 mg PO DAILY [facility] Last Admin: 11/27/21 12:27 Dose: 40 mg Documented by: Guaifenesin/Dextromethorphan (Guaifenesin-Dm 100-10mg/5ml 10 Ml Cup) 10 ml PO Q6HR PRN PRN Reason: Cough Last Admin: 11/17/21 11:55 Dose: 10 ml Documented by: Heparin Sodium (Porcine) (Heparin Sodium 1,000 Un/Ml (10ml Vl)) 0 unit IV PER PROTOCOL PRN; Protocol PRN Reason: Low PTT Piperacillin Sod/Tazobactam (Sod 3.375 gm/ Sodium Chloride) 100 mls @ 25 mls/hr IVPB Q8HR [facility]; Protocol Last Admin: 11/27/21 08:45 Dose: 25 mls/hr Documented by: Insulin Aspart (Insulin Aspart (Novolog) 100 Unit/Ml Vial) 0 unit SQ ACHS [facility]; Protocol Last Admin: 11/27/21 12:15 Dose: Not Given Documented by: Insulin Aspart (Insulin Aspart (Novolog) 100 Unit/Ml Vial) 2 unit SQ AC-TID [facility] Last Admin: 11/27/21 12:15 Dose: Not Given Documented by: Lisinopril (Lisinopril 5 Mg Tab) 5 mg PO DAILY [facility] Last Admin: 11/27/21 08:44 Dose: 5 mg Documented by: Metoprolol Tartrate (Metoprolol Tartrate 25 Mg Tab) 75 mg PO TID [facility] Last Admin: 11/27/21 08:54 Dose: 75 mg Documented by: Naloxone HCl (Naloxone 0.4 Mg/Ml 1 Ml Vial) 0.2 mg IV Q2M PRN PRN Reason: Opioid Reversal Pantoprazole Sodium (Pantoprazole 40 Mg/10 Ml Vial) 40 mg IV DAILY [facility] Last Admin: 11/27/21 08:43 Dose: 40 mg Documented by: Prednisone (Prednisone 10 Mg Tab) 30 mg PO DAILY [facility] Zinc Sulfate (Zinc Sulfate 220 Mg Cap) 220 mg PO DAILY [facility] Last Admin: 11/27/21 08:43 Dose: 220 mg Documented by: PHYSICAL EXAMINATION: GENERAL: The patient is alert and oriented x3, tachypneic. Morbidly Obese currently on 4 L via nasal cannula and continues on BiPAP at night HEENT: Pupils are round and equally reacting to light. EOMI. No scleral ic terus. No conjunctival pallor. Normocephalic, atraumatic. No pharyngeal erythema. No thyromegaly. CARDIOVASCULAR: S1 and S2 muffled. Irregularly irregular rhythm PULMONARY: Decreased breath sounds noted bilaterally more muffled on the right with continued scattered rhonchi noted. ABDOMEN: Soft, obese, non-tender, nondistended, normoactive bowel sounds. No palpable organomegaly. MUSCULOSKELETAL: No joint swelling or deformity. EXTREMITIES: No cyanosis, clubbing, mild pedal edema of bilateral lower extremities NEUROLOGICAL: Gross neurological examination did not reveal any focal deficits. Diffusely weak SKIN: No rashes. Chronic discoloration noted on bilateral lower extremities Assessment: -Acute on chronic hypercapnic and hypoxic respiratory failure: Secondary to COPD exacerbation -Respiratory acidosis secondary to CO2 retention. Patient has a compensated metabolic alkalosis -Peripheral edema: Secondary to obesity and venous insufficiency, improved -Elevated random glucose, most likely steroid-induced, A1C 6.0 consistent with pre-diabetes -Atrial fibrillation with rapid and regular rate, a flutter, and continued on oral amiodarone and metoprolol., digoxin, followed closely by cardiology -Ischemic cardiomyopathy with EF of 35% -Coronary artery disease with history of stents in the past -Hypertension -Hypoventilation obesity possibly of sleep apnea will need another sleep study in the outpatient setting -Hyperkalemia secondary to KRISTOPHER inhibitor use, improved -Hyperlipidemia -Obesity -DVT prophylaxis: Patient is on anticoagulation with Eliquis -No code Plan: Recommend continue with current medications and current consultations of pulmonary and cardiology following closely. Patient is currently maintained on 4 L via nasal cannula and to continue on BiPAP at night and as needed. Recommend scheduled use of BiPAP at 8 PM to 8 AM and as needed. Case management following working on discharge planning. Arranging for BiPAP in the outpatient setting. Patient must be present to receive education and hands-on training of the device at his home which is being arranged for 11/28/2021. Patient to continue with breathing inhalational treatments along with oral prednisone and cardio and pulmonary continue to follow. Concern for possible aspiration as patient is choking when drinking thin liquids and speech therapy consulted and pending at this time. Plans for modified barium swallow study today. Will await report and continue to monitor closely. Patient to continue IV antibiotics at this time. Due to multiple Medical issues, prognosis is extremely guarded. Anticipate discharge in 24 hours. The impression and plan of care has been dictated by Jaclyn Obregon, nurse practitioner as directed. MD Shai I have performed a history and examination and MDM of this patient, discussed the same with the dictator, and agree with the dictator's assessment and plan as written ,documented as a scribe. Based on total visit time, I have performed more than 50% of the visit. Any additional findings or plans will be noted. Objective - Vital Signs Vital signs: Vital Signs Temp 98.6 F 11/27/21 04:00 Pulse 44 L 11/27/21 04:00 Resp 30 H 11/27/21 04:00 BP 129/61 11/27/21 04:00 Pulse Ox 95 11/27/21 04:00 Intake & Output 11/26/21 11/27/21 11/27/21 18:59 06:59 18:59 Intake Total 280 Output Total 900 300 Balance -620 -300 Weight 110.5 kg Intake: Intake, IV Titration 100 Amount Piperacillin-Tazobactam 3 100 .375 gm In Sodium Chloride 0.9% 100 ml @ 25 mls/hr IVPB Q8HR [facility] Rx# :[id number] Oral 180 Output: Urine 900 300 Other: Voiding Method Urinal Urinal # Voids 1 - Labs CBC & Chem 7: 11/27/21 06:13 11/27/21 06:13 Labs: Abnormal Lab Results - Last 24 Hours (Table) 11/26/21 11/26/21 11/26/21 Range/Units 08:55 11:35 16:34 WBC (3.8-10.6) k/uL RBC (4.30-5.90) m/uL MCV (80.0-100.0) fL MCHC (31.0-37.0) g/dL Macrocytosis Chloride 93 L (98-107) mmol/L Carbon Dioxide 40 H (22-30) mmol/L BUN 54 H (9-20) mg/dL Glucose 116 H (74-99) mg/dL POC Glucose (mg/dL) 137 H 126 H (75-99) mg/dL 11/26/21 11/27/21 11/27/21 Range/Units 20:00 05:56 06:13 WBC 13.2 H (3.8-10.6) k/uL RBC 4.27 L (4.30-5.90) m/uL MCV 109.6 H (80.0-100.0) fL MCHC 30.9 L (31.0-37.0) g/dL Macrocytosis Marked A Chloride (98-107) mmol/L Carbon Dioxide (22-30) mmol/L BUN (9-20) mg/dL Glucose (74-99) mg/dL POC Glucose (mg/dL) 143 H 107 H (75-99) mg/dL 11/27/21 Range/Units 06:13 WBC (3.8-10.6) k/uL RBC (4.30-5.90) m/uL MCV (80.0-100.0) fL MCHC (31.0-37.0) g/dL Macrocytosis Chloride 92 L (98-107) mmol/L Carbon Dioxide 47 H* (22-30) mmol/L BUN 63 H (9-20) mg/dL Glucose 103 H (74-99) mg/dL POC Glucose (mg/dL) (75-99) mg/dL
--- NOTE | 2021-11-27 15:30 | P.PN ---
Subjective Progress Note Date: 11/27/21 This is a 66-year-old male patient with advanced COPD with an FEV1 of 25% of predicted, oxygen dependent at 2/3 L nasal cannula in addition to Prevacid history of coronary artery disease, has history of stent placement, previous history of ischemic cardiomyopathy with impaired ejection fraction that had been as low as 35% and subsequent improvement. The patient is known to me. He does have also an underlying bronchogenic cyst. 11/27/2021, I'm seeing the patient for a follow-up. Patient is doing well. He is still weak yet he wants to go home as the patient has a good social support system at home. He was able to do some minimal amount of activity yesterday. Overall, he remains quite weak and congestive ongoing congestion his chest. His repeat chest x-ray. She days back showed clearing of the right lower lobe pneumonia/consolidation. The patient is completing course of Zosyn. He is on bronchodilators. He also completing a course of prednisone burst taper. He is well diurese with [facility] regarding his CHF. He has no angina. No palpitation. No signs of any CO2 narcosis. He was wearing his BiPAP overnight. No fever. No chills no night sweats. No angina. No palpitation. His is also is at the bedside. Meanwhile, the patient underwent echo 13.2 with hemoglobin of 14.4 and a platelet count of 198. BUN is at 63 with a creatinine of 0.9 and the patient had a sodium level of 140. The patient is on long-term and coagulation with Eliquis 5 mg by mouth twice a day. The patient remains on IV Zosyn. The patient is currently on prednisone burst taper and the dose was reduced down to 30 mg on a daily basis. This will be a part of a burst taper. He remains on amiodarone 200 mg by mouth twice a day in addition to metoprolol 75 mg 3 times a day for rate control. His long-term articulation is regarding his chronic atrial fibrillation. No nausea. No vomiting. No diarrhea. No abdominal pain. Altered mentation. Objective - Vital Signs Vital signs: Vital Signs Temp 97.8 F 11/27/21 08:00 Pulse 74 11/27/21 08:00 Resp 16 11/27/21 08:00 BP 137/76 11/27/21 08:00 Pulse Ox 97 11/27/21 08:00 Intake & Output 11/26/21 11/27/21 11/27/21 18:59 06:59 18:59 Intake Total 280 Output Total 900 300 Balance -620 -300 Weight 110.5 kg Intake: Intake, IV Titration 100 Amount Piperacillin-Tazobactam 3 100 .375 gm In Sodium Chloride 0.9% 100 ml @ 25 mls/hr IVPB Q8HR [facility] Rx# :[id number] Oral 180 Output: Urine 900 300 Other: Voiding Method Urinal Urinal # Voids 1 - Exam GENERAL EXAM: Morbidly obese pleasant 66-year-old gentleman. Alert, a mild degree of respiratory distress. placed on 3 L of oxygen by nasal cannula HEAD: Normocephalic. EYES: Normal reaction of pupils, equal size. NOSE: Clear with pink turbinates. THROAT: No erythema or exudates. NECK: No masses, no JVD. CHEST: No chest wall deformity. LUNGS: Marked diminished breath sounds along with scattered external wheezes throughout the lung his bilaterally. No dullness to percussion. CVS: Irregular rhythm consistent with atrial fibrillation. ABDOMEN: No hepatosplenomegaly, normal bowel sounds, no guarding or rigidity. SPINE: No scoliosis or deformity SKIN: No rashes CENTRAL NERVOUS SYSTEM: No focal deficits, tone is normal in all 4 extremities. EXTREMITIES: Trace edema lower extremities bilaterally.. No clubbing, no cyanosis. Peripheral pulses are intact. - Labs CBC & Chem 7: 11/27/21 06:13 11/27/21 06:13 Labs: Abnormal Lab Results - Last 24 Hours (Table) 11/26/21 11/26/21 11/26/21 Range/Units 11:35 16:34 20:00 WBC (3.8-10.6) k/uL RBC (4.30-5.90) m/uL MCV (80.0-100.0) fL MCHC (31.0-37.0) g/dL Macrocytosis Chloride (98-107) mmol/L Carbon Dioxide (22-30) mmol/L BUN (9-20) mg/dL Glucose (74-99) mg/dL POC Glucose (mg/dL) 137 H 126 H 143 H (75-99) mg/dL 03/14/22 03/14/22 03/14/22 Range/Units 05:56 06:13 06:13 WBC 13.2 H (3.8-10.6) k/uL RBC 4.27 L (4.30-5.90) m/uL MCV 109.6 H (80.0-100.0) fL MCHC 30.9 L (31.0-37.0) g/dL Macrocytosis Marked A Chloride 92 L (98-107) mmol/L Carbon Dioxide 47 H* (22-30) mmol/L BUN 63 H (9-20) mg/dL Glucose 103 H (74-99) mg/dL POC Glucose (mg/dL) 107 H (75-99) mg/dL Assessment and Plan Plan: 1 acute COPD exacerbation with secondary hypoxic and hypercapnic respiratory failure which is an acute on top of chronic hypoxic/hypercapnic respiratory failure. The patient has a right lower lobe consolidation consistent of pneumonia, and the patient is stable consolidation on today's chest x-ray currently, patient is currently on Zosyn and the most recent chest x-ray was done on 11/25/2021 that showed clearing of the right lower lobe pneumonia. He continues to have a congested cough. A swallow evaluation is also to be done today. Meanwhile, the low chest x-ray shows clearing of the right lower lobe pneumonia. No signs of any significant rest for distress for now. 2 acute COPD exacerbation, improving, remains stable on a combination of bronchodilators and steroids , 3 acute on chronic hypoxic and hypercapnic respiratory failure, currently between 4 L of oxygen by nasal cannula 4 advanced COPD with an FEV1 of 25% predicted 5 chronic hypoxic respiratory failure maintained on O2 at 3 L 6 A. fib fibrillation with RVR /atrial flutter and the patient is having episodes of A. fib RVR in the morning, along with episodes of SVTs 7 coronary artery disease with persistent of coronary stenting involving the circumflex and November 2018 and the patient also has had previous stenting to the LAD and circumflex and 2017 8 severe ischemic cardiomyopathy with previous ejection fraction of around 35%, repeat echocardiogram showed an ejection fraction of 25-30% with global hypokinesis. 9 bronchogenic cyst of the lung, right-sided, benign 10 hypertension 11 hyperlipidemia 12 obesity with a BMI of 43.3 Plan Complete a swallow evaluation The patient will be obtaining a Trilogy ventilator at home Prednisone burst taper currently down to 30 mg Continue bronchodilators Continue oral Lasix Continue DuoNeb nebulized she was 4 times a day [id number] Continue Metoprolol 75 mg by mouth 3 times a day anticoagulation with Eliquis 5 mg by mouth twice a day Repeat echocardiogram was completed and the patient was found to have ejection fraction of 25-30% along with global hypokinesis. No significant pulmonary hypertension. Monitor mental status We'll continue to follow make further recommendations based on his progress. His CODE STATUS is DO NOT INTUBATE. Patient is being considered for discharge home
--- NOTE | 2021-11-27 15:33 | FL ---
Modified barium swallow. HISTORY: Dysphagia. Modified barium swallow was performed with the department of speech pathology. The patient was prese nted with various consistencies of barium. There is no evidence for aspiration or penetration. Full report is to follow from the department of speech pathology. Impression: Normal study.
[2021-11-27 17:06] LABS: Glucose,Whole Blood 145 mg/dL (75-99)
[2021-11-27 20:12] LABS: Glucose,Whole Blood 227 mg/dL (75-99)
[2021-11-27] MEDS: IPRATROPIUM-ALBUTEROL 3 ML NEB INHALATION PRN (23:50)
[2021-11-28] MEDS: IPRATROPIUM-ALBUTEROL 3 ML NEB INHALATION PRN (03:47)
[2021-11-28 06:09] LABS: Glucose,Whole Blood 86 mg/dL (75-99)
[2021-11-28] MEDS: INSULIN ASPART (NovoLOG) 100 UNIT/ML VIAL SQ SCH ×2 (06:26→06:27)
[2021-11-28] MEDS: SYMBICORT 160-4.5 MCG INHALER INHALATION SCH (08:58)
[2021-11-28] MEDS: IPRATROPIUM-ALBUTEROL 3 ML NEB INHALATION SCH ×2 (08:58→13:21)
[2021-11-28] MEDS ORDERED: predniSONE 10 MG TAB PO SCH (09:00)
[2021-11-28 09:48] VITALS: BP 106/67; PULSE 69; RESP 18; TEMP 98.2
[2021-11-28] MEDS: PANTOPRAZOLE 40 MG/10 ML VIAL IV SCH (09:49)
[2021-11-28] MEDS: APIXABAN 5 MG TAB PO SCH (09:49)
[2021-11-28] MEDS: AMIODARONE 200 MG TAB PO SCH (09:49)
[2021-11-28] MEDS: ATORVASTATIN 80 MG TAB PO SCH (09:49)
[2021-11-28] MEDS: amLODIPine 10 MG TAB PO SCH (09:49)
[2021-11-28] MEDS: CYANOCOBALAMIN 500 MCG TAB PO SCH (09:50)
[2021-11-28] MEDS: METOPROLOL TARTRATE 25 MG TAB PO SCH (09:50)
[2021-11-28] MEDS: DIGOXIN 125 MCG TAB PO SCH (09:50)
[2021-11-28] MEDS: CHOLECALCIFEROL 125 MCG (5000 IU) TABLET PO SCH (09:50)
[2021-11-28] MEDS: ACETAMINOPHEN TAB 500 MG TAB PO PRN (09:50)
[2021-11-28] MEDS: FUROSEMIDE 40 MG TAB PO SCH (09:50)
[2021-11-28] MEDS: ASCORBIC ACID 500 MG TAB PO SCH (09:51)
[2021-11-28] MEDS: ZINC SULFATE 220 MG CAP PO SCH (09:51)
[2021-11-28] MEDS: ASPIRIN 81 MG PO SCH (09:51)
[2021-11-28] MEDS: lisinopriL 5 MG TAB PO SCH (09:52)
[2021-11-28] MEDS: PIPERACILLIN-TAZOBACTAM 3.375 GM in SODIUM CHLORIDE 0.9% 100 ML IVPB SCH (09:52)
[2021-11-28 11:04] VITALS: BMI 35.2
[2021-11-28 11:46] LABS: Glucose,Whole Blood 155 mg/dL (75-99)
--- NOTE | 2021-11-28 15:30 | P.PN ---
Subjective Progress Note Date: 11/28/21 This is a 66-year-old male patient with advanced COPD with an FEV1 of 25% of predicted, oxygen dependent at 2/3 L nasal cannula in addition to Prevacid history of coronary artery disease, has history of stent placement, previous history of ischemic cardiomyopathy with impaired ejection fraction that had been as low as 35% and subsequent improvement. The patient is known to me. He does have also an underlying bronchogenic cyst. 11/27/2021, I'm seeing the patient for a follow-up. Patient is doing well. He is still weak yet he wants to go home as the patient has a good social support system at home. He was able to do some minimal amount of activity yesterday. Overall, he remains quite weak and congestive ongoing congestion his chest. His repeat chest x-ray. She days back showed clearing of the right lower lobe pneumonia/consolidation. The patient is completing course of Zosyn. He is on bronchodilators. He also completing a course of prednisone burst taper. He is well diurese with [facility] regarding his CHF. He has no angina. No palpitation. No signs of any CO2 narcosis. He was wearing his BiPAP overnight. No fever. No chills no night sweats. No angina. No palpitation. His is also is at the bedside. Meanwhile, the patient underwent echo 13.2 with hemoglobin of 14.4 and a platelet count of 198. BUN is at 63 with a creatinine of 0.9 and the patient had a sodium level of 140. The patient is on long-term and coagulation with Eliquis 5 mg by mouth twice a day. The patient remains on IV Zosyn. The patient is currently on prednisone burst taper and the dose was reduced down to 30 mg on a daily basis. This will be a part of a burst taper. He remains on amiodarone 200 mg by mouth twice a day in addition to metoprolol 75 mg 3 times a day for rate control. His long-term articulation is regarding his chronic atrial fibrillation. No nausea. No vomiting. No diarrhea. No abdominal pain. Altered mentation. 11/28/2021, the patient remains quite weak and debilitated. Nevertheless, he is still feeling that he should be able to go home and he seems to have evidence of support systems. I talked to the and I okayed to discharge home as long as the patient is being monitored very closely and he may be also considered for palliative care. No new complaints. He is respiratory status is quite borderline and the patient gets short of breath with limited amount of activity. He was able to move back and forth to the bathroom with assistance. He continues to have some lower extremity edema. No reported chest pain. Congested cough. No significant sputum production. Altered mentation. No nausea vomiting or diarrhea or abdominal pain. Objective - Vital Signs Vital signs: Vital Signs Temp 98.2 F 11/28/21 09:46 Pulse 69 11/28/21 09:46 Resp 18 11/28/21 09:46 BP 106/67 11/28/21 09:46 Pulse Ox 98 11/28/21 09:46 Intake & Output 11/27/21 11/28/21 11/28/21 18:59 06:59 18:59 Intake Total 500 480 188 Output Total 175 800 100 Balance 325 -320 88 Weight 111.5 kg 111.5 kg Intake: Oral 500 480 188 Output: Urine 175 800 100 Other: Voiding Method Urinal - Exam GENERAL EXAM: Morbidly obese pleasant 66-year-old gentleman. Alert, a mild degree of respiratory distress. placed on 3 L of oxygen by nasal cannula HEAD: Normocephalic. EYES: Normal reaction of pupils, equal size. NOSE: Clear with pink turbinates. THROAT: No erythema or exudates. NECK: No masses, no JVD. CHEST: No chest wall deformity. LUNGS: Marked diminished breath sounds along with scattered external wheezes throughout the lung his bilaterally. No dullness to percussion. CVS: Irregular rhythm consistent with atrial fibrillation. ABDOMEN: No hepatosplenomegaly, normal bowel sounds, no guarding or rigidity. SPINE: No scoliosis or deformity SKIN: No rashes CENTRAL NERVOUS SYSTEM: No focal deficits, tone is normal in all 4 extremities. EXTREMITIES: Trace edema lower extremities bilaterally.. No clubbing, no cyanosis. Peripheral pulses are intact. - Labs CBC & Chem 7: 11/27/21 06:13 11/27/21 06:13 Labs: Abnormal Lab Results - Last 24 Hours (Table) 11/27/21 11/27/21 11/28/21 Range/Units 16:54 20:08 11:45 POC Glucose (mg/dL) 145 H 227 H 155 H (75-99) mg/dL Assessment and Plan Plan: 1 acute COPD exacerbation with secondary hypoxic and hypercapnic respiratory failure which is an acute on top of chronic hypoxic/hypercapnic respiratory failure. The patient has a right lower lobe consolidation consistent of pneumonia, and the patient is stable consolidation on today's chest x-ray currently, patient is currently on Zosyn and the most recent chest x-ray was done on 11/25/2021 that showed clearing of the right lower lobe pneumonia. He continues to have a congested cough. A swallow evaluation is also to be done today. Meanwhile, the low chest x-ray shows clearing of the right lower lobe pneumonia. No signs of any significant rest for distress for now. 2 acute COPD exacerbation, improving, remains stable on a combination of bronchodilators and steroids , 3 acute on chronic hypoxic and hypercapnic respiratory failure, currently between 4 L of oxygen by nasal cannula 4 advanced COPD with an FEV1 of 25% predicted 5 chronic hypoxic respiratory failure maintained on O2 at 3 L 6 A. fib fibrillation with RVR /atrial flutter and the patient is having episodes of A. fib RVR in the morning, along with episodes of SVTs 7 coronary artery disease with persistent of coronary stenting involving the circumflex and November 2018 and the patient also has had previous stenting to the LAD and circumflex and 2017 8 severe ischemic cardiomyopathy with previous ejection fraction of around 35%, repeat echocardiogram showed an ejection fraction of 25-30% with global hypokinesis. 9 bronchogenic cyst of the lung, right-sided, benign 10 hypertension 11 hyperlipidemia 12 obesity with a BMI of 43.3 Plan Patient is able to swallow. Patient will be able to get a Trilogy ventilator at home Complete a prednisone burst taper on outpatient basis Continue bronchodilators Continue anticoagulation with Eliquis 5 mg by mouth twice a day Metoprolol 75 mg by mouth 3 times a day Encourage mobility as tolerated Continues to be quite weak and debilitated. May consider hospice care at the later stage. May consider palliative care. For now, he has a good social support system and the patient will be discharged home under the care of the family. The family will contact me back should there be any issues with his breathing or any interval worsening.
--- NOTE | 2021-11-29 09:55 | P.DS ---
Providers Date of admission: 11/15/21 23:02 Expected date of discharge: 11/28/21 Attending physician: Lolita Richards Consults: 11/15/21 23:02 Consult Physician Routine Consulting Provider: [facility] Consult Reason/Comments: new onset aflutter Do you want consulting provider notified?: Yes Consult Physician Stat Consulting Provider: Uma Ramsey Consult Reason/Comments: acute/chronic hypoxic resp failure, bipap Do you want consulting provider notified?: Already Contacted Primary care physician: Uma Ramsey Hospital Course: Final diagnosis -Acute on chronic hypercapnic and hypoxic respiratory failure: Secondary to COPD exacerbation -Respiratory acidosis secondary to CO2 retention. Patient has a compensated metabolic alkalosis -Peripheral edema: Secondary to obesity and venous insufficiency, improved -Elevated random glucose, most likely steroid-induced, A1C 6.0 consistent with pre-diabetes -Atrial fibrillation with rapid and regular rate, a flutter -Ischemic cardiomyopathy with EF of 35% -Coronary artery disease with history of stents in the past -Hypertension -Hypoventilation obesity possibly of sleep apnea will need another sleep study in the outpatient setting -Hyperkalemia secondary to KRISTOPHER inhibitor use, improved -Hyperlipidemia -Obesity -DVT prophylaxis -No code Discharge disposition Patient is being discharged in a stable condition with extremely guarded prognosis to home. Home Care has been arranged by case management. Patient will follow-up with Dr. Ramsey in the outpatient setting upon discharge. Patient is to continue with oral antibiotics in the form of Augmentin twice daily for the next 3 days to complete the course along with a prednisone taper. Patient has been arranged to receive BiPAP in the home. Total time taken is greater than 35 minutes. Hospital Course This is a 61-year-old male who was recently admitted shortness of breath with severe COPD exacerbation and was being closely monitored. Patient was placed on BiPAP and in the ICU for quite some time. Patient transferred out of the ICU continued to be weak and short of breath and pulmonary coating and baking operator following closely. Patient refused rehab along with and are adamant about going home. She also had elevated blood sugars and hemoglobin A1c was 6.2 and recommending following up with primary care provider and initiating sliding scale as blood sugars have been mildly elevated. Patient will follow-up and discuss with primary care provider and continue with diet control for now. Patient also being followed by cardiology for atrial fibrillation and will follow-up with cardiology and primary care provider along with pulmonary coating and baking operator in the outpatient setting this week. Upon patient discharge patient became extremely short of breath and weak getting into the car and pulse ox was found to be 80-85% and wanted to bring the patient back into the hospital and patient was adamant in refusing to come back in and persisted to get back into the car and wanted to go home. Patient was alert and oriented 3 and was refusing to be rehospitalized. Lengthy discussion was had with the patient along with Dr. Ramsey overall prognosis being extremely guarded and poor and also discussed with them about possible palliative or hospice if patient continue to worsen. Patient wishes to remain no code and will discuss further with family about treatment plans moving forward. encouraged to call 911 or report to the nearest ER if patient's symptoms become more severe. Medical equipment currently being arranged for BiPAP in the home setting along with education and training that will occur today. Currently no reports of chest pain, worsening shortness of breath, or palpitations. Patient is afebrile. No reports of nausea or vomiting and patient is tolerating diet. Patient will be discharged home today. Guarded prognosis Physical exam: GENERAL: The patient is alert and oriented x3, tachypneic. Morbidly Obese currently on 5 L via nasal cannula HEENT: Pupils are round and equally reacting to light. EOMI. No scleral icterus. No conjunctival pallor. Normocephalic, atraumatic. No pharyngeal erythe ma. No thyromegaly. CARDIOVASCULAR: S1 and S2 muffled. Irregularly irregular rhythm PULMONARY: Decreased breath sounds noted bilaterally more muffled on the right with continued scattered rhonchi noted. ABDOMEN: Soft, obese, non-tender, nondistended, normoactive bowel sounds. No palpable organomegaly. MUSCULOSKELETAL: No joint swelling or deformity. EXTREMITIES: No cyanosis, clubbing, mild pedal edema of bilateral lower extremities NEUROLOGICAL: Gross neurological examination did not reveal any focal deficits. Diffusely weak SKIN: No rashes. Chronic discoloration noted on bilateral lower extremities Please refer to medication reconciliation sheet for a list of medications. The impression and plan of care has been dictated by Jaclyn Obregon, nurse practitioner as directed. MD Sue I have performed a history and examination and MDM of this patient, discussed the same with the dictator, and agree with the dictator's assessment and plan as written ,documented as a scribe. Based on total visit time, I have performed more than 50% of the visit. Patient Condition at Discharge: Poor Plan - Discharge Summary New Discharge Prescriptions: New Amoxic-Pot Clav 875-125Mg [Augmentin 875-125] 1 tab PO Q12HR 3 Days #6 tab Furosemide [Lasix] 40 mg PO DAILY 30 Days #30 tab amLODIPine [Norvasc] 10 mg PO DAILY 30 Days #30 tab predniSONE 10 mg PO DIRECTED #24 tab Acetaminophen Tab [Tylenol] 500 mg PO Q6HR PRN tab PRN Reason: Fever And/ Or Pain Amiodarone [Cordarone] 200 mg PO BID 30 Days #60 tab Ipratropium-Albuterol Nebulize [Duoneb 0.5 mg-3 mg/3 ml Soln] 3 ml INHALATION RT-QID 30 Days #120 dose Ipratropium-Albuterol Nebulize [Duoneb 0.5 mg-3 mg/3 ml Soln] 3 ml INHALATION RT-Q4H PRN ml PRN Reason: Shortness Of Breath Or Wheezing Apixaban [Eliquis] 5 mg PO BID 30 Days #60 tab Digoxin [Lanoxin] 125 mcg PO DAILY 30 Days #30 tab Metoprolol Tartrate [Lopressor] 75 mg PO TID 30 Days #270 tab Continue Budesonide-Formot 160-4.5 Mcg [Symbicort 160-4.5 Mcg Inhaler] 2 puff INHALATION RT-BID Tiotropium [facility] [Spiriva] 1 cap INHALATION RT-DAILY Potassium Chloride [Potassium Chloride ER] 10 meq PO DAILY PRN PRN Reason: LASIX Albuterol Sulfate [Proair Hfa] 2 puff INHALATION RT-QID PRN PRN Reason: Shortness Of Breath Aspirin [Adult Low Dose Aspirin EC] 81 mg PO DAILY Atorvastatin [Lipitor] 80 mg PO DAILY lisinopriL [Prinivil] 5 mg PO DAILY Cyanocobalamin [Vitamin B-12] 500 mcg PO DAILY Ascorbic Acid [Vitamin C] 1,000 mg PO DAILY Albuterol Nebulized [Ventolin Nebulized] 2.5 mg INHALATION RT-QID PRN PRN Reason: Shortness Of Breath Cholecalciferol [Vitamin D3 (125 Mcg = 5000 Iu)] 125 mcg PO DAILY Discontinued Furosemide [Lasix] 20 mg PO DAILY PRN PRN Reason: Edema Metoprolol Tartrate [Lopressor] 25 mg PO BID Zinc Gluconate [Zinc] 50 mg PO DAILY Discharge Medication List Budesonide-Formot 160-4.5 Mcg [Symbicort 160-4.5 Mcg Inhaler] 2 puff INHALATION RT-BID 11/05/16 [History] Tiotropium [facility] [Spiriva] 1 cap INHALATION RT-DAILY 11/05/16 [History] Albuterol Sulfate [Proair Hfa] 2 puff INHALATION RT-QID PRN 11/20/18 [History] Aspirin [Adult Low Dose Aspirin EC] 81 mg PO DAILY 11/20/18 [History] Atorvastatin [Lipitor] 80 mg PO DAILY 11/20/18 [History] Potassium Chloride [Potassium Chloride ER] 10 meq PO DAILY PRN 11/20/18 [History] lisinopriL [Prinivil] 5 mg PO DAILY 08/08/19 [History] Albuterol Nebulized [Ventolin Nebulized] 2.5 mg INHALATION RT-QID PRN 11/15/21 [History] Ascorbic Acid [Vitamin C] 1,000 mg PO DAILY 11/15/21 [History] Cholecalciferol [Vitamin D3 (125 Mcg = 5000 Iu)] 125 mcg PO DAILY 11/15/21 [History] Cyanocobalamin [Vitamin B-12] 500 mcg PO DAILY 11/15/21 [History] Acetaminophen Tab [Tylenol] 500 mg PO Q6HR PRN tab 11/28/21 [Rx] Amiodarone [Cordarone] 200 mg PO BID 30 Days #60 tab 11/28/21 [Rx] Amoxic-Pot Clav 875-125Mg [Augmentin 875-125] 1 tab PO Q12HR 3 Days #6 tab 11/28/21 [Rx] Apixaban [Eliquis] 5 mg PO BID 30 Days #60 tab 11/28/21 [Rx] Digoxin [Lanoxin] 125 mcg PO DAILY 30 Days #30 tab 11/28/21 [Rx] Furosemide [Lasix] 40 mg PO DAILY 30 Days #30 tab 11/28/21 [Rx] Ipratropium-Albuterol Nebulize [Duoneb 0.5 mg-3 mg/3 ml Soln] 3 ml INHALATION RT-Q4H PRN ml 11/28/21 [Rx] Ipratropium-Albuterol Nebulize [Duoneb 0.5 mg-3 mg/3 ml Soln] 3 ml INHALATION RT-QID 30 Days #120 dose 11/28/21 [Rx] Metoprolol Tartrate [Lopressor] 75 mg PO TID 30 Days #270 tab 11/28/21 [Rx] amLODIPine [Norvasc] 10 mg PO DAILY 30 Days #30 tab 11/28/21 [Rx] predniSONE 10 mg PO DIRECTED #24 tab 11/28/21 [Rx] Follow up Appointment(s)/Referral(s): Norah Funes MD [STAFF PHYSICIAN] - 12/06/21 3:30 pm [facility], [NON-STAFF] - Uma Ramsey MD [Primary Care Provider] - 12/22/21 3:15 pm Activity/Diet/Wound Care/Special Instructions: Activity Limited until follow-up Follow-up with primary care provider on discharge Follow-up cardiology in one week Follow-up pulmonary in one week Continue taking medications as prescribed Continue antibiotics for the next 3 days until finished Continue prednisone taper Continue current diet Discharge Disposition: HOME WITH HOME HEALTH SERVICES
== END 2021-11-28 13:12 | disposition home health service (06) | DRG 190 ==
LOC: EC 18:17 → 2SICU 23:02 → 3SCARD 11-22 13:32
PROVIDERS: ADMIT Internal Medicine; ATTEND Internal Medicine
PROC: 5A09357 Assistance with Respiratory Ventilation, Less than 24 Consecutive Hours, Continuous Positive Airway Pressure (ICD-10-PCS; principal; 2021-11-15)
DX: J44.1 Chronic obstructive pulmonary disease with (acute) exacerbation (principal); J96.21 Acute and chronic respiratory failure with hypoxia; J96.22 Acute and chronic respiratory failure with hypercapnia; J18.9 Pneumonia, unspecified organism; E66.2 Morbid (severe) obesity with alveolar hypoventilation; Z68.41 Body mass index [BMI] 40.0-44.9, adult; E87.4 Mixed disorder of acid-base balance; I47.1 Supraventricular tachycardia; I48.21 Permanent atrial fibrillation; I48.3 Typical atrial flutter; I50.22 Chronic systolic (congestive) heart failure; Z87.01 Personal history of pneumonia (recurrent); J44.0 Chronic obstructive pulmonary disease with (acute) lower respiratory infection; J98.4 Other disorders of lung; E78.5 Hyperlipidemia, unspecified; E87.5 Hyperkalemia; I11.0 Hypertensive heart disease with heart failure; I25.10 Atherosclerotic heart disease of native coronary artery without angina pectoris; I25.2 Old myocardial infarction; I25.5 Ischemic cardiomyopathy; I87.2 Venous insufficiency (chronic) (peripheral); R73.03 Prediabetes; T38.0X5A Adverse effect of glucocorticoids and synthetic analogues, initial encounter; T46.4X5A Adverse effect of angiotensin-converting-enzyme inhibitors, initial encounter; Z20.822 Contact with and (suspected) exposure to COVID-19; Z66 Do not resuscitate; Z79.01 Long term (current) use of anticoagulants; Z79.51 Long term (current) use of inhaled steroids; Z79.82 Long term (current) use of aspirin; Z79.899 Other long term (current) drug therapy; Z82.3 Family history of stroke; Z82.49 Family history of ischemic heart disease and other diseases of the circulatory system; Z83.3 Family history of diabetes mellitus; Z87.891 Personal history of nicotine dependence; Z95.5 Presence of coronary angioplasty implant and graft; Z99.81 Dependence on supplemental oxygen
CPT/HCPCS: 36415; 36600; 71045; 74230; 80048; 80053; 82607; 82805; 83036; 83605; 83735; 83880; 84484; 85025; 85027; 85610; 85730; 87040; 87635; 93005; 93306; 94640; 94660; 94760; 94762; 96365; 96366; 96367; 96368; 96375; 96376; 99291

== ENCOUNTER 2021-12-09 17:06 | Inpatient (IN) | payer MEDICARE ==
[2021-12-09] MEDS ORDERED: IPRATROPIUM-ALBUTEROL 3 ML NEB INHALATION STA (17:17)
[2021-12-09 17:43] LABS: INR 1.2 (<1.2); Partial Thromboplastin Time 31.6 sec (22.0-30.0); Prothrombin Time 12.6 sec (9.0-12.0)
[2021-12-09 17:50] LABS: HCT 35.8 % (39.0-53.0); HGB 11.5 gm/dL (13.0-17.5); MCH 33.1 pg (25.0-35.0); MCHC 32.1 g/dL (31.0-37.0); Macrocytosis Slight; Mean Platelet Volume 7.7; Platelet Count 260 k/uL (150-450); RBC 3.47 m/uL (4.30-5.90); RDW 14.3 % (11.5-15.5); WBC 6.3 k/uL (3.8-10.6)
[2021-12-09 18:07] LABS: Calcium 7.2 mg/dL (8.4-10.2); Magnesium 3.1 mg/dL (1.6-2.3); Potassium 5.6 mmol/L (3.5-5.1); Total Bilirubin 0.7 mg/dL (0.2-1.3); Total Protein 5.7 g/dL (6.3-8.2)
[2021-12-09 18:10] LABS: MCV 103.1 fL (80.0-100.0)
--- NOTE | 2021-12-09 18:24 | XR ---
EXAMINATION TYPE: XR chest 1V portable DATE OF EXAM: 12/09/2021 COMPARISON: 11/25/2021 HISTORY: Short of breath TECHNIQUE: Single view FINDINGS: There is some mild subsegmental atelectasis at the lung bases. There is suboptimal inspirat ion. There is no heart failure. There are no hilar masses. IMPRESSION: Mild subsegmental atelectasis. No significant change compared to old exam. No heart failu re seen
--- NOTE | 2021-12-09 18:31 | ED ---
SOB HPI - General Chief Complaint: Shortness of Breath Stated Complaint: SOB Source: patient, EMS Mode of arrival: EMS Limitations: physical limitation - History of Present Illness Initial Comments: 66-year-old male with past history of COPD, hypertension presents to the emergency departments for shortness of breath. Patient was just recently hospitalized and discharged from our facility on the . He was hospitalized with hypoxia, pneumonia. states the patient was discharged home with a BiPAP that he uses during naps and at night. Patient also started on 40 mg of Lasix daily. She reports that the patient has been doing well at home with physical therapy. Yesterday the patient seemed somewhat fatigued. He woke this morning and had increasing shortness of breath therefore she called EMS. EMS found the patient have saturations in the 70s. They admit to a mild nonproductive cough. No fevers. Patient denies any chest pain. has noted that the patient has had decreased urine output over the past couple of days. EMS provided 2 DuoNeb breathing treatments, 125 mg of Solu-Medrol. No other alleviating, precipitating modifying factors - Related Data Home Medications Medication Instructions Recorded Confirmed Budesonide-Formot 160-4.5 Mcg 2 puff INHALATION RT-BID 11/05/16 12/09/21 [Symbicort 160-4.5 Mcg Inhaler] Tiotropium [place] [Spiriva] 1 cap INHALATION RT-DAILY 11/05/16 12/09/21 Albuterol Sulfate [Proair Hfa] 2 puff INHALATION RT-QID PRN 11/20/18 12/09/21 Aspirin [Adult Low Dose Aspirin EC] 81 mg PO DAILY 11/20/18 12/09/21 Atorvastatin [Lipitor] 80 mg PO DAILY 11/20/18 12/09/21 Potassium Chloride [Potassium 10 meq PO DAILY 11/20/18 12/09/21 Chloride ER] lisinopriL [Prinivil] 5 mg PO DAILY 08/08/19 12/09/21 Albuterol Nebulized [Ventolin 2.5 mg INHALATION RT-QID PRN 11/15/21 12/09/21 Nebulized] Ascorbic Acid [Vitamin C] 1,000 mg PO DAILY 11/15/21 12/09/21 Cholecalciferol [Vitamin D3 (125 125 mcg PO DAILY 11/15/21 12/09/21 Mcg = 5000 Iu)] Cyanocobalamin [Vitamin B-12] 500 mcg PO DAILY 11/15/21 12/09/21 predniSONE See Taper PO DIRECTED 12/09/21 12/09/21 Previous Rx's Medication Instructions Recorded Acetaminophen Tab [Tylenol] 500 mg PO Q6HR PRN tab 11/28/21 Amiodarone [Cordarone] 200 mg PO BID 30 Days #60 tab 11/28/21 Apixaban [Eliquis] 5 mg PO BID 30 Days #60 tab 11/28/21 Digoxin [Lanoxin] 125 mcg PO DAILY 30 Days #30 tab 11/28/21 Furosemide [Lasix] 40 mg PO DAILY 30 Days #30 tab 11/28/21 Ipratropium-Albuterol Nebulize 3 ml INHALATION RT-Q4H PRN ml 11/28/21 [Duoneb 0.5 mg-3 mg/3 ml Soln] Ipratropium-Albuterol Nebulize 3 ml INHALATION RT-QID 30 Days 11/28/21 [Duoneb 0.5 mg-3 mg/3 ml Soln] #120 dose Metoprolol Tartrate [Lopressor] 75 mg PO TID 30 Days #270 tab 11/28/21 amLODIPine [Norvasc] 10 mg PO DAILY 30 Days #30 tab 11/28/21 Allergies Allergy/AdvReac Type Severity Reaction Status Date / Time No Known Allergies Allergy Verified 12/09/21 18:12 Review of Systems ROS Statement: Those systems with pertinent positive or pertinent negative responses have been documented in the HPI. ROS Other: All systems not noted in ROS Statement are negative. Past Medical History Past Medical History: Chest Pain / Angina, Hypertension, Myocardial Infarction ([place]) Additional Past Medical History / Comment(s): states had CT possible bronchial cyst Last Myocardial Infarction Date:: 12/02 History of Any Multi-Drug Resistant Organisms: None Reported Past Surgical History: No Surgical Hx Reported, Heart Catheterization, Heart Catheterization With Stent Past Anesthesia/Blood Transfusion Reactions: No Reported Reaction Additional Past Anesthesia/Blood Transfusion Reaction / Comment(s): states has not had anesthesia Date of Last Stent Placement:: 12/02 Past Psychological History: No Psychological Hx Reported Smoking Status: Former smoker Past Alcohol Use History: None Reported Past Drug Use History: None Reported - Past Family History Brother(s) Family Medical History: CVA/TIA Father Family Medical History: Diabetes Mellitus, Myocardial Infarction ([place]) Mother Family Medical History: No Reported History General Exam Limitations: physical limitation Course Vital Signs 12/09/21 12/09/21 12/09/21 17:08 17:16 17:20 Temperature 97.7 F Pulse Rate 80 64 Respiratory 48 H 47 H Rate Blood Pressure 109/69 O2 Sat by Pulse 100 Oximetry 12/09/21 12/09/21 12/09/21 17:22 18:40 19:13 Temperature Pulse Rate 58 L 56 L 55 L Respiratory 44 H 38 H 35 H Rate Blood Pressure 95/36 89/49 101/36 O2 Sat by Pulse 100 100 97 Oximetry 12/09/21 12/09/21 19:43 20:55 Temperature Pulse Rate 56 L 58 L Respiratory 18 18 Rate Blood Pressure 103/36 98/54 O2 Sat by Pulse 100 100 Oximetry Medical Decision Making - Medical Decision Making Upon arrival patient was placed into room 2. Thorough history and physical exam was performed. Patient is transitioned from CPAP to our BiPAP. He is placed on continuous pulse ox and cardiac monitoring. Laboratory studies were conducted. Patient administered another DuoNeb breathing treatment. Laboratory studies are reviewed and demonstrates a sodium of 128. P1 of 157. Creatinine 4.1. Troponin 0.110. Urinalysis has occasional bacteria. Patient given a dose of Rocephin. Patient has a known diagnosis of congestive heart failure and therefore I did start him on normal saline at 100 mL/h. Goodrich is placed and does have return of 1800 mL. Patient initiated on breathing treatments and steroids. Recommended admission for which the patient did agree to. Spoke with Jaclyn from [facility]. Pulmonology and nephrology will be placed on consult. Patient remained in stable condition awaiting a bed - Lab Data Result diagrams: 12/09/21 17:22 12/09/21 17:22 Lab Results 12/09/21 12/09/21 12/09/21 Range/Units 17:22 17:22 17:22 WBC 6.3 (3.8-10.6) k/uL RBC 3.47 L (4.30-5.90) m/uL Hgb 11.5 L (13.0-17.5) gm/dL Hct 35.8 L (39.0-53.0) % MCV 103.1 H D (80.0-100.0) fL MCH 33.1 (25.0-35.0) pg MCHC 32.1 (31.0-37.0) g/dL RDW 14.3 (11.5-15.5) % Plt Count 260 (150-450) k/uL MPV 7.7 Neutrophils % (Manual) 79 % Band Neuts % (Manual) 10 % Lymphocytes % (Manual) 5 % Monocytes % (Manual) 6 % Neutrophils # (Manual) 5.60 (1.3-7.7) k/uL Lymphocytes # (Manual) 0.32 L (1.0-4.8) k/uL Monocytes # (Manual) 0.38 (0-1.0) k/uL Nucleated RBCs 0 (0-0) /100 WBC Manual Slide Review Performed Macrocytosis Slight PT 12.6 H (9.0-12.0) sec INR 1.2 H (<1.2) APTT 31.6 H (22.0-30.0) sec Sodium 128 L (137-145) mmol/L Potassium 5.6 H (3.5-5.1) mmol/L Chloride 87 L (98-107) mmol/L Carbon Dioxide 30 (22-30) mmol/L Anion Gap 11 mmol/L BUN 157 H* (9-20) mg/dL Creatinine 4.10 H (0.66-1.25) mg/dL Est GFR (CKD-EPI)AfAm 16 (>60 ml/min/1.73 sqM) Est GFR (CKD-EPI)NonAf 14 (>60 ml/min/1.73 sqM) Glucose 95 (74-99) mg/dL Plasma Lactic Acid Alex (0.7-2.0) mmol/L Calcium 7.2 L (8.4-10.2) mg/dL Magnesium 3.1 H (1.6-2.3) mg/dL Total Bilirubin 0.7 (0.2-1.3) mg/dL AST 56 (17-59) U/L ALT 38 (4-49) U/L Alkaline Phosphatase 78 (38-126) U/L Troponin I (0.000-0.034) ng/mL NT-Pro-B Natriuret Pep pg/mL Total Protein 5.7 L (6.3-8.2) g/dL Albumin 3.0 L (3.5-5.0) g/dL Digoxin ng/mL 12/09/21 12/09/21 12/09/21 Range/Units 17:22 17:22 17:22 WBC (3.8-10.6) k/uL RBC (4.30-5.90) m/uL Hgb (13.0-17.5) gm/dL Hct (39.0-53.0) % MCV (80.0-100.0) fL MCH (25.0-35.0) pg MCHC (31.0-37.0) g/dL RDW (11.5-15.5) % Plt Count (150-450) k/uL MPV Neutrophils % (Manual) % Band Neuts % (Manual) % Lymphocytes % (Manual) % Monocytes % (Manual) % Neutrophils # (Manual) (1.3-7.7) k/uL Lymphocytes # (Manual) (1.0-4.8) k/uL Monocytes # (Manual) (0-1.0) k/uL Nucleated RBCs (0-0) /100 WBC Manual Slide Review Macrocytosis PT (9.0-12.0) sec INR (<1.2) APTT (22.0-30.0) sec Sodium (137-145) mmol/L Potassium (3.5-5.1) mmol/L Chloride (98-107) mmol/L Carbon Dioxide (22-30) mmol/L Anion Gap mmol/L BUN (9-20) mg/dL Creatinine (0.66-1.25) mg/dL Est GFR (CKD-EPI)AfAm (>60 ml/min/1.73 sqM) Est GFR (CKD-EPI)NonAf (>60 ml/min/1.73 sqM) Glucose (74-99) mg/dL Plasma Lactic Acid Alex 0.9 (0.7-2.0) mmol/L Calcium (8.4-10.2) mg/dL Magnesium (1.6-2.3) mg/dL Total Bilirubin (0.2-1.3) mg/dL AST (17-59) U/L ALT (4-49) U/L Alkaline Phosphatase (38-126) U/L Troponin I 0.110 H* (0.000-0.034) ng/mL NT-Pro-B Natriuret Pep 4020 pg/mL Total Protein (6.3-8.2) g/dL Albumin (3.5-5.0) g/dL Digoxin ng/mL 12/09/21 Range/Units 17:22 WBC (3.8-10.6) k/uL RBC (4.30-5.90) m/uL Hgb (13.0-17.5) gm/dL Hct (39.0-53.0) % MCV (80.0-100.0) fL MCH (25.0-35.0) pg MCHC (31.0-37.0) g/dL RDW (11.5-15.5) % Plt Count (150-450) k/uL MPV Neutrophils % (Manual) % Band Neuts % (Manual) % Lymphocytes % (Manual) % Monocytes % (Manual) % Neutrophils # (Manual) (1.3-7.7) k/uL Lymphocytes # (Manual) (1.0-4.8) k/uL Monocytes # (Manual) (0-1.0) k/uL Nucleated RBCs (0-0) /100 WBC Manual Slide Review Macrocytosis PT (9.0-12.0) sec INR (<1.2) APTT (22.0-30.0) sec Sodium (137-145) mmol/L Potassium (3.5-5.1) mmol/L Chloride (98-107) mmol/L Carbon Dioxide (22-30) mmol/L Anion Gap mmol/L BUN (9-20) mg/dL Creatinine (0.66-1.25) mg/dL Est GFR (CKD-EPI)AfAm (>60 ml/min/1.73 sqM) Est GFR (CKD-EPI)NonAf (>60 ml/min/1.73 sqM) Glucose (74-99) mg/dL Plasma Lactic Acid Alex (0.7-2.0) mmol/L Calcium (8.4-10.2) mg/dL Magnesium (1.6-2.3) mg/dL Total Bilirubin (0.2-1.3) mg/dL AST (17-59) U/L ALT (4-49) U/L Alkaline Phosphatase (38-126) U/L Troponin I (0.000-0.034) ng/mL NT-Pro-B Natriuret Pep pg/mL Total Protein (6.3-8.2) g/dL Albumin (3.5-5.0) g/dL Digoxin 1.9 ng/mL - EKG Data EKG Comments: EKG demonstrates A. fib with slow ventricular response. Rate of 58. HI interval 98. QRS 114. QTC of 414. No acute ST segment elevations or depressions Disposition Clinical Impression: BiPAP (biphasic positive airway pressure) dependence, Atrial flutter, COPD exacerbation, Acute renal failure Disposition: ADMITTED IP TO THIS HOSP Condition: Stable Is patient prescribed a controlled substance at d/c from ED?: No Decision to Admit Reason: Admit from EC Decision Date: 12/09/21 Decision Time: 19:29
[2021-12-09] MEDS: SODIUM CHLORIDE 0.9% 1,000 ML IV SCH (18:42)
[2021-12-09 18:45] LABS: Band Neutrophils % 10 %; Lymphocytes # (M) 0.32 k/uL (1.0-4.8); Monocytes # (M) 0.38 k/uL (0-1.0); Neutrophils % (M) 79 %; Nucleated Red Blood Cells 0 /100 WBC (0-0); Total Cells Counted 100
[2021-12-09] MEDS ORDERED: NALOXONE 0.4 MG/ML 1 ML VIAL IV PRN (19:31)
[2021-12-09] MEDS ORDERED: LIDOCAINE URO-JET JELLY 2% 5 ML KIT URETHRAL ONE (19:40)
[2021-12-09] MEDS ORDERED: IPRATROPIUM-ALBUTEROL 3 ML NEB INHALATION SCH (20:00)
[2021-12-09] MEDS ORDERED: IPRATROPIUM-ALBUTEROL 3 ML NEB INHALATION PRN (20:16)
[2021-12-09] MEDS: methylPREDNISolone SOD SUCCI 40 MG/ML 1 ML VIAL IV SCH (20:22)
[2021-12-09 21:12] LABS: Appearance,Urine Cloudy (Clear); Bacteria,Urine Occasional /hpf; Bilirubin,Urine Negative (Negative); Blood,Urine Moderate (Negative); Color,Urine Yellow; Glucose,Urine (UA) Negative (Negative); Hyaline Casts,Urine 3 /lpf (0-2); Ketones,Urine Negative (Negative); Leukocyte Esterase,Urine Negative (Negative); Nitrite,Urine Negative (Negative); Protein,Urine Negative (Negative); RBC,Urine 101 /hpf (0-5); Specific Gravity,Urine 1.016 (1.001-1.035); Urobilinogen,Urine <2.0 mg/dL (<2.0); WBC,Urine 2 /hpf (0-5)
[2021-12-09] MEDS ORDERED: cefTRIAXone IN SWFI 1,000 MG/10 ML SYRINGE IVP STA (21:14)
[2021-12-09] MEDS ORDERED: ACETAMINOPHEN TAB 500 MG TAB PO PRN (21:15)
[2021-12-09] MEDS: APIXABAN 5 MG TAB PO SCH (21:44)
[2021-12-09] MEDS: AMIODARONE 200 MG TAB PO SCH (21:44)
--- NOTE | 2021-12-09 22:40 | CT ---
EXAMINATION TYPE: CT abdomen pelvis wo con DATE OF EXAM: 12/09/2021 COMPARISON: None HISTORY: abdominal distention CT DLP: 2409.2 mGycm Automated exposure control for dose reduction was used. Images obtained from the diaphragm to the floor the pelvis with no contrast. There is some emphysematous changes at the lung bases. There is reticular infiltrate and atelectasis right posterior lung base. Heart is enlarged. There is coronary artery calcification. No pleural effusion. Liver is intact. Gallbladder is largely calcified gallstones. The bile ducts are not dilated. Spleen is intact. There is no pancreatic mass. The stomach is intact. There is no adrenal mass. There is no retroperitoneal adenopathy. There is Goodrich catheter in urinary bladder. Bladder is empty. No evidence of pelvic mass. There is dilated large bowel with fluid levels. There are some sigmoid diverticula. No sign of divert iculitis. The cecum measures 10 cm in diameter. No intestinal wall thickening. No free air. No ascite s. No sign of thickened appendix. There are some mildly dilated distal small bowel loops in the pelvi s that measure up to 3.7 cm. The lumbar vertebrae have normal alignment. Posterior elements are intact. There is no compression fr acture. Bony pelvis is intact. IMPRESSION: Dilated large and small bowel loops suggestive of generalized ileus. No free air. Mild infiltrate and atelectasis right lung base with pulmonary emphysema.
[2021-12-10] MEDS: SODIUM CHLORIDE 0.9% 1,000 ML IV SCH (03:19)
[2021-12-10] MEDS: methylPREDNISolone SOD SUCCI 40 MG/ML 1 ML VIAL IV SCH ×3 (03:38→20:09)
[2021-12-10] MEDS: IPRATROPIUM-ALBUTEROL 3 ML NEB INHALATION SCH ×4 (07:24→19:03)
[2021-12-10] MEDS: APIXABAN 5 MG TAB PO SCH (07:58)
[2021-12-10] MEDS: AMIODARONE 200 MG TAB PO SCH ×2 (07:58→19:56)
[2021-12-10 08:13] LABS: HCT 30.6 % (39.0-53.0); Hypochromasia Slight; MCH 33.3 pg (25.0-35.0); MCHC 31.7 g/dL (31.0-37.0); MCV 104.9 fL (80.0-100.0); Macrocytosis Moderate; Mean Platelet Volume 7.7; Platelet Count 277 k/uL (150-450); RBC 2.92 m/uL (4.30-5.90); RDW 14.4 % (11.5-15.5); WBC 7.3 k/uL (3.8-10.6)
[2021-12-10 08:26] LABS: HGB 9.7 gm/dL (13.0-17.5)
[2021-12-10 08:32] LABS: Calcium 6.6 mg/dL (8.4-10.2); Potassium 5.8 mmol/L (3.5-5.1)
[2021-12-10] MEDS ORDERED: ATORVASTATIN 80 MG TAB PO SCH (09:00)
[2021-12-10] MEDS ORDERED: ASPIRIN 81 MG PO SCH (09:00)
[2021-12-10] MEDS ORDERED: amLODIPine 10 MG TAB PO SCH (09:00)
[2021-12-10] MEDS ORDERED: DIGOXIN 125 MCG TAB PO SCH (09:00)
[2021-12-10 09:23] LABS: Band Neutrophils % 19 %; Lymphocytes # (M) 0.22 k/uL (1.0-4.8); Metamyelocytes # (M) 0.15 k/uL (0); Metamyelocytes % 2 %; Monocytes # (M) 0.51 k/uL (0-1.0); Neutrophils % (M) 70 %; Nucleated Red Blood Cells 0 /100 WBC (0-0); Total Cells Counted 200
--- NOTE | 2021-12-10 10:43 | P.NPCON ---
History of Present Illness - Reason for Consult Consult date: 12/10/21 acute renal failure - Chief Complaint Shortness of breath - History of Present Illness This is a 66-year-old male seen in consultation because of acute kidney injury His creatinine was 0.93 on 11/27/2021, at the time he was being discharged after being admitted for shortness of breath. He came in his creatinine is 4.1 with a BUN of 157. He came back again with recurrence of shortness of breath and decreased urine output. He has chronic edema that has not changed and has eczema with red er ythematous skin on his lower extremities. This is unchanged. Additionally he is complaining of abdominal bloating and some pain no nausea vomiting his had 2 or 3 loose stools. No GI bleed. He has chronic back pain not new His home medications are not different from before except increase in Lasix dose during his last discharge he went home on 40 mg daily. Denies taking any nonsteroidals or antibiotics such as Bactrim. Denies any prostatism although according to his when they inserted a Goodrich catheter in the ER yesterday he had fair amount of urine output although is not documented in the medical records Currently short of breath on BiPAP. Awake and alert. Blood pressures have been somewhat low on admission 88/51 and currently 103/58, heart rate is in the 60s temperature is 97.6 As part of his workup a computed tomography scan of the abdomen and pelvis is remarkable for ileus. No ascites is noted. Urinalysis shows blood on dipstick and multiple RBCs but, white cells 2, protein negative Past Medical History Past Medical History: Atrial Fibrillation, Chest Pain / Angina, Heart Failure, COPD, Hypertension, Myocardial Infarction ([place]) Additional Past Medical History / Comment(s): states had CT possible bronchial cyst Last Myocardial Infarction Date:: 12/02 History of Any Multi-Drug Resistant Organisms: None Reported Past Surgical History: No Surgical Hx Reported, Heart Catheterization, Heart Catheterization With Stent Past Anesthesia/Blood Transfusion Reactions: No Reported Reaction Additional Past Anesthesia/Blood Transfusion Reaction / Comment(s): states has not had anesthesia Date of Last Stent Placement:: 12/02 Past Psychological History: No Psychological Hx Reported Smoking Status: Former smoker Past Alcohol Use History: None Reported Additional Past Alcohol Use History / Comment(s): smoker from age [age] 1 ppd quit Past Drug Use History: None Reported - Past Family History Brother(s) Family Medical History: CVA/TIA Father Family Medical History: Diabetes Mellitus, Myocardial Infarction ([place]) Mother Family Medical History: No Reported History Medications and Allergies Home Medications Medication Instructions Recorded Confirmed Type Budesonide-Formot 160-4.5 Mcg 2 puff INHALATION RT-BID 11/05/16 12/09/21 History [Symbicort 160-4.5 Mcg Inhaler] Tiotropium [place] [Spiriva] 1 cap INHALATION RT-DAILY 11/05/16 12/09/21 History Albuterol Sulfate [Proair Hfa] 2 puff INHALATION RT-QID PRN 11/20/18 12/09/21 History Aspirin [Adult Low Dose Aspirin EC] 81 mg PO DAILY 11/20/18 12/09/21 History Atorvastatin [Lipitor] 80 mg PO DAILY 11/20/18 12/09/21 History Potassium Chloride [Potassium 10 meq PO DAILY 11/20/18 12/09/21 History Chloride ER] lisinopriL [Prinivil] 5 mg PO DAILY 08/08/19 12/09/21 History Albuterol Nebulized [Ventolin 2.5 mg INHALATION RT-QID PRN 11/15/21 12/09/21 History Nebulized] Ascorbic Acid [Vitamin C] 1,000 mg PO DAILY 11/15/21 12/09/21 History Cholecalciferol [Vitamin D3 (125 125 mcg PO DAILY 11/15/21 12/09/21 History Mcg = 5000 Iu)] Cyanocobalamin [Vitamin B-12] 500 mcg PO DAILY 11/15/21 12/09/21 History Acetaminophen Tab [Tylenol] 500 mg PO Q6HR PRN tab 11/28/21 12/09/21 Rx Amiodarone [Cordarone] 200 mg PO BID 30 Days #60 tab 11/28/21 12/09/21 Rx Apixaban [Eliquis] 5 mg PO BID 30 Days #60 tab 11/28/21 12/09/21 Rx Digoxin [Lanoxin] 125 mcg PO DAILY 30 Days #30 tab 11/28/21 12/09/21 Rx Furosemide [Lasix] 40 mg PO DAILY 30 Days #30 tab 11/28/21 12/09/21 Rx Ipratropium-Albuterol Nebulize 3 ml INHALATION RT-Q4H PRN ml 11/28/21 12/09/21 Rx [Duoneb 0.5 mg-3 mg/3 ml Soln] Ipratropium-Albuterol Nebulize 3 ml INHALATION RT-QID 30 Days 11/28/21 12/09/21 Rx [Duoneb 0.5 mg-3 mg/3 ml Soln] #120 dose Metoprolol Tartrate [Lopressor] 75 mg PO TID 30 Days #270 tab 11/28/21 12/09/21 Rx amLODIPine [Norvasc] 10 mg PO DAILY 30 Days #30 tab 11/28/21 12/09/21 Rx predniSONE See Taper PO DIRECTED 12/09/21 12/09/21 History Allergies Allergy/AdvReac Type Severity Reaction Status Date / Time No Known Allergies Allergy Verified 12/09/21 18:12 Physical Exam Vitals: Vital Signs Temp Pulse Pulse Resp BP BP Pulse Ox 12/10/21 08:00 97.6 F 61 34 H 103/58 12/10/21 07:35 68 12/10/21 07:24 65 12/10/21 04:00 97.9 F 58 L 32 H 97/63 98 12/10/21 02:00 40 H 12/10/21 00:00 58 L 40 H 92/58 97 12/09/21 23:00 32 H 12/09/21 22:41 59 L 36 H 88/51 98 12/09/21 21:54 58 L 18 98/54 100 12/09/21 20:55 58 L 18 98/54 100 12/09/21 19:43 56 L 18 103/36 100 12/09/21 19:13 55 L 35 H 101/36 97 12/09/21 18:40 56 L 38 H 89/49 100 12/09/21 17:22 58 L 44 H 95/36 100 12/09/21 17:20 64 12/09/21 17:16 47 H 12/09/21 17:08 97.7 F 80 48 H 109/69 100 Intake and Output 12/09/21 12/10/21 12/10/21 22:59 06:59 14:59 Intake Total 100 Output Total 450 Balance 100 -450 Intake: Intake, IV Titration 100 Amount Sodium Chloride 0.9% 1, 100 000 ml @ 100 mls/hr IV . Q10H QUETA Rx#:[id number] Output: Urine 450 Other: Voiding Method Indwelling Catheter Indwelling Catheter Weight 127.006 kg 144 kg On examination his awake alert on BiPAP HEENT exam is difficult Lungs are significant for decreased breath sounds and occasional coarse crackle Heart sounds unremarkable for any murmur rub gallop. Abdomen is distended slightly tender but no rebound. Extreme exam was 2-3+ edema with erythematous areas of skin. This is chronic changes from eczema per 's Neurologically awake alert oriented able to move all his extremities but profoundly weak Results - Lab Results Most recent lab results Calcium 6.6 mg/dL (8.4-10.2) L 12/10/21 07:53 Magnesium 3.1 mg/dL (1.6-2.3) H 12/09/21 17:22 12/10/21 07:58 12/10/21 07:53 Assessment and Plan Assessment: Impression 1. Acute kidney injury with creatinine going up from 0.93 on 11/27/2021 to 4.1 on admission. The etiology is not very clear - possibly from low blood pressure. Unlikely outlet obstruction. Patient was on lisinopril and Lasix 40 mg but he has significant edema. Lisinopril was not new addition. Rule out compartment syndrome because of the tight abdomen. Rule out any renal infarct. Rule out sepsis, patient has diarrhea rule out C. diff 2. Significant edema secondary to acute kidney injury, chronic edema secondary to cardiomyopathy and poor ejection fraction with echocardiogram dated 11/16/2021 showing 25-30% ejection fraction but no pulmonary hypertension. 3. Morbid obesity and COPD although the echocardiogram should not show right ventricular hypertension 4. Anemia hemoglobin dropped from 11.5-9.7. 5. History of coronary artery disease with stent last cardiac catheterization 2018 was rather unremarkable. 6. Hyponatremia secondary to acute kidney injury is 7. Hyperkalemia secondary to acute kidney injury rule out renal infarction and GI bleed 8. Disproportionate increase in BUN likely from steroids. Recommendation 1. Check LDH 2. Check urine eosinophil 3 check urine protein to creatinine ratio. 4. Check C. diff 5. Check bladder pressure 6. Discontinue amlodipine because of the low blood pressure and its propensity to cause edema 7. Patient may need dialysis. Patient and were made aware of the possibility but that it is not necessary today. Thank you for this consultation and continue to follow closely
[2021-12-10 11:08] LABS: ABG Base Excess 2.4 mmol/L; ABG HCO3 29 mmol/L (21-25); ABG Oxygen Saturation 98.2 % (94-97); ABG PCO2 56 mmHg (35-45); ABG PH 7.32 (7.35-7.45); ABG PO2 107 mmHg (83-108); ABG TCO2 30 mmol/L (19-24); Allen Test Performed? Yes
[2021-12-10 11:10] LABS: Glucose,Whole Blood 119 mg/dL (75-99)
[2021-12-10] MEDS ORDERED: FUROSEMIDE 10 MG/ML 10 ML VIAL IV STA ×2 (11:39→14:30)
[2021-12-10] MEDS ORDERED: PANTOPRAZOLE 40 MG/10 ML VIAL IVP SCH ×2 (11:45→21:00)
[2021-12-10 11:56] LABS: Creatinine,Urine Random 140.8 mg/dL; Protein/Creatinine Ratio,Urine 0.391
--- NOTE | 2021-12-10 12:24 | P.HPIM ---
History of Present Illness this is a pleasant 66 yo M with past medial history of Atrial Fibrillation, on Eliquis, Chest Pain / Angina, Heart Failure, COPD, Hypertension , ischemic cardiomyopathy with ejection fraction of 35%, obesity Patient presents because of dyspnea. He was discharged from his hospital more than 10 days ago on 11/28 for acute COPD exacerbation and right lower lobe pneumonia, patient is poor historian, he has difficulty talking because of his significant dyspnea and abdominal distention. I talked to his over the phone Mrs. Xiomara Moreira with holmium after his been discharged from the hospital he was bedridden in hospital bed for the last 10-12 days, before that he was able to walk area at his been constipated since discharge which is improved with some prune juice and laxative and he was doing generally well, the last 3 days he's been having more shortness of breath, yesterday was on BiPAP most of the day, of note BiPAP was started for him after last time discharge from hospital 12 days ago. Also has been complaining from some abdominal pain for the last 1-3 days, as per he started having diarrhea about 2 times during the night and was during the day and his been complaining from some abdominal pain and tenderness today and in the the emergency room, but would not let somebody obstruction. He denies chest pain, no vomiting, no new weakness or dizziness. states that he has some blisters on his legs and feet but some is been discharged from the hospital and she was prepped and some cream for it. Patient is hypoxic on admission, and was placed on BiPAP, 40% of FiO2 currently, tachypnea but afebrile. Borderline blood pressure, and the emergency room it was 98/54, currently 103/58, heart rate 61-69. Patient in respiratory distress Hemoglobin on admission is 11.5, dropped to 9.7 this morning PH loss 7.3, high pCO2 at 56, pO2 is 107 Sodium 128, creatinine went up from baseline of 0.9, currently 4.1 Elevated troponin 0.11, 0.092, which was 0.05 on 11/15/2021. Liver enzymes not elevated, bilirubin is normal at 0.7. Chest x-ray: Mild subsegmental atelectasis, no significant change from old exam CT of the abdomen and pelvis without contrast showing dilated large and small bowel loops suggestive of generalized ileus, no free air Patient was started on solid Medrol 40 mg, received 1 dose of ceftriaxone and resumed his aspirin, Eliquis and other home medications. Several consultants were called including the substation inspector, pulmonary and surgery team Review of Systems Review of systems Patient was very short of breath and could not provide information Past Medical History Past Medical History: Atrial Fibrillation, Chest Pain / Angina, Heart Failure, COPD, Hypertension, Myocardial Infarction ([place]) Additional Past Medical History / Comment(s): states had CT possible bronchial cyst Last Myocardial Infarction Date:: 12/02 History of Any Multi-Drug Resistant Organisms: None Reported Past Surgical History: No Surgical Hx Reported, Heart Catheterization, Heart Catheterization With Stent Past Anesthesia/Blood Transfusion Reactions: No Reported Reaction Additional Past Anesthesia/Blood Transfusion Reaction / Comment(s): states has not had anesthesia Date of Last Stent Placement:: 12/02 Past Psychological History: No Psychological Hx Reported Smoking Status: Former smoker Past Alcohol Use History: None Reported Additional Past Alcohol Use History / Comment(s): smoker from age [age] 1 ppd quit Past Drug Use History: None Reported - Past Family History Brother(s) Family Medical History: CVA/TIA Father Family Medical History: Diabetes Mellitus, Myocardial Infarction ([place]) Mother Family Medical History: No Reported History Medications and Allergies Home Medications Medication Instructions Recorded Confirmed Type Budesonide-Formot 160-4.5 Mcg 2 puff INHALATION RT-BID 11/05/16 12/09/21 History [Symbicort 160-4.5 Mcg Inhaler] Tiotropium [place] [Spiriva] 1 cap INHALATION RT-DAILY 11/05/16 12/09/21 History Albuterol Sulfate [Proair Hfa] 2 puff INHALATION RT-QID PRN 11/20/18 12/09/21 History Aspirin [Adult Low Dose Aspirin EC] 81 mg PO DAILY 11/20/18 12/09/21 History Atorvastatin [Lipitor] 80 mg PO DAILY 11/20/18 12/09/21 History Potassium Chloride [Potassium 10 meq PO DAILY 11/20/18 12/09/21 History Chloride ER] lisinopriL [Prinivil] 5 mg PO DAILY 08/08/19 12/09/21 History Albuterol Nebulized [Ventolin 2.5 mg INHALATION RT-QID PRN 11/15/21 12/09/21 History Nebulized] Ascorbic Acid [Vitamin C] 1,000 mg PO DAILY 11/15/21 12/09/21 History Cholecalciferol [Vitamin D3 (125 125 mcg PO DAILY 11/15/21 12/09/21 History Mcg = 5000 Iu)] Cyanocobalamin [Vitamin B-12] 500 mcg PO DAILY 11/15/21 12/09/21 History Acetaminophen Tab [Tylenol] 500 mg PO Q6HR PRN tab 11/28/21 12/09/21 Rx Amiodarone [Cordarone] 200 mg PO BID 30 Days #60 tab 11/28/21 12/09/21 Rx Apixaban [Eliquis] 5 mg PO BID 30 Days #60 tab 11/28/21 12/09/21 Rx Digoxin [Lanoxin] 125 mcg PO DAILY 30 Days #30 tab 11/28/21 12/09/21 Rx Furosemide [Lasix] 40 mg PO DAILY 30 Days #30 tab 11/28/21 12/09/21 Rx Ipratropium-Albuterol Nebulize 3 ml INHALATION RT-Q4H PRN ml 11/28/21 12/09/21 Rx [Duoneb 0.5 mg-3 mg/3 ml Soln] Ipratropium-Albuterol Nebulize 3 ml INHALATION RT-QID 30 Days 11/28/21 12/09/21 Rx [Duoneb 0.5 mg-3 mg/3 ml Soln] #120 dose Metoprolol Tartrate [Lopressor] 75 mg PO TID 30 Days #270 tab 11/28/21 12/09/21 Rx amLODIPine [Norvasc] 10 mg PO DAILY 30 Days #30 tab 11/28/21 12/09/21 Rx predniSONE See Taper PO DIRECTED 12/09/21 12/09/21 History Allergies Allergy/AdvReac Type Severity Reaction Status Date / Time No Known Allergies Allergy Verified 12/09/21 18:12 Physical Exam Vitals: Vital Signs Temp Pulse Pulse Resp BP BP Pulse Ox 12/10/21 11:14 69 18 12/10/21 11:06 63 18 12/10/21 08:00 97.6 F 61 34 H 103/58 12/10/21 07:35 68 12/10/21 07:24 65 12/10/21 04:00 97.9 F 58 L 32 H 97/63 98 12/10/21 02:00 40 H 12/10/21 00:00 58 L 40 H 92/58 97 12/09/21 23:00 32 H 12/09/21 22:41 59 L 36 H 88/51 98 12/09/21 21:54 58 L 18 98/54 100 12/09/21 20:55 58 L 18 98/54 100 12/09/21 19:43 56 L 18 103/36 100 12/09/21 19:13 55 L 35 H 101/36 97 12/09/21 18:40 56 L 38 H 89/49 100 12/09/21 17:22 58 L 44 H 95/36 100 12/09/21 17:20 64 12/09/21 17:16 47 H 12/09/21 17:08 97.7 F 80 48 H 109/69 100 Intake and Output 12/09/21 12/10/21 12/10/21 22:59 06:59 14:59 Intake Total 100 Output Total 450 Balance 100 -450 Intake: Intake, IV Titration 100 Amount Sodium Chloride 0.9% 1, 100 000 ml @ 100 mls/hr IV . Q10H [facility] Rx#:[id number] Output: Urine 450 Other: Voiding Method Indwelling Catheter Indwelling Catheter Weight 127.006 kg 144 kg GENERAL: The patient is alert and oriented x3, in severe acute respiratory distress. Morbidly obese HEENT: Pupils are round and equally reacting to light. EOMI. No scleral icterus. No conjunctival pallor. Normocephalic, atraumatic. No pharyngeal erythema. No thyromegaly. CARDIOVASCULAR: S1 and S2 present. No murmurs, rubs, or gallops. -PULMONARY: Decreased breath sounds bilaterally, no wheezing or crackles. -ABDOMEN: Soft, distended and tender, normoactive bowel sounds. No palpable organomegaly. MUSCULOSKELETAL: No joint swelling or deformity. -EXTREMITIES: No cyanosis, clubbing, or pedal edema. Pinkish discoloration on both sides with bilateral pitting leg erythema NEUROLOGICAL: Gross neurological examination did not reveal any focal deficits. SKIN: No rashes. no petechiae. Results CBC & Chem 7: 12/10/21 07:58 12/10/21 07:53 Labs: Abnormal Lab Results - Last 24 Hours (Table) 12/09/21 12/09/21 12/09/21 Range/Units 17:22 17:22 17:22 RBC 3.47 L (4.30-5.90) m/uL Hgb 11.5 L (13.0-17.5) gm/dL Hct 35.8 L (39.0-53.0) % MCV 103.1 H D (80.0-100.0) fL Lymphocytes # (Manual) 0.32 L (1.0-4.8) k/uL Metamyelocytes # (Man) (0) k/uL PT 12.6 H (9.0-12.0) sec INR 1.2 H (<1.2) APTT 31.6 H (22.0-30.0) sec ABG pH (7.35-7.45) ABG pCO2 (35-45) mmHg ABG HCO3 (21-25) mmol/L ABG Total CO2 (19-24) mmol/L ABG O2 Saturation (94-97) % Sodium 128 L (137-145) mmol/L Potassium 5.6 H (3.5-5.1) mmol/L Chloride 87 L (98-107) mmol/L BUN 157 H* (9-20) mg/dL Creatinine 4.10 H (0.66-1.25) mg/dL Glucose (74-99) mg/dL POC Glucose (mg/dL) (75-99) mg/dL Calcium 7.2 L (8.4-10.2) mg/dL Magnesium 3.1 H (1.6-2.3) mg/dL Troponin I (0.000-0.034) ng/mL Total Protein 5.7 L (6.3-8.2) g/dL Albumin 3.0 L (3.5-5.0) g/dL Urine Blood (Negative) Urine RBC (0-5) /hpf Urine Bacteria (None) /hpf Hyaline Casts (0-2) /lpf 12/09/21 12/09/21 12/09/21 Range/Units 17:22 20:54 21:20 RBC (4.30-5.90) m/uL Hgb (13.0-17.5) gm/dL Hct (39.0-53.0) % MCV (80.0-100.0) fL Lymphocytes # (Manual) (1.0-4.8) k/uL Metamyelocytes # (Man) (0) k/uL PT (9.0-12.0) sec INR (<1.2) APTT (22.0-30.0) sec ABG pH (7.35-7.45) ABG pCO2 (35-45) mmHg ABG HCO3 (21-25) mmol/L ABG Total CO2 (19-24) mmol/L ABG O2 Saturation (94-97) % Sodium (137-145) mmol/L Potassium (3.5-5.1) mmol/L Chloride (98-107) mmol/L BUN (9-20) mg/dL Creatinine (0.66-1.25) mg/dL Glucose (74-99) mg/dL POC Glucose (mg/dL) (75-99) mg/dL Calcium (8.4-10.2) mg/dL Magnesium (1.6-2.3) mg/dL Troponin I 0.110 H* 0.095 H* (0.000-0.034) ng/mL Total Protein (6.3-8.2) g/dL Albumin (3.5-5.0) g/dL Urine Blood Moderate H (Negative) Urine RBC 101 H (0-5) /hpf Urine Bacteria Occasional H (None) /hpf Hyaline Casts 3 H (0-2) /lpf 12/10/21 12/10/21 12/10/21 Range/Units 00:41 07:53 07:58 RBC 2.92 L (4.30-5.90) m/uL Hgb 9.7 L D (13.0-17.5) gm/dL Hct 30.6 L (39.0-53.0) % MCV 104.9 H (80.0-100.0) fL Lymphocytes # (Manual) 0.22 L (1.0-4.8) k/uL Metamyelocytes # (Man) 0.15 H (0) k/uL PT (9.0-12.0) sec INR (<1.2) APTT (22.0-30.0) sec ABG pH (7.35-7.45) ABG pCO2 (35-45) mmHg ABG HCO3 (21-25) mmol/L ABG Total CO2 (19-24) mmol/L ABG O2 Saturation (94-97) % Sodium 128 L (137-145) mmol/L Potassium 5.8 H (3.5-5.1) mmol/L Chloride 90 L (98-107) mmol/L BUN 172 H* (9-20) mg/dL Creatinine 4.16 H (0.66-1.25) mg/dL Glucose 104 H (74-99) mg/dL POC Glucose (mg/dL) (75-99) mg/dL Calcium 6.6 L (8.4-10.2) mg/dL Magnesium (1.6-2.3) mg/dL Troponin I 0.098 H* (0.000-0.034) ng/mL Total Protein (6.3-8.2) g/dL Albumin (3.5-5.0) g/dL Urine Blood (Negative) Urine RBC (0-5) /hpf Urine Bacteria (None) /hpf Hyaline Casts (0-2) /lpf 12/10/21 12/10/21 Range/Units 10:58 11:05 RBC (4.30-5.90) m/uL Hgb (13.0-17.5) gm/dL Hct (39.0-53.0) % MCV (80.0-100.0) fL Lymphocytes # (Manual) (1.0-4.8) k/uL Metamyelocytes # (Man) (0) k/uL PT (9.0-12.0) sec INR (<1.2) APTT (22.0-30.0) sec ABG pH 7.32 L (7.35-7.45) ABG pCO2 56 H (35-45) mmHg ABG HCO3 29 H (21-25) mmol/L ABG Total CO2 30 H (19-24) mmol/L ABG O2 Saturation 98.2 H (94-97) % Sodium (137-145) mmol/L Potassium (3.5-5.1) mmol/L Chloride (98-107) mmol/L BUN (9-20) mg/dL Creatinine (0.66-1.25) mg/dL Glucose (74-99) mg/dL POC Glucose (mg/dL) 119 H (75-99) mg/dL Calcium (8.4-10.2) mg/dL Magnesium (1.6-2.3) mg/dL Troponin I (0.000-0.034) ng/mL Total Protein (6.3-8.2) g/dL Albumin (3.5-5.0) g/dL Urine Blood (Negative) Urine RBC (0-5) /hpf Urine Bacteria (None) /hpf Hyaline Casts (0-2) /lpf Thrombosis Risk Factor Assmnt - Choose All That Apply Any of the Below Risk Factors Present?: Yes Each Factor Represents 1 point: Abnormal pulmonary function (COPD), Medical pt on bed rest, Obesity (BMI >25), Serious lung disease incl. pneumonia (< 1month) Each Risk Factor Represents 2 Points: Age 61-74 years Thrombosis Risk Factor Assessment Total Risk Factor Score: 6 Thrombosis Risk Factor Assessment Level: High Risk Assessment and Plan Assessment: Acute COPD exacerbation Acute hypoxic respiratory failure Dilated large and small bowel loops suggestive of generalized ileus. Rule out Respiratory acidosis Acute kidney injury Hyponatremia, hypovolemic Fluid overload with no evidence of pulmonary congestion Elevated troponin Macrocytic Anemia History of chronic atrial fibrillation on Eliquis hypertension, currently his blood pressure is borderline Hyperlipidemia Chronic hypoxic respiratory failure on 2-3 L/m of oxygen at home ischemic cardiomyopathy with ejection fraction of 35% obesity, BMI 43.1 Plan: This is a pleasant 66 years old male who presents with acute hypoxic respiratory failure , generalized ileus, acute renal failure Continue with Solu-Medrol, pulmonary consult Nephrology consult on the case for his renal failure, further workup is pending. Patient may need dialysis. hold blood pressure medication. Start Protonix and monitor hemoglobin Keep patient nothing by mouth, NG tube placement with surgical team consult. We will checking for C. diff Neurovascular check of the feet Labs and medication were reviewed.. Continue same treatment. Continue with symptomatic treatment. Resume home medication. Monitor lytes and vitals. DVT and GI prophylaxis. Further recommendationsas per clinical course of the patient DVT prophylaxis: eliquis GI Prophylaxis: Ppi PT/OT: Pending, Deferred for now Prognosis is guarded CODE STATUS: No code, confirmed with based on his wishes
--- NOTE | 2021-12-10 12:43 | P.CNPUL ---
History of Present Illness Consult date: 12/10/21 Requesting physician: Vladimir E Sheet Reason for consult: dyspnea, cough, COPD, other Chief complaint: Shortness of breath History of present illness: This is a 66-year-old white male with history of multiple medical problems including morbid obesity, severe ischemic cardiomyopathy and LV dysfunction with ejection fraction of 35%. History of severe COPD. Patient is normally on oxygen and he has BiPAP at home. Patient presented to the ER yesterday with similar symptoms as he had on the last admission. Patient was discharged from the hospital about 10 days ago 11/28/2021, at the time he had COPD exacerbation and right lower lobe pneumonia, and he was seen by our team on consultation incl tabitha glaser and Dr. Ramsey. Patient has been basically bedbound for the last 10 days, unable to walk, developing abdominal distention and constipation. Developing worsening shortness of breath. Complaining of intermittent abdominal discomfort. Not making much urine. He had no nausea no vomiting, no melena, no hematemesis. Chest x-ray on admission showed mostly bibasilar atelectasis, no evidence of failure and no evidence of pneumonia. CT of the abdomen and pelvis showed dilated large and small bowel loops consistent with generalized ileus, no free air. There is also atelectasis at the right lung base CBC showed no evidence of leukocytosis, hemoglobin was 9.7 patient was noted to have hyponatremia and hyperkalemia with a sodium of 128 potassium 5.8 his BUN was 157 creatinine 4.10 and has been rising over the last 24 hours. Troponin was elevated BNP level was over 4000. Patient was on BiPAP when I saw him and I recommended an ABG showed a pO2 of 107 pCO2 of 56 pH of 7.3 to this was on 40% FiO2. With IPAP of 14 and EPAP of 7. Considering the patient's overall poor clinical status and multiple issues to deal with, I recommended immediate transfer of the patient to the ICU. In the meantime I discussed the CODE STATUS with the patient and his at bedside, apparently the patient had previously expressed wishes to be DO NOT RESUSCITATE. Nonetheless I will transfer the patient to the ICU and he will need to be seen by different consultants including nephrology. I kept him on BiPAP, and cut down his FiO2 down to 35%. Patient was kept on bronchodilators in the form of DuoNeb, he was given 1 dose of Rocephin in the ER. He is also on eliquis and on amiodarone for his history of atrial fibrillation . Nasogastric tube was ordered since the patient has a significantly distended abdomen and abnormal CT of the abdomen and pelvis. Looking back at notes from Dr. Ramsey, patient is known to have history of COPD with FEV1 of 25%. Review of Systems CONSTITUTIONAL: Weakness fatigue malaise EYES: Denies change in vision. EARS, NOSE, MOUTH, THROAT: Denies headaches, denies sore throat. CARDIOVASCULAR: Positive for chest pain, no palpitations or syncopal episodes. RESPIRATORY: Chronic shortness of breath GASTROINTESTINAL: As noted in HPI GENITOURINARY: Denies hematuria, denies infections. MUSKULOSKELETAL: Denies pain, denies swelling. INTEGUMENTARY: Chronic psoriasis and chronic skin changes related to psoriasis. NEUROLOGICAL: Negative. PSYCHIATRIC: Denies anxiety, denies depression. HEMATOLOGIC/LYMPHATIC: No clotting bleeding or bruising, patient is on eliquis Past Medical History Past Medical History: Atrial Fibrillation, Chest Pain / Angina, Heart Failure, COPD, Hypertension, Myocardial Infarction ([place]) Additional Past Medical History / Comment(s): states had CT possible bronchial cyst Last Myocardial Infarction Date:: 12/02 History of Any Multi-Drug Resistant Organisms: None Reported Past Surgical History: No Surgical Hx Reported, Heart Catheterization, Heart Catheterization With Stent Past Anesthesia/Blood Transfusion Reactions: No Reported Reaction Additional Past Anesthesia/Blood Transfusion Reaction / Comment(s): states has not had anesthesia Date of Last Stent Placement:: 12/02 Past Psychological History: No Psychological Hx Reported Smoking Status: Former smoker Past Alcohol Use History: None Reported Additional Past Alcohol Use History / Comment(s): smoker from age [age] 1 ppd quit Past Drug Use History: None Reported - Past Family History Brother(s) Family Medical History: CVA/TIA Father Family Medical History: Diabetes Mellitus, Myocardial Infarction ([place]) Mother Family Medical History: No Reported History Medications and Allergies Home Medications Medication Instructions Recorded Confirmed Type Budesonide-Formot 160-4.5 Mcg 2 puff INHALATION RT-BID 11/05/16 12/09/21 History [Symbicort 160-4.5 Mcg Inhaler] Tiotropium [place] [Spiriva] 1 cap INHALATION RT-DAILY 11/05/16 12/09/21 History Albuterol Sulfate [Proair Hfa] 2 puff INHALATION RT-QID PRN 11/20/18 12/09/21 Hi story Aspirin [Adult Low Dose Aspirin EC] 81 mg PO DAILY 11/20/18 12/09/21 History Atorvastatin [Lipitor] 80 mg PO DAILY 11/20/18 12/09/21 History Potassium Chloride [Potassium 10 meq PO DAILY 11/20/18 12/09/21 History Chloride ER] lisinopriL [Prinivil] 5 mg PO DAILY 08/08/19 12/09/21 History Albuterol Nebulized [Ventolin 2.5 mg INHALATION RT-QID PRN 11/15/21 12/09/21 History Nebulized] Ascorbic Acid [Vitamin C] 1,000 mg PO DAILY 11/15/21 12/09/21 History Cholecalciferol [Vitamin D3 (125 125 mcg PO DAILY 11/15/21 12/09/21 History Mcg = 5000 Iu)] Cyanocobalamin [Vitamin B-12] 500 mcg PO DAILY 11/15/21 12/09/21 History Acetaminophen Tab [Tylenol] 500 mg PO Q6HR PRN tab 11/28/21 12/09/21 Rx Amiodarone [Cordarone] 200 mg PO BID 30 Days #60 tab 11/28/21 12/09/21 Rx Apixaban [Eliquis] 5 mg PO BID 30 Days #60 tab 11/28/21 12/09/21 Rx Digoxin [Lanoxin] 125 mcg PO DAILY 30 Days #30 tab 11/28/21 12/09/21 Rx Furosemide [Lasix] 40 mg PO DAILY 30 Days #30 tab 11/28/21 12/09/21 Rx Ipratropium-Albuterol Nebulize 3 ml INHALATION RT-Q4H PRN ml 11/28/21 12/09/21 Rx [Duoneb 0.5 mg-3 mg/3 ml Soln] Ipratropium-Albuterol Nebulize 3 ml INHALATION RT-QID 30 Days 11/28/21 12/09/21 Rx [Duoneb 0.5 mg-3 mg/3 ml Soln] #120 dose Metoprolol Tartrate [Lopressor] 75 mg PO TID 30 Days #270 tab 11/28/21 12/09/21 Rx amLODIPine [Norvasc] 10 mg PO DAILY 30 Days #30 tab 11/28/21 12/09/21 Rx predniSONE See Taper PO DIRECTED 12/09/21 12/09/21 History Allergies Allergy/AdvReac Type Severity Reaction Status Date / Time No Known Allergies Allergy Verified 12/09/21 18:12 Physical Exam Vitals: Vital Signs Temp Pulse Pulse Resp BP BP Pulse Ox 12/10/21 11:14 69 18 12/10/21 11:06 63 18 12/10/21 08:00 97.6 F 61 34 H 103/58 12/10/21 07:35 68 12/10/21 07:24 65 12/10/21 04:00 97.9 F 58 L 32 H 97/63 98 12/10/21 02:00 40 H 12/10/21 00:00 58 L 40 H 92/58 97 12/09/21 23:00 32 H 12/09/21 22:41 59 L 36 H 88/51 98 12/09/21 21:54 58 L 18 98/54 100 12/09/21 20:55 58 L 18 98/54 100 12/09/21 19:43 56 L 18 103/36 100 12/09/21 19:13 55 L 35 H 101/36 97 12/09/21 18:40 56 L 38 H 89/49 100 12/09/21 17:22 58 L 44 H 95/36 100 12/09/21 17:20 64 12/09/21 17:16 47 H 12/09/21 17:08 97.7 F 80 48 H 109/69 100 Intake and Output 12/09/21 12/10/21 12/10/21 22:59 06:59 14:59 Intake Total 100 Output Total 450 Balance 100 -450 Intake: Intake, IV Titration 100 Amount Sodium Chloride 0.9% 1, 100 000 ml @ 100 mls/hr IV . Q10H [facility] Rx#:[id number] Output: Urine 450 Other: Voiding Method Indwelling Catheter Indwelling Catheter Weight 127.006 kg 144 kg GENERAL EXAM: Morbidly obese pleasant 66-year-old gentleman. On BiPAP HEAD: Normocephalic. EYES: Normal reaction of pupils, equal size. NOSE: Clear with pink turbinates. THROAT: No erythema or exudates. Mallampati class IV. NECK: Short obese neck, no neck masses. CHEST: No chest wall deformity. LUNGS: Symmetrical chest expansion, diminished breath sounds at the bases, some wheezing on forced expiratory maneuver. CVS: Regular rhythm, distant S1 and S2, no S3 gallop, no murmur. ABDOMEN: Morbidly obese, distended, slightly tender on palpation. No bowel sounds. SKIN: Chronic rashes related to psoriasis involving upper and lower extremities. CENTRAL NERVOUS SYSTEM: Alert and oriented 3, no gross focal deficit.. EXTREMITIES: Trace edema lower extremities bilaterally.. Psoriasis changes in both lower extremities, diminished distal pulses Results - Laboratory Findings CBC and BMP: 12/10/21 07:58 12/10/21 07:53 ABG ABG pH 7.32 (7.35-7.45) L 12/10/21 11:05 ABG pCO2 56 mmHg (35-45) H 12/10/21 11:05 ABG pO2 107 mmHg (83-108) 12/10/21 11:05 ABG O2 Saturation 98.2 % (94-97) H 12/10/21 11:05 PT/INR, D-dimer PT 12.6 sec (9.0-12.0) H 12/09/21 17:22 INR 1.2 (<1.2) H 12/09/21 17:22 Abnormal lab findings: Abnormal Labs 12/09/21 12/09/21 12/09/21 17:22 17:22 17:22 RBC 3.47 L Hgb 11.5 L Hct 35.8 L MCV 103.1 H D Lymphocytes # (Manual) 0.32 L Metamyelocytes # (Man) PT 12.6 H INR 1.2 H APTT 31.6 H ABG pH ABG pCO2 ABG HCO3 ABG Total CO2 ABG O2 Saturation Sodium 128 L Potassium 5.6 H Chloride 87 L BUN 157 H* Creatinine 4.10 H Glucose POC Glucose (mg/dL) Calcium 7.2 L Magnesium 3.1 H Lactate Dehydrogenase Troponin I Total Protein 5.7 L Albumin 3.0 L Urine Blood Urine RBC Urine Bacteria Hyaline Casts 12/09/21 12/09/21 12/09/21 17:22 20:54 21:20 RBC Hgb Hct MCV Lymphocytes # (Manual) Metamyelocytes # (Man) PT INR APTT ABG pH ABG pCO2 ABG HCO3 ABG Total CO2 ABG O2 Saturation Sodium Potassium Chloride BUN Creatinine Glucose POC Glucose (mg/dL) Calcium Magnesium Lactate Dehydrogenase Troponin I 0.110 H* 0.095 H* Total Protein Albumin Urine Blood Moderate H Urine RBC 101 H Urine Bacteria Occasional H Hyaline Casts 3 H 12/10/21 12/10/21 12/10/21 00:41 07:53 07:53 RBC Hgb Hct MCV Lymphocytes # (Manual) Metamyelocytes # (Man) PT INR APTT ABG pH ABG pCO2 ABG HCO3 ABG Total CO2 ABG O2 Saturation Sodium 128 L Potassium 5.8 H Chloride 90 L BUN 172 H* Creatinine 4.16 H Glucose 104 H POC Glucose (mg/dL) Calcium 6.6 L Magnesium Lactate Dehydrogenase 1127 H Troponin I 0.098 H* Total Protein Albumin Urine Blood Urine RBC Urine Bacteria Hyaline Casts 12/10/21 12/10/21 12/10/21 07:58 10:58 11:05 RBC 2.92 L Hgb 9.7 L D Hct 30.6 L MCV 104.9 H Lymphocytes # (Manual) 0.22 L Metamyelocytes # (Man) 0.15 H PT INR APTT ABG pH 7.32 L ABG pCO2 56 H ABG HCO3 29 H ABG Total CO2 30 H ABG O2 Saturation 98.2 H Sodium Potassium Chloride BUN Creatinine Glucose POC Glucose (mg/dL) 119 H Calcium Magnesium Lactate Dehydrogenase Troponin I Total Protein Albumin Urine Blood Urine RBC Urine Bacteria Hyaline Casts - Diagnostic Findings Chest x-ray: image reviewed (As noted in HPI) Additional studies: CT of the abdomen and pelvis: As noted in HPI Assessment and Plan Assessment: Impression: Acute on chronic hypoxic and hypercapnic respiratory failure secondary to COPD, obesity/hypoventilation syndrome, obstructive sleep apnea syndrome. No clear- cut evidence of pneumonia based on chest x-ray Acute generalized ileus Acute kidney injury Paroxysmal atrial fibrillation Ischemic cardiomyopathy and LV dysfunction with ejection fraction of 35% Morbid obesity with BMI of 43.1 Hyponatremia and hyperkalemia secondary to acute kidney injury and renal failure, doubt adrenal insufficiency. Elevated troponin Benign essential hypertension Medical debility History of coronary artery disease and previous cardiac catheterization in 2019. Recommendation: Discussed and reviewed the patient status with his at bedside. Arrange for the patient to be transferred to the ICU. Resume present medications and will initiate a neurology as well as general surgery consultation. Nasogastric tube to be placed. Continue BiPAP. Continue bronchodilators. Check bladder pressure while in the ICU. Hold blood pressure medications for now since the patient is normotensive. May need hemodialysis. Discussed CODE STATUS with the , and the patient is now DO NOT RESUSCITATE. We will continue to follow. Considering the multiple morbidities, prognosis is extremely poor and guarded. We'll continue to follow. Time with Patient: Greater than 30
[2021-12-10] MEDS ORDERED: DOBUTamine DRIP 500 MG in DEXTROSE/WATER 1 250ML.BAG IV SCH (12:45)
--- NOTE | 2021-12-10 12:50 | XR ---
EXAMINATION TYPE: XR chest 1V portable DATE OF EXAM: 12/10/2021 COMPARISON: 12/09/2021 INDICATION: Post NG tube insertion TECHNIQUE: Single frontal view of the chest is obtained. FINDINGS: The heart size is normal. The pulmonary vasculature is normal. The lungs are clear. Nasogastric tube appears to transverse the thorax. The distal tip appears to be out of the field of v iew of the distal portion of the nasogastric tube poorly visualized due to degree of penetration. IMPRESSION: 1. No acute pulmonary process. 2. Nasogastric tube appears to transverse the thorax.
--- NOTE | 2021-12-10 13:39 | P.GSCN ---
History of Present Illness Consult date: 12/10/21 History of present illness: Patient seen and evaluated. at bedside. Gen. surgery consulted due to ileus per computed tomography scan. Additional history obtained. Right reports that patient's never had a colonoscopy. I personally reviewed his computed tomography scan with features of questionable obstruction along the sigmoid colon where neoplasm versus diverticulosis cannot be entirely excluded. Patient is on BiPAP with moderate abdominal distention. Abdomen is soft. No peritonitis. Patient is currently on a regular diet. Recommend downgrading diet to liquids. Recommend inpatient colonoscopy due to abnormal CT findings and no prior history of colonoscopy as neoplasm cannot be excluded. Patient has a nasogastric tube with dark output. Recommend Protonix 40 mg twice daily. Patient has severe pneumonia and recent readmission less than 2 weeks ago. We'll continue to monitor. Recommend follow-up abdominal x-rays due to abdominal distention. Continue NG tube. Hold blood thinner due to bleeding from from stomach. Past Medical History Past Medical History: Atrial Fibrillation, Chest Pain / Angina, Heart Failure, COPD, Hypertension, Myocardial Infarction ([place]) Additional Past Medical History / Comment(s): states had CT possible bronchial cyst Last Myocardial Infarction Date:: 12/02 History of Any Multi-Drug Resistant Organisms: None Reported Past Surgical History: No Surgical Hx Reported, Heart Catheterization, Heart Catheterization With Stent Past Anesthesia/Blood Transfusion Reactions: No Reported Reaction Additional Past Anesthesia/Blood Transfusion Reaction / Comm: states has not had anesthesia Date of Last Stent Placement:: 12/02 Past Psychological History: No Psychological Hx Reported Smoking Status: Former smoker Past Alcohol Use History: None Reported Additional Past Alcohol Use History / Comment(s): smoker from age [age] 1 ppd quit Past Drug Use History: None Reported - Past Family History Brother(s) Family Medical History: CVA/TIA Father Family Medical History: Diabetes Mellitus, Myocardial Infarction ([place]) Mother Family Medical History: No Reported History Medications and Allergies Home Medications Medication Instructions Recorded Confirmed Type Budesonide-Formot 160-4.5 Mcg 2 puff INHALATION RT-BID 11/05/16 12/09/21 History [Symbicort 160-4.5 Mcg Inhaler] Tiotropium [place] [Spiriva] 1 cap INHALATION RT-DAILY 11/05/16 12/09/21 History Albuterol Sulfate [Proair Hfa] 2 puff INHALATION RT-QID PRN 11/20/18 12/09/21 History Aspirin [Adult Low Dose Aspirin EC] 81 mg PO DAILY 11/20/18 12/09/21 History Atorvastatin [Lipitor] 80 mg PO DAILY 11/20/18 12/09/21 History Potassium Chloride [Potassium 10 meq PO DAILY 11/20/18 12/09/21 History Chloride ER] lisinopriL [Prinivil] 5 mg PO DAILY 08/08/19 12/09/21 History Albuterol Nebulized [Ventolin 2.5 mg INHALATION RT-QID PRN 11/15/21 12/09/21 History Nebulized] Ascorbic Acid [Vitamin C] 1,000 mg PO DAILY 11/15/21 12/09/21 History Cholecalciferol [Vitamin D3 (125 125 mcg PO DAILY 11/15/21 12/09/21 History Mcg = 5000 Iu)] Cyanocobalamin [Vitamin B-12] 500 mcg PO DAILY 11/15/21 12/09/21 History Acetaminophen Tab [Tylenol] 500 mg PO Q6HR PRN tab 11/28/21 12/09/21 Rx Amiodarone [Cordarone] 200 mg PO BID 30 Days #60 tab 11/28/21 12/09/21 Rx Apixaban [Eliquis] 5 mg PO BID 30 Days #60 tab 11/28/21 12/09/21 Rx Digoxin [Lanoxin] 125 mcg PO DAILY 30 Days #30 tab 11/28/21 12/09/21 Rx Furosemide [Lasix] 40 mg PO DAILY 30 Days #30 tab 11/28/21 12/09/21 Rx Ipratropium-Albuterol Nebulize 3 ml INHALATION RT-Q4H PRN ml 11/28/21 12/09/21 Rx [Duoneb 0.5 mg-3 mg/3 ml Soln] Ipratropium-Albuterol Nebulize 3 ml INHALATION RT-QID 30 Days 11/28/21 12/09/21 Rx [Duoneb 0.5 mg-3 mg/3 ml Soln] #120 dose Metoprolol Tartrate [Lopressor] 75 mg PO TID 30 Days #270 tab 11/28/21 12/09/21 Rx amLODIPine [Norvasc] 10 mg PO DAILY 30 Days #30 tab 11/28/21 12/09/21 Rx predniSONE See Taper PO DIRECTED 12/09/21 12/09/21 History Allergies Allergy/AdvReac Type Severity Reaction Status Date / Time No Known Allergies Allergy Verified 12/09/21 18:12 Surgical - Exam Vital Signs Temp Pulse Resp BP Pulse Ox 97.7 F 80 48 H 109/69 100 12/09/21 17:08 12/09/21 17:08 12/09/21 17:08 12/09/21 17:08 12/09/21 17:08 Results - Labs 12/10/21 07:58 12/10/21 07:53 Abnormal Lab Results - Last 24 Hours (Table) 12/09/21 12/09/21 12/09/21 Range/Units 17:22 17:22 17:22 RBC 3.47 L (4.30-5.90) m/uL Hgb 11.5 L (13.0-17.5) gm/dL Hct 35.8 L (39.0-53.0) % MCV 103.1 H D (80.0-100.0) fL Lymphocytes # (Manual) 0.32 L (1.0-4.8) k/uL Metamyelocytes # (Man) (0) k/uL PT 12.6 H (9.0-12.0) sec INR 1.2 H (<1.2) APTT 31.6 H (22.0-30.0) sec ABG pH (7.35-7.45) ABG pCO2 (35-45) mmHg ABG HCO3 (21-25) mmol/L ABG Total CO2 (19-24) mmol/L ABG O2 Saturation (94-97) % Sodium 128 L (137-145) mmol/L Potassium 5.6 H (3.5-5.1) mmol/L Chloride 87 L (98-107) mmol/L BUN 157 H* (9-20) mg/dL Creatinine 4.10 H (0.66-1.25) mg/dL Glucose (74-99) mg/dL POC Glucose (mg/dL) (75-99) mg/dL Calcium 7.2 L (8.4-10.2) mg/dL Magnesium 3.1 H (1.6-2.3) mg/dL Lactate Dehydrogenase (313-618) U/L Troponin I (0.000-0.034) ng/mL Total Protein 5.7 L (6.3-8.2) g/dL Albumin 3.0 L (3.5-5.0) g/dL Urine Blood (Negative) Urine RBC (0-5) /hpf Urine Bacteria (None) /hpf Hyaline Casts (0-2) /lpf 12/09/21 12/09/21 12/09/21 Range/Units 17:22 20:54 21:20 RBC (4.30-5.90) m/uL Hgb (13.0-17.5) gm/dL Hct (39.0-53.0) % MCV (80.0-100.0) fL Lymphocytes # (Manual) (1.0-4.8) k/uL Metamyelocytes # (Man) (0) k/uL PT (9.0-12.0) sec INR (<1.2) APTT (22.0-30.0) sec ABG pH (7.35-7.45) ABG pCO2 (35-45) mmHg ABG HCO3 (21-25) mmol/L ABG Total CO2 (19-24) mmol/L ABG O2 Saturation (94-97) % Sodium (137-145) mmol/L Potassium (3.5-5.1) mmol/L Chloride (98-107) mmol/L BUN (9-20) mg/dL Creatinine (0.66-1.25) mg/dL Glucose (74-99) mg/dL POC Glucose (mg/dL) (75-99) mg/dL Calcium (8.4-10.2) mg/dL Magnesium (1.6-2.3) mg/dL Lactate Dehydrogenase (313-618) U/L Troponin I 0.110 H* 0.095 H* (0.000-0.034) ng/mL Total Protein (6.3-8.2) g/dL Albumin (3.5-5.0) g/dL Urine Blood Moderate H (Negative) Urine RBC 101 H (0-5) /hpf Urine Bacteria Occasional H (None) /hpf Hyaline Casts 3 H (0-2) /lpf 12/10/21 12/10/21 12/10/21 Range/Units 00:41 07:53 07:53 RBC (4.30-5.90) m/uL Hgb (13.0-17.5) gm/dL Hct (39.0-53.0) % MCV (80.0-100.0) fL Lymphocytes # (Manual) (1.0-4.8) k/uL Metamyelocytes # (Man) (0) k/uL PT (9.0-12.0) sec INR (<1.2) APTT (22.0-30.0) sec ABG pH (7.35-7.45) ABG pCO2 (35-45) mmHg ABG HCO3 (21-25) mmol/L ABG Total CO2 (19-24) mmol/L ABG O2 Saturation (94-97) % Sodium 128 L (137-145) mmol/L Potassium 5.8 H (3.5-5.1) mmol/L Chloride 90 L (98-107) mmol/L BUN 172 H* (9-20) mg/dL Creatinine 4.16 H (0.66-1.25) mg/dL Glucose 104 H (74-99) mg/dL POC Glucose (mg/dL) (75-99) mg/dL Calcium 6.6 L (8.4-10.2) mg/dL Magnesium (1.6-2.3) mg/dL Lactate Dehydrogenase 1127 H (313-618) U/L Troponin I 0.098 H* (0.000-0.034) ng/mL Total Protein (6.3-8.2) g/dL Albumin (3.5-5.0) g/dL Urine Blood (Negative) Urine RBC (0-5) /hpf Urine Bacteria (None) /hpf Hyaline Casts (0-2) /lpf 12/10/21 12/10/21 12/10/21 Range/Units 07:58 10:58 11:05 RBC 2.92 L (4.30-5.90) m/uL Hgb 9.7 L D (13.0-17.5) gm/dL Hct 30.6 L (39.0-53.0) % MCV 104.9 H (80.0-100.0) fL Lymphocytes # (Manual) 0.22 L (1.0-4.8) k/uL Metamyelocytes # (Man) 0.15 H (0) k/uL PT (9.0-12.0) sec INR (<1.2) APTT (22.0-30.0) sec ABG pH 7.32 L (7.35-7.45) ABG pCO2 56 H (35-45) mmHg ABG HCO3 29 H (21-25) mmol/L ABG Total CO2 30 H (19-24) mmol/L ABG O2 Saturation 98.2 H (94-97) % Sodium (137-145) mmol/L Potassium (3.5-5.1) mmol/L Chloride (98-107) mmol/L BUN (9-20) mg/dL Creatinine (0.66-1.25) mg/dL Glucose (74-99) mg/dL POC Glucose (mg/dL) 119 H (75-99) mg/dL Calcium (8.4-10.2) mg/dL Magnesium (1.6-2.3) mg/dL Lactate Dehydrogenase (313-618) U/L Troponin I (0.000-0.034) ng/mL Total Protein (6.3-8.2) g/dL Albumin (3.5-5.0) g/dL Urine Blood (Negative) Urine RBC (0-5) /hpf Urine Bacteria (None) /hpf Hyaline Casts (0-2) /lpf Diabetes panel 12/09/21 12/10/21 Range/Units 17:22 07:53 Sodium 128 L 128 L (137-145) mmol/L Potassium 5.6 H 5.8 H (3.5-5.1) mmol/L Chloride 87 L 90 L (98-107) mmol/L Carbon Dioxide 30 26 (22-30) mmol/L BUN 157 H* 172 H* (9-20) mg/dL Creatinine 4.10 H 4.16 H (0.66-1.25) mg/dL Glucose 95 104 H (74-99) mg/dL Calcium 7.2 L 6.6 L (8.4-10.2) mg/dL AST 56 (17-59) U/L ALT 38 (4-49) U/L Alkaline Phosphatase 78 (38-126) U/L Total Protein 5.7 L (6.3-8.2) g/dL Albumin 3.0 L (3.5-5.0) g/dL Calcium panel 12/09/21 12/10/21 Range/Units 17: 07:53 Calcium 7.2 L 6.6 L (8.4-10.2) mg/dL Albumin 3.0 L (3.5-5.0) g/dL Pituitary panel 12/09/21 12/10/21 Range/Units 17: 07:53 Sodium 128 L 128 L (137-145) mmol/L Potassium 5.6 H 5.8 H (3.5-5.1) mmol/L Chloride 87 L 90 L (98-107) mmol/L Carbon Dioxide 30 26 (22-30) mmol/L BUN 157 H* 172 H* (9-20) mg/dL Creatinine 4.10 H 4.16 H (0.66-1.25) mg/dL Glucose 95 104 H (74-99) mg/dL Calcium 7.2 L 6.6 L (8.4-10.2) mg/dL Adrenal panel 12/09/21 12/10/21 Range/Units 17:22 07:53 Sodium 128 L 128 L (137-145) mmol/L Potassium 5.6 H 5.8 H (3.5-5.1) mmol/L Chloride 87 L 90 L (98-107) mmol/L Carbon Dioxide 30 26 (22-30) mmol/L BUN 157 H* 172 H* (9-20) mg/dL Creatinine 4.10 H 4.16 H (0.66-1.25) mg/dL Glucose 95 104 H (74-99) mg/dL Calcium 7.2 L 6.6 L (8.4-10.2) mg/dL Total Bilirubin 0.7 (0.2-1.3) mg/dL AST 56 (17-59) U/L ALT 38 (4-49) U/L Alkaline Phosphatase 78 (38-126) U/L Total Protein 5.7 L (6.3-8.2) g/dL Albumin 3.0 L (3.5-5.0) g/dL
[2021-12-10] MEDS ORDERED: NOREPINEPHRIN 4 MG-0.9% NS PMX 4 MG/250 ML ML IV ONE (13:43)
[2021-12-10 13:50] LABS: Calcium 6.8 mg/dL (8.4-10.2); Potassium 5.8 mmol/L (3.5-5.1)
[2021-12-10] MEDS ORDERED: HYDROmorphone 1 MG/ML 1 ML SYRINGE IVP STA (14:19)
[2021-12-10] MEDS ORDERED: HYDROmorphone 1 MG/ML 1 ML SYRINGE ONE (14:20)
[2021-12-10] MEDS ORDERED: INSULIN REGULAR 100 UNIT/ML VIAL (IV) IV ONE (14:29)
[2021-12-10] MEDS ORDERED: DEXTROSE 50% SYRINGE 50 ML IVP STA (14:29)
[2021-12-10] MEDS ORDERED: NOREPINEPHRINE 4 MG in SODIUM CHLORIDE 0.9% 250 ML IV SCH (14:30)
[2021-12-10] MEDS: NOREPINEPHRINE 32 MG in SODIUM CHLORIDE 0.9% 218 ML IV SCH ×2 (15:04→20:19)
[2021-12-10] MEDS ORDERED: SODIUM CHLORIDE 0.9% 150 ML with VASOPRESSIN 60 UNIT IV SCH ×6 (15:45→20:13)
[2021-12-10] MEDS ORDERED: PIPERACILLIN-TAZOBACTAM 3.375 GM in SODIUM CHLORIDE 0.9% 100 ML IVPB SCH (16:00)
[2021-12-10 18:14] LABS: Glucose,Whole Blood 228 mg/dL (75-99)
--- NOTE | 2021-12-10 18:19 | PCN ---
PROCEDURE NOTE OPERATIVE REPORT: Placement of the left brachial arterial line. PREOPERATIVE DIAGNOSIS: Hypotension. POSTOPERATIVE DIAGNOSIS: Hypotension. ANESTHESIA: None deployed. PROCEDURE: The left brachial region was prepared in a sterile fashion and drapes were applied. The left brachial artery was palpated, cannulated easily and a guidewire was placed. A Cook's catheter was inserted over the guidewire, and the guidewire was removed. Good blood flow, good waveform noted, no complications. Line was secured using 3.0 silk sutures. MMODL / IJN: [id number] /
--- NOTE | 2021-12-10 18:23 | OP ---
OPERATIVE REPORT OPERATIVE REPORT: Placement of a right femoral triple-lumen catheter/central line. PREOPERATIVE DIAGNOSIS: Hypotension, possible sepsis and septic shock. He is requiring norepinephrine. POSTOPERATIVE DIAGNOSIS: Hypotension, possible sepsis and septic shock. He is requiring norepinephrine. ANESTHESIA USED: Two mL of 1% lidocaine. PROCEDURE DESCRIPTION: The patient was placed in supine position. The right groin was prepared in a sterile fashion and drapes were applied. Then the area was locally anesthetized. The right femoral vein was cannulated easily, and a guidewire was placed. The area around the guidewire was dilated. Then a triple-lumen catheter was inserted over the guidewire, and the guidewire was removed. Good blood flow was noted in the 3 different ports. Line was secured using 3.0 silk sutures. No evidence of any immediate complications. MMODL / IJN: [id number] /
[2021-12-10 18:38] VITALS: BP 110/36
[2021-12-10] MEDS ORDERED: ACETAMINOPHEN IV (For NPO) 1,000 MG in EMPTY BAG 1 BAG IVPB PRN (19:39)
[2021-12-10 20:01] LABS: Calcium 6.6 mg/dL (8.4-10.2)
[2021-12-10 20:31] LABS: Potassium 6.3 mmol/L (3.5-5.1)
[2021-12-10] MEDS ORDERED: ATROPINE OPHTH SOLN 1% 5ML BTL SUBLINGUAL PRN (20:39)
[2021-12-10] MEDS ORDERED: ONDANSETRON 4 MG/2 ML VIAL IVP PRN (20:39)
[2021-12-10] MEDS ORDERED: LORazepam 2 MG/ML INJ IV PRN (20:39)
[2021-12-10] MEDS ORDERED: MORPHINE SULFATE 4 MG/ML SYRINGE IVP ONE (20:39)
[2021-12-10] MEDS ORDERED: MORPHINE SULFATE (100 MG/2 ML) 100 MG in SODIUM CHLORIDE 0.9% 100 ML IV SCH (20:45)
[2021-12-10] MEDS ORDERED: SCOPOLAMINE 1.5MG/72HR PATCH TRANSDERM SCH (21:00)
[2021-12-10 21:40] VITALS: PULSE 97; RESP 41; TEMP 98
--- NOTE | 2021-12-11 07:49 | P.DS ---
Providers Date of admission: 12/09/21 19:31 Attending physician: Shaquille Valladares Consults: 12/09/21 19:32 Consult Physician Urgent Consulting Provider: Macy Oliva Consult Reason/Comments: acute/chronic resp failure, bipap dependance, aecopd Do you want consulting provider notified?: Yes Consult Physician Urgent Consulting Provider: Tristian Grady Consult Reason/Comments: acute renal failure Do you want consulting provider notified?: Yes 12/10/21 09:44 Consult Physician Urgent Consulting Provider: Angie Downey Consult Reason/Comments: ileus, abd pain Do you want consulting provider notified?: Yes 12/10/21 15:10 Consult Physician Urgent Consulting Provider: Daphney Goodrich Consult Reason/Comments: possible dialysis catheter Do you want consulting provider notified?: Yes [facility]: Diagnoses: Acute COPD exacerbation Acute hypoxic respiratory failure Dilated large and small bowel loops suggestive of generalized ileus. Rule out Respiratory acidosis Acute kidney injury Hyponatremia, hypovolemic Fluid overload with no evidence of pulmonary congestion Elevated troponin Macrocytic Anemia History of chronic atrial fibrillation on Eliquis hypertension, currently his blood pressure is borderline Hyperlipidemia Chronic hypoxic respiratory failure on 2-3 L/m of oxygen at home ischemic cardiomyopathy with ejection fraction of 35% obesity, BMI 43.1 Hospital course: this is a pleasant 66 yo M with past medial history of Atrial Fibrillation, on Eliquis, Chest Pain / Angina, Heart Failure, COPD, Hypertension , ischemic cardiomyopathy with ejection fraction of 35%, obesity Patient presents because of dyspnea. He was discharged from his hospital more than 10 days ago on 11/28 for acute COPD exacerbation and right lower lobe pneum onia, patient is poor historian, he has difficulty talking because of his significant dyspnea and abdominal distention. I talked to his over the phone Mrs. Xiomara Moreira with holmium after his been discharged from the hospital he was bedridden in hospital bed for the last 10-12 days, before that he was able to walk area at his been constipated since discharge which is improved with some prune juice and laxative and he was doing generally well, the last 3 days he's been having more shortness of breath, yesterday was on BiPAP most of the day, of note BiPAP was started for him after last time discharge from hospital 12 days ago. Also has been complaining from some abdominal pain for the last 1-3 days, as per he started having diarrhea about 2 times during the night and was during the day and his been complaining from some abdominal pain and tenderness today and in the the emergency room, but would not let somebody obstruction. He denies chest pain, no vomiting, no new weakness or dizziness. states that he has some blisters on his legs and feet but some is been discharged from the hospital and she was prepped and some cream for it. Patient the hospital in the critical conditions, he is been evaluated by multiple consultants including pulmonary/critical care team, business relationship manager, Gen. surgery Patient within 24 hours. Please refer to shelter for more details Patient Condition at Discharge: Stable Plan - Discharge Summary Discharge Rx Participant: No New Discharge Prescriptions: No Action Budesonide-Formot 160-4.5 Mcg [Symbicort 160-4.5 Mcg Inhaler] 2 puff INHALATION RT-BID Tiotropium Fence [Spiriva] 1 cap INHALATION RT-DAILY Potassium Chloride [Potassium Chloride ER] 10 meq PO DAILY Albuterol Sulfate [Proair Hfa] 2 puff INHALATION RT-QID PRN PRN Reason: Shortness Of Breath Aspirin [Adult Low Dose Aspirin EC] 81 mg PO DAILY Atorvastatin [Lipitor] 80 mg PO DAILY lisinopriL [Prinivil] 5 mg PO DAILY Cyanocobalamin [Vitamin B-12] 500 mcg PO DAILY Ascorbic Acid [Vitamin C] 1,000 mg PO DAILY Furosemide [Lasix] 40 mg PO DAILY 30 Days #30 tab amLODIPine [Norvasc] 10 mg PO DAILY 30 Days #30 tab Acetaminophen Tab [Tylenol] 500 mg PO Q6HR PRN tab PRN Reason: Fever And/ Or Pain Albuterol Nebulized [Ventolin Nebulized] 2.5 mg INHALATION RT-QID PRN PRN Reason: Shortness Of Breath Cholecalciferol [Vitamin D3 (125 Mcg = 5000 Iu)] 125 mcg PO DAILY Amiodarone [Cordarone] 200 mg PO BID 30 Days #60 tab Ipratropium-Albuterol Nebulize [Duoneb 0.5 mg-3 mg/3 ml Soln] 3 ml INHALATION RT-QID 30 Days #120 dose Ipratropium-Albuterol Nebulize [Duoneb 0.5 mg-3 mg/3 ml Soln] 3 ml INHALATION RT-Q4H PRN ml PRN Reason: Shortness Of Breath Or Wheezing Apixaban [Eliquis] 5 mg PO BID 30 Days #60 tab Digoxin [Lanoxin] 125 mcg PO DAILY 30 Days #30 tab Metoprolol Tartrate [Lopressor] 75 mg PO TID 30 Days #270 tab predniSONE See Taper PO DIRECTED Discharge Medication List Budesonide-Formot 160-4.5 Mcg [Symbicort 160-4.5 Mcg Inhaler] 2 puff INHALATION RT-BID 11/05/16 [History] Tiotropium Fence [Spiriva] 1 cap INHALATION RT-DAILY 11/05/16 [History] Albuterol Sulfate [Proair Hfa] 2 puff INHALATION RT-QID PRN 11/20/18 [History] Aspirin [Adult Low Dose Aspirin EC] 81 mg PO DAILY 11/20/18 [History] Atorvastatin [Lipitor] 80 mg PO DAILY 11/20/18 [History] Potassium Chloride [Potassium Chloride ER] 10 meq PO DAILY 11/20/18 [History] lisinopriL [Prinivil] 5 mg PO DAILY 08/08/19 [History] Albuterol Nebulized [Ventolin Nebulized] 2.5 mg INHALATION RT-QID PRN 11/15/21 [History] Ascorbic Acid [Vitamin C] 1,000 mg PO DAILY 11/15/21 [History] Cholecalciferol [Vitamin D3 (125 Mcg = 5000 Iu)] 125 mcg PO DAILY 11/15/21 [History] Cyanocobalamin [Vitamin B-12] 500 mcg PO DAILY 11/15/21 [History] Acetaminophen Tab [Tylenol] 500 mg PO Q6HR PRN tab 11/28/21 [Rx] Amiodarone [Cordarone] 200 mg PO BID 30 Days #60 tab 11/28/21 [Rx] Apixaban [Eliquis] 5 mg PO BID 30 Days #60 tab 11/28/21 [Rx] Digoxin [Lanoxin] 125 mcg PO DAILY 30 Days #30 tab 11/28/21 [Rx] Furosemide [Lasix] 40 mg PO DAILY 30 Days #30 tab 11/28/21 [Rx] Ipratropium-Albuterol Nebulize [Duoneb 0.5 mg-3 mg/3 ml Soln] 3 ml INHALATION RT-Q4H PRN ml 11/28/21 [Rx] Ipratropium-Albuterol Nebulize [Duoneb 0.5 mg-3 mg/3 ml Soln] 3 ml INHALATION RT-QID 30 Days #120 dose 11/28/21 [Rx] Metoprolol Tartrate [Lopressor] 75 mg PO TID 30 Days #270 tab 11/28/21 [Rx] amLODIPine [Norvasc] 10 mg PO DAILY 30 Days #30 tab 11/28/21 [Rx] predniSONE See Taper PO DIRECTED 12/09/21 [History] Follow up Appointment(s)/Referral(s): Uma Ramsey MD [Primary Care Provider] - 1-2 days Discharge Disposition: - Preliminary Cause of Preliminary Cause of : copd, bowel obstruction , renal failure
[2021-12-11] MEDS ORDERED: amLODIPine 2.5 MG TAB PO SCH (09:00)
== END 2021-12-10 21:22 | disposition expired | DRG 190 ==
LOC: EC 17:06 → 3SCARD 19:31 → 2SICU 12-10 10:55
PROVIDERS: ADMIT Hospitalist; ATTEND Hospitalist
PROC: 5A09457 Assistance with Respiratory Ventilation, 24-96 Consecutive Hours, Continuous Positive Airway Pressure (ICD-10-PCS; 2021-12-09)
PROC: 06HY33Z Insertion of Infusion Device into Lower Vein, Percutaneous Approach (ICD-10-PCS; principal; 2021-12-10)
PROC: 3E043XZ Introduction of Vasopressor into Central Vein, Percutaneous Approach (ICD-10-PCS; 2021-12-10)
PROC: 03HY32Z Insertion of Monitoring Device into Upper Artery, Percutaneous Approach (ICD-10-PCS; 2021-12-10)
PROC: 4A133B1 Monitoring of Arterial Pressure, Peripheral, Percutaneous Approach (ICD-10-PCS; 2021-12-10)
PROC: 4A133J1 Monitoring of Arterial Pulse, Peripheral, Percutaneous Approach (ICD-10-PCS; 2021-12-10)
DX: J44.1 Chronic obstructive pulmonary disease with (acute) exacerbation (principal); J96.22 Acute and chronic respiratory failure with hypercapnia; J96.21 Acute and chronic respiratory failure with hypoxia; E66.2 Morbid (severe) obesity with alveolar hypoventilation; Z68.41 Body mass index [BMI] 40.0-44.9, adult; E87.1 Hypo-osmolality and hyponatremia; I48.92 Unspecified atrial flutter; J98.11 Atelectasis; K56.7 Ileus, unspecified; K56.609 Unspecified intestinal obstruction, unspecified as to partial versus complete obstruction; N17.9 Acute kidney failure, unspecified; E87.2 Acidosis; D53.9 Nutritional anemia, unspecified; E78.5 Hyperlipidemia, unspecified; E86.1 Hypovolemia; E87.5 Hyperkalemia; G89.29 Other chronic pain; I25.10 Atherosclerotic heart disease of native coronary artery without angina pectoris; I25.2 Old myocardial infarction; I25.5 Ischemic cardiomyopathy; Z66 Do not resuscitate; Z51.5 Encounter for palliative care; I48.0 Paroxysmal atrial fibrillation; I50.9 Heart failure, unspecified; R77.8 Other specified abnormalities of plasma proteins; I11.0 Hypertensive heart disease with heart failure; L30.9 Dermatitis, unspecified; Z74.01 Bed confinement status; Z79.01 Long term (current) use of anticoagulants; Z79.51 Long term (current) use of inhaled steroids; Z79.82 Long term (current) use of aspirin; Z79.899 Other long term (current) drug therapy; Z82.3 Family history of stroke; Z82.49 Family history of ischemic heart disease and other diseases of the circulatory system; Z83.3 Family history of diabetes mellitus; Z87.891 Personal history of nicotine dependence; R19.7 Diarrhea, unspecified; Z99.81 Dependence on supplemental oxygen
CPT/HCPCS: 36415; 36600; 71045; 74176; 80048; 80053; 80162; 81001; 82570; 82805; 83605; 83615; 83735; 83880; 84156; 84484; 85025; 85610; 85730; 87040; 87205; 87324; 93005; 94640; 94660; 96361; 96374; 96375; 99285